=== PATIENT | male | born 1930 | race Caucasian/White ===

== ENCOUNTER 2017-04-19 17:05 | Inpatient (IN) | payer MEDICARE ==
[~2017-04-19] VITALS: Ht 182.9 cm; Wt 81.9 kg
[~2017-04-19 17:05] MED LIST: ACET325T9 PO; ASPI-630 PO; BISA10SU13 RC; BRIM5DRO2 OU; CETI10TA22 PO; CHOL2000 PO; CYAN10005 PO; DOCU-109 PO; DONE10TA7 PO; FINA5TAB PO; FOLI1TAB16 PO; HYDR25CA75 PO; LISI-334 PO; MAG30ORA PO; MAGN2400 PO; MEDR2.5T PO; METH29OI TP; MIRT15TA3 PO; OLAN5TAB5 PO; POLY17PO5 PO; QUET25TA PO; SIMV10TA3 PO; THIA100T8 PO; TRAM-48 PO; TRAZ50TA15 PO
[2017-04-19] MEDS ORDERED: diphenhydrAMINE 50 MG/ML VIAL IM ONE (18:00)
[2017-04-19] MEDS ORDERED: LORazepam 2 MG/ML VIAL IM ONE (18:00)
--- NOTE | 2017-04-19 18:12 | ED.ADGEN ---
Past History Past Medical History: Dementia, Other Past Surgical History: No Surgical History Alcohol Use: None Drug Use: None Adult General Chief Complaint Chief Complaint "Get out of here... " Get out of here" HPI HPI Patient is a 87 year old male who presents with hx.of disruptive behavior, more aggressive, striking staff and other patients, non-compliant, impossible to re- direct, taking off his clothes, exacerbation of his chronic dementia. Pt. [facility]. Hx. also of Elevated cholesterol, glaucoma , insomnia, Congenital Iodine def. , HTN, PE and DVT, enlarge prostate, constipation, generalized deconditioning, Seizure disorder, Anemia, Hematuria and DJD. Pt. follows with Dr. Alphonse Ramos . ` Review of Systems Review of Systems Constitutional: Denies fever or chills [] Eyes: Denies change in visual acuity, redness, or eye pain [] HENT: Denies nasal congestion or sore throat [] Respiratory: Denies cough or shortness of breath [] Cardiovascular: No additional information not addressed in HPI [] GI: Denies abdominal pain, nausea, vomiting, bloody stools or diarrhea [] : Denies dysuria or hematuria [] Musculoskeletal: Denies back pain or joint pain [] Integument: Denies rash or skin lesions [] Neurologic: Denies headache, focal weakness or sensory changes [] Endocrine: Denies polyuria or polydipsia [] All other systems were reviewed and found to be within normal limits, except as documented in this note. Family History Family History Not currently avialable Current Medications Current Medications Current Medications Medications (Trade) Dose Ordered Sig/José Start Time Stop Time Status Last Admin Dose Admin Diphenhydramine HCl (Benadryl) 50 mg 1X ONCE 04/19/17 18:00 04/19/17 18:01 DC 04/19/17 18:00 50 MG Folic Acid 5 mg STK-MED ONCE 04/19/17 20:56 04/19/17 20:57 DC Lactated Ringer's 1,000 ml @ 1,000 mls/hr Q1H 04/19/17 18:15 Lorazepam (Ativan) 2 mg 1X ONCE 04/19/17 18:00 04/19/17 18:01 DC 04/19/17 18:00 2 MG Multivitamins/ Minerals 10 ml/ Folic Acid 1 mg/ Thiamine HCl 100 mg/Sodium Chloride 1,011.1 ml @ 1,000 mls/ hr 1X ONCE 04/19/17 19:30 04/19/17 20:30 DC 04/19/17 19:30 1,000 MLS/HR Olanzapine (ZyPREXA IM) 10 mg 1X ONCE 04/19/17 18:30 04/19/17 18:31 DC 04/19/17 18:30 10 MG Phytonadione (Vitamin K) 10 mg STK-MED ONCE 04/19/17 20:55 04/19/17 20:56 DC Thiamine HCl 200 mg STK-MED ONCE 04/19/17 20:55 04/19/17 20:56 DC See Nursing Allergies Allergies Allergies Coded Allergies Type Severity Reaction Last Updated Verified No Known Drug Allergies 11/12/14 No Physical Exam Physical Exam Constitutional: in acute emotional distress, very agitated in appearance. Hitting staff. Will not re-direct. HENT: Normocephalic, atraumatic, bilateral external ears normal, oropharynx moist, no oral exudates, nose normal. [] Eyes: PERRLA, EOMI, conjunctiva normal, no discharge. [] Neck: Normal range of motion, no tenderness, supple, no stridor. [] Cardiovascular:Tachycardia rate regular rhythm, no murmur [] Lungs & Thorax: Bilateral breath sounds clear to auscultation [] Abdomen: Bowel sounds normal, soft, no tenderness, no masses, no pulsatile masses. [] Skin: Warm, dry, no erythema, no rash. Poor turgor. Back: No tenderness, no CVA tenderness. [] Extremities: No tenderness, no cyanosis, no clubbing, ROM intact, no edema. [] Arthritic changes. Neurologic: Alert and oriented X 3, normal motor function, normal sensory function, no focal deficits noted. [] Psychologic: Affect angry and agitated, , judgement lacks insight, mood depressed. Current Patient Data Vital Signs Vital Signs Date Time Temp Pulse Resp B/P (MAP) Pulse Ox O2 Delivery O2 Flow Rate FiO2 04/19/17 21:20 84 93 04/19/17 21:12 18 100/37 (58) 04/19/17 17:30 98.3 Lab Results Laboratory Tests Test 04/19/17 18:41 04/19/17 20:11 White Blood Count 10.3 x10^3/uL (4.0-11.0) Red Blood Count 3.99 x10^6/uL (4.30-5.70) L Hemoglobin 11.5 g/dL (13.0-17.5) L Hematocrit 34.1 % (39.0-53.0) L Mean Corpuscular Volume 85 fL (79-100) Mean Corpuscular Hemoglobin 29 pg (25-35) Mean Corpuscular Hemoglobin Concent 34 g/dL (31-37) Red Cell Distribution Width 16.5 % (11.5-14.5) H Platelet Count 246 x10^3/uL (140-400) Neutrophils (%) (Auto) 70 % (31-73) Lymphocytes (%) (Auto) 17 % (24-48) L Monocytes (%) (Auto) 10 % (0-9) H Eosinophils (%) (Auto) 2 % (0-3) Basophils (%) (Auto) 1 % (0-3) Neutrophils # (Auto) 7.2 x10^3uL (1.8-7.7) Lymphocytes # (Auto) 1.8 x10^3/uL (1.0-4.8) Monocytes # (Auto) 1.1 x10^3/uL (0.0-1.1) Eosinophils # (Auto) 0.2 x10^3/uL (0.0-0.7) Basophils # (Auto) 0.1 x10^3/uL (0.0-0.2) Erythrocyte Sedimentation Rate 15 (0-15) Prothrombin Time 11.9 SEC (9.4-11.4) H Prothrombin Time INR 1.2 (0.9-1.1) H PTT 27 SEC (23-33) Sodium Level 145 mmol/L (136-145) Potassium Level 4.3 mmol/L (3.5-5.1) Chloride Level 106 mmol/L (98-107) Carbon Dioxide Level 28 mmol/L (21-32) Anion Gap 11 (6-14) Blood Urea Nitrogen 57 mg/dL (8-26) H Creatinine 2.3 mg/dL (0.7-1.3) H Estimated GFR (Cockcroft-Gault) 26.9 Glucose Level 112 mg/dL (70-99) H Calcium Level 9.4 mg/dL (8.5-10.1) Magnesium Level 2.3 mg/dL (1.8-2.4) Troponin I Quantitative 0.093 ng/mL (0-0.055) H Urine Collection Type U cath Urine Color Lizbet Urine Clarity Hazy Urine pH 5.5 Urine Specific [place] 1.025 Urine Protein 100 mg/dl (NEG-TRACE) Urine Glucose (UA) Neg mg/dL (NEG) Urine Ketones (Stick) Neg mg/dL (NEG) Urine Blood Large (NEG) Urine Nitrite Neg (NEG) Urine Bilirubin Neg (NEG) Urine Urobilinogen Dipstick 0.2 mg/dL (0.2 mg/dL) Urine Leukocyte Esterase Neg (NEG) Urine RBC Tntc /HPF (0-2) Urine WBC 0 /HPF (0-4) Urine Squamous Epithelial Cells None /LPF Urine Bacteria 0 /HPF (0-FEW) Urine Opiates Screen Pos (NEG) Urine Methadone Screen Neg (NEG) Urine Barbiturates Neg (NEG) Urine Phencyclidine Screen Neg (NEG) Urine Amphetamine/Methamphetamine Neg (NEG) Urine Benzodiazepines Screen Neg (NEG) Urine Cocaine Screen Neg (NEG) Urine Cannabinoids Screen Neg (NEG) Urine Ethyl Alcohol Neg (NEG) EKG EKG I interpretation of EKG shows a A. fib with ventricular tachycardia 103 bpm. Is a regular rhythm[] Radiology/Procedures Radiology/Procedures []CT head shows encephalomalacia from prior left occipital infarct. Does have chronic changes and atrophy. Findings of dictation of chest x-ray shows COPD type pattern. Course & Med Decision Making Course & Med Decision Making Pertinent Labs and Imaging studies reviewed. (See chart for details)- Discussed presentation, testing and tx. plan with Dr. Holguin- Admit to Dr. Watkins at [facility], she will follow the medical issues. [] Final Impression Final Impression 1. Mental Status Change 2. Aggressive Behavior[] 3. Anemia 4. Elevated Trop. 5. Elevated Creat and Bun 6. Demential 7. Hx. Congenital Iodine Def. 8. Hx. HTN 9. COPD 10. History of old CVAs Problems: Dragon Disclaimer Dragon Disclaimer This electronic medical record was generated, in whole or in part, using a voice recognition dictation system. AARON JC MD Apr 19, 2017 18:12
[2017-04-19] MEDS ORDERED: IV RINGERS SOLUTION,LACTATED 1,000 ML IV SCH (18:15)
[2017-04-19] MEDS ORDERED: OLANZapine IM 10 MG VIAL. IM ONE (18:30)
[2017-04-19 19:02] LABS: BASO # 0.1 x10^3/uL (0.0-0.2); BASO % 1 % (0-3); EOS # 0.2 x10^3/uL (0.0-0.7); EOS % 2 % (0-3); HEMATOCRIT 34.1 % (39.0-53.0); HEMOGLOBIN 11.5 g/dL (13.0-17.5); LYMPH # 1.8 x10^3/uL (1.0-4.8); LYMPH % 17 % (24-48); MEAN CORPUSCULAR HEMOGLOBIN 29 pg (25-35); MEAN CORPUSCULAR HGB CONC 34 g/dL (31-37); MEAN CORPUSCULAR VOLUME 85 fL (79-100); MONO # 1.1 x10^3/uL (0.0-1.1); MONO % 10 % (0-9); NEUT # 7.2 x10^3uL (1.8-7.7); NEUT % 70 % (31-73); PLATELET COUNT 246 x10^3/uL (140-400); RED BLOOD COUNT 3.99 x10^6/uL (4.30-5.70); RED CELL DISTRIBUTION WIDTH 16.5 % (11.5-14.5); WHITE BLOOD COUNT 10.3 x10^3/uL (4.0-11.0)
[2017-04-19 19:10] LABS: CALCIUM 9.4 mg/dL (8.5-10.1); CREATININE 2.3 mg/dL (0.7-1.3); GFR 26.9; MAGNESIUM 2.3 mg/dL (1.8-2.4); POTASSIUM 4.3 mmol/L (3.5-5.1)
--- NOTE | 2017-04-19 19:22 | RAD ---
CT Head W/O Contrast: History: [id number] Mental status changes, combative, confused tonight. No priors. Comparison: none Axial images were obtained without contrast. There is marked diffuse atrophy. There is no mass effect, extraaxial fluid collections or hydrocephalus. There is no gross bleed. Minimal, patchy periventricular and subcortical white matter hypoattenuation is seen. There is encephalomalacia in the left occipital lobe consistent with an old stroke. There is no focal loss of zavala-white matter distinction to suggest acute ischemia, i.e. stroke. 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 No acute findings. PQRS Compliance Statement: One or more of the following individualized dose reduction techniques were utilized for this examination: 1. Automated exposure control 2. Adjustment of the mA and/or kV according to patient size 3. Use of iterative reconstruction technique Electronically signed by: Major Swift III, MD (04/19/2017 7:18 PM) [facility]
[2017-04-19] MEDS ORDERED: MVI, ADULT NO.4 WITH VIT K 10 ML, FOLIC ACID SYRINGE for ER 1 MG, THIAMINE 100 MG in IV... IV ONE ×4 (19:30)
[2017-04-19 20:40] LABS: BARBITURATES NEG (NEG); BENZODIAZEPINES NEG (NEG); BILIRUBIN,URINE NEG (NEG); CANNABINOIDS NEG (NEG); CLARITY,URINE HAZY; COCAINE NEG (NEG); COLOR,URINE AMBER; GLUCOSE,URINE NEG (NEG); METHADONE NEG (NEG); OPIATES POS (NEG); PHENCYCLIDINE NEG (NEG)
[2017-04-19 20:42] LABS: NITRITE,URINE NEG (NEG); UROBILINOGEN,URINE 0.2 mg/dL (0.2 mg/dL)
[2017-04-19 20:43] LABS: BACTERIA,URINE 0 /HPF (0-FEW); RBC,URINE TNTC /HPF (0-2); WBC,URINE 0 /HPF (0-4)
[2017-04-19 20:45] LABS: AMPHETAMINE/METHAMPHETAMINE NEG (NEG)
[2017-04-19] MEDS ORDERED: THIAMINE 200 MG/2 ML VIAL. IV ONE (20:55)
[2017-04-19] MEDS ORDERED: PHYTONADIONE 10 MG/ML AMPUL. ONE (20:55)
[2017-04-19] MEDS ORDERED: FOLIC ACID 5 MG/ML SYRINGE for ER IV ONE (20:56)
[2017-04-19] MEDS ORDERED: FERR-26 PO (23:04)
[2017-04-19] MEDS ORDERED: QUET100T4 PO (23:04)
[2017-04-19] MEDS ORDERED: DICL100G18 TP (23:04)
[2017-04-19] MEDS ORDERED: TAMS0.4C97 PO (23:04)
[2017-04-19] MEDS ORDERED: MAGN400O7 PO (23:04)
[2017-04-19] MEDS ORDERED: ACET500T68 PO (23:04)
[2017-04-19] MEDS ORDERED: QUET50TA5 PO (23:04)
[2017-04-19] MEDS ORDERED: TRIA15CR3 TP (23:25)
[2017-04-19] MEDS ORDERED: MAG30ORA2 PO (23:25)
[2017-04-19] MEDS ORDERED: hydrOXYzine PAMOATE 25 MG CAPSULE PO PRN (23:30)
[2017-04-19 23:41] VITALS: BP 153/71
[2017-04-20 05:51] VITALS: BP 123/62
[2017-04-20] MEDS ORDERED: METHYL SALICYLATE/MENTHOL TOPICAL OINTMENT 29GM TUBE. TP PRN (07:45)
[2017-04-20] MEDS ORDERED: MAGNESIUM HYDROXIDE 2,400 MG/30 ML ORAL.SUSP. PO PRN (07:45)
[2017-04-20] MEDS ORDERED: DICLOFENAC SODIUM 1% TOPICAL GEL 100GM TUBE. TP PRN (07:45)
[2017-04-20] MEDS ORDERED: traMADol 50 MG TABLET PO PRN (07:45)
[2017-04-20] MEDS ORDERED: TRIAMCINOLONE ACETONIDE 0.1% TOPICAL CREAM 15GM TUBE. TP PRN (07:45)
[2017-04-20] MEDS ORDERED: MAG HYDROX/AL HYDROX/SIMETH 30 ML ORAL.SUSP PO PRN (07:45)
--- NOTE | 2017-04-20 08:10 | RAD ---
Single view of the Chest 04/19/2017 8:07 PM Indication: cough Comparison: None Findings: There is no focal consolidation or infiltrate identified. There is no effusion or pneumothorax. The aorta is calcified and mildly tortuous. Heart size is top normal. No acute bony changes are identified. Impression: No evidence of acute cardiopulmonary process.
[2017-04-20] MEDS: DOCUSATE SODIUM 100 MG CAPSULE PO SCH ×2 (09:35→20:51)
[2017-04-20] MEDS: POLYETHYLENE GLYCOL 3350 17 GM PACKET. PO SCH (09:35)
[2017-04-20] MEDS: CYANOCOBALAMIN (VITAMIN B-12) 1,000 MCG TABLET. PO SCH (09:36)
[2017-04-20] MEDS: DONEPEZIL HCL 10 MG TABLET PO SCH (09:36)
[2017-04-20] MEDS: FOLIC ACID 1 MG TABLET PO SCH (09:36)
[2017-04-20] MEDS: FINASTERIDE 5 MG TABLET PO SCH (09:36)
[2017-04-20] MEDS: FERROUS SULFATE 325 MG TABLET. PO SCH ×2 (09:36→20:51)
[2017-04-20] MEDS: CHOLECALCIFEROL (VITAMIN D3) 1,000 UNIT TABLET PO SCH (09:36)
[2017-04-20] MEDS: THIAMINE 100 MG TABLET. PO SCH (09:36)
[2017-04-20] MEDS: QUEtiapine 50 MG TABLET. PO SCH (09:37)
[2017-04-20] MEDS: ASPIRIN 81 MG TAB.CHEW PO SCH (09:40)
[2017-04-20] MEDS: BRIMONIDINE 0.2% OPHTH SOLUTION 5ML BOTTLE. OU SCH ×2 (09:40→21:00)
[2017-04-20] MEDS: TIMOLOL 0.5% OPHTH SOLUTION 5ML BOTTLE. OU SCH ×2 (09:40→21:00)
--- NOTE | 2017-04-20 10:47 | EKG ---
[address] [address] Test Date: 2017-04-19 Test Time: 18:53:12 Pat Name: [address] Department: Room: [facility] 1 Gender: M Mail Manager: DANNA : 1930 Requested By: AARON JC Order Number: [id number] Reading MD: Broderick Marroquin MD Measurements Intervals [place] Rate: 103 P: WI: QRS: 36 QRSD: 88 T: 2 QT: 376 QTc: 495 Interpretive Statements ATRIAL FIBRILLATION WITH RVR NON-SPECIFIC ST/T CHANGES Electronically Signed On 04-27-2017 13:55:25 SALES CORRESPONDENT by Broderick Marroquin MD
[2017-04-20 10:59] LABS: ALBUMIN 3.2 g/dL (3.4-5.0); ALBUMIN/GLOBULIN RATIO 0.8 (1.0-1.7); CALCIUM 9.3 mg/dL (8.5-10.1); CREATININE 2.1 mg/dL (0.7-1.3); GFR 29.9; POTASSIUM 4.7 mmol/L (3.5-5.1); TOTAL BILIRUBIN 0.7 mg/dL (0.2-1.0); TOTAL PROTEIN 7.2 g/dL (6.4-8.2)
[2017-04-20] MEDS: PRENATAL MULTIVITAMIN TABLET. PO SCH (16:50)
[2017-04-20] MEDS: IV DEXTROSE 5% 1,000 ML IV SCH (18:06)
--- NOTE | 2017-04-20 19:09 | HP ---
ADMIT DATE: 04/19/2017 [facility] REASON FOR ADMISSION TO [facility]: This is an 87-year-old gentleman, who came from [facility] where he has resided since 2014. Apparently on 04/18/2017, he was taking off his clothes more aggressive with cares, threatening to hit, hitting and bothering staff, noncompliant with care. Onset of symptoms, end of March. He has also been requiring one-to-one. PAST MEDICAL HISTORY: Dementia, unspecified; glaucoma; severe hearing loss; insomnia; iodine deficiency; hypertension; history of DVT; bilateral lower extremities; BPH; and some type of anemia. MEDICATIONS: Reviewed, available on the MAR. ALLERGIES: None. SOCIAL HISTORY: Unknown. He resides in a [facility]. The patient really refused to answer any questions and even when I was using the pocket talker would not answer me with any questions. He did tell me that he was 70 years old. REVIEW OF SYSTEMS: The patient complains of being cold. SOCIAL HISTORY: Smoking and alcohol unknown. OBJECTIVE: VITAL SIGNS: Blood pressure 123/62, pulse 73, temperature 98.2, pulse ox 95% on room air. Height 72 inches, weight 179.44 pounds. GENERAL: The patient is seated in a wheelchair. He is awake and complaining of being cold. Color is pale. HEENT: Hearing is impaired. Vision also impaired, but would not let me examine his eyes, would not let me look at his tongue. CARDIOVASCULAR: Regular rhythm and rate. LUNGS: Clear. EXTREMITIES: Without edema. NEUROLOGIC: The patient would not cooperate with neurologic exam and stated to get me out of here. LABORATORY DATA: Hemoglobin 11.5, hematocrit 34.1. Chemistry: Sodium 146, chloride 110, BUN 50, creatinine of 2.1. Iron 26. B12 greater than 2000. Vitamin D is normal. ASSESSMENT: Acute renal failure, which has improved with some IV fluids. Hypernatremia secondary to dehydration. Iron deficiency. PLAN: Should get a liter of D5W and replace his iron. Follow along with Dr. Watkins. AL MUÑOZ DO DR: KEVIN/brian JOB#: [id number] / [id number]
[2017-04-20 20:07] LABS: THYROXINE 6.9 ug/dL (4.5-12.0)
[2017-04-20] MEDS: traZODone 50 MG TABLET. PO SCH (20:50)
[2017-04-20] MEDS: MIRTAZAPINE 15 MG TABLET PO SCH (20:51)
[2017-04-20] MEDS: SIMVASTATIN 20 MG TABLET PO SCH (20:51)
[2017-04-20] MEDS: TAMSULOSIN 0.4 MG CAP.ER.24H. PO SCH (20:51)
[2017-04-20] MEDS: QUEtiapine 100 MG TABLET. PO SCH (20:51)
--- NOTE | 2017-04-20 22:04 | PDOC ---
Exam Note: Chase Note: Please also refer to the separate dictated note~for this date of service dictated separately.~Patient seen individually. Discussed the patient with Nursing staff reviewed the chart.~Reviewed interim history and current functioning. Reviewed vital signs,~Labs/ Radiology~and current medications noted below. Continue current treatment with the changes noted in the dictated addendum note Assessment: Vital Signs: Vital Signs Date Time Temp Pulse Resp B/P (MAP) Pulse Ox O2 Delivery O2 Flow Rate FiO2 04/20/17 16:03 98.0 96 18 98 04/20/17 05:51 123/62 (82) 04/19/17 22:18 Room Air I&O Intake and Output 04/20/17 07:00 Intake Total 1011.1 ml Balance 1011.1 ml IV Total 1011.1 ml Labs: Laboratory Tests Test 04/20/17 10:17 Sodium Level 146 mmol/L (136-145) H Potassium Level 4.7 mmol/L (3.5-5.1) Chloride Level 110 mmol/L (98-107) H Carbon Dioxide Level 27 mmol/L (21-32) Anion Gap 9 (6-14) Blood Urea Nitrogen 50 mg/dL (8-26) H Creatinine 2.1 mg/dL (0.7-1.3) H Estimated GFR (Cockcroft-Gault) 29.9 BUN/Creatinine Ratio 24 (6-20) H Glucose Level 95 mg/dL (70-99) Calcium Level 9.3 mg/dL (8.5-10.1) Total Bilirubin 0.7 mg/dL (0.2-1.0) Aspartate Amino Transferase (AST) 20 U/L (15-37) Alanine Aminotransferase (ALT) 23 U/L (16-63) Alkaline Phosphatase 109 U/L (46-116) Total Protein 7.2 g/dL (6.4-8.2) Albumin 3.2 g/dL (3.4-5.0) L Albumin/Globulin Ratio 0.8 (1.0-1.7) L Current Medications: Meds: Current Medications Diphenhydramine HCl (Benadryl) 50 mg 1X ONCE IM Last administered on t 18:00; Start 04/19/17 at 18:00; Stop 04/19/17 at 18:01; Status DC Lorazepam (Ativan) 2 mg 1X ONCE IM Last administered on 04/19/17 18:00; Start 04/19/17 at 18:00; Stop 04/19/17 at 18:01; Status DC Olanzapine (ZyPREXA IM) 10 mg 1X ONCE IM Last administered on 04/19/17 18:30 ; Start 04/19/17 at 18:30; Stop 04/19/17 at 18:31; Status DC Lactated Ringer's 1,000 ml @ 1,000 mls/hr Q1H IV ; Start 04/19/17 at 18:15 Multivitamins/ Minerals 10 ml/ Folic Acid 1 mg/ Thiamine HCl 100 mg/Sodium Chloride 1,011.1 ml @ 1,000 mls/ hr 1X ONCE IV Last administered on 19:30; Start 04/19/17 at 19:30; Stop 04/19/17 at 20:30; Status DC Phytonadione (Vitamin K) 10 mg STK-MED ONCE .ROUTE ; Start 04/19/17 at 20:55; Stop 04/19/17 at 20:56; Status DC Thiamine HCl 200 mg STK-MED ONCE IV ; Start 04/19/17 at 20:55; Stop 04/19/17 at 20:56; Status DC Folic Acid 5 mg STK-MED ONCE IV ; Start 04/19/17 at 20:56; Stop 04/19/17 at 20 :57; Status DC Donepezil HCl (Aricept) 10 mg DAILY PO Last administered on 04/20/17 09:36; Start 04/20/17 at 09:00 Hydroxyzine Pamoate (Vistaril) 25 mg PRN Q2HR PRN PO AGITAT; Start 04/19/17 at 23:30 Medroxyprogesterone Acetate (Provera) 2.5 mg DAILY PO Last administered on 09:37; Start 04/20/17 at 09:00 Mirtazapine (Remeron) 15 mg QHS PO Last administered on 04/20/17 20:51; Start 04/20/17 at 21:00 Olanzapine (ZyPREXA ZYDIS) 2.5 mg PRN Q2HR PRN PO ANXIETY / AGITATION Last administered on 04/20/17 16:39; Start 04/19/17 at 23:30 Quetiapine Fumarate (SEROquel) 75 mg DAILY PO Last administered on 04/20/17 09:37; Start 04/20/17 at 09:00 Quetiapine Fumarate (SEROquel) 100 mg QHS PO Last administered on 04/20/17 20 :51; Start 04/20/17 at 21:00 Trazodone HCl (Desyrel) 75 mg QHS PO Last administered on 04/20/17 20:50; Start 04/20/17 at 21:00 Acetaminophen (Tylenol) 1,000 mg PRN Q8HRS PRN PO PAIN; Start 04/20/17 at 07: 45 Aspirin (Children'S Aspirin) 81 mg DAILY PO Last administered on 04/20/17 09: 40; Start 04/20/17 at 09:00 Cyanocobalamin (Vitamin B-12) 1,000 mcg DAILY PO Last administered on 09:36; Start 04/20/17 at 09:00 Diclofenac Sodium (Voltaren) 4 amelia PRN Q6HRS PRN TP PAIN; Start 04/20/17 at 07 :45 Docusate Sodium (Colace) 200 mg BID PO Last administered on 04/20/17 20:51; Start 04/20/17 at 09:00 Ferrous Sulfate (Feosol) 325 mg BID PO Last administered on 04/20/17 20:51; Start 04/20/17 at 09:00 Finasteride (Proscar) 5 mg DAILY PO Last administered on 04/20/17 09:36; Start 04/20/17 at 09:00 Folic Acid (Folic Acid) 1 mg DAILY PO Last administered on 04/20/17 09:36; Start 04/20/17 at 09:00 Al Hydroxide/Mg Hydroxide (Mylanta Plus Xs) 15 ml PRN QHS PRN PO INDIGESTION; Start 04/20/17 at 07:45 Magnesium Hydroxide (Milk Of Magnesia) 800 mg PRN Q24HRS PRN PO CONSTIPATION; Start 04/20/17 at 07:45 Multi-Ingredient Ointment (Analgesic Cozad) 1 amelia PRN QID PRN TP muscle pain; Start 04/20/17 at 07:45 Polyethylene Glycol (miraLAX) 17 gm DAILY PO Last administered on 04/20/17 09 :35; Start 04/20/17 at 09:00 Simvastatin (Zocor) 20 mg HS PO Last administered on 04/20/17 20:51; Start 04/20/17 at 21:00 Tamsulosin HCl (Flomax) 0.4 mg QHS PO Last administered on 04/20/17 20:51; Start 04/20/17 at 21:00 Thiamine HCl (Vitamin B-1) 100 mg DAILY PO Last administered on 04/20/17 09: 36; Start 04/20/17 at 09:00 Tramadol HCl (Ultram) 50 mg PRN Q6HRS PRN PO PAIN; Start 04/20/17 at 07:45 Triamcinolone Acetonide (Kenalog) 15 amelia PRN BID PRN TP RASH; Start 04/20/17 at 07:45 Brimonidine Tartrate (Alphagan) 1 drop BID OU Last administered on 04/20/17 09:40; Start 04/20/17 at 09:00 Vitamin D (Vitamin D3) 2,000 unit DAILY PO Last administered on 04/20/17 09: 36; Start 04/20/17 at 09:00 Timolol Maleate (Timoptic 0.5% [facility]) 1 drop BID OU Last administered on 09:40; Start 04/20/17 at 09:00 Dextrose 1,000 ml @ 100 mls/hr Q10H IV Last administered on 04/20/17 18:06; Start 04/20/17 at 16:15 Prenat Multivit/ [place]/Iron/Folic Ac (Multivitamin ) 1 tab DAILYBFRSUP PO ; Start 04/20/17 at 17:00 Active Scripts Active Reported Mag-Al Plus Xs Suspension (Mag Hydrox/Al Hydrox/Simeth) 30 Ml Oral.susp 15 Ml PO PRN QHS PRN Triamcinolone Acetonide 15 Gm Cream..g. 15 Gm TP PRN BID PRN Voltaren (Diclofenac Sodium) 100 Gm Gel..gram. 4 Gm TP PRN Q6HRS Acetaminophen 500 Mg Tablet 1,000 Mg PO PRN Q8HRS PRN Seroquel (Quetiapine Fumarate) 100 Mg Tablet 100 Mg PO QHS Seroquel (Quetiapine Fumarate) 50 Mg Tablet 75 Mg PO DAILY Milk Of Magnesia (Magnesium Hydroxide) 400 Mg/5 Ml Oral.susp 800 Mg PO PRN Q24HRS PRN Flomax (Tamsulosin Hcl) 0.4 Mg Cap.er.24h 0.4 Mg PO QHS Ferrous Sulfate 325 Mg Tablet 325 Mg PO BID Provera (Medroxyprogesterone Acetate) 2.5 Mg Tablet 1 Tab PO DAILY Trazodone Hcl 50 Mg Tablet 75 Mg PO QHS Zyprexa Zydis (Olanzapine) 5 Mg Tab.rapdis 2.5 Mg PO PRN Q2HR PRN Analgesic Cozad (Methyl Salicylate/Menthol) 29 Gm Oint...g. 1 Amelia TP PRN QID PRN Hydroxyzine Pamoate 25 Mg Capsule 25 Mg PO PRN Q2HR PRN Donepezil Hcl 10 Mg Tablet 10 Mg PO DAILY Vitamin B-12 (Cyanocobalamin (Vitamin B-12)) 1,000 Mcg Tablet 1,000 Mcg PO DAILY Vitamin D (Cholecalciferol (Vitamin D3)) 2,000 Unit Capsule 2,000 Unit PO DAILY Ultram (Tramadol HCl) 50 Mg Tablet 50 Mg PO PRN Q6HRS PRN Thiamine Hcl 100 Mg Tablet 100 Mg PO DAILY Simvastatin 10 Mg Tablet 20 Mg PO DAILY Mirtazapine 15 Mg Tablet 15 Mg PO QHS Proscar (Finasteride) 5 Mg Tablet 5 Mg PO DAILY Miralax (Polyethylene Glycol 3350) 17 Gm Powd.pack 17 Gm PO DAILY Folic Acid 1 Mg Tablet 1 Mg PO DAILY Combigan Eye Drops (Brimonidine Tartrate/Timolol) 5 Ml Drops 1 Drop OU BID Colace (Docusate Sodium) 100 Mg Capsule 200 Mg PO BID Aspirin 81 Mg Tab.chew 81 Mg PO DAILY I have reviewed the current psychotropics carefully including drug interactions. Risk benefit ratio favors no change other than as noted in my dictated progress note. Diagnosis: Problems: (1) Dementia (2) Psychiatric care (3) Psychiatric complaint ELBA DEY MD Apr 20, 2017 22:04
--- NOTE | 2017-04-20 23:47 | HP ---
ADMIT DATE: 04/20/2017 PSYCHIATRIC ADMISSION HISTORY/EVALUATION This note covers elements not covered in my initial note of 04/20/2017. IDENTIFYING DATA: The patient is an 87-year-old male referred to us from [facility] by his primary care physician and nurse practitioner, Shital Oh, on account of worsening confusion, disrobing, hitting, kicking staff, noncompliant with cares. On 04/18/2017, the patient reportedly took off his clothes in the hallway. He has been more aggressive. Symptoms have been worsening over the past 2-3 weeks. Changes have been attempted in his psychotropic medications including the addition of p.r.n. medications. He has been on one-on-one status due to his dangerous, out of control behaviors and failure of outpatient psychiatric interventions resulting in this referral for inpatient psychiatric stabilization. CHIEF COMPLAINT: "Go away." HISTORY OF PRESENT ILLNESS: The patient has a history of dementia of Alzheimer's vascular type. He has been residing at [facility] for some time, but over the past couple of weeks, behaviors have been escalating. He has been agitative, aggressive, disruptive, appeared psychotic even more confused, but he has had sleep and appetite changes with a drop in his food and fluid intake. No clear symptoms of bipolar disorder, suicidal, or homicidal ideation. PAST PSYCHIATRIC HISTORY: As noted above. 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 He is also hard of hearing, has a history of benign prostatic hypertrophy, old CVA on CT head. Accu-Cheks none. CODE STATUS: DNR. DRUG ALLERGIES: Negative. DIET: Regular, takes his medications crushed and hidden. CURRENT PSYCHOTROPICS: MRAD was reviewed and as noted in my initial note. FAMILY HISTORY: Noncontributory. SOCIAL HISTORY: No alcohol or drug abuse. No physical, sexual, or elder abuse. He is not known to be a perpetrator. MENTAL STATUS EXAMINATION: The patient was seen individually evening of 04/20/2017. He is oriented to himself, up and down in his wheelchair, refusing to eat, not very verbal, paranoid, suspicious. Insight, judgment, recent and remote memory, attention, concentration, fund of knowledge poor, consistent with his diagnosis. IMPRESSION: Major neurocognitive disorder, Alzheimer's, vascular with depression, delusion, behavioral disturbance; anxiety disorder, unspecified; impulse control disorder, unspecified; dehydration. Rest as above. PLAN: Admit to Geropsychiatry Unit at [facility]. I will see the patient daily individually from a psychiatric standpoint. Medical followup per Dr. Holguin/Dr. Saeed. Continue the patient on his current psychotropics. At the time I met with the patient, IV fluid had been started, otherwise dehydration per Dr. Holguin. We will make further changes in his psychotropics post baseline assessment. MAN Corey DEY MD DR: ABBY/brian JOB#: [id number] / [id number]
[2017-04-21 01:07] LABS: HEMOGLOBIN A1C 5.6 % (4.8-5.6)
[2017-04-21] MEDS: IV DEXTROSE 5% 1,000 ML IV SCH ×3 (02:15→22:15)
[2017-04-21 06:15] VITALS: BP 107/72
[2017-04-21 09:33] LABS: BASO # 0.1 x10^3/uL (0.0-0.2); BASO % 1 % (0-3); EOS # 0.2 x10^3/uL (0.0-0.7); EOS % 2 % (0-3); HEMATOCRIT 34.3 % (39.0-53.0); HEMOGLOBIN 11.3 g/dL (13.0-17.5); LYMPH # 1.5 x10^3/uL (1.0-4.8); LYMPH % 16 % (24-48); MEAN CORPUSCULAR HEMOGLOBIN 28 pg (25-35); MEAN CORPUSCULAR HGB CONC 33 g/dL (31-37); MEAN CORPUSCULAR VOLUME 85 fL (79-100); MONO # 0.9 x10^3/uL (0.0-1.1); MONO % 9 % (0-9); NEUT # 6.8 x10^3uL (1.8-7.7); NEUT % 72 % (31-73); PLATELET COUNT 232 x10^3/uL (140-400); RED BLOOD COUNT 4.04 x10^6/uL (4.30-5.70); RED CELL DISTRIBUTION WIDTH 16.1 % (11.5-14.5); WHITE BLOOD COUNT 9.5 x10^3/uL (4.0-11.0)
[2017-04-21 09:51] LABS: ALBUMIN 3.4 g/dL (3.4-5.0); ALBUMIN/GLOBULIN RATIO 0.9 (1.0-1.7); CALCIUM 9.6 mg/dL (8.5-10.1); GFR 31.6; MAGNESIUM 2.2 mg/dL (1.8-2.4); POTASSIUM 3.7 mmol/L (3.5-5.1); TOTAL BILIRUBIN 0.8 mg/dL (0.2-1.0); TOTAL PROTEIN 7.4 g/dL (6.4-8.2)
[2017-04-21] MEDS: DOCUSATE SODIUM 100 MG CAPSULE PO SCH ×2 (10:56→20:55)
[2017-04-21] MEDS: CHOLECALCIFEROL (VITAMIN D3) 1,000 UNIT TABLET PO SCH (10:57)
[2017-04-21] MEDS: DONEPEZIL HCL 10 MG TABLET PO SCH (10:57)
[2017-04-21] MEDS: FERROUS SULFATE 325 MG TABLET. PO SCH ×2 (10:57→20:55)
[2017-04-21] MEDS: CYANOCOBALAMIN (VITAMIN B-12) 1,000 MCG TABLET. PO SCH (10:57)
[2017-04-21] MEDS: THIAMINE 100 MG TABLET. PO SCH (10:57)
[2017-04-21] MEDS: ASPIRIN 81 MG TAB.CHEW PO SCH (10:57)
[2017-04-21] MEDS: FOLIC ACID 1 MG TABLET PO SCH (10:57)
[2017-04-21] MEDS: FINASTERIDE 5 MG TABLET PO SCH (10:57)
[2017-04-21] MEDS: QUEtiapine 50 MG TABLET. PO SCH (10:58)
[2017-04-21] MEDS: POLYETHYLENE GLYCOL 3350 17 GM PACKET. PO SCH (10:59)
[2017-04-21] MEDS: TIMOLOL 0.5% OPHTH SOLUTION 5ML BOTTLE. OU SCH ×2 (11:11→20:57)
[2017-04-21] MEDS: BRIMONIDINE 0.2% OPHTH SOLUTION 5ML BOTTLE. OU SCH ×2 (11:11→20:57)
[2017-04-21] MEDS: IV NORMAL SALINE 1,000ML 1,000 ML IV SCH ×2 (16:08→22:45)
[2017-04-21 16:25] VITALS: BP 102/67
[2017-04-21] MEDS: PRENATAL MULTIVITAMIN TABLET. PO SCH (18:15)
--- NOTE | 2017-04-21 20:04 | PDOC ---
Exam Note: [place] Note: Please also refer to the separate dictated note~for this date of service dictated separately.~Patient seen individually. Discussed the patient with Nursing staff reviewed the chart.~Reviewed interim history and current functioning. Reviewed vital signs,~Labs/ Radiology~and current medications noted below. Continue current treatment with the changes noted in the dictated addendum note Assessment: Vital Signs: Vital Signs Date Time Temp Pulse Resp B/P (MAP) Pulse Ox O2 Delivery O2 Flow Rate FiO2 04/21/17 16:25 98.8 79 18 102/67 (79) 96 04/19/17 22:18 Room Air I&O Intake and Output 04/21/17 07:00 Intake Total 2240 ml Output Total 950 ml Balance 1290 ml Intake Oral 240 ml IV Total 2000 ml Output Urine Total 950 ml Labs: Laboratory Tests Test 04/21/17 09:23 White Blood Count 9.5 x10^3/uL (4.0-11.0) Red Blood Count 4.04 x10^6/uL (4.30-5.70) L Hemoglobin 11.3 g/dL (13.0-17.5) L Hematocrit 34.3 % (39.0-53.0) L Mean Corpuscular Volume 85 fL (79-100) Mean Corpuscular Hemoglobin 28 pg (25-35) Mean Corpuscular Hemoglobin Concent 33 g/dL (31-37) Red Cell Distribution Width 16.1 % (11.5-14.5) H Platelet Count 232 x10^3/uL (140-400) Neutrophils (%) (Auto) 72 % (31-73) Lymphocytes (%) (Auto) 16 % (24-48) L Monocytes (%) (Auto) 9 % (0-9) Eosinophils (%) (Auto) 2 % (0-3) Basophils (%) (Auto) 1 % (0-3) Neutrophils # (Auto) 6.8 x10^3uL (1.8-7.7) Lymphocytes # (Auto) 1.5 x10^3/uL (1.0-4.8) Monocytes # (Auto) 0.9 x10^3/uL (0.0-1.1) Eosinophils # (Auto) 0.2 x10^3/uL (0.0-0.7) Basophils # (Auto) 0.1 x10^3/uL (0.0-0.2) Sodium Level 142 mmol/L (136-145) Potassium Level 3.7 mmol/L (3.5-5.1) Chloride Level 105 mmol/L (98-107) Carbon Dioxide Level 25 mmol/L (21-32) Anion Gap 12 (6-14) Blood Urea Nitrogen 47 mg/dL (8-26) H Creatinine 2.0 mg/dL (0.7-1.3) H Estimated GFR (Cockcroft-Gault) 31.6 BUN/Creatinine Ratio 24 (6-20) H Glucose Level 94 mg/dL (70-99) Calcium Level 9.6 mg/dL (8.5-10.1) Magnesium Level 2.2 mg/dL (1.8-2.4) Total Bilirubin 0.8 mg/dL (0.2-1.0) Aspartate Amino Transferase (AST) 21 U/L (15-37) Alanine Aminotransferase (ALT) 23 U/L (16-63) Alkaline Phosphatase 105 U/L (46-116) Total Protein 7.4 g/dL (6.4-8.2) Albumin 3.4 g/dL (3.4-5.0) Albumin/Globulin Ratio 0.9 (1.0-1.7) L Current Medications: Meds: Current Medications Diphenhydramine HCl (Benadryl) 50 mg 1X ONCE IM Last administered on 18:00; Start 04/19/17 at 18:00; Stop 04/19/17 at 18:01; Status DC Lorazepam (Ativan) 2 mg 1X ONCE IM Last administered on 04/19/17 18:00; Start 04/19/17 at 18:00; Stop 04/19/17 at 18:01; Status DC Olanzapine (ZyPREXA IM) 10 mg 1X ONCE IM Last administered on 04/19/17 18:30 ; Start 04/19/17 at 18:30; Stop 04/19/17 at 18:31; Status DC Lactated Ringer's 1,000 ml @ 1,000 mls/hr Q1H IV ; Start 04/19/17 at 18:15 Multivitamins/ Minerals 10 ml/ Folic Acid 1 mg/ Thiamine HCl 100 mg/Sodium Chloride 1,011.1 ml @ 1,000 mls/ hr 1X ONCE IV Last administered on 19:30; Start 04/19/17 at 19:30; Stop 04/19/17 at 20:30; Status DC Phytonadione (Vitamin K) 10 mg STK-MED ONCE .ROUTE ; Start 04/19/17 at 20:55; Stop 04/19/17 at 20:56; Status DC Thiamine HCl 200 mg STK-MED ONCE IV ; Start 04/19/17 at 20:55; Stop 04/19/17 at 20:56; Status DC Folic Acid 5 mg STK-MED ONCE IV ; Start 04/19/17 at 20:56; Stop 04/19/17 at 20 :57; Status DC Donepezil HCl (Aricept) 10 mg DAILY PO Last administered on 04/21/17 10:57; Start 04/20/17 at 09:00 Hydroxyzine Pamoate (Vistaril) 25 mg PRN Q2HR PRN PO AGITAT; Start 04/19/17 at 23:30 Medroxyprogesterone Acetate (Provera) 2.5 mg DAILY PO Last administered on 10:58; Start 04/20/17 at 09:00 Mirtazapine (Remeron) 15 mg QHS PO Last administered on 04/20/17 20:51; Start 04/20/17 at 21:00 Olanzapine (ZyPREXA ZYDIS) 2.5 mg PRN Q2HR PRN PO ANXIETY / AGITATION Last administered on 04/20/17 16:39; Start 04/19/17 at 23:30 Quetiapine Fumarate (SEROquel) 75 mg DAILY PO Last administered on 04/21/17 10:58; Start 04/20/17 at 09:00 Quetiapine Fumarate (SEROquel) 100 mg QHS PO Last administered on 04/20/17 20 :51; Start 04/20/17 at 21:00 Trazodone HCl (Desyrel) 75 mg QHS PO Last administered on 04/20/17 20:50; Start 04/20/17 at 21:00 Acetaminophen (Tylenol) 1,000 mg PRN Q8HRS PRN PO PAIN; Start 04/20/17 at 07: 45 Aspirin (Children'S Aspirin) 81 mg DAILY PO Last administered on 04/21/17 10: 57; Start 04/20/17 at 09:00 Cyanocobalamin (Vitamin B-12) 1,000 mcg DAILY PO Last administered on 10:57; Start 04/20/17 at 09:00 Diclofenac Sodium (Voltaren) 4 amelia PRN Q6HRS PRN TP PAIN; Start 04/20/17 at 07 :45 Docusate Sodium (Colace) 200 mg BID PO Last administered on 04/21/17 10:56; Start 04/20/17 at 09:00 Ferrous Sulfate (Feosol) 325 mg BID PO Last administered on 04/21/17 10:57; Start 04/20/17 at 09:00 Finasteride (Proscar) 5 mg DAILY PO Last administered on 04/21/17 10:57; Start 04/20/17 at 09:00 Folic Acid (Folic Acid) 1 mg DAILY PO Last administered on 04/21/17 10:57; Start 04/20/17 at 09:00 Al Hydroxide/Mg Hydroxide (Mylanta Plus Xs) 15 ml PRN QHS PRN PO INDIGESTION; Start 04/20/17 at 07:45 Magnesium Hydroxide (Milk Of Magnesia) 800 mg PRN Q24HRS PRN PO CONSTIPATION; Start 04/20/17 at 07:45 Multi-Ingredient Ointment (Analgesic [place]) 1 amelia PRN QID PRN TP muscle pain; Start 04/20/17 at 07:45 Polyethylene Glycol (miraLAX) 17 gm DAILY PO Last administered on 04/21/17 10 :59; Start 04/20/17 at 09:00 Simvastatin (Zocor) 20 mg HS PO Last administered on 04/20/17 20:51; Start 04/20/17 at 21:00 Tamsulosin HCl (Flomax) 0.4 mg QHS PO Last administered on 04/20/17 20:51; Start 04/20/17 at 21:00 Thiamine HCl (Vitamin B-1) 100 mg DAILY PO Last administered on 04/21/17 10: 57; Start 04/20/17 at 09:00 Tramadol HCl (Ultram) 50 mg PRN Q6HRS PRN PO PAIN; Start 04/20/17 at 07:45 Triamcinolone Acetonide (Kenalog) 15 amelia PRN BID PRN TP RASH; Start 04/20/17 at 07:45 Brimonidine Tartrate (Alphagan) 1 drop BID OU Last administered on 04/21/17 11:11; Start 04/20/17 at 09:00; Stop 04/21/17 at 14:37; Status DC Vitamin D (Vitamin D3) 2,000 unit DAILY PO Last administered on 04/21/17 10: 57; Start 04/20/17 at 09:00 Timolol Maleate (Timoptic 0.5% Oph) 1 drop BID OU Last administered on 11:11; Start 04/20/17 at 09:00 Dextrose 1,000 ml @ 100 mls/hr Q10H IV Last administered on 04/20/17 18:06; Start 04/20/17 at 16:15 Prenat Multivit/ [place]/Iron/Folic Ac (Multivitamin ) 1 tab DAILYBFRSUP PO Last administered on 04/21/17 18:15; Start 04/20/17 at 17:00 Brimonidine Tartrate (Alphagan) 1 drop BID OU ; Start 04/21/17 at 14:37 Sodium Chloride 1,000 ml @ 125 mls/hr Q8H IV Last administered on 04/21/17 16:08; Start 04/21/17 at 14:45 Sertraline HCl (Zoloft) 25 mg DAILY PO ; Start 04/22/17 at 09:00; Stop at 09:00 Sertraline HCl (Zoloft) 50 mg DAILY PO ; Start 04/22/17 at 09:00 Active Scripts Active Reported Mag-Al Plus Xs Suspension (Mag Hydrox/Al Hydrox/Simeth) 30 Ml Oral.susp 15 Ml PO PRN QHS PRN Triamcinolone Acetonide 15 Gm Cream..g. 15 Gm TP PRN BID PRN Voltaren (Diclofenac Sodium) 100 Gm Gel..gram. 4 Gm TP PRN Q6HRS Acetaminophen 500 Mg Tablet 1,000 Mg PO PRN Q8HRS PRN Seroquel (Quetiapine Fumarate) 100 Mg Tablet 100 Mg PO QHS Seroquel (Quetiapine Fumarate) 50 Mg Tablet 75 Mg PO DAILY Milk Of Magnesia (Magnesium Hydroxide) 400 Mg/5 Ml Oral.susp 800 Mg PO PRN Q24HRS PRN Flomax (Tamsulosin Hcl) 0.4 Mg Cap.er.24h 0.4 Mg PO QHS Ferrous Sulfate 325 Mg Tablet 325 Mg PO BID Provera (Medroxyprogesterone Acetate) 2.5 Mg Tablet 1 Tab PO DAILY Trazodone Hcl 50 Mg Tablet 75 Mg PO QHS Zyprexa Zydis (Olanzapine) 5 Mg Tab.rapdis 2.5 Mg PO PRN Q2HR PRN Analgesic [place] (Methyl Salicylate/Menthol) 29 Gm Oint...g. 1 Amelia TP PRN QID PRN Hydroxyzine Pamoate 25 Mg Capsule 25 Mg PO PRN Q2HR PRN Donepezil Hcl 10 Mg Tablet 10 Mg PO DAILY Vitamin B-12 (Cyanocobalamin (Vitamin B-12)) 1,000 Mcg Tablet 1,000 Mcg PO DAILY Vitamin D (Cholecalciferol (Vitamin D3)) 2,000 Unit Capsule 2,000 Unit PO DAILY Ultram (Tramadol HCl) 50 Mg Tablet 50 Mg PO PRN Q6HRS PRN Thiamine Hcl 100 Mg Tablet 100 Mg PO DAILY Simvastatin 10 Mg Tablet 20 Mg PO DAILY Mirtazapine 15 Mg Tablet 15 Mg PO QHS Proscar (Finasteride) 5 Mg Tablet 5 Mg PO DAILY Miralax (Polyethylene Glycol 3350) 17 Gm Powd.pack 17 Gm PO DAILY Folic Acid 1 Mg Tablet 1 Mg PO DAILY Combigan Eye Drops (Brimonidine Tartrate/Timolol) 5 Ml Drops 1 Drop OU BID Colace (Docusate Sodium) 100 Mg Capsule 200 Mg PO BID Aspirin 81 Mg Tab.chew 81 Mg PO DAILY I have reviewed the current psychotropics carefully including drug interactions. Risk benefit ratio favors no change other than as noted in my dictated progress note. 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
[2017-04-21] MEDS: TAMSULOSIN 0.4 MG CAP.ER.24H. PO SCH (20:55)
[2017-04-21] MEDS: QUEtiapine 100 MG TABLET. PO SCH (20:55)
[2017-04-21] MEDS: traZODone 50 MG TABLET. PO SCH (20:55)
[2017-04-21] MEDS: MIRTAZAPINE 15 MG TABLET PO SCH (20:55)
[2017-04-21] MEDS: SIMVASTATIN 20 MG TABLET PO SCH (20:55)
[2017-04-22 06:11] VITALS: BP 120/58
[2017-04-22 06:39] LABS: BASO # 0.1 x10^3/uL (0.0-0.2); BASO % 1 % (0-3); EOS # 0.2 x10^3/uL (0.0-0.7); EOS % 2 % (0-3); HEMATOCRIT 30.4 % (39.0-53.0); HEMOGLOBIN 10.2 g/dL (13.0-17.5); LYMPH # 2.3 x10^3/uL (1.0-4.8); LYMPH % 28 % (24-48); MEAN CORPUSCULAR HEMOGLOBIN 29 pg (25-35); MEAN CORPUSCULAR HGB CONC 34 g/dL (31-37); MEAN CORPUSCULAR VOLUME 85 fL (79-100); MONO # 0.8 x10^3/uL (0.0-1.1); MONO % 9 % (0-9); NEUT # 4.8 x10^3uL (1.8-7.7); NEUT % 59 % (31-73); PLATELET COUNT 179 x10^3/uL (140-400); RED BLOOD COUNT 3.57 x10^6/uL (4.30-5.70); RED CELL DISTRIBUTION WIDTH 16.4 % (11.5-14.5); WHITE BLOOD COUNT 8.1 x10^3/uL (4.0-11.0)
[2017-04-22 06:53] LABS: ALBUMIN 2.9 g/dL (3.4-5.0); ALBUMIN/GLOBULIN RATIO 0.8 (1.0-1.7); CALCIUM 8.9 mg/dL (8.5-10.1); GFR 31.6; POTASSIUM 4.3 mmol/L (3.5-5.1); TOTAL BILIRUBIN 0.7 mg/dL (0.2-1.0); TOTAL PROTEIN 6.4 g/dL (6.4-8.2)
[2017-04-22] MEDS: TIMOLOL 0.5% OPHTH SOLUTION 5ML BOTTLE. OU SCH ×3 (09:00→21:00)
[2017-04-22] MEDS: FERROUS SULFATE 325 MG TABLET. PO SCH ×3 (09:00→21:00)
[2017-04-22] MEDS: BRIMONIDINE 0.2% OPHTH SOLUTION 5ML BOTTLE. OU SCH ×3 (09:00→21:00)
[2017-04-22] MEDS: CHOLECALCIFEROL (VITAMIN D3) 1,000 UNIT TABLET PO SCH ×2 (09:00→09:32)
[2017-04-22] MEDS: THIAMINE 100 MG TABLET. PO SCH ×2 (09:00→09:33)
[2017-04-22] MEDS: QUEtiapine 50 MG TABLET. PO SCH (09:31)
[2017-04-22] MEDS: FOLIC ACID 1 MG TABLET PO SCH ×2 (09:31→09:55)
[2017-04-22] MEDS: FINASTERIDE 5 MG TABLET PO SCH (09:32)
[2017-04-22] MEDS: CYANOCOBALAMIN (VITAMIN B-12) 1,000 MCG TABLET. PO SCH (09:32)
[2017-04-22] MEDS: ASPIRIN 81 MG TAB.CHEW PO SCH (09:32)
[2017-04-22] MEDS: DONEPEZIL HCL 10 MG TABLET PO SCH (09:32)
[2017-04-22] MEDS: DOCUSATE SODIUM 100 MG CAPSULE PO SCH ×2 (09:32→21:00)
[2017-04-22] MEDS: POLYETHYLENE GLYCOL 3350 17 GM PACKET. PO SCH (09:33)
[2017-04-22] MEDS: SERTRALINE 50 MG TABLET. PO SCH (09:36)
[2017-04-22] MEDS: SERTRALINE 25 MG TABLET. PO SCH (09:37)
[2017-04-22] MEDS: PRENATAL MULTIVITAMIN TABLET. PO SCH (15:39)
[2017-04-22 16:25] VITALS: BP 96/61
[2017-04-22] MEDS: QUEtiapine 100 MG TABLET. PO SCH (19:19)
[2017-04-22] MEDS: SIMVASTATIN 20 MG TABLET PO SCH (19:20)
[2017-04-22] MEDS: traZODone 50 MG TABLET. PO SCH (19:20)
[2017-04-22] MEDS: TAMSULOSIN 0.4 MG CAP.ER.24H. PO SCH (19:20)
[2017-04-22] MEDS: MIRTAZAPINE 15 MG TABLET PO SCH (19:20)
--- NOTE | 2017-04-22 20:06 | PDOC ---
Exam Note: [place] Note: Please also refer to the separate dictated note~for this date of service dictated separately.~Patient seen individually. Discussed the patient with Nursing staff reviewed the chart.~Reviewed interim history and current functioning. Reviewed vital signs,~Labs/ Radiology~and current medications noted below. Continue current treatment with the changes noted in the dictated addendum note Assessment: Vital Signs: Vital Signs Date Time Temp Pulse Resp B/P (MAP) Pulse Ox O2 Delivery O2 Flow Rate FiO2 04/22/17 16:25 98.6 85 20 96/61 (73) 94 04/19/17 22:18 Room Air I&O Intake and Output 04/22/17 07:00 Intake Total 240 ml Balance 240 ml Intake Oral 240 ml Labs: Laboratory Tests Test 04/22/17 06:30 White Blood Count 8.1 x10^3/uL (4.0-11.0) Red Blood Count 3.57 x10^6/uL (4.30-5.70) L Hemoglobin 10.2 g/dL (13.0-17.5) L Hematocrit 30.4 % (39.0-53.0) L Mean Corpuscular Volume 85 fL (79-100) Mean Corpuscular Hemoglobin 29 pg (25-35) Mean Corpuscular Hemoglobin Concent 34 g/dL (31-37) Red Cell Distribution Width 16.4 % (11.5-14.5) H Platelet Count 179 x10^3/uL (140-400) Neutrophils (%) (Auto) 59 % (31-73) Lymphocytes (%) (Auto) 28 % (24-48) Monocytes (%) (Auto) 9 % (0-9) Eosinophils (%) (Auto) 2 % (0-3) Basophils (%) (Auto) 1 % (0-3) Neutrophils # (Auto) 4.8 x10^3uL (1.8-7.7) Lymphocytes # (Auto) 2.3 x10^3/uL (1.0-4.8) Monocytes # (Auto) 0.8 x10^3/uL (0.0-1.1) Eosinophils # (Auto) 0.2 x10^3/uL (0.0-0.7) Basophils # (Auto) 0.1 x10^3/uL (0.0-0.2) Sodium Level 144 mmol/L (136-145) Potassium Level 4.3 mmol/L (3.5-5.1) Chloride Level 109 mmol/L (98-107) H Carbon Dioxide Level 27 mmol/L (21-32) Anion Gap 8 (6-14) Blood Urea Nitrogen 43 mg/dL (8-26) H Creatinine 2.0 mg/dL (0.7-1.3) H Estimated GFR (Cockcroft-Gault) 31.6 BUN/Creatinine Ratio 22 (6-20) H Glucose Level 81 mg/dL (70-99) Calcium Level 8.9 mg/dL (8.5-10.1) Magnesium Level 2.0 mg/dL (1.8-2.4) Total Bilirubin 0.7 mg/dL (0.2-1.0) Aspartate Amino Transferase (AST) 19 U/L (15-37) Alanine Aminotransferase (ALT) 20 U/L (16-63) Alkaline Phosphatase 91 U/L (46-116) Total Protein 6.4 g/dL (6.4-8.2) Albumin 2.9 g/dL (3.4-5.0) L Albumin/Globulin Ratio 0.8 (1.0-1.7) L Current Medications: Meds: Current Medications Diphenhydramine HCl (Benadryl) 50 mg 1X ONCE IM Last administered on 18:00; Start 04/19/17 at 18:00; Stop 04/19/17 at 18:01; Status DC Lorazepam (Ativan) 2 mg 1X ONCE IM Last administered on 04/19/17 18:00; Start 04/19/17 at 18:00; Stop 04/19/17 at 18:01; Status DC Olanzapine (ZyPREXA IM) 10 mg 1X ONCE IM Last administered on 04/19/17 18:30 ; Start 04/19/17 at 18:30; Stop 04/19/17 at 18:31; Status DC Lactated Ringer's 1,000 ml @ 1,000 mls/hr Q1H IV ; Start 04/19/17 at 18:15; Stop 04/22/17 at 00:43; Status DC Multivitamins/ Minerals 10 ml/ Folic Acid 1 mg/ Thiamine HCl 100 mg/Sodium Chloride 1,011.1 ml @ 1,000 mls/ hr 1X ONCE IV Last administered on 19:30; Start 04/19/17 at 19:30; Stop 04/19/17 at 20:30; Status DC Phytonadione (Vitamin K) 10 mg STK-MED ONCE .ROUTE ; Start 04/19/17 at 20:55; Stop 04/19/17 at 20:56; Status DC Thiamine HCl 200 mg STK-MED ONCE IV ; Start 04/19/17 at 20:55; Stop 04/19/17 at 20:56; Status DC Folic Acid 5 mg STK-MED ONCE IV ; Start 04/19/17 at 20:56; Stop 04/19/17 at 20 :57; Status DC Donepezil HCl (Aricept) 10 mg DAILY PO Last administered on 04/22/17 09:32; Start 04/20/17 at 09:00 Hydroxyzine Pamoate (Vistaril) 25 mg PRN Q2HR PRN PO AGITAT; Start 04/19/17 at 23:30 Medroxyprogesterone Acetate (Provera) 2.5 mg DAILY PO Last administered on 09:32; Start 04/20/17 at 09:00 Mirtazapine (Remeron) 15 mg QHS PO Last administered on 04/22/17 19:20; Start 04/20/17 at 21:00 Olanzapine (ZyPREXA ZYDIS) 2.5 mg PRN Q2HR PRN PO ANXIETY / AGITATION Last administered on 04/20/17 16:39; Start 04/19/17 at 23:30 Quetiapine Fumarate (SEROquel) 75 mg DAILY PO Last administered on 04/22/17 09:31; Start 04/20/17 at 09:00 Quetiapine Fumarate (SEROquel) 100 mg QHS PO Last administered on 04/22/17 19 :19; Start 04/20/17 at 21:00 Trazodone HCl (Desyrel) 75 mg QHS PO Last administered on 04/22/17 19:20; Start 04/20/17 at 21:00 Acetaminophen (Tylenol) 1,000 mg PRN Q8HRS PRN PO PAIN; Start 04/20/17 at 07: 45 Aspirin (Children'S Aspirin) 81 mg DAILY PO Last administered on 04/22/17 09: 32; Start 04/20/17 at 09:00 Cyanocobalamin (Vitamin B-12) 1,000 mcg DAILY PO Last administered on 09:32; Start 04/20/17 at 09:00 Diclofenac Sodium (Voltaren) 4 amelia PRN Q6HRS PRN TP PAIN; Start 04/20/17 at 07 :45 Docusate Sodium (Colace) 200 mg BID PO Last administered on 04/22/17 09:32; Start 04/20/17 at 09:00 Ferrous Sulfate (Feosol) 325 mg BID PO Last administered on 04/21/17 20:55; Start 04/20/17 at 09:00 Finasteride (Proscar) 5 mg DAILY PO Last administered on 04/22/17 09:32; Start 04/20/17 at 09:00 Folic Acid (Folic Acid) 1 mg DAILY PO Last administered on 04/21/17 10:57; Start 04/20/17 at 09:00 Al Hydroxide/Mg Hydroxide (Mylanta Plus Xs) 15 ml PRN QHS PRN PO INDIGESTION; Start 04/20/17 at 07:45 Magnesium Hydroxide (Milk Of Magnesia) 800 mg PRN Q24HRS PRN PO CONSTIPATION; Start 04/20/17 at 07:45 Multi-Ingredient Ointment (Analgesic [place]) 1 amelia PRN QID PRN TP muscle pain; Start 04/20/17 at 07:45 Polyethylene Glycol (miraLAX) 17 gm DAILY PO Last administered on 04/22/17 09 :33; Start 04/20/17 at 09:00 Simvastatin (Zocor) 20 mg HS PO Last administered on 04/22/17 19:20; Start 04/20/17 at 21:00 Tamsulosin HCl (Flomax) 0.4 mg QHS PO Last administered on 04/22/17 19:20; Start 04/20/17 at 21:00 Thiamine HCl (Vitamin B-1) 100 mg DAILY PO Last administered on 04/21/17 10: 57; Start 04/20/17 at 09:00 Tramadol HCl (Ultram) 50 mg PRN Q6HRS PRN PO PAIN; Start 04/20/17 at 07:45 Triamcinolone Acetonide (Kenalog) 15 amelia PRN BID PRN TP RASH; Start 04/20/17 at 07:45 Brimonidine Tartrate (Alphagan) 1 drop BID OU Last administered on 04/21/17 11:11; Start 04/20/17 at 09:00; Stop 04/21/17 at 14:37; Status DC Vitamin D (Vitamin D3) 2,000 unit DAILY PO Last administered on 04/21/17 10: 57; Start 04/20/17 at 09:00 Timolol Maleate (Timoptic 0.5% [facility]) 1 drop BID OU Last administered on 20:57; Start 04/20/17 at 09:00 Dextrose 1,000 ml @ 100 mls/hr Q10H IV Last administered on 04/20/17 18:06; Start 04/20/17 at 16:15; Stop 04/22/17 at 00:42; Status DC Prenat Multivit/ [place]/Iron/Folic Ac (Multivitamin ) 1 tab DAILYBFRSUP PO Last administered on 04/22/17 15:39; Start 04/20/17 at 17:00 Brimonidine Tartrate (Alphagan) 1 drop BID OU Last administered on 04/21/17 20:57; Start 04/21/17 at 14:37 Sodium Chloride 1,000 ml @ 125 mls/hr Q8H IV Last administered on 04/21/17 16:08; Start 04/21/17 at 14:45; Stop 04/22/17 at 00:42; Status DC Sertraline HCl (Zoloft) 25 mg DAILY PO Last administered on 04/22/17 09:37; Start 04/22/17 at 09:00; Stop 04/24/17 at 09:00 Sertraline HCl (Zoloft) 50 mg DAILY PO Last administered on 04/22/17 09:36; Start 04/22/17 at 09:00 Active Scripts Active Reported Mag-Al Plus Xs Suspension (Mag Hydrox/Al Hydrox/Simeth) 30 Ml Oral.susp 15 Ml PO PRN QHS PRN Triamcinolone Acetonide 15 Gm Cream..g. 15 Gm TP PRN BID PRN Voltaren (Diclofenac Sodium) 100 Gm Gel..gram. 4 Gm TP PRN Q6HRS Acetaminophen 500 Mg Tablet 1,000 Mg PO PRN Q8HRS PRN Seroquel (Quetiapine Fumarate) 100 Mg Tablet 100 Mg PO QHS Seroquel (Quetiapine Fumarate) 50 Mg Tablet 75 Mg PO DAILY Milk Of Magnesia (Magnesium Hydroxide) 400 Mg/5 Ml Oral.susp 800 Mg PO PRN Q24HRS PRN Flomax (Tamsulosin Hcl) 0.4 Mg Cap.er.24h 0.4 Mg PO QHS Ferrous Sulfate 325 Mg Tablet 325 Mg PO BID Provera (Medroxyprogesterone Acetate) 2.5 Mg Tablet 1 Tab PO DAILY Trazodone Hcl 50 Mg Tablet 75 Mg PO QHS Zyprexa Zydis (Olanzapine) 5 Mg Tab.rapdis 2.5 Mg PO PRN Q2HR PRN Analgesic [place] (Methyl Salicylate/Menthol) 29 Gm Oint...g. 1 Amelia TP PRN QID PRN Hydroxyzine Pamoate 25 Mg Capsule 25 Mg PO PRN Q2HR PRN Donepezil Hcl 10 Mg Tablet 10 Mg PO DAILY Vitamin B-12 (Cyanocobalamin (Vitamin B-12)) 1,000 Mcg Tablet 1,000 Mcg PO DAILY Vitamin D (Cholecalciferol (Vitamin D3)) 2,000 Unit Capsule 2,000 Unit PO DAILY Ultram (Tramadol HCl) 50 Mg Tablet 50 Mg PO PRN Q6HRS PRN Thiamine Hcl 100 Mg Tablet 100 Mg PO DAILY Simvastatin 10 Mg Tablet 20 Mg PO DAILY Mirtazapine 15 Mg Tablet 15 Mg PO QHS Proscar (Finasteride) 5 Mg Tablet 5 Mg PO DAILY Miralax (Polyethylene Glycol 3350) 17 Gm Powd.pack 17 Gm PO DAILY Folic Acid 1 Mg Tablet 1 Mg PO DAILY Combigan Eye Drops (Brimonidine Tartrate/Timolol) 5 Ml Drops 1 Drop OU BID Colace (Docusate Sodium) 100 Mg Capsule 200 Mg PO BID Aspirin 81 Mg Tab.chew 81 Mg PO DAILY I have reviewed the current psychotropics carefully including drug interactions. Risk benefit ratio favors no change other than as noted in my dictated progress note. Diagnosis: Problems: (1) Psychiatric complaint (2) Dementia (3) Psychiatric care (4) Anxiety disorder (5) Dementia in Alzheimer's disease with delusions (6) Dementia in Alzheimer's disease with depression (7) Dementia, vascular, with delusions (8) Dementia, vascular, with depression (9) Impulse control disorder ELBA DEY MD Apr 22, 2017 20:06
[2017-04-23 06:24] VITALS: BP 103/56
[2017-04-23] MEDS: FINASTERIDE 5 MG TABLET PO SCH (07:42)
[2017-04-23] MEDS: SERTRALINE 25 MG TABLET. PO SCH (07:42)
[2017-04-23] MEDS: DONEPEZIL HCL 10 MG TABLET PO SCH (07:42)
[2017-04-23] MEDS: QUEtiapine 50 MG TABLET. PO SCH (07:42)
[2017-04-23] MEDS: ASPIRIN 81 MG TAB.CHEW PO SCH (07:42)
[2017-04-23] MEDS: SERTRALINE 50 MG TABLET. PO SCH (07:42)
[2017-04-23] MEDS: FERROUS SULFATE 325 MG TABLET. PO SCH ×2 (07:42→19:51)
[2017-04-23] MEDS: DOCUSATE SODIUM 100 MG CAPSULE PO SCH ×2 (11:47→19:51)
[2017-04-23] MEDS: CYANOCOBALAMIN (VITAMIN B-12) 1,000 MCG TABLET. PO SCH (11:48)
[2017-04-23] MEDS: THIAMINE 100 MG TABLET. PO SCH (11:48)
[2017-04-23] MEDS: CHOLECALCIFEROL (VITAMIN D3) 1,000 UNIT TABLET PO SCH (11:49)
[2017-04-23] MEDS: TIMOLOL 0.5% OPHTH SOLUTION 5ML BOTTLE. OU SCH ×2 (11:49→19:49)
[2017-04-23] MEDS: BRIMONIDINE 0.2% OPHTH SOLUTION 5ML BOTTLE. OU SCH ×2 (11:49→19:49)
[2017-04-23] MEDS: POLYETHYLENE GLYCOL 3350 17 GM PACKET. PO SCH (11:55)
[2017-04-23 16:18] VITALS: BP 100/52
[2017-04-23] MEDS: PRENATAL MULTIVITAMIN TABLET. PO SCH (17:31)
[2017-04-23] MEDS: SIMVASTATIN 20 MG TABLET PO SCH (19:49)
[2017-04-23] MEDS: MIRTAZAPINE 15 MG TABLET PO SCH (19:49)
[2017-04-23] MEDS: TAMSULOSIN 0.4 MG CAP.ER.24H. PO SCH (19:49)
[2017-04-23] MEDS: QUEtiapine 100 MG TABLET. PO SCH (19:51)
[2017-04-23] MEDS: traZODone 50 MG TABLET. PO SCH (19:51)
--- NOTE | 2017-04-24 07:35 | PN ---
DATE: 04/21/2017 This is a late entry for 04/21/2017 and covers elements not covered in my initial note of 04/21/2017. I met with the patient the evening of 06/22/2016. The patient remains confused, anxious, restless. REVIEW OF SYSTEMS: Hard of hearing, impaired ambulation, in a wheelchair, still remains on IV fluids at 125 mL an hour. Previous evening, he was hitting, kicking, agitated when he was straight cathed by nursing staff. Slept 7-1/4 hours, takes his medications in [facility], wants to be left alone, keeps a jacket over his head. Assisted to the toilet during the day, 04/21/2017, did better with this. REVIEW OF SYSTEMS: No CV, , pulmonary, eye, ENT system symptoms on review. Ambulation impaired, in wheelchair. MENTAL STATUS EXAM: Oriented to himself. Insight, judgment, recent and remote memory, attention, concentration, fund of knowledge poor, consistent with his diagnosis as mentioned in my initial note. PLAN: Start Zoloft 25 mg a day for his mood and anxiety symptoms, increase to 50 mg a day in 2 days. Continue rest unchanged. ELBA DEY MD DR: ABBY/brian JOB#: [id number] / [id number]
--- NOTE | 2017-04-24 07:37 | PN ---
DATE: 04/22/2017 This is a late entry for 04/22/2017 and covers elements not covered in my initial note of 04/22/2017. I met with the patient the evening of 04/22/2017 and staffed at a treatment team meeting with the entire team morning of 04/22/2017. The patient slept 5-3/4 hours, combative with cares, confused, delusional, resistive of medications. REVIEW OF SYSTEMS: Ambulation impaired, in wheelchair. No CV, , pulmonary, eye, ENT system symptoms on review. Reliability poor. MENTAL STATUS EXAM: Oriented to himself. Insight, judgment, recent and remote memory, attention, concentration, fund of knowledge poor, consistent with his diagnosis that is unchanged from initial note. PLAN: Continue psychotropics mentioned in my initial note. MAN Corey DEY MD DR: ABBY/brian JOB#: [id number] / [id number]
[2017-04-24] MEDS: BRIMONIDINE 0.2% OPHTH SOLUTION 5ML BOTTLE. OU SCH ×3 (09:00→19:36)
[2017-04-24] MEDS: TIMOLOL 0.5% OPHTH SOLUTION 5ML BOTTLE. OU SCH ×3 (09:00→19:36)
[2017-04-24] MEDS: DONEPEZIL HCL 10 MG TABLET PO SCH (09:32)
[2017-04-24] MEDS: ASPIRIN 81 MG TAB.CHEW PO SCH (09:32)
[2017-04-24] MEDS: POLYETHYLENE GLYCOL 3350 17 GM PACKET. PO SCH (09:33)
[2017-04-24] MEDS: DOCUSATE SODIUM 100 MG CAPSULE PO SCH ×2 (09:33→19:33)
[2017-04-24] MEDS: FINASTERIDE 5 MG TABLET PO SCH (09:33)
[2017-04-24] MEDS: FOLIC ACID 1 MG TABLET PO SCH (09:33)
[2017-04-24] MEDS: FERROUS SULFATE 325 MG TABLET. PO SCH ×2 (09:33→19:33)
[2017-04-24] MEDS: SERTRALINE 25 MG TABLET. PO SCH (09:35)
[2017-04-24] MEDS: THIAMINE 100 MG TABLET. PO SCH (09:35)
[2017-04-24] MEDS: SERTRALINE 50 MG TABLET. PO SCH (09:35)
[2017-04-24] MEDS: CHOLECALCIFEROL (VITAMIN D3) 1,000 UNIT TABLET PO SCH (09:35)
[2017-04-24] MEDS: CYANOCOBALAMIN (VITAMIN B-12) 1,000 MCG TABLET. PO SCH (09:35)
[2017-04-24] MEDS: QUEtiapine 50 MG TABLET. PO SCH (09:35)
[2017-04-24] MEDS: PRENATAL MULTIVITAMIN TABLET. PO SCH (09:36)
[2017-04-24 09:48] VITALS: BP 116/75
--- NOTE | 2017-04-24 10:23 | PDOC ---
Exam Note: Chase Note: This is late entry for date of service 04/23/2017.Please also refer to the separate dictated note~for this date of service dictated separately.~Patient seen individually. Discussed the patient with Nursing staff reviewed the chart.~ Reviewed interim history and current functioning. Reviewed vital signs,~Labs/ Radiology~and current medications noted below. Continue current treatment with the changes noted in the dictated addendum note Assessment: Vital Signs: VS - Last 72 Hours, by Label Date Time Temp Pulse Resp B/P (MAP) Pulse Ox O2 Delivery O2 Flow Rate FiO2 04/24/17 09:48 98.1 73 18 116/75 (89) 94 04/23/17 16:18 97.6 87 16 100/52 (68) 98 Room Air 04/23/17 06:24 98.4 101 20 103/56 (72) 96 Room Air 04/22/17 16:25 98.6 85 20 96/61 (73) 94 04/22/17 06:11 98.5 86 16 120/58 (78) 100 04/21/17 16:25 98.8 79 18 102/67 (79) 96 Vital Signs Date Time Temp Pulse Resp B/P (MAP) Pulse Ox O2 Delivery O2 Flow Rate FiO2 04/24/17 09:48 98.1 73 18 116/75 (89) 94 04/23/17 16:18 Room Air I&O Intake and Output 04/24/17 07:00 Intake Total 240 ml Balance 240 ml Intake Oral 240 ml Current Medications: Meds: Current Medications Diphenhydramine HCl (Benadryl) 50 mg 1X ONCE IM Last administered on 18:00; Start 04/19/17 at 18:00; Stop 04/19/17 at 18:01; Status DC Lorazepam (Ativan) 2 mg 1X ONCE IM Last administered on 04/19/17 18:00; Start 04/19/17 at 18:00; Stop 04/19/17 at 18:01; Status DC Olanzapine (ZyPREXA IM) 10 mg 1X ONCE IM Last administered on 04/19/17 18:30 ; Start 04/19/17 at 18:30; Stop 04/19/17 at 18:31; Status DC Lactated Ringer's 1,000 ml @ 1,000 mls/hr Q1H IV ; Start 04/19/17 at 18:15; Stop 04/22/17 at 00:43; Status DC Multivitamins/ Minerals 10 ml/ Folic Acid 1 mg/ Thiamine HCl 100 mg/Sodium Chloride 1,011.1 ml @ 1,000 mls/ hr 1X ONCE IV Last administered on 19:30; Start 04/19/17 at 19:30; Stop 04/19/17 at 20:30; Status DC Phytonadione (Vitamin K) 10 mg STK-MED ONCE .ROUTE ; Start 04/19/17 at 20:55; Stop 04/19/17 at 20:56; Status DC Thiamine HCl 200 mg STK-MED ONCE IV ; Start 04/19/17 at 20:55; Stop 04/19/17 at 20:56; Status DC Folic Acid 5 mg STK-MED ONCE IV ; Start 04/19/17 at 20:56; Stop 04/19/17 at 20 :57; Status DC Donepezil HCl (Aricept) 10 mg DAILY PO Last administered on 04/24/17 09:32; Start 04/20/17 at 09:00 Hydroxyzine Pamoate (Vistaril) 25 mg PRN Q2HR PRN PO AGITAT; Start 04/19/17 at 23:30 Medroxyprogesterone Acetate (Provera) 2.5 mg DAILY PO Last administered on 09:33; Start 04/20/17 at 09:00 Mirtazapine (Remeron) 15 mg QHS PO Last administered on 04/23/17 19:49; Start 04/20/17 at 21:00 Olanzapine (ZyPREXA ZYDIS) 2.5 mg PRN Q2HR PRN PO ANXIETY / AGITATION Last administered on 04/23/17 04:58; Start 04/19/17 at 23:30 Quetiapine Fumarate (SEROquel) 75 mg DAILY PO Last administered on 04/24/17 09:35; Start 04/20/17 at 09:00 Quetiapine Fumarate (SEROquel) 100 mg QHS PO Last administered on 04/23/17 19 :51; Start 04/20/17 at 21:00 Trazodone HCl (Desyrel) 75 mg QHS PO Last administered on 04/23/17 19:51; Start 04/20/17 at 21:00 Acetaminophen (Tylenol) 1,000 mg PRN Q8HRS PRN PO PAIN; Start 04/20/17 at 07: 45 Aspirin (Children'S Aspirin) 81 mg DAILY PO Last administered on 04/24/17 09: 32; Start 04/20/17 at 09:00 Cyanocobalamin (Vitamin B-12) 1,000 mcg DAILY PO Last administered on 09:35; Start 04/20/17 at 09:00 Diclofenac Sodium (Voltaren) 4 amelia PRN Q6HRS PRN TP PAIN; Start 04/20/17 at 07 :45 Docusate Sodium (Colace) 200 mg BID PO Last administered on 04/24/17 09:33; Start 04/20/17 at 09:00 Ferrous Sulfate (Feosol) 325 mg BID PO Last administered on 04/24/17 09:33; Start 04/20/17 at 09:00 Finasteride (Proscar) 5 mg DAILY PO Last administered on 04/24/17 09:33; Start 04/20/17 at 09:00 Folic Acid (Folic Acid) 1 mg DAILY PO Last administered on 04/24/17 09:33; Start 04/20/17 at 09:00 Al Hydroxide/Mg Hydroxide (Mylanta Plus Xs) 15 ml PRN QHS PRN PO INDIGESTION; Start 04/20/17 at 07:45 Magnesium Hydroxide (Milk Of Magnesia) 800 mg PRN Q24HRS PRN PO CONSTIPATION; Start 04/20/17 at 07:45 Multi-Ingredient Ointment (Analgesic [place]) 1 amelia PRN QID PRN TP muscle pain; Start 04/20/17 at 07:45 Polyethylene Glycol (miraLAX) 17 gm DAILY PO Last administered on 04/24/17 09 :33; Start 04/20/17 at 09:00 Simvastatin (Zocor) 20 mg HS PO Last administered on 04/23/17 19:49; Start 04/20/17 at 21:00 Tamsulosin HCl (Flomax) 0.4 mg QHS PO Last administered on 04/23/17 19:49; Start 04/20/17 at 21:00 Thiamine HCl (Vitamin B-1) 100 mg DAILY PO Last administered on 04/24/17 09: 35; Start 04/20/17 at 09:00 Tramadol HCl (Ultram) 50 mg PRN Q6HRS PRN PO PAIN; Start 04/20/17 at 07:45 Triamcinolone Acetonide (Kenalog) 15 amelia PRN BID PRN TP RASH; Start 04/20/17 at 07:45 Brimonidine Tartrate (Alphagan) 1 drop BID OU Last administered on 04/21/17 11:11; Start 04/20/17 at 09:00; Stop 04/21/17 at 14:37; Status DC Vitamin D (Vitamin D3) 2,000 unit DAILY PO Last administered on 04/24/17 09: 35; Start 04/20/17 at 09:00 Timolol Maleate (Timoptic 0.5% Ophth) 1 drop BID OU Last administered on 19:49; Start 04/20/17 at 09:00 Dextrose 1,000 ml @ 100 mls/hr Q10H IV Last administered on 04/20/17 18:06; Start 04/20/17 at 16:15; Stop 04/22/17 at 00:42; Status DC Prenat Multivit/ [place]/Iron/Folic Ac (Multivitamin ) 1 tab DAILYBFRSUP PO Last administered on 04/24/17 09:36; Start 04/20/17 at 17:00 Brimonidine Tartrate (Alphagan) 1 drop BID OU Last administered on 04/23/17 19:49; Start 04/21/17 at 14:37 Sodium Chloride 1,000 ml @ 125 mls/hr Q8H IV Last administered on 04/21/17 16:08; Start 04/21/17 at 14:45; Stop 04/22/17 at 00:42; Status DC Sertraline HCl (Zoloft) 25 mg DAILY PO Last administered on 04/24/17 09:35; Start 04/22/17 at 09:00; Stop 04/24/17 at 09:01; Status DC Sertraline HCl (Zoloft) 50 mg DAILY PO Last administered on 04/24/17 09:35; Start 04/22/17 at 09:00 Active Scripts Active Reported Mag-Al Plus Xs Suspension (Mag Hydrox/Al Hydrox/Simeth) 30 Ml Oral.susp 15 Ml PO PRN QHS PRN Triamcinolone Acetonide 15 Gm Cream..g. 15 Gm TP PRN BID PRN Voltaren (Diclofenac Sodium) 100 Gm Gel..gram. 4 Gm TP PRN Q6HRS Acetaminophen 500 Mg Tablet 1,000 Mg PO PRN Q8HRS PRN Seroquel (Quetiapine Fumarate) 100 Mg Tablet 100 Mg PO QHS Seroquel (Quetiapine Fumarate) 50 Mg Tablet 75 Mg PO DAILY Milk Of Magnesia (Magnesium Hydroxide) 400 Mg/5 Ml Oral.susp 800 Mg PO PRN Q24HRS PRN Flomax (Tamsulosin Hcl) 0.4 Mg Cap.er.24h 0.4 Mg PO QHS Ferrous Sulfate 325 Mg Tablet 325 Mg PO BID Provera (Medroxyprogesterone Acetate) 2.5 Mg Tablet 1 Tab PO DAILY Trazodone Hcl 50 Mg Tablet 75 Mg PO QHS Zyprexa Zydis (Olanzapine) 5 Mg Tab.rapdis 2.5 Mg PO PRN Q2HR PRN Analgesic [place] (Methyl Salicylate/Menthol) 29 Gm Oint...g. 1 Amelia TP PRN QID PRN Hydroxyzine Pamoate 25 Mg Capsule 25 Mg PO PRN Q2HR PRN Donepezil Hcl 10 Mg Tablet 10 Mg PO DAILY Vitamin B-12 (Cyanocobalamin (Vitamin B-12)) 1,000 Mcg Tablet 1,000 Mcg PO DAILY Vitamin D (Cholecalciferol (Vitamin D3)) 2,000 Unit Capsule 2,000 Unit PO DAILY Ultram (Tramadol HCl) 50 Mg Tablet 50 Mg PO PRN Q6HRS PRN Thiamine Hcl 100 Mg Tablet 100 Mg PO DAILY Simvastatin 10 Mg Tablet 20 Mg PO DAILY Mirtazapine 15 Mg Tablet 15 Mg PO QHS Proscar (Finasteride) 5 Mg Tablet 5 Mg PO DAILY Miralax (Polyethylene Glycol 3350) 17 Gm Powd.pack 17 Gm PO DAILY Folic Acid 1 Mg Tablet 1 Mg PO DAILY Combigan Eye Drops (Brimonidine Tartrate/Timolol) 5 Ml Drops 1 Drop OU BID Colace (Docusate Sodium) 100 Mg Capsule 200 Mg PO BID Aspirin 81 Mg Tab.chew 81 Mg PO DAILY I have reviewed the current psychotropics carefully including drug interactions. Risk benefit ratio favors no change other than as noted in my dictated progress note. 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
[2017-04-24 16:30] VITALS: BP 97/59
[2017-04-24] MEDS: TAMSULOSIN 0.4 MG CAP.ER.24H. PO SCH (19:33)
[2017-04-24] MEDS: SIMVASTATIN 20 MG TABLET PO SCH (19:33)
[2017-04-24] MEDS: QUEtiapine 100 MG TABLET. PO SCH (19:34)
[2017-04-24] MEDS: traZODone 50 MG TABLET. PO SCH (19:34)
[2017-04-24] MEDS: MIRTAZAPINE 15 MG TABLET PO SCH (19:34)
--- NOTE | 2017-04-24 21:40 | PDOC ---
Exam Note: Chase Note: Please also refer to the separate dictated note~for this date of service dictated separately.~Patient seen individually. Discussed the patient with Nursing staff reviewed the chart.~Reviewed interim history and current functioning. Reviewed vital signs,~Labs/ Radiology~and current medications noted below. Continue current treatment with the changes noted in the dictated addendum note Assessment: Vital Signs: Vital Signs Date Time Temp Pulse Resp B/P (MAP) Pulse Ox O2 Delivery O2 Flow Rate FiO2 04/24/17 16:30 98.5 102 18 97/59 (72) 100 04/23/17 16:18 Room Air I&O Intake and Output 04/24/17 07:00 Intake Total 240 ml Balance 240 ml Intake Oral 240 ml Current Medications: Meds: Current Medications Diphenhydramine HCl (Benadryl) 50 mg 1X ONCE IM Last administered on 18:00; Start 04/19/17 at 18:00; Stop 04/19/17 at 18:01; Status DC Lorazepam (Ativan) 2 mg 1X ONCE IM Last administered on 04/19/17 18:00; Start 04/19/17 at 18:00; Stop 04/19/17 at 18:01; Status DC Olanzapine (ZyPREXA IM) 10 mg 1X ONCE IM Last administered on 04/19/17 18:30 ; Start 04/19/17 at 18:30; Stop 04/19/17 at 18:31; Status DC Lactated Ringer's 1,000 ml @ 1,000 mls/hr Q1H IV ; Start 04/19/17 at 18:15; Stop 04/22/17 at 00:43; Status DC Multivitamins/ Minerals 10 ml/ Folic Acid 1 mg/ Thiamine HCl 100 mg/Sodium Chloride 1,011.1 ml @ 1,000 mls/ hr 1X ONCE IV Last administered on 19:30; Start 04/19/17 at 19:30; Stop 04/19/17 at 20:30; Status DC Phytonadione (Vitamin K) 10 mg STK-MED ONCE .ROUTE ; Start 04/19/17 at 20:55; Stop 04/19/17 at 20:56; Status DC Thiamine HCl 200 mg STK-MED ONCE IV ; Start 04/19/17 at 20:55; Stop 04/19/17 at 20:56; Status DC Folic Acid 5 mg STK-MED ONCE IV ; Start 04/19/17 at 20:56; Stop 04/19/17 at 20 :57; Status DC Donepezil HCl (Aricept) 10 mg DAILY PO Last administered on 04/24/17 09:32; Start 04/20/17 at 09:00 Hydroxyzine Pamoate (Vistaril) 25 mg PRN Q2HR PRN PO AGITAT; Start 04/19/17 at 23:30 Medroxyprogesterone Acetate (Provera) 2.5 mg DAILY PO Last administered on 09:33; Start 04/20/17 at 09:00 Mirtazapine (Remeron) 15 mg QHS PO Last administered on 04/24/17 19:34; Start 04/20/17 at 21:00 Olanzapine (ZyPREXA ZYDIS) 2.5 mg PRN Q2HR PRN PO ANXIETY / AGITATION Last administered on 04/23/17 04:58; Start 04/19/17 at 23:30 Quetiapine Fumarate (SEROquel) 75 mg DAILY PO Last administered on 04/24/17 09:35; Start 04/20/17 at 09:00 Quetiapine Fumarate (SEROquel) 100 mg QHS PO Last administered on 04/24/17 19 :34; Start 04/20/17 at 21:00 Trazodone HCl (Desyrel) 75 mg QHS PO Last administered on 04/24/17 19:34; Start 04/20/17 at 21:00 Acetaminophen (Tylenol) 1,000 mg PRN Q8HRS PRN PO PAIN; Start 04/20/17 at 07: 45 Aspirin (Children'S Aspirin) 81 mg DAILY PO Last administered on 04/24/17 09: 32; Start 04/20/17 at 09:00 Cyanocobalamin (Vitamin B-12) 1,000 mcg DAILY PO Last administered on 09:35; Start 04/20/17 at 09:00 Diclofenac Sodium (Voltaren) 4 amelia PRN Q6HRS PRN TP PAIN; Start 04/20/17 at 07 :45 Docusate Sodium (Colace) 200 mg BID PO Last administered on 04/24/17 19:33; Start 04/20/17 at 09:00 Ferrous Sulfate (Feosol) 325 mg BID PO Last administered on 04/24/17 19:33; Start 04/20/17 at 09:00 Finasteride (Proscar) 5 mg DAILY PO Last administered on 04/24/17 09:33; Start 04/20/17 at 09:00 Folic Acid (Folic Acid) 1 mg DAILY PO Last administered on 04/24/17 09:33; Start 04/20/17 at 09:00 Al Hydroxide/Mg Hydroxide (Mylanta Plus Xs) 15 ml PRN QHS PRN PO INDIGESTION; Start 04/20/17 at 07:45 Magnesium Hydroxide (Milk Of Magnesia) 800 mg PRN Q24HRS PRN PO CONSTIPATION; Start 04/20/17 at 07:45 Multi-Ingredient Ointment (Analgesic [place]) 1 amelia PRN QID PRN TP muscle pain; Start 04/20/17 at 07:45 Polyethylene Glycol (miraLAX) 17 gm DAILY PO Last administered on 04/24/17 09 :33; Start 04/20/17 at 09:00 Simvastatin (Zocor) 20 mg HS PO Last administered on 04/24/17 19:33; Start 04/20/17 at 21:00 Tamsulosin HCl (Flomax) 0.4 mg QHS PO Last administered on 04/24/17 19:33; Start 04/20/17 at 21:00 Thiamine HCl (Vitamin B-1) 100 mg DAILY PO Last administered on 04/24/17 09: 35; Start 04/20/17 at 09:00 Tramadol HCl (Ultram) 50 mg PRN Q6HRS PRN PO PAIN; Start 04/20/17 at 07:45 Triamcinolone Acetonide (Kenalog) 15 amelia PRN BID PRN TP RASH; Start 04/20/17 at 07:45 Brimonidine Tartrate (Alphagan) 1 drop BID OU Last administered on 04/21/17 11:11; Start 04/20/17 at 09:00; Stop 04/21/17 at 14:37; Status DC Vitamin D (Vitamin D3) 2,000 unit DAILY PO Last administered on 04/24/17 09: 35; Start 04/20/17 at 09:00 Timolol Maleate (Timoptic 0.5% [facility]) 1 drop BID OU Last administered on 19:36; Start 04/20/17 at 09:00 Dextrose 1,000 ml @ 100 mls/hr Q10H IV Last administered on 04/20/17 18:06; Start 04/20/17 at 16:15; Stop 04/22/17 at 00:42; Status DC Prenat Multivit/ [place]/Iron/Folic Ac (Multivitamin ) 1 tab DAILYBFRSUP PO Last administered on 04/24/17 09:36; Start 04/20/17 at 17:00 Brimonidine Tartrate (Alphagan) 1 drop BID OU Last administered on 04/24/17 19:36; Start 04/21/17 at 14:37 Sodium Chloride 1,000 ml @ 125 mls/hr Q8H IV Last administered on 04/21/17 16:08; Start 04/21/17 at 14:45; Stop 04/22/17 at 00:42; Status DC Sertraline HCl (Zoloft) 25 mg DAILY PO Last administered on 04/24/17 09:35; Start 04/22/17 at 09:00; Stop 04/24/17 at 09:01; Status DC Sertraline HCl (Zoloft) 50 mg DAILY PO Last administered on 04/24/17 09:35; Start 04/22/17 at 09:00 Active Scripts Active Reported Mag-Al Plus Xs Suspension (Mag Hydrox/Al Hydrox/Simeth) 30 Ml Oral.susp 15 Ml PO PRN QHS PRN Triamcinolone Acetonide 15 Gm Cream..g. 15 Gm TP PRN BID PRN Voltaren (Diclofenac Sodium) 100 Gm Gel..gram. 4 Gm TP PRN Q6HRS Acetaminophen 500 Mg Tablet 1,000 Mg PO PRN Q8HRS PRN Seroquel (Quetiapine Fumarate) 100 Mg Tablet 100 Mg PO QHS Seroquel (Quetiapine Fumarate) 50 Mg Tablet 75 Mg PO DAILY Milk Of Magnesia (Magnesium Hydroxide) 400 Mg/5 Ml Oral.susp 800 Mg PO PRN Q24HRS PRN Flomax (Tamsulosin Hcl) 0.4 Mg Cap.er.24h 0.4 Mg PO QHS Ferrous Sulfate 325 Mg Tablet 325 Mg PO BID Provera (Medroxyprogesterone Acetate) 2.5 Mg Tablet 1 Tab PO DAILY Trazodone Hcl 50 Mg Tablet 75 Mg PO QHS Zyprexa Zydis (Olanzapine) 5 Mg Tab.rapdis 2.5 Mg PO PRN Q2HR PRN Analgesic [place] (Methyl Salicylate/Menthol) 29 Gm Oint...g. 1 Amelia TP PRN QID PRN Hydroxyzine Pamoate 25 Mg Capsule 25 Mg PO PRN Q2HR PRN Donepezil Hcl 10 Mg Tablet 10 Mg PO DAILY Vitamin B-12 (Cyanocobalamin (Vitamin B-12)) 1,000 Mcg Tablet 1,000 Mcg PO DAILY Vitamin D (Cholecalciferol (Vitamin D3)) 2,000 Unit Capsule 2,000 Unit PO DAILY Ultram (Tramadol HCl) 50 Mg Tablet 50 Mg PO PRN Q6HRS PRN Thiamine Hcl 100 Mg Tablet 100 Mg PO DAILY Simvastatin 10 Mg Tablet 20 Mg PO DAILY Mirtazapine 15 Mg Tablet 15 Mg PO QHS Proscar (Finasteride) 5 Mg Tablet 5 Mg PO DAILY Miralax (Polyethylene Glycol 3350) 17 Gm Powd.pack 17 Gm PO DAILY Folic Acid 1 Mg Tablet 1 Mg PO DAILY Combigan Eye Drops (Brimonidine Tartrate/Timolol) 5 Ml Drops 1 Drop OU BID Colace (Docusate Sodium) 100 Mg Capsule 200 Mg PO BID Aspirin 81 Mg Tab.chew 81 Mg PO DAILY I have reviewed the current psychotropics carefully including drug interactions. Risk benefit ratio favors no change other than as noted in my dictated progress note. 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
[2017-04-25 05:45] VITALS: BP 97/61
--- NOTE | 2017-04-25 08:41 | PN ---
DATE: 04/24/2017 This note covers elements not covered in my initial note 04/24/2017. The patient did reasonably well previous evening and has been more compliant, less labile, certainly still very confused today. REVIEW OF SYSTEMS: Ambulation impaired, in wheelchair. No CV, , pulmonary, eye, ENT system symptoms on review. Reliability poor. MENTAL STATUS EXAM: Oriented to himself. Insight, judgment, recent and remote memory, attention, concentration, fund of knowledge poor, consistent with his diagnosis mentioned in my initial note. PLAN: Continue psychotropics mentioned in my initial note. Zoloft is being adjusted. MAN Corey DEY MD DR: ABBY/brian JOB#: [id number] / [id number]
--- NOTE | 2017-04-25 08:42 | PN ---
DATE: 04/23/2017 This is a late entry for 04/23/2017 and covers elements not covered in my initial note of 04/23/2017. I met with the patient the evening of 04/23/2017. The patient slept 7 hours previous evening, refused his dinner, refused cares previous evening, cursing. Received Zyprexa at 5:00 a.m., seemed to help him, slept in the quiet room, refusing medications. REVIEW OF SYSTEMS: Ambulation impaired, in wheelchair. No CV, , pulmonary, eye, ENT system symptoms on review. Slept 7 hours. MENTAL STATUS EXAM: Oriented to himself. Insight, judgment, recent and remote memory, attention, concentration, fund of knowledge poor, consistent with his diagnosis. IMPRESSION: Major neurocognitive disorder, Alzheimer, vascular with depression, delusion, behavioral disturbance. PLAN: Continue psychotropics as mentioned in my initial note. MAN Corey DEY MD DR: ABBY/brian JOB#: [id number] / [id number]
[2017-04-25] MEDS: BRIMONIDINE 0.2% OPHTH SOLUTION 5ML BOTTLE. OU SCH ×2 (09:15→20:45)
[2017-04-25] MEDS: TIMOLOL 0.5% OPHTH SOLUTION 5ML BOTTLE. OU SCH ×2 (09:15→20:45)
[2017-04-25] MEDS: FOLIC ACID 1 MG TABLET PO SCH (09:16)
[2017-04-25] MEDS: FERROUS SULFATE 325 MG TABLET. PO SCH ×2 (09:16→20:45)
[2017-04-25] MEDS: FINASTERIDE 5 MG TABLET PO SCH (09:16)
[2017-04-25] MEDS: POLYETHYLENE GLYCOL 3350 17 GM PACKET. PO SCH (09:16)
[2017-04-25] MEDS: DONEPEZIL HCL 10 MG TABLET PO SCH (09:16)
[2017-04-25] MEDS: DOCUSATE SODIUM 100 MG CAPSULE PO SCH ×2 (09:16→20:44)
[2017-04-25] MEDS: ASPIRIN 81 MG TAB.CHEW PO SCH (09:16)
[2017-04-25] MEDS: QUEtiapine 50 MG TABLET. PO SCH (09:17)
[2017-04-25] MEDS: CYANOCOBALAMIN (VITAMIN B-12) 1,000 MCG TABLET. PO SCH (09:17)
[2017-04-25] MEDS: SERTRALINE 50 MG TABLET. PO SCH (09:17)
[2017-04-25] MEDS: THIAMINE 100 MG TABLET. PO SCH (09:17)
[2017-04-25] MEDS: CHOLECALCIFEROL (VITAMIN D3) 1,000 UNIT TABLET PO SCH (09:17)
[2017-04-25] MEDS: PRENATAL MULTIVITAMIN TABLET. PO SCH (09:18)
[2017-04-25 16:05] VITALS: BP 99/57
--- NOTE | 2017-04-25 20:11 | PDOC ---
Exam Note: Chase Note: Please also refer to the separate dictated note~for this date of service dictated separately.~Patient seen individually. Discussed the patient with Nursing staff reviewed the chart.~Reviewed interim history and current functioning. Reviewed vital signs,~Labs/ Radiology~and current medications noted below. Continue current treatment with the changes noted in the dictated addendum note Assessment: Vital Signs: Vital Signs Date Time Temp Pulse Resp B/P (MAP) Pulse Ox O2 Delivery O2 Flow Rate FiO2 04/25/17 16:05 98.2 96 20 99/57 (71) 96 04/23/17 16:18 Room Air I&O Intake and Output 04/25/17 07:00 Intake Total 835 ml Balance 835 ml Intake Oral 835 ml Current Medications: Meds: Current Medications Diphenhydramine HCl (Benadryl) 50 mg 1X ONCE IM Last administered on 18:00; Start 04/19/17 at 18:00; Stop 04/19/17 at 18:01; Status DC Lorazepam (Ativan) 2 mg 1X ONCE IM Last administered on 04/19/17 18:00; Start 04/19/17 at 18:00; Stop 04/19/17 at 18:01; Status DC Olanzapine (ZyPREXA IM) 10 mg 1X ONCE IM Last administered on 04/19/17 18:30 ; Start 04/19/17 at 18:30; Stop 04/19/17 at 18:31; Status DC Lactated Ringer's 1,000 ml @ 1,000 mls/hr Q1H IV ; Start 04/19/17 at 18:15; Stop 04/22/17 at 00:43; Status DC Multivitamins/ Minerals 10 ml/ Folic Acid 1 mg/ Thiamine HCl 100 mg/Sodium Chloride 1,011.1 ml @ 1,000 mls/ hr 1X ONCE IV Last administered on 19:30; Start 04/19/17 at 19:30; Stop 04/19/17 at 20:30; Status DC Phytonadione (Vitamin K) 10 mg STK-MED ONCE .ROUTE ; Start 04/19/17 at 20:55; Stop 04/19/17 at 20:56; Status DC Thiamine HCl 200 mg STK-MED ONCE IV ; Start 04/19/17 at 20:55; Stop 04/19/17 at 20:56; Status DC Folic Acid 5 mg STK-MED ONCE IV ; Start 04/19/17 at 20:56; Stop 04/19/17 at 20 :57; Status DC Donepezil HCl (Aricept) 10 mg DAILY PO Last administered on 04/25/17 09:16; Start 04/20/17 at 09:00 Hydroxyzine Pamoate (Vistaril) 25 mg PRN Q2HR PRN PO AGITAT; Start 04/19/17 at 23:30 Medroxyprogesterone Acetate (Provera) 2.5 mg DAILY PO Last administered on 09:16; Start 04/20/17 at 09:00 Mirtazapine (Remeron) 15 mg QHS PO Last administered on 04/24/17 19:34; Start 04/20/17 at 21:00 Olanzapine (ZyPREXA ZYDIS) 2.5 mg PRN Q2HR PRN PO ANXIETY / AGITATION Last administered on 04/23/17 04:58; Start 04/19/17 at 23:30 Quetiapine Fumarate (SEROquel) 75 mg DAILY PO Last administered on 04/25/17 09:17; Start 04/20/17 at 09:00 Quetiapine Fumarate (SEROquel) 100 mg QHS PO Last administered on 04/24/17 19 :34; Start 04/20/17 at 21:00 Trazodone HCl (Desyrel) 75 mg QHS PO Last administered on 04/24/17 19:34; Start 04/20/17 at 21:00 Acetaminophen (Tylenol) 1,000 mg PRN Q8HRS PRN PO PAIN; Start 04/20/17 at 07: 45 Aspirin (Children'S Aspirin) 81 mg DAILY PO Last administered on 04/25/17 09: 16; Start 04/20/17 at 09:00 Cyanocobalamin (Vitamin B-12) 1,000 mcg DAILY PO Last administered on 09:17; Start 04/20/17 at 09:00 Diclofenac Sodium (Voltaren) 4 amelia PRN Q6HRS PRN TP PAIN; Start 04/20/17 at 07 :45 Docusate Sodium (Colace) 200 mg BID PO Last administered on 04/25/17 09:16; Start 04/20/17 at 09:00 Ferrous Sulfate (Feosol) 325 mg BID PO Last administered on 04/25/17 09:16; Start 04/20/17 at 09:00 Finasteride (Proscar) 5 mg DAILY PO Last administered on 04/25/17 09:16; Start 04/20/17 at 09:00 Folic Acid (Folic Acid) 1 mg DAILY PO Last administered on 04/25/17 09:16; Start 04/20/17 at 09:00 Al Hydroxide/Mg Hydroxide (Mylanta Plus Xs) 15 ml PRN QHS PRN PO INDIGESTION; Start 04/20/17 at 07:45 Magnesium Hydroxide (Milk Of Magnesia) 800 mg PRN Q24HRS PRN PO CONSTIPATION; Start 04/20/17 at 07:45 Multi-Ingredient Ointment (Analgesic [place]) 1 amelia PRN QID PRN TP muscle pain; Start 04/20/17 at 07:45 Polyethylene Glycol (miraLAX) 17 gm DAILY PO Last administered on 04/25/17 09 :16; Start 04/20/17 at 09:00 Simvastatin (Zocor) 20 mg HS PO Last administered on 04/24/17 19:33; Start 04/20/17 at 21:00 Tamsulosin HCl (Flomax) 0.4 mg QHS PO Last administered on 04/24/17 19:33; Start 04/20/17 at 21:00 Thiamine HCl (Vitamin B-1) 100 mg DAILY PO Last administered on 04/25/17 09: 17; Start 04/20/17 at 09:00 Tramadol HCl (Ultram) 50 mg PRN Q6HRS PRN PO PAIN; Start 04/20/17 at 07:45 Triamcinolone Acetonide (Kenalog) 15 amelia PRN BID PRN TP RASH; Start 04/20/17 at 07:45 Brimonidine Tartrate (Alphagan) 1 drop BID OU Last administered on 04/21/17 11:11; Start 04/20/17 at 09:00; Stop 04/21/17 at 14:37; Status DC Vitamin D (Vitamin D3) 2,000 unit DAILY PO Last administered on 04/25/17 09: 17; Start 04/20/17 at 09:00 Timolol Maleate (Timoptic 0.5% [facility]) 1 drop BID OU Last administered on 09:15; Start 04/20/17 at 09:00 Dextrose 1,000 ml @ 100 mls/hr Q10H IV Last administered on 04/20/17 18:06; Start 04/20/17 at 16:15; Stop 04/22/17 at 00:42; Status DC Prenat Multivit/ [place]/Iron/Folic Ac (Multivitamin ) 1 tab DAILYBFRSUP PO Last administered on 04/25/17 09:18; Start 04/20/17 at 17:00 Brimonidine Tartrate (Alphagan) 1 drop BID OU Last administered on 04/25/17 09:15; Start 04/21/17 at 14:37 Sodium Chloride 1,000 ml @ 125 mls/hr Q8H IV Last administered on 04/21/17 16:08; Start 04/21/17 at 14:45; Stop 04/22/17 at 00:42; Status DC Sertraline HCl (Zoloft) 25 mg DAILY PO Last administered on 04/24/17 09:35; Start 04/22/17 at 09:00; Stop 04/24/17 at 09:01; Status DC Sertraline HCl (Zoloft) 50 mg DAILY PO Last administered on 04/25/17 09:17; Start 04/22/17 at 09:00 Active Scripts Active Reported Mag-Al Plus Xs Suspension (Mag Hydrox/Al Hydrox/Simeth) 30 Ml Oral.susp 15 Ml PO PRN QHS PRN Triamcinolone Acetonide 15 Gm Cream..g. 15 Gm TP PRN BID PRN Voltaren (Diclofenac Sodium) 100 Gm Gel..gram. 4 Gm TP PRN Q6HRS Acetaminophen 500 Mg Tablet 1,000 Mg PO PRN Q8HRS PRN Seroquel (Quetiapine Fumarate) 100 Mg Tablet 100 Mg PO QHS Seroquel (Quetiapine Fumarate) 50 Mg Tablet 75 Mg PO DAILY Milk Of Magnesia (Magnesium Hydroxide) 400 Mg/5 Ml Oral.susp 800 Mg PO PRN Q24HRS PRN Flomax (Tamsulosin Hcl) 0.4 Mg Cap.er.24h 0.4 Mg PO QHS Ferrous Sulfate 325 Mg Tablet 325 Mg PO BID Provera (Medroxyprogesterone Acetate) 2.5 Mg Tablet 1 Tab PO DAILY Trazodone Hcl 50 Mg Tablet 75 Mg PO QHS Zyprexa Zydis (Olanzapine) 5 Mg Tab.rapdis 2.5 Mg PO PRN Q2HR PRN Analgesic [place] (Methyl Salicylate/Menthol) 29 Gm Oint...g. 1 Amelia TP PRN QID PRN Hydroxyzine Pamoate 25 Mg Capsule 25 Mg PO PRN Q2HR PRN Donepezil Hcl 10 Mg Tablet 10 Mg PO DAILY Vitamin B-12 (Cyanocobalamin (Vitamin B-12)) 1,000 Mcg Tablet 1,000 Mcg PO DAILY Vitamin D (Cholecalciferol (Vitamin D3)) 2,000 Unit Capsule 2,000 Unit PO DAILY Ultram (Tramadol HCl) 50 Mg Tablet 50 Mg PO PRN Q6HRS PRN Thiamine Hcl 100 Mg Tablet 100 Mg PO DAILY Simvastatin 10 Mg Tablet 20 Mg PO DAILY Mirtazapine 15 Mg Tablet 15 Mg PO QHS Proscar (Finasteride) 5 Mg Tablet 5 Mg PO DAILY Miralax (Polyethylene Glycol 3350) 17 Gm Powd.pack 17 Gm PO DAILY Folic Acid 1 Mg Tablet 1 Mg PO DAILY Combigan Eye Drops (Brimonidine Tartrate/Timolol) 5 Ml Drops 1 Drop OU BID Colace (Docusate Sodium) 100 Mg Capsule 200 Mg PO BID Aspirin 81 Mg Tab.chew 81 Mg PO DAILY I have reviewed the current psychotropics carefully including drug interactions. Risk benefit ratio favors no change other than as noted in my dictated progress note. 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
[2017-04-25] MEDS: SIMVASTATIN 20 MG TABLET PO SCH (20:44)
[2017-04-25] MEDS: TAMSULOSIN 0.4 MG CAP.ER.24H. PO SCH (20:44)
[2017-04-25] MEDS: MIRTAZAPINE 15 MG TABLET PO SCH (20:44)
[2017-04-25] MEDS: QUEtiapine 100 MG TABLET. PO SCH (20:44)
[2017-04-25] MEDS: traZODone 50 MG TABLET. PO SCH (20:44)
[2017-04-26 06:32] VITALS: BP 106/67
[2017-04-26] MEDS: QUEtiapine 50 MG TABLET. PO SCH (10:05)
[2017-04-26] MEDS: THIAMINE 100 MG TABLET. PO SCH (10:06)
[2017-04-26] MEDS: SERTRALINE 50 MG TABLET. PO SCH (10:06)
[2017-04-26] MEDS: ASPIRIN 81 MG TAB.CHEW PO SCH (10:06)
[2017-04-26] MEDS: CHOLECALCIFEROL (VITAMIN D3) 1,000 UNIT TABLET PO SCH (10:06)
[2017-04-26] MEDS: FERROUS SULFATE 325 MG TABLET. PO SCH ×2 (10:06→20:20)
[2017-04-26] MEDS: FOLIC ACID 1 MG TABLET PO SCH (10:06)
[2017-04-26] MEDS: DONEPEZIL HCL 10 MG TABLET PO SCH (10:06)
[2017-04-26] MEDS: DOCUSATE SODIUM 100 MG CAPSULE PO SCH ×2 (10:06→20:19)
[2017-04-26] MEDS: FINASTERIDE 5 MG TABLET PO SCH (10:06)
[2017-04-26] MEDS: CYANOCOBALAMIN (VITAMIN B-12) 1,000 MCG TABLET. PO SCH (10:06)
[2017-04-26] MEDS: BRIMONIDINE 0.2% OPHTH SOLUTION 5ML BOTTLE. OU SCH ×2 (10:07→20:22)
[2017-04-26] MEDS: TIMOLOL 0.5% OPHTH SOLUTION 5ML BOTTLE. OU SCH ×2 (10:07→20:22)
[2017-04-26] MEDS: POLYETHYLENE GLYCOL 3350 17 GM PACKET. PO SCH (10:07)
[2017-04-26 15:57] VITALS: BP 137/98
[2017-04-26] MEDS: PRENATAL MULTIVITAMIN TABLET. PO SCH (17:00)
--- NOTE | 2017-04-26 20:01 | PDOC ---
Exam Note: [place] Note: Please also refer to the separate dictated note~for this date of service dictated separately.~Patient seen individually. Discussed the patient with Nursing staff reviewed the chart.~Reviewed interim history and current functioning. Reviewed vital signs,~Labs/ Radiology~and current medications noted below. Continue current treatment with the changes noted in the dictated addendum note Assessment: Vital Signs: Vital Signs Date Time Temp Pulse Resp B/P (MAP) Pulse Ox O2 Delivery O2 Flow Rate FiO2 04/26/17 15:57 98.1 68 20 137/98 (111) 93 04/23/17 16:18 Room Air I&O Intake and Output 04/26/17 07:00 Intake Total 320 ml Balance 320 ml Intake Oral 320 ml # Voids 2 Current Medications: Meds: Current Medications Diphenhydramine HCl (Benadryl) 50 mg 1X ONCE IM Last administered on 18:00; Start 04/19/17 at 18:00; Stop 04/19/17 at 18:01; Status DC Lorazepam (Ativan) 2 mg 1X ONCE IM Last administered on 04/19/17 18:00; Start 04/19/17 at 18:00; Stop 04/19/17 at 18:01; Status DC Olanzapine (ZyPREXA IM) 10 mg 1X ONCE IM Last administered on 04/19/17 18:30 ; Start 04/19/17 at 18:30; Stop 04/19/17 at 18:31; Status DC Lactated Ringer's 1,000 ml @ 1,000 mls/hr Q1H IV ; Start 04/19/17 at 18:15; Stop 04/22/17 at 00:43; Status DC Multivitamins/ Minerals 10 ml/ Folic Acid 1 mg/ Thiamine HCl 100 mg/Sodium Chloride 1,011.1 ml @ 1,000 mls/ hr 1X ONCE IV Last administered on 19:30; Start 04/19/17 at 19:30; Stop 04/19/17 at 20:30; Status DC Phytonadione (Vitamin K) 10 mg STK-MED ONCE .ROUTE ; Start 04/19/17 at 20:55; Stop 04/19/17 at 20:56; Status DC Thiamine HCl 200 mg STK-MED ONCE IV ; Start 04/19/17 at 20:55; Stop 04/19/17 at 20:56; Status DC Folic Acid 5 mg STK-MED ONCE IV ; Start 04/19/17 at 20:56; Stop 04/19/17 at 20 :57; Status DC Donepezil HCl (Aricept) 10 mg DAILY PO Last administered on 04/26/17 10:06; Start 04/20/17 at 09:00 Hydroxyzine Pamoate (Vistaril) 25 mg PRN Q2HR PRN PO AGITAT; Start 04/19/17 at 23:30 Medroxyprogesterone Acetate (Provera) 2.5 mg DAILY PO Last administered on 10:05; Start 04/20/17 at 09:00 Mirtazapine (Remeron) 15 mg QHS PO Last administered on 04/25/17 20:44; Start 04/20/17 at 21:00 Olanzapine (ZyPREXA ZYDIS) 2.5 mg PRN Q2HR PRN PO ANXIETY / AGITATION Last administered on 04/23/17 04:58; Start 04/19/17 at 23:30 Quetiapine Fumarate (SEROquel) 75 mg DAILY PO Last administered on 04/26/17 10:05; Start 04/20/17 at 09:00 Quetiapine Fumarate (SEROquel) 100 mg QHS PO Last administered on 04/25/17 20 :44; Start 04/20/17 at 21:00 Trazodone HCl (Desyrel) 75 mg QHS PO Last administered on 04/25/17 20:44; Start 04/20/17 at 21:00 Acetaminophen (Tylenol) 1,000 mg PRN Q8HRS PRN PO PAIN; Start 04/20/17 at 07: 45 Aspirin (Children'S Aspirin) 81 mg DAILY PO Last administered on 04/26/17 10: 06; Start 04/20/17 at 09:00 Cyanocobalamin (Vitamin B-12) 1,000 mcg DAILY PO Last administered on 10:06; Start 04/20/17 at 09:00 Diclofenac Sodium (Voltaren) 4 amelia PRN Q6HRS PRN TP PAIN; Start 04/20/17 at 07 :45 Docusate Sodium (Colace) 200 mg BID PO Last administered on 04/26/17 10:06; Start 04/20/17 at 09:00 Ferrous Sulfate (Feosol) 325 mg BID PO Last administered on 04/26/17 10:06; Start 04/20/17 at 09:00 Finasteride (Proscar) 5 mg DAILY PO Last administered on 04/26/17 10:06; Start 04/20/17 at 09:00 Folic Acid (Folic Acid) 1 mg DAILY PO Last administered on 04/26/17 10:06; Start 04/20/17 at 09:00 Al Hydroxide/Mg Hydroxide (Mylanta Plus Xs) 15 ml PRN QHS PRN PO INDIGESTION; Start 04/20/17 at 07:45 Magnesium Hydroxide (Milk Of Magnesia) 800 mg PRN Q24HRS PRN PO CONSTIPATION Last administered on 04/26/17 03:09; Start 04/20/17 at 07:45 Multi-Ingredient Ointment (Analgesic [place]) 1 amelia PRN QID PRN TP muscle pain; Start 04/20/17 at 07:45 Polyethylene Glycol (miraLAX) 17 gm DAILY PO Last administered on 04/26/17 10 :07; Start 04/20/17 at 09:00 Simvastatin (Zocor) 20 mg HS PO Last administered on 04/25/17 20:44; Start 04/20/17 at 21:00 Tamsulosin HCl (Flomax) 0.4 mg QHS PO Last administered on 04/25/17 20:44; Start 04/20/17 at 21:00 Thiamine HCl (Vitamin B-1) 100 mg DAILY PO Last administered on 04/26/17 10: 06; Start 04/20/17 at 09:00 Tramadol HCl (Ultram) 50 mg PRN Q6HRS PRN PO PAIN; Start 04/20/17 at 07:45 Triamcinolone Acetonide (Kenalog) 15 amelia PRN BID PRN TP RASH; Start 04/20/17 at 07:45 Brimonidine Tartrate (Alphagan) 1 drop BID OU Last administered on 04/21/17 11:11; Start 04/20/17 at 09:00; Stop 04/21/17 at 14:37; Status DC Vitamin D (Vitamin D3) 2,000 unit DAILY PO Last administered on 04/26/17 10: 06; Start 04/20/17 at 09:00 Timolol Maleate (Timoptic 0.5% [facility]) 1 drop BID OU Last administered on 10:07; Start 04/20/17 at 09:00 Dextrose 1,000 ml @ 100 mls/hr Q10H IV Last administered on 04/20/17 18:06; Start 04/20/17 at 16:15; Stop 04/22/17 at 00:42; Status DC Prenat Multivit/ Nursing Service Administrator/Iron/Folic Ac (Multivitamin ) 1 tab DAILYBFRSUP PO Last administered on 04/26/17 17:00; Start 04/20/17 at 17:00 Brimonidine Tartrate (Alphagan) 1 drop BID OU Last administered on 04/26/17 10:07; Start 04/21/17 at 14:37 Sodium Chloride 1,000 ml @ 125 mls/hr Q8H IV Last administered on 04/21/17 16:08; Start 04/21/17 at 14:45; Stop 04/22/17 at 00:42; Status DC Sertraline HCl (Zoloft) 25 mg DAILY PO Last administered on 04/24/17 09:35; Start 04/22/17 at 09:00; Stop 04/24/17 at 09:01; Status DC Sertraline HCl (Zoloft) 50 mg DAILY PO Last administered on 04/26/17 10:06; Start 04/22/17 at 09:00; Stop 04/26/17 at 18:17; Status DC Sertraline HCl (Zoloft) 75 mg DAILY PO ; Start 04/27/17 at 09:00 Active Scripts Active Reported Mag-Al Plus Xs Suspension (Mag Hydrox/Al Hydrox/Simeth) 30 Ml Oral.susp 15 Ml PO PRN QHS PRN Triamcinolone Acetonide 15 Gm Cream..g. 15 Gm TP PRN BID PRN Voltaren (Diclofenac Sodium) 100 Gm Gel..gram. 4 Gm TP PRN Q6HRS Acetaminophen 500 Mg Tablet 1,000 Mg PO PRN Q8HRS PRN Seroquel (Quetiapine Fumarate) 100 Mg Tablet 100 Mg PO QHS Seroquel (Quetiapine Fumarate) 50 Mg Tablet 75 Mg PO DAILY Milk Of Magnesia (Magnesium Hydroxide) 400 Mg/5 Ml Oral.susp 800 Mg PO PRN Q24HRS PRN Flomax (Tamsulosin Hcl) 0.4 Mg Cap.er.24h 0.4 Mg PO QHS Ferrous Sulfate 325 Mg Tablet 325 Mg PO BID Provera (Medroxyprogesterone Acetate) 2.5 Mg Tablet 1 Tab PO DAILY Trazodone Hcl 50 Mg Tablet 75 Mg PO QHS Zyprexa Zydis (Olanzapine) 5 Mg Tab.rapdis 2.5 Mg PO PRN Q2HR PRN Analgesic [place] (Methyl Salicylate/Menthol) 29 Gm Oint...g. 1 Amelia TP PRN QID PRN Hydroxyzine Pamoate 25 Mg Capsule 25 Mg PO PRN Q2HR PRN Donepezil Hcl 10 Mg Tablet 10 Mg PO DAILY Vitamin B-12 (Cyanocobalamin (Vitamin B-12)) 1,000 Mcg Tablet 1,000 Mcg PO DAILY Vitamin D (Cholecalciferol (Vitamin D3)) 2,000 Unit Capsule 2,000 Unit PO DAILY Ultram (Tramadol HCl) 50 Mg Tablet 50 Mg PO PRN Q6HRS PRN Thiamine Hcl 100 Mg Tablet 100 Mg PO DAILY Simvastatin 10 Mg Tablet 20 Mg PO DAILY Mirtazapine 15 Mg Tablet 15 Mg PO QHS Proscar (Finasteride) 5 Mg Tablet 5 Mg PO DAILY Miralax (Polyethylene Glycol 3350) 17 Gm Powd.pack 17 Gm PO DAILY Folic Acid 1 Mg Tablet 1 Mg PO DAILY Combigan Eye Drops (Brimonidine Tartrate/Timolol) 5 Ml Drops 1 Drop OU BID Colace (Docusate Sodium) 100 Mg Capsule 200 Mg PO BID Aspirin 81 Mg Tab.chew 81 Mg PO DAILY I have reviewed the current psychotropics carefully including drug interactions. Risk benefit ratio favors no change other than as noted in my dictated progress note. 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
[2017-04-26] MEDS: SIMVASTATIN 20 MG TABLET PO SCH (20:19)
[2017-04-26] MEDS: TAMSULOSIN 0.4 MG CAP.ER.24H. PO SCH (20:19)
[2017-04-26] MEDS: MIRTAZAPINE 15 MG TABLET PO SCH (20:20)
[2017-04-26] MEDS: traZODone 50 MG TABLET. PO SCH (20:20)
[2017-04-26] MEDS: QUEtiapine 100 MG TABLET. PO SCH (20:20)
--- NOTE | 2017-04-27 03:43 | PN ---
DATE: 04/25/2017 This is a late entry 04/25, covers elements not covered in my initial note 04/25. SUBJECTIVE: I met with the patient in the evening of 04/25. Overall, the patient remains confused, withdrawn, less irritable urinated in the hallway, but that as part of his confusion. He complained of feeling cold as I met with them seated in a wheelchair. He had put covers around his head and his body and I have asked the nursing staff to provide him extra hot blankets. REVIEW OF SYSTEMS: Ambulation impaired. No CV, , pulmonary, eye, ENT system symptoms on review. Reliability poor. MENTAL STATUS EXAM: Oriented to himself. Insight, judgment, recent and remote memory, attention, concentration, fund of knowledge poor, consistent with his diagnosis mentioned in my initial note. IMPRESSION: Major neurocognitive disorder, Alzheimer vascular with delusion, depression, behavioral disturbance. Rest unchanged. PLAN: Continue psychotropics mentioned in my initial note. MAN Corey DEY MD DR: ABBY/brian JOB#: [id number] / [id number]
[2017-04-27 06:17] VITALS: BP 109/61
[2017-04-27 07:49] LABS: BASO # 0.1 x10^3/uL (0.0-0.2); BASO % 1 % (0-3); EOS # 0.2 x10^3/uL (0.0-0.7); EOS % 2 % (0-3); HEMATOCRIT 32.5 % (39.0-53.0); HEMOGLOBIN 10.8 g/dL (13.0-17.5); LYMPH # 1.9 x10^3/uL (1.0-4.8); LYMPH % 18 % (24-48); MEAN CORPUSCULAR HEMOGLOBIN 29 pg (25-35); MEAN CORPUSCULAR HGB CONC 33 g/dL (31-37); MEAN CORPUSCULAR VOLUME 86 fL (79-100); MONO # 0.7 x10^3/uL (0.0-1.1); MONO % 6 % (0-9); NEUT # 7.7 x10^3uL (1.8-7.7); NEUT % 74 % (31-73); PLATELET COUNT 187 x10^3/uL (140-400); RED BLOOD COUNT 3.77 x10^6/uL (4.30-5.70); RED CELL DISTRIBUTION WIDTH 16.4 % (11.5-14.5); WHITE BLOOD COUNT 10.5 x10^3/uL (4.0-11.0)
[2017-04-27 08:00] LABS: ALBUMIN 3.4 g/dL (3.4-5.0); ALBUMIN/GLOBULIN RATIO 0.9 (1.0-1.7); CALCIUM 9.9 mg/dL (8.5-10.1); CREATININE 2.1 mg/dL (0.7-1.3); GFR 29.9; POTASSIUM 4.1 mmol/L (3.5-5.1); TOTAL BILIRUBIN 0.7 mg/dL (0.2-1.0); TOTAL PROTEIN 7.4 g/dL (6.4-8.2)
[2017-04-27] MEDS: POLYETHYLENE GLYCOL 3350 17 GM PACKET. PO SCH (08:22)
[2017-04-27] MEDS: DOCUSATE SODIUM 100 MG CAPSULE PO SCH ×2 (08:22→19:17)
[2017-04-27] MEDS: FERROUS SULFATE 325 MG TABLET. PO SCH ×2 (08:22→19:17)
[2017-04-27] MEDS: DONEPEZIL HCL 10 MG TABLET PO SCH (08:22)
[2017-04-27] MEDS: CHOLECALCIFEROL (VITAMIN D3) 1,000 UNIT TABLET PO SCH (08:22)
[2017-04-27] MEDS: THIAMINE 100 MG TABLET. PO SCH (08:22)
[2017-04-27] MEDS: FINASTERIDE 5 MG TABLET PO SCH (08:23)
[2017-04-27] MEDS: QUEtiapine 50 MG TABLET. PO SCH (08:23)
[2017-04-27] MEDS: FOLIC ACID 1 MG TABLET PO SCH (08:23)
[2017-04-27] MEDS: CYANOCOBALAMIN (VITAMIN B-12) 1,000 MCG TABLET. PO SCH (08:23)
[2017-04-27] MEDS: ASPIRIN 81 MG TAB.CHEW PO SCH (08:23)
[2017-04-27] MEDS: SERTRALINE 50 MG TABLET. PO SCH (08:24)
[2017-04-27] MEDS: BRIMONIDINE 0.2% OPHTH SOLUTION 5ML BOTTLE. OU SCH ×2 (08:27→19:17)
[2017-04-27] MEDS: TIMOLOL 0.5% OPHTH SOLUTION 5ML BOTTLE. OU SCH ×2 (08:27→19:17)
[2017-04-27 15:38] VITALS: BP 114/63
[2017-04-27] MEDS: PRENATAL MULTIVITAMIN TABLET. PO SCH (17:41)
[2017-04-27] MEDS: traZODone 50 MG TABLET. PO SCH (19:17)
[2017-04-27] MEDS: TAMSULOSIN 0.4 MG CAP.ER.24H. PO SCH (19:18)
[2017-04-27] MEDS: QUEtiapine 100 MG TABLET. PO SCH (19:18)
[2017-04-27] MEDS: MIRTAZAPINE 15 MG TABLET PO SCH (19:18)
[2017-04-27] MEDS: SIMVASTATIN 20 MG TABLET PO SCH (19:18)
--- NOTE | 2017-04-27 20:05 | PDOC ---
Exam Note: Chase Note: Please also refer to the separate dictated note~for this date of service dictated separately.~Patient seen individually. Discussed the patient with Nursing staff reviewed the chart.~Reviewed interim history and current functioning. Reviewed vital signs,~Labs/ Radiology~and current medications noted below. Continue current treatment with the changes noted in the dictated addendum note Assessment: Vital Signs: Vital Signs Date Time Temp Pulse Resp B/P (MAP) Pulse Ox O2 Delivery O2 Flow Rate FiO2 04/27/17 15:38 98.0 94 18 114/63 (80) 100 04/23/17 16:18 Room Air I&O Intake and Output 04/27/17 07:00 Intake Total 320 ml Balance 320 ml Intake Oral 320 ml # Voids 3 Labs: Laboratory Tests Test 04/27/17 07:20 White Blood Count 10.5 x10^3/uL (4.0-11.0) Red Blood Count 3.77 x10^6/uL (4.30-5.70) L Hemoglobin 10.8 g/dL (13.0-17.5) L Hematocrit 32.5 % (39.0-53.0) L Mean Corpuscular Volume 86 fL (79-100) Mean Corpuscular Hemoglobin 29 pg (25-35) Mean Corpuscular Hemoglobin Concent 33 g/dL (31-37) Red Cell Distribution Width 16.4 % (11.5-14.5) H Platelet Count 187 x10^3/uL (140-400) Neutrophils (%) (Auto) 74 % (31-73) H Lymphocytes (%) (Auto) 18 % (24-48) L Monocytes (%) (Auto) 6 % (0-9) Eosinophils (%) (Auto) 2 % (0-3) Basophils (%) (Auto) 1 % (0-3) Neutrophils # (Auto) 7.7 x10^3uL (1.8-7.7) Lymphocytes # (Auto) 1.9 x10^3/uL (1.0-4.8) Monocytes # (Auto) 0.7 x10^3/uL (0.0-1.1) Eosinophils # (Auto) 0.2 x10^3/uL (0.0-0.7) Basophils # (Auto) 0.1 x10^3/uL (0.0-0.2) Sodium Level 148 mmol/L (136-145) H Potassium Level 4.1 mmol/L (3.5-5.1) Chloride Level 111 mmol/L (98-107) H Carbon Dioxide Level 31 mmol/L (21-32) Anion Gap 6 (6-14) Blood Urea Nitrogen 53 mg/dL (8-26) H Creatinine 2.1 mg/dL (0.7-1.3) H Estimated GFR (Cockcroft-Gault) 29.9 BUN/Creatinine Ratio 25 (6-20) H Glucose Level 105 mg/dL (70-99) H Calcium Level 9.9 mg/dL (8.5-10.1) Total Bilirubin 0.7 mg/dL (0.2-1.0) Aspartate Amino Transferase (AST) 34 U/L (15-37) Alanine Aminotransferase (ALT) 31 U/L (16-63) Alkaline Phosphatase 105 U/L (46-116) Total Protein 7.4 g/dL (6.4-8.2) Albumin 3.4 g/dL (3.4-5.0) Albumin/Globulin Ratio 0.9 (1.0-1.7) L Current Medications: Meds: Current Medications Diphenhydramine HCl (Benadryl) 50 mg 1X ONCE IM Last administered on 18:00; Start 04/19/17 at 18:00; Stop 04/19/17 at 18:01; Status DC Lorazepam (Ativan) 2 mg 1X ONCE IM Last administered on 04/19/17 18:00; Start 04/19/17 at 18:00; Stop 04/19/17 at 18:01; Status DC Olanzapine (ZyPREXA IM) 10 mg 1X ONCE IM Last administered on 04/19/17 18:30 ; Start 04/19/17 at 18:30; Stop 04/19/17 at 18:31; Status DC Lactated Ringer's 1,000 ml @ 1,000 mls/hr Q1H IV ; Start 04/19/17 at 18:15; Stop 04/22/17 at 00:43; Status DC Multivitamins/ Minerals 10 ml/ Folic Acid 1 mg/ Thiamine HCl 100 mg/Sodium Chloride 1,011.1 ml @ 1,000 mls/ hr 1X ONCE IV Last administered on 19:30; Start 04/19/17 at 19:30; Stop 04/19/17 at 20:30; Status DC Phytonadione (Vitamin K) 10 mg STK-MED ONCE .ROUTE ; Start 04/19/17 at 20:55; Stop 04/19/17 at 20:56; Status DC Thiamine HCl 200 mg STK-MED ONCE IV ; Start 04/19/17 at 20:55; Stop 04/19/17 at 20:56; Status DC Folic Acid 5 mg STK-MED ONCE IV ; Start 04/19/17 at 20:56; Stop 04/19/17 at 20 :57; Status DC Donepezil HCl (Aricept) 10 mg DAILY PO Last administered on 04/27/17 08:22; Start 04/20/17 at 09:00 Hydroxyzine Pamoate (Vistaril) 25 mg PRN Q2HR PRN PO AGITAT; Start 04/19/17 at 23:30 Medroxyprogesterone Acetate (Provera) 2.5 mg DAILY PO Last administered on 08:23; Start 04/20/17 at 09:00 Mirtazapine (Remeron) 15 mg QHS PO Last administered on 04/27/17 19:18; Start 04/20/17 at 21:00 Olanzapine (ZyPREXA ZYDIS) 2.5 mg PRN Q2HR PRN PO ANXIETY / AGITATION Last administered on 04/27/17 17:41; Start 04/19/17 at 23:30 Quetiapine Fumarate (SEROquel) 75 mg DAILY PO Last administered on 04/27/17 08:23; Start 04/20/17 at 09:00 Quetiapine Fumarate (SEROquel) 100 mg QHS PO Last administered on 04/27/17 19 :18; Start 04/20/17 at 21:00 Trazodone HCl (Desyrel) 75 mg QHS PO Last administered on 04/27/17 19:17; Start 04/20/17 at 21:00 Acetaminophen (Tylenol) 1,000 mg PRN Q8HRS PRN PO PAIN; Start 04/20/17 at 07: 45 Aspirin (Children'S Aspirin) 81 mg DAILY PO Last administered on 04/27/17 08: 23; Start 04/20/17 at 09:00 Cyanocobalamin (Vitamin B-12) 1,000 mcg DAILY PO Last administered on 08:23; Start 04/20/17 at 09:00 Diclofenac Sodium (Voltaren) 4 amelia PRN Q6HRS PRN TP PAIN; Start 04/20/17 at 07 :45 Docusate Sodium (Colace) 200 mg BID PO Last administered on 04/27/17 19:17; Start 04/20/17 at 09:00 Ferrous Sulfate (Feosol) 325 mg BID PO Last administered on 04/27/17 19:17; Start 04/20/17 at 09:00 Finasteride (Proscar) 5 mg DAILY PO Last administered on 04/27/17 08:23; Start 04/20/17 at 09:00 Folic Acid (Folic Acid) 1 mg DAILY PO Last administered on 04/27/17 08:23; Start 04/20/17 at 09:00 Al Hydroxide/Mg Hydroxide (Mylanta Plus Xs) 15 ml PRN QHS PRN PO INDIGESTION; Start 04/20/17 at 07:45 Magnesium Hydroxide (Milk Of Magnesia) 800 mg PRN Q24HRS PRN PO CONSTIPATION Last administered on 04/26/17 03:09; Start 04/20/17 at 07:45 Multi-Ingredient Ointment (Analgesic [place]) 1 amelia PRN QID PRN TP muscle pain; Start 04/20/17 at 07:45 Polyethylene Glycol (miraLAX) 17 gm DAILY PO Last administered on 04/27/17 08 :22; Start 04/20/17 at 09:00 Simvastatin (Zocor) 20 mg HS PO Last administered on 04/27/17 19:18; Start 04/20/17 at 21:00 Tamsulosin HCl (Flomax) 0.4 mg QHS PO Last administered on 04/27/17 19:18; Start 04/20/17 at 21:00 Thiamine HCl (Vitamin B-1) 100 mg DAILY PO Last administered on 04/27/17 08: 22; Start 04/20/17 at 09:00 Tramadol HCl (Ultram) 50 mg PRN Q6HRS PRN PO PAIN; Start 04/20/17 at 07:45 Triamcinolone Acetonide (Kenalog) 15 amelia PRN BID PRN TP RASH; Start 04/20/17 at 07:45 Brimonidine Tartrate (Alphagan) 1 drop BID OU Last administered on 04/21/17 11:11; Start 04/20/17 at 09:00; Stop 04/21/17 at 14:37; Status DC Vitamin D (Vitamin D3) 2,000 unit DAILY PO Last administered on 04/27/17 08: 22; Start 04/20/17 at 09:00 Timolol Maleate (Timoptic 0.5% Oph) 1 drop BID OU Last administered on 19:17; Start 04/20/17 at 09:00 Dextrose 1,000 ml @ 100 mls/hr Q10H IV Last administered on 04/20/17 18:06; Start 04/20/17 at 16:15; Stop 04/22/17 at 00:42; Status DC Prenat Multivit/ [place]/Iron/Folic Ac (Multivitamin ) 1 tab DAILYBFRSUP PO Last administered on 04/27/17 17:41; Start 04/20/17 at 17:00 Brimonidine Tartrate (Alphagan) 1 drop BID OU Last administered on 04/27/17 19:17; Start 04/21/17 at 14:37 Sodium Chloride 1,000 ml @ 125 mls/hr Q8H IV Last administered on 04/21/17 16:08; Start 04/21/17 at 14:45; Stop 04/22/17 at 00:42; Status DC Sertraline HCl (Zoloft) 25 mg DAILY PO Last administered on 04/24/17 09:35; Start 04/22/17 at 09:00; Stop 04/24/17 at 09:01; Status DC Sertraline HCl (Zoloft) 50 mg DAILY PO Last administered on 04/26/17 10:06; Start 04/22/17 at 09:00; Stop 04/26/17 at 18:17; Status DC Sertraline HCl (Zoloft) 75 mg DAILY PO Last administered on 04/27/17 08:24; Start 04/27/17 at 09:00 Active Scripts Active Reported Mag-Al Plus Xs Suspension (Mag Hydrox/Al Hydrox/Simeth) 30 Ml Oral.susp 15 Ml PO PRN QHS PRN Triamcinolone Acetonide 15 Gm Cream..g. 15 Gm TP PRN BID PRN Voltaren (Diclofenac Sodium) 100 Gm Gel..gram. 4 Gm TP PRN Q6HRS Acetaminophen 500 Mg Tablet 1,000 Mg PO PRN Q8HRS PRN Seroquel (Quetiapine Fumarate) 100 Mg Tablet 100 Mg PO QHS Seroquel (Quetiapine Fumarate) 50 Mg Tablet 75 Mg PO DAILY Milk Of Magnesia (Magnesium Hydroxide) 400 Mg/5 Ml Oral.susp 800 Mg PO PRN Q24HRS PRN Flomax (Tamsulosin Hcl) 0.4 Mg Cap.er.24h 0.4 Mg PO QHS Ferrous Sulfate 325 Mg Tablet 325 Mg PO BID Provera (Medroxyprogesterone Acetate) 2.5 Mg Tablet 1 Tab PO DAILY Trazodone Hcl 50 Mg Tablet 75 Mg PO QHS Zyprexa Zydis (Olanzapine) 5 Mg Tab.rapdis 2.5 Mg PO PRN Q2HR PRN Analgesic [place] (Methyl Salicylate/Menthol) 29 Gm Oint...g. 1 Amelia TP PRN QID PRN Hydroxyzine Pamoate 25 Mg Capsule 25 Mg PO PRN Q2HR PRN Donepezil Hcl 10 Mg Tablet 10 Mg PO DAILY Vitamin B-12 (Cyanocobalamin (Vitamin B-12)) 1,000 Mcg Tablet 1,000 Mcg PO DAILY Vitamin D (Cholecalciferol (Vitamin D3)) 2,000 Unit Capsule 2,000 Unit PO DAILY Ultram (Tramadol HCl) 50 Mg Tablet 50 Mg PO PRN Q6HRS PRN Thiamine Hcl 100 Mg Tablet 100 Mg PO DAILY Simvastatin 10 Mg Tablet 20 Mg PO DAILY Mirtazapine 15 Mg Tablet 15 Mg PO QHS Proscar (Finasteride) 5 Mg Tablet 5 Mg PO DAILY Miralax (Polyethylene Glycol 3350) 17 Gm Powd.pack 17 Gm PO DAILY Folic Acid 1 Mg Tablet 1 Mg PO DAILY Combigan Eye Drops (Brimonidine Tartrate/Timolol) 5 Ml Drops 1 Drop OU BID Colace (Docusate Sodium) 100 Mg Capsule 200 Mg PO BID Aspirin 81 Mg Tab.chew 81 Mg PO DAILY I have reviewed the current psychotropics carefully including drug interactions. Risk benefit ratio favors no change other than as noted in my dictated progress note. 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
--- NOTE | 2017-04-28 03:47 | PN ---
DATE: 04/26/2017 SUBJECTIVE: This is a late entry. Date of service covers elements not covered in my initial note 04/26/2017. I met with the patient evening of 04/26/2017. The patient slept 7-1/4 hours previous evening, 3 hours during the day earlier in the morning, compliant with his medications. Oral intake is poor, remain somewhat anxious, depressed. No CV, , pulmonary, eye, ENT system symptoms on review. Gait unsteady in wheelchair. Still complains of feeling cold, has double covers on him. MENTAL STATUS EXAM: Oriented to himself. Insight, judgment, recent and remote memory, attention, concentration, fund of knowledge poor consistent with his diagnosis mentioned in my initial note. PLAN: Continue current psychotropics mentioned in my initial note. Increase Zoloft from 50 mg a day to 75 mg a day. Adjust further as clinically indicated. MAN Corey DEY MD DR: ABBY/brian JOB#: [id number] / [id number]
[2017-04-28 05:51] VITALS: BP 141/39
[2017-04-28] MEDS: POLYETHYLENE GLYCOL 3350 17 GM PACKET. PO SCH (11:14)
[2017-04-28] MEDS: DONEPEZIL HCL 10 MG TABLET PO SCH (11:15)
[2017-04-28] MEDS: CHOLECALCIFEROL (VITAMIN D3) 1,000 UNIT TABLET PO SCH (11:15)
[2017-04-28] MEDS: CYANOCOBALAMIN (VITAMIN B-12) 1,000 MCG TABLET. PO SCH (11:15)
[2017-04-28] MEDS: QUEtiapine 50 MG TABLET. PO SCH (11:15)
[2017-04-28] MEDS: THIAMINE 100 MG TABLET. PO SCH (11:15)
[2017-04-28] MEDS: FOLIC ACID 1 MG TABLET PO SCH (11:15)
[2017-04-28] MEDS: DOCUSATE SODIUM 100 MG CAPSULE PO SCH ×2 (11:15→19:40)
[2017-04-28] MEDS: SERTRALINE 50 MG TABLET. PO SCH (11:16)
[2017-04-28] MEDS: ASPIRIN 81 MG TAB.CHEW PO SCH (11:16)
[2017-04-28] MEDS: FINASTERIDE 5 MG TABLET PO SCH (11:16)
[2017-04-28] MEDS: FERROUS SULFATE 325 MG TABLET. PO SCH ×2 (11:16→19:41)
[2017-04-28] MEDS: TIMOLOL 0.5% OPHTH SOLUTION 5ML BOTTLE. OU SCH ×2 (11:17→19:40)
[2017-04-28] MEDS: BRIMONIDINE 0.2% OPHTH SOLUTION 5ML BOTTLE. OU SCH ×2 (11:17→19:40)
[2017-04-28 12:00] LABS: BACTERIA,URINE MANY /HPF (0-FEW); BILIRUBIN,URINE NEG (NEG); CLARITY,URINE TURBID; COLOR,URINE AMBER; GLUCOSE,URINE NEG (NEG); NITRITE,URINE NEG (NEG); SQUAMOUS EPITHELIAL CELL,UR OCC /LPF; UROBILINOGEN,URINE 0.2 mg/dL (0.2 mg/dL); WBC,URINE 20-40 /HPF (0-4)
[2017-04-28 15:35] VITALS: BP 96/61
[2017-04-28] MEDS: PRENATAL MULTIVITAMIN TABLET. PO SCH (17:03)
[2017-04-28] MEDS: traZODone 50 MG TABLET. PO SCH (19:41)
[2017-04-28] MEDS: MIRTAZAPINE 15 MG TABLET PO SCH (19:41)
[2017-04-28] MEDS: QUEtiapine 100 MG TABLET. PO SCH (19:41)
[2017-04-28] MEDS: TAMSULOSIN 0.4 MG CAP.ER.24H. PO SCH (19:41)
[2017-04-28] MEDS: SIMVASTATIN 20 MG TABLET PO SCH (19:41)
--- NOTE | 2017-04-28 21:20 | PDOC ---
Exam Note: Chase Note: Please also refer to the separate dictated note~for this date of service dictated separately.~Patient seen individually. Discussed the patient with Nursing staff reviewed the chart.~Reviewed interim history and current functioning. Reviewed vital signs,~Labs/ Radiology~and current medications noted below. Continue current treatment with the changes noted in the dictated addendum note Assessment: Vital Signs: Vital Signs Date Time Temp Pulse Resp B/P (MAP) Pulse Ox O2 Delivery O2 Flow Rate FiO2 04/28/17 15:35 99.2 90 17 96/61 (73) 96 04/23/17 16:18 Room Air I&O Intake and Output 04/28/17 07:00 Intake Total 480 ml Balance 480 ml Intake Oral 480 ml # Voids 3 # Bowel Movements 2 Labs: Laboratory Tests Test 04/28/17 11:35 Urine Collection Type Unknown Urine Color [place] Urine Clarity Turbid Urine pH 7.0 Urine Specific [place] 1.025 Urine Protein 30 mg/dl (NEG-TRACE) Urine Glucose (UA) Neg mg/dL (NEG) Urine Ketones (Stick) Neg mg/dL (NEG) Urine Blood Large (NEG) Urine Nitrite Neg (NEG) Urine Bilirubin Neg (NEG) Urine Urobilinogen Dipstick 0.2 mg/dL (0.2 mg/dL) Urine Leukocyte Esterase Small (NEG) Urine RBC 6-10 /HPF (0-2) Urine WBC 20-40 /HPF (0-4) Urine Squamous Epithelial Cells Occ /LPF Urine Bacteria Many /HPF (0-FEW) Current Medications: Meds: Current Medications Diphenhydramine HCl (Benadryl) 50 mg 1X ONCE IM Last administered on 18:00; Start 04/19/17 at 18:00; Stop 04/19/17 at 18:01; Status DC Lorazepam (Ativan) 2 mg 1X ONCE IM Last administered on 04/19/17 18:00; Start 04/19/17 at 18:00; Stop 04/19/17 at 18:01; Status DC Olanzapine (ZyPREXA IM) 10 mg 1X ONCE IM Last administered on 04/19/17 18:30 ; Start 04/19/17 at 18:30; Stop 04/19/17 at 18:31; Status DC Lactated Ringer's 1,000 ml @ 1,000 mls/hr Q1H IV ; Start 04/19/17 at 18:15; Stop 04/22/17 at 00:43; Status DC Multivitamins/ Minerals 10 ml/ Folic Acid 1 mg/ Thiamine HCl 100 mg/Sodium Chloride 1,011.1 ml @ 1,000 mls/ hr 1X ONCE IV Last administered on 19:30; Start 04/19/17 at 19:30; Stop 04/19/17 at 20:30; Status DC Phytonadione (Vitamin K) 10 mg STK-MED ONCE .ROUTE ; Start 04/19/17 at 20:55; Stop 04/19/17 at 20:56; Status DC Thiamine HCl 200 mg STK-MED ONCE IV ; Start 04/19/17 at 20:55; Stop 04/19/17 at 20:56; Status DC Folic Acid 5 mg STK-MED ONCE IV ; Start 04/19/17 at 20:56; Stop 04/19/17 at 20 :57; Status DC Donepezil HCl (Aricept) 10 mg DAILY PO Last administered on 04/28/17 11:15; Start 04/20/17 at 09:00 Hydroxyzine Pamoate (Vistaril) 25 mg PRN Q2HR PRN PO AGITAT; Start 04/19/17 at 23:30 Medroxyprogesterone Acetate (Provera) 2.5 mg DAILY PO Last administered on 11:15; Start 04/20/17 at 09:00 Mirtazapine (Remeron) 15 mg QHS PO Last administered on 04/28/17 19:41; Start 04/20/17 at 21:00 Olanzapine (ZyPREXA ZYDIS) 2.5 mg PRN Q2HR PRN PO ANXIETY / AGITATION Last administered on 04/28/17 17:04; Start 04/19/17 at 23:30 Quetiapine Fumarate (SEROquel) 75 mg DAILY PO Last administered on 04/28/17 11:15; Start 04/20/17 at 09:00; Stop 04/28/17 at 18:50; Status DC Quetiapine Fumarate (SEROquel) 100 mg QHS PO Last administered on 04/28/17 19 :41; Start 04/20/17 at 21:00 Trazodone HCl (Desyrel) 75 mg QHS PO Last administered on 04/28/17 19:41; Start 04/20/17 at 21:00 Acetaminophen (Tylenol) 1,000 mg PRN Q8HRS PRN PO PAIN; Start 04/20/17 at 07: 45 Aspirin (Children'S Aspirin) 81 mg DAILY PO Last administered on 04/28/17 11: 16; Start 04/20/17 at 09:00 Cyanocobalamin (Vitamin B-12) 1,000 mcg DAILY PO Last administered on 11:15; Start 04/20/17 at 09:00 Diclofenac Sodium (Voltaren) 4 amelia PRN Q6HRS PRN TP PAIN; Start 04/20/17 at 07 :45 Docusate Sodium (Colace) 200 mg BID PO Last administered on 04/28/17 19:40; Start 04/20/17 at 09:00 Ferrous Sulfate (Feosol) 325 mg BID PO Last administered on 04/28/17 19:41; Start 04/20/17 at 09:00 Finasteride (Proscar) 5 mg DAILY PO Last administered on 04/28/17 11:16; Start 04/20/17 at 09:00 Folic Acid (Folic Acid) 1 mg DAILY PO Last administered on 04/28/17 11:15; Start 04/20/17 at 09:00 Al Hydroxide/Mg Hydroxide (Mylanta Plus Xs) 15 ml PRN QHS PRN PO INDIGESTION; Start 04/20/17 at 07:45 Magnesium Hydroxide (Milk Of Magnesia) 800 mg PRN Q24HRS PRN PO CONSTIPATION Last administered on 04/26/17 03:09; Start 04/20/17 at 07:45 Multi-Ingredient Ointment (Analgesic [place]) 1 amelia PRN QID PRN TP muscle pain; Start 04/20/17 at 07:45 Polyethylene Glycol (miraLAX) 17 gm DAILY PO Last administered on 04/28/17 11 :14; Start 04/20/17 at 09:00 Simvastatin (Zocor) 20 mg HS PO Last administered on 04/28/17 19:41; Start 04/20/17 at 21:00 Tamsulosin HCl (Flomax) 0.4 mg QHS PO Last administered on 04/28/17 19:41; Start 04/20/17 at 21:00 Thiamine HCl (Vitamin B-1) 100 mg DAILY PO Last administered on 04/28/17 11: 15; Start 04/20/17 at 09:00 Tramadol HCl (Ultram) 50 mg PRN Q6HRS PRN PO PAIN; Start 04/20/17 at 07:45 Triamcinolone Acetonide (Kenalog) 15 amelia PRN BID PRN TP RASH; Start 04/20/17 at 07:45 Brimonidine Tartrate (Alphagan) 1 drop BID OU Last administered on 04/21/17 11:11; Start 04/20/17 at 09:00; Stop 04/21/17 at 14:37; Status DC Vitamin D (Vitamin D3) 2,000 unit DAILY PO Last administered on 04/28/17 11: 15; Start 04/20/17 at 09:00 Timolol Maleate (Timoptic 0.5% [facility]) 1 drop BID OU Last administered on 19:40; Start 04/20/17 at 09:00 Dextrose 1,000 ml @ 100 mls/hr Q10H IV Last administered on 04/20/17 18:06; Start 04/20/17 at 16:15; Stop 04/22/17 at 00:42; Status DC Prenat Multivit/ Contact Manager/Iron/Folic Ac (Multivitamin ) 1 tab DAILYBFRSUP PO Last administered on 04/28/17 17:03; Start 04/20/17 at 17:00 Brimonidine Tartrate (Alphagan) 1 drop BID OU Last administered on 04/28/17 19:40; Start 04/21/17 at 14:37 Sodium Chloride 1,000 ml @ 125 mls/hr Q8H IV Last administered on 04/21/17 16:08; Start 04/21/17 at 14:45; Stop 04/22/17 at 00:42; Status DC Sertraline HCl (Zoloft) 25 mg DAILY PO Last administered on 04/24/17 09:35; Start 04/22/17 at 09:00; Stop 04/24/17 at 09:01; Status DC Sertraline HCl (Zoloft) 50 mg DAILY PO Last administered on 04/26/17 10:06; Start 04/22/17 at 09:00; Stop 04/26/17 at 18:17; Status DC Sertraline HCl (Zoloft) 75 mg DAILY PO Last administered on 04/28/17 11:16; Start 04/27/17 at 09:00 Quetiapine Fumarate (SEROquel) 25 mg TID@0900,1300,1700 PO ; Start 04/29/17 at 09:00 Divalproex Sodium (Depakote Sprinkles) 125 mg BID@0900,1300 PO ; Start at 09:00 Active Scripts Active Reported Mag-Al Plus Xs Suspension (Mag Hydrox/Al Hydrox/Simeth) 30 Ml Oral.susp 15 Ml PO PRN QHS PRN Triamcinolone Acetonide 15 Gm Cream..g. 15 Gm TP PRN BID PRN Voltaren (Diclofenac Sodium) 100 Gm Gel..gram. 4 Gm TP PRN Q6HRS Acetaminophen 500 Mg Tablet 1,000 Mg PO PRN Q8HRS PRN Seroquel (Quetiapine Fumarate) 100 Mg Tablet 100 Mg PO QHS Seroquel (Quetiapine Fumarate) 50 Mg Tablet 75 Mg PO DAILY Milk Of Magnesia (Magnesium Hydroxide) 400 Mg/5 Ml Oral.susp 800 Mg PO PRN Q24HRS PRN Flomax (Tamsulosin Hcl) 0.4 Mg Cap.er.24h 0.4 Mg PO QHS Ferrous Sulfate 325 Mg Tablet 325 Mg PO BID Provera (Medroxyprogesterone Acetate) 2.5 Mg Tablet 1 Tab PO DAILY Trazodone Hcl 50 Mg Tablet 75 Mg PO QHS Zyprexa Zydis (Olanzapine) 5 Mg Tab.rapdis 2.5 Mg PO PRN Q2HR PRN Analgesic [place] (Methyl Salicylate/Menthol) 29 Gm Oint...g. 1 Amelia TP PRN QID PRN Hydroxyzine Pamoate 25 Mg Capsule 25 Mg PO PRN Q2HR PRN Donepezil Hcl 10 Mg Tablet 10 Mg PO DAILY Vitamin B-12 (Cyanocobalamin (Vitamin B-12)) 1,000 Mcg Tablet 1,000 Mcg PO DAILY Vitamin D (Cholecalciferol (Vitamin D3)) 2,000 Unit Capsule 2,000 Unit PO DAILY Ultram (Tramadol HCl) 50 Mg Tablet 50 Mg PO PRN Q6HRS PRN Thiamine Hcl 100 Mg Tablet 100 Mg PO DAILY Simvastatin 10 Mg Tablet 20 Mg PO DAILY Mirtazapine 15 Mg Tablet 15 Mg PO QHS Proscar (Finasteride) 5 Mg Tablet 5 Mg PO DAILY Miralax (Polyethylene Glycol 3350) 17 Gm Powd.pack 17 Gm PO DAILY Folic Acid 1 Mg Tablet 1 Mg PO DAILY Combigan Eye Drops (Brimonidine Tartrate/Timolol) 5 Ml Drops 1 Drop OU BID Colace (Docusate Sodium) 100 Mg Capsule 200 Mg PO BID Aspirin 81 Mg Tab.chew 81 Mg PO DAILY I have reviewed the current psychotropics carefully including drug interactions. Risk benefit ratio favors no change other than as noted in my dictated progress note. 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
--- NOTE | 2017-04-29 00:13 | PN ---
DATE: 04/27/2017 This late entry for 04/27/2017 covers elements not covered in my initial note of 04/27/2017. SUBJECTIVE: I met with the patient in the evening of 04/27/2017. The patient remains confused, labile, agitated at times, wanting to go to the bathroom all the time. We will check a UA. He also feels and complains of feeling cold all the time. Family states that this happened after his weight dropped from 238 pounds to 178 pounds and since then he has always been complaining of feeling cold. REVIEW OF SYSTEMS: Hard of hearing, impaired ambulation, in wheelchair. No CV, , pulmonary, eye system symptoms on review. MENTAL STATUS EXAM: Oriented to himself. Insight, judgment, recent and remote memory, attention, concentration, fund of knowledge poor, consistent with his diagnosis. I had to talk loudly into his ear to communicate with him. LABORATORY DATA: Reviewed. IMPRESSION: Major neurocognitive disorder, Alzheimer, vascular with depression, delusion, behavioral disturbance. Rest unchanged from initial note. PLAN: Continue his current psychotropics mentioned in my initial note. Adjust as clinically indicated. We have recently increased the Zoloft and we will reconsider increasing it again in due course depending on his mood, anxiety and irritability. ELBA DEY MD DR: ABBY/brian JOB#: [id number] / [id number]
[2017-04-29 05:41] VITALS: BP 106/68
[2017-04-29] MEDS: DOCUSATE SODIUM 100 MG CAPSULE PO SCH ×2 (08:52→19:25)
[2017-04-29] MEDS: FERROUS SULFATE 325 MG TABLET. PO SCH ×2 (08:52→19:26)
[2017-04-29] MEDS: THIAMINE 100 MG TABLET. PO SCH (08:52)
[2017-04-29] MEDS: FINASTERIDE 5 MG TABLET PO SCH (08:52)
[2017-04-29] MEDS: DONEPEZIL HCL 10 MG TABLET PO SCH (08:53)
[2017-04-29] MEDS: CHOLECALCIFEROL (VITAMIN D3) 1,000 UNIT TABLET PO SCH (08:53)
[2017-04-29] MEDS: CYANOCOBALAMIN (VITAMIN B-12) 1,000 MCG TABLET. PO SCH (08:53)
[2017-04-29] MEDS: SERTRALINE 50 MG TABLET. PO SCH (08:53)
[2017-04-29] MEDS: ASPIRIN 81 MG TAB.CHEW PO SCH (08:53)
[2017-04-29] MEDS: FOLIC ACID 1 MG TABLET PO SCH (08:53)
[2017-04-29] MEDS: BRIMONIDINE 0.2% OPHTH SOLUTION 5ML BOTTLE. OU SCH ×2 (08:54→19:25)
[2017-04-29] MEDS: TIMOLOL 0.5% OPHTH SOLUTION 5ML BOTTLE. OU SCH ×2 (08:54→19:25)
[2017-04-29] MEDS: DIVALPROEX 125 MG CAP.SPRINK PO SCH ×2 (09:00→12:52)
[2017-04-29] MEDS: POLYETHYLENE GLYCOL 3350 17 GM PACKET. PO SCH (09:23)
[2017-04-29] MEDS: QUEtiapine 25 MG TABLET. PO SCH ×3 (10:45→16:38)
[2017-04-29 15:55] VITALS: BP 117/58
[2017-04-29] MEDS: PRENATAL MULTIVITAMIN TABLET. PO SCH (16:38)
[2017-04-29] MEDS: traZODone 50 MG TABLET. PO SCH (19:26)
[2017-04-29] MEDS: TAMSULOSIN 0.4 MG CAP.ER.24H. PO SCH (19:26)
[2017-04-29] MEDS: QUEtiapine 100 MG TABLET. PO SCH (19:26)
[2017-04-29] MEDS: MIRTAZAPINE 15 MG TABLET PO SCH (19:26)
[2017-04-29] MEDS: SIMVASTATIN 20 MG TABLET PO SCH (19:27)
--- NOTE | 2017-04-29 20:01 | PDOC ---
Exam Note: Chase Note: Please also refer to the separate dictated note~for this date of service dictated separately.~Patient seen individually. Discussed the patient with Nursing staff reviewed the chart.~Reviewed interim history and current functioning. Reviewed vital signs,~Labs/ Radiology~and current medications noted below. Continue current treatment with the changes noted in the dictated addendum note Assessment: Vital Signs: Vital Signs Date Time Temp Pulse Resp B/P (MAP) Pulse Ox O2 Delivery O2 Flow Rate FiO2 04/29/17 15:55 99.0 77 22 117/58 (77) 96 Room Air I&O Intake and Output 04/29/17 07:00 Intake Total 120 ml Balance 120 ml Intake Oral 120 ml # Bowel Movements 1 Current Medications: Meds: Current Medications Diphenhydramine HCl (Benadryl) 50 mg 1X ONCE IM Last administered on 18:00; Start 04/19/17 at 18:00; Stop 04/19/17 at 18:01; Status DC Lorazepam (Ativan) 2 mg 1X ONCE IM Last administered on 04/19/17 18:00; Start 04/19/17 at 18:00; Stop 04/19/17 at 18:01; Status DC Olanzapine (ZyPREXA IM) 10 mg 1X ONCE IM Last administered on 04/19/17 18:30 ; Start 04/19/17 at 18:30; Stop 04/19/17 at 18:31; Status DC Lactated Ringer's 1,000 ml @ 1,000 mls/hr Q1H IV ; Start 04/19/17 at 18:15; Stop 04/22/17 at 00:43; Status DC Multivitamins/ Minerals 10 ml/ Folic Acid 1 mg/ Thiamine HCl 100 mg/Sodium Chloride 1,011.1 ml @ 1,000 mls/ hr 1X ONCE IV Last administered on 19:30; Start 04/19/17 at 19:30; Stop 04/19/17 at 20:30; Status DC Phytonadione (Vitamin K) 10 mg STK-MED ONCE .ROUTE ; Start 04/19/17 at 20:55; Stop 04/19/17 at 20:56; Status DC Thiamine HCl 200 mg STK-MED ONCE IV ; Start 04/19/17 at 20:55; Stop 04/19/17 at 20:56; Status DC Folic Acid 5 mg STK-MED ONCE IV ; Start 04/19/17 at 20:56; Stop 04/19/17 at 20 :57; Status DC Donepezil HCl (Aricept) 10 mg DAILY PO Last administered on 04/29/17 08:53; Start 04/20/17 at 09:00 Hydroxyzine Pamoate (Vistaril) 25 mg PRN Q2HR PRN PO AGITAT; Start 04/19/17 at 23:30 Medroxyprogesterone Acetate (Provera) 2.5 mg DAILY PO Last administered on 08:53; Start 04/20/17 at 09:00 Mirtazapine (Remeron) 15 mg QHS PO Last administered on 04/29/17 19:26; Start 04/20/17 at 21:00 Olanzapine (ZyPREXA ZYDIS) 2.5 mg PRN Q2HR PRN PO ANXIETY / AGITATION Last administered on 04/28/17 17:04; Start 04/19/17 at 23:30 Quetiapine Fumarate (SEROquel) 75 mg DAILY PO Last administered on 04/28/17 11:15; Start 04/20/17 at 09:00; Stop 04/28/17 at 18:50; Status DC Quetiapine Fumarate (SEROquel) 100 mg QHS PO Last administered on 04/29/17 19 :26; Start 04/20/17 at 21:00 Trazodone HCl (Desyrel) 75 mg QHS PO Last administered on 04/29/17 19:26; Start 04/20/17 at 21:00 Acetaminophen (Tylenol) 1,000 mg PRN Q8HRS PRN PO PAIN; Start 04/20/17 at 07: 45 Aspirin (Children'S Aspirin) 81 mg DAILY PO Last administered on 04/29/17 08: 53; Start 04/20/17 at 09:00 Cyanocobalamin (Vitamin B-12) 1,000 mcg DAILY PO Last administered on 08:53; Start 04/20/17 at 09:00 Diclofenac Sodium (Voltaren) 4 amelia PRN Q6HRS PRN TP PAIN; Start 04/20/17 at 07 :45 Docusate Sodium (Colace) 200 mg BID PO Last administered on 04/29/17 19:25; Start 04/20/17 at 09:00 Ferrous Sulfate (Feosol) 325 mg BID PO Last administered on 04/29/17 19:26; Start 04/20/17 at 09:00 Finasteride (Proscar) 5 mg DAILY PO Last administered on 04/29/17 08:52; Start 04/20/17 at 09:00 Folic Acid (Folic Acid) 1 mg DAILY PO Last administered on 04/29/17 08:53; Start 04/20/17 at 09:00 Al Hydroxide/Mg Hydroxide (Mylanta Plus Xs) 15 ml PRN QHS PRN PO INDIGESTION; Start 04/20/17 at 07:45 Magnesium Hydroxide (Milk Of Magnesia) 800 mg PRN Q24HRS PRN PO CONSTIPATION Last administered on 04/26/17 03:09; Start 04/20/17 at 07:45 Multi-Ingredient Ointment (Analgesic Parmele) 1 amelia PRN QID PRN TP muscle pain; Start 04/20/17 at 07:45 Polyethylene Glycol (miraLAX) 17 gm DAILY PO Last administered on 04/29/17 09 :23; Start 04/20/17 at 09:00 Simvastatin (Zocor) 20 mg HS PO Last administered on 04/29/17 19:27; Start 04/20/17 at 21:00 Tamsulosin HCl (Flomax) 0.4 mg QHS PO Last administered on 04/29/17 19:26; Start 04/20/17 at 21:00 Thiamine HCl (Vitamin B-1) 100 mg DAILY PO Last administered on 04/29/17 08: 52; Start 04/20/17 at 09:00 Tramadol HCl (Ultram) 50 mg PRN Q6HRS PRN PO PAIN; Start 04/20/17 at 07:45 Triamcinolone Acetonide (Kenalog) 15 amelia PRN BID PRN TP RASH; Start 04/20/17 at 07:45 Brimonidine Tartrate (Alphagan) 1 drop BID OU Last administered on 04/21/17 11:11; Start 04/20/17 at 09:00; Stop 04/21/17 at 14:37; Status DC Vitamin D (Vitamin D3) 2,000 unit DAILY PO Last administered on 04/29/17 08: 53; Start 04/20/17 at 09:00 Timolol Maleate (Timoptic 0.5% [facility]) 1 drop BID OU Last administered on 19:25; Start 04/20/17 at 09:00 Dextrose 1,000 ml @ 100 mls/hr Q10H IV Last administered on 04/20/17 18:06; Start 04/20/17 at 16:15; Stop 04/22/17 at 00:42; Status DC Prenat Multivit/ [place]/Iron/Folic Ac (Multivitamin ) 1 tab DAILYBFRSUP PO Last administered on 04/29/17 16:38; Start 04/20/17 at 17:00 Brimonidine Tartrate (Alphagan) 1 drop BID OU Last administered on 04/29/17 19:25; Start 04/21/17 at 14:37 Sodium Chloride 1,000 ml @ 125 mls/hr Q8H IV Last administered on 04/21/17 16:08; Start 04/21/17 at 14:45; Stop 04/22/17 at 00:42; Status DC Sertraline HCl (Zoloft) 25 mg DAILY PO Last administered on 04/24/17 09:35; Start 04/22/17 at 09:00; Stop 04/24/17 at 09:01; Status DC Sertraline HCl (Zoloft) 50 mg DAILY PO Last administered on 04/26/17 10:06; Start 04/22/17 at 09:00; Stop 04/26/17 at 18:17; Status DC Sertraline HCl (Zoloft) 75 mg DAILY PO Last administered on 04/29/17 08:53; Start 04/27/17 at 09:00 Quetiapine Fumarate (SEROquel) 25 mg TID@0900,1300,1700 PO Last administered on 04/29/17 16:38; Start 04/29/17 at 09:00 Divalproex Sodium (Depakote Sprinkles) 125 mg BID@0900,1300 PO Last administered on 04/29/17 12:52; Start 04/29/17 at 09:00 Ascorbic Acid (Vitamin C) 250 mg DAILY PO ; Start 04/30/17 at 09:00 Active Scripts Active Reported Mag-Al Plus Xs Suspension (Mag Hydrox/Al Hydrox/Simeth) 30 Ml Oral.susp 15 Ml PO PRN QHS PRN Triamcinolone Acetonide 15 Gm Cream..g. 15 Gm TP PRN BID PRN Voltaren (Diclofenac Sodium) 100 Gm Gel..gram. 4 Gm TP PRN Q6HRS Acetaminophen 500 Mg Tablet 1,000 Mg PO PRN Q8HRS PRN Seroquel (Quetiapine Fumarate) 100 Mg Tablet 100 Mg PO QHS Seroquel (Quetiapine Fumarate) 50 Mg Tablet 75 Mg PO DAILY Milk Of Magnesia (Magnesium Hydroxide) 400 Mg/5 Ml Oral.susp 800 Mg PO PRN Q24HRS PRN Flomax (Tamsulosin Hcl) 0.4 Mg Cap.er.24h 0.4 Mg PO QHS Ferrous Sulfate 325 Mg Tablet 325 Mg PO BID Provera (Medroxyprogesterone Acetate) 2.5 Mg Tablet 1 Tab PO DAILY Trazodone Hcl 50 Mg Tablet 75 Mg PO QHS Zyprexa Zydis (Olanzapine) 5 Mg Tab.rapdis 2.5 Mg PO PRN Q2HR PRN Analgesic Parmele (Methyl Salicylate/Menthol) 29 Gm Oint...g. 1 Amelia TP PRN QID PRN Hydroxyzine Pamoate 25 Mg Capsule 25 Mg PO PRN Q2HR PRN Donepezil Hcl 10 Mg Tablet 10 Mg PO DAILY Vitamin B-12 (Cyanocobalamin (Vitamin B-12)) 1,000 Mcg Tablet 1,000 Mcg PO DAILY Vitamin D (Cholecalciferol (Vitamin D3)) 2,000 Unit Capsule 2,000 Unit PO DAILY Ultram (Tramadol HCl) 50 Mg Tablet 50 Mg PO PRN Q6HRS PRN Thiamine Hcl 100 Mg Tablet 100 Mg PO DAILY Simvastatin 10 Mg Tablet 20 Mg PO DAILY Mirtazapine 15 Mg Tablet 15 Mg PO QHS Proscar (Finasteride) 5 Mg Tablet 5 Mg PO DAILY Miralax (Polyethylene Glycol 3350) 17 Gm Powd.pack 17 Gm PO DAILY Folic Acid 1 Mg Tablet 1 Mg PO DAILY Combigan Eye Drops (Brimonidine Tartrate/Timolol) 5 Ml Drops 1 Drop OU BID Colace (Docusate Sodium) 100 Mg Capsule 200 Mg PO BID Aspirin 81 Mg Tab.chew 81 Mg PO DAILY I have reviewed the current psychotropics carefully including drug interactions. Risk benefit ratio favors no change other than as noted in my dictated progress note. 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
[2017-04-30 05:39] VITALS: BP 102/44
[2017-04-30] MEDS: POLYETHYLENE GLYCOL 3350 17 GM PACKET. PO SCH (08:41)
[2017-04-30] MEDS: ASPIRIN 81 MG TAB.CHEW PO SCH (08:42)
[2017-04-30] MEDS: FINASTERIDE 5 MG TABLET PO SCH (08:42)
[2017-04-30] MEDS: DONEPEZIL HCL 10 MG TABLET PO SCH (08:42)
[2017-04-30] MEDS: CHOLECALCIFEROL (VITAMIN D3) 1,000 UNIT TABLET PO SCH (08:42)
[2017-04-30] MEDS: SERTRALINE 50 MG TABLET. PO SCH (08:42)
[2017-04-30] MEDS: DOCUSATE SODIUM 100 MG CAPSULE PO SCH ×2 (08:43→19:08)
[2017-04-30] MEDS: FERROUS SULFATE 325 MG TABLET. PO SCH ×2 (08:43→19:08)
[2017-04-30] MEDS: QUEtiapine 25 MG TABLET. PO SCH ×3 (08:43→15:55)
[2017-04-30] MEDS: CYANOCOBALAMIN (VITAMIN B-12) 1,000 MCG TABLET. PO SCH (08:43)
[2017-04-30] MEDS: FOLIC ACID 1 MG TABLET PO SCH (08:43)
[2017-04-30] MEDS: THIAMINE 100 MG TABLET. PO SCH (08:43)
[2017-04-30] MEDS: ASCORBIC ACID 500 MG TABLET PO SCH (08:45)
[2017-04-30] MEDS: BRIMONIDINE 0.2% OPHTH SOLUTION 5ML BOTTLE. OU SCH ×2 (08:46→19:13)
[2017-04-30] MEDS: TIMOLOL 0.5% OPHTH SOLUTION 5ML BOTTLE. OU SCH ×2 (08:46→19:13)
[2017-04-30] MEDS: DIVALPROEX 125 MG CAP.SPRINK PO SCH ×2 (08:47→13:15)
[2017-04-30] MEDS: PRENATAL MULTIVITAMIN TABLET. PO SCH (15:55)
[2017-04-30 16:09] VITALS: BP 100/84
[2017-04-30] MEDS: MIRTAZAPINE 15 MG TABLET PO SCH (19:07)
[2017-04-30] MEDS: traZODone 50 MG TABLET. PO SCH (19:07)
[2017-04-30] MEDS: SIMVASTATIN 20 MG TABLET PO SCH (19:08)
[2017-04-30] MEDS: TAMSULOSIN 0.4 MG CAP.ER.24H. PO SCH (19:08)
[2017-04-30] MEDS: QUEtiapine 100 MG TABLET. PO SCH (19:08)
--- NOTE | 2017-04-30 22:12 | PDOC ---
Exam Note: Chase Note: Please also refer to the separate dictated note~for this date of service dictated separately.~Patient seen individually. Discussed the patient with Nursing staff reviewed the chart.~Reviewed interim history and current functioning. Reviewed vital signs,~Labs/ Radiology~and current medications noted below. Continue current treatment with the changes noted in the dictated addendum note Assessment: Vital Signs: Vital Signs Date Time Temp Pulse Resp B/P (MAP) Pulse Ox O2 Delivery O2 Flow Rate FiO2 04/30/17 16:09 99.6 57 18 100/84 (89) 100 04/29/17 15:55 Room Air I&O Intake and Output 04/30/17 07:00 Intake Total 440 ml Balance 440 ml Intake Oral 440 ml Current Medications: Meds: Current Medications Diphenhydramine HCl (Benadryl) 50 mg 1X ONCE IM Last administered on 18:00; Start 04/19/17 at 18:00; Stop 04/19/17 at 18:01; Status DC Lorazepam (Ativan) 2 mg 1X ONCE IM Last administered on 04/19/17 18:00; Start 04/19/17 at 18:00; Stop 04/19/17 at 18:01; Status DC Olanzapine (ZyPREXA IM) 10 mg 1X ONCE IM Last administered on 04/19/17 18:30 ; Start 04/19/17 at 18:30; Stop 04/19/17 at 18:31; Status DC Lactated Ringer's 1,000 ml @ 1,000 mls/hr Q1H IV ; Start 04/19/17 at 18:15; Stop 04/22/17 at 00:43; Status DC Multivitamins/ Minerals 10 ml/ Folic Acid 1 mg/ Thiamine HCl 100 mg/Sodium Chloride 1,011.1 ml @ 1,000 mls/ hr 1X ONCE IV Last administered on 19:30; Start 04/19/17 at 19:30; Stop 04/19/17 at 20:30; Status DC Phytonadione (Vitamin K) 10 mg STK-MED ONCE .ROUTE ; Start 04/19/17 at 20:55; Stop 04/19/17 at 20:56; Status DC Thiamine HCl 200 mg STK-MED ONCE IV ; Start 04/19/17 at 20:55; Stop 04/19/17 at 20:56; Status DC Folic Acid 5 mg STK-MED ONCE IV ; Start 04/19/17 at 20:56; Stop 04/19/17 at 20 :57; Status DC Donepezil HCl (Aricept) 10 mg DAILY PO Last administered on 04/30/17 08:42; Start 04/20/17 at 09:00 Hydroxyzine Pamoate (Vistaril) 25 mg PRN Q2HR PRN PO AGITAT; Start 04/19/17 at 23:30 Medroxyprogesterone Acetate (Provera) 2.5 mg DAILY PO Last administered on 08:42; Start 04/20/17 at 09:00 Mirtazapine (Remeron) 15 mg QHS PO Last administered on 04/30/17 19:07; Start 04/20/17 at 21:00 Olanzapine (ZyPREXA ZYDIS) 2.5 mg PRN Q2HR PRN PO ANXIETY / AGITATION Last administered on 04/30/17 20:22; Start 04/19/17 at 23:30 Quetiapine Fumarate (SEROquel) 75 mg DAILY PO Last administered on 04/28/17 11:15; Start 04/20/17 at 09:00; Stop 04/28/17 at 18:50; Status DC Quetiapine Fumarate (SEROquel) 100 mg QHS PO Last administered on 04/30/17 19 :08; Start 04/20/17 at 21:00 Trazodone HCl (Desyrel) 75 mg QHS PO Last administered on 04/30/17 19:07; Start 04/20/17 at 21:00 Acetaminophen (Tylenol) 1,000 mg PRN Q8HRS PRN PO PAIN; Start 04/20/17 at 07: 45 Aspirin (Children'S Aspirin) 81 mg DAILY PO Last administered on 04/30/17 08: 42; Start 04/20/17 at 09:00 Cyanocobalamin (Vitamin B-12) 1,000 mcg DAILY PO Last administered on 08:43; Start 04/20/17 at 09:00 Diclofenac Sodium (Voltaren) 4 amelia PRN Q6HRS PRN TP PAIN; Start 04/20/17 at 07 :45 Docusate Sodium (Colace) 200 mg BID PO Last administered on 04/30/17 19:08; Start 04/20/17 at 09:00 Ferrous Sulfate (Feosol) 325 mg BID PO Last administered on 04/30/17 19:08; Start 04/20/17 at 09:00 Finasteride (Proscar) 5 mg DAILY PO Last administered on 04/30/17 08:42; Start 04/20/17 at 09:00 Folic Acid (Folic Acid) 1 mg DAILY PO Last administered on 04/30/17 08:43; Start 04/20/17 at 09:00 Al Hydroxide/Mg Hydroxide (Mylanta Plus Xs) 15 ml PRN QHS PRN PO INDIGESTION; Start 04/20/17 at 07:45 Magnesium Hydroxide (Milk Of Magnesia) 800 mg PRN Q24HRS PRN PO CONSTIPATION Last administered on 04/26/17 03:09; Start 04/20/17 at 07:45 Multi-Ingredient Ointment (Analgesic [place]) 1 amelia PRN QID PRN TP muscle pain; Start 04/20/17 at 07:45 Polyethylene Glycol (miraLAX) 17 gm DAILY PO Last administered on 04/30/17 08 :41; Start 04/20/17 at 09:00 Simvastatin (Zocor) 20 mg HS PO Last administered on 04/30/17 19:08; Start 04/20/17 at 21:00 Tamsulosin HCl (Flomax) 0.4 mg QHS PO Last administered on 04/30/17 19:08; Start 04/20/17 at 21:00 Thiamine HCl (Vitamin B-1) 100 mg DAILY PO Last administered on 04/30/17 08: 43; Start 04/20/17 at 09:00 Tramadol HCl (Ultram) 50 mg PRN Q6HRS PRN PO PAIN; Start 04/20/17 at 07:45 Triamcinolone Acetonide (Kenalog) 15 amelia PRN BID PRN TP RASH; Start 04/20/17 at 07:45 Brimonidine Tartrate (Alphagan) 1 drop BID OU Last administered on 04/21/17 11:11; Start 04/20/17 at 09:00; Stop 04/21/17 at 14:37; Status DC Vitamin D (Vitamin D3) 2,000 unit DAILY PO Last administered on 04/30/17 08: 42; Start 04/20/17 at 09:00 Timolol Maleate (Timoptic 0.5% [facility]) 1 drop BID OU Last administered on 19:13; Start 04/20/17 at 09:00 Dextrose 1,000 ml @ 100 mls/hr Q10H IV Last administered on 04/20/17 18:06; Start 04/20/17 at 16:15; Stop 04/22/17 at 00:42; Status DC Prenat Multivit/ [place] [employer]/Iron/Folic Ac (Multivitamin ) 1 tab DAILYBFRSUP PO Last administered on 04/30/17 15:55; Start 04/20/17 at 17:00 Brimonidine Tartrate (Alphagan) 1 drop BID OU Last administered on 04/30/17 19:13; Start 04/21/17 at 14:37 Sodium Chloride 1,000 ml @ 125 mls/hr Q8H IV Last administered on 04/21/17 16:08; Start 04/21/17 at 14:45; Stop 04/22/17 at 00:42; Status DC Sertraline HCl (Zoloft) 25 mg DAILY PO Last administered on 04/24/17 09:35; Start 04/22/17 at 09:00; Stop 04/24/17 at 09:01; Status DC Sertraline HCl (Zoloft) 50 mg DAILY PO Last administered on 04/26/17 10:06; Start 04/22/17 at 09:00; Stop 04/26/17 at 18:17; Status DC Sertraline HCl (Zoloft) 75 mg DAILY PO Last administered on 04/30/17 08:42; Start 04/27/17 at 09:00 Quetiapine Fumarate (SEROquel) 25 mg TID@0900,1300,1700 PO Last administered on 04/30/17 15:55; Start 04/29/17 at 09:00 Divalproex Sodium (Depakote Sprinkles) 125 mg BID@0900,1300 PO Last administered on 04/30/17 13:15; Start 04/29/17 at 09:00 Ascorbic Acid (Vitamin C) 250 mg DAILY PO Last administered on 04/30/17t 08:45 ; Start 04/30/17 at 09:00 Active Scripts Active Reported Mag-Al Plus Xs Suspension (Mag Hydrox/Al Hydrox/Simeth) 30 Ml Oral.susp 15 Ml PO PRN QHS PRN Triamcinolone Acetonide 15 Gm Cream..g. 15 Gm TP PRN BID PRN Voltaren (Diclofenac Sodium) 100 Gm Gel..gram. 4 Gm TP PRN Q6HRS Acetaminophen 500 Mg Tablet 1,000 Mg PO PRN Q8HRS PRN Seroquel (Quetiapine Fumarate) 100 Mg Tablet 100 Mg PO QHS Seroquel (Quetiapine Fumarate) 50 Mg Tablet 75 Mg PO DAILY Milk Of Magnesia (Magnesium Hydroxide) 400 Mg/5 Ml Oral.susp 800 Mg PO PRN Q24HRS PRN Flomax (Tamsulosin Hcl) 0.4 Mg Cap.er.24h 0.4 Mg PO QHS Ferrous Sulfate 325 Mg Tablet 325 Mg PO BID Provera (Medroxyprogesterone Acetate) 2.5 Mg Tablet 1 Tab PO DAILY Trazodone Hcl 50 Mg Tablet 75 Mg PO QHS Zyprexa Zydis (Olanzapine) 5 Mg Tab.rapdis 2.5 Mg PO PRN Q2HR PRN Analgesic [place] (Methyl Salicylate/Menthol) 29 Gm Oint...g. 1 Amelia TP PRN QID PRN Hydroxyzine Pamoate 25 Mg Capsule 25 Mg PO PRN Q2HR PRN Donepezil Hcl 10 Mg Tablet 10 Mg PO DAILY Vitamin B-12 (Cyanocobalamin (Vitamin B-12)) 1,000 Mcg Tablet 1,000 Mcg PO DAILY Vitamin D (Cholecalciferol (Vitamin D3)) 2,000 Unit Capsule 2,000 Unit PO DAILY Ultram (Tramadol HCl) 50 Mg Tablet 50 Mg PO PRN Q6HRS PRN Thiamine Hcl 100 Mg Tablet 100 Mg PO DAILY Simvastatin 10 Mg Tablet 20 Mg PO DAILY Mirtazapine 15 Mg Tablet 15 Mg PO QHS Proscar (Finasteride) 5 Mg Tablet 5 Mg PO DAILY Miralax (Polyethylene Glycol 3350) 17 Gm Powd.pack 17 Gm PO DAILY Folic Acid 1 Mg Tablet 1 Mg PO DAILY Combigan Eye Drops (Brimonidine Tartrate/Timolol) 5 Ml Drops 1 Drop OU BID Colace (Docusate Sodium) 100 Mg Capsule 200 Mg PO BID Aspirin 81 Mg Tab.chew 81 Mg PO DAILY I have reviewed the current psychotropics carefully including drug interactions. Risk benefit ratio favors no change other than as noted in my dictated progress note. Diagnosis: Problems: (1) Psychiatric complaint (2) Dementia (3) Psychiatric care (4) Anxiety disorder (5) Dementia in Alzheimer's disease with delusions (6) Dementia in Alzheimer's disease with depression (7) Dementia, vascular, with delusions (8) Dementia, vascular, with depression (9) Impulse control disorder ELBA DEY MD Apr 30, 2017 22:12
--- NOTE | 2017-04-30 23:37 | PN ---
DATE: 04/28/2017 This is a late entry for 04/28/2017 and covers elements not covered in my initial note of 04/28/2017. I met with the patient the evening of 04/28/2017. The patient is frequently requesting to go to the restroom for urination and we will be checking a UA to rule out a UTI. He slept just 7-3/4 hours previous evening, anxious at times, received Zyprexa at 5:00 p.m. p.r.n. for agitation. REVIEW OF SYSTEMS: Hard of hearing, impaired ambulation and in wheelchair. No CV, , pulmonary, eye, ENT system symptoms on review. Reliability poor. MENTAL STATUS EXAM: Oriented to himself. Insight, judgment, recent and remote memory, attention, concentration, fund of knowledge poor, consistent with his diagnosis as mentioned in my initial note. IMPRESSION: Major neurocognitive disorder, Alzheimer, vascular with delusion, depression, behavioral disturbance. Rest unchanged from initial note. Rule out urinary tract infection. PLAN: Start Depakote Sprinkles 125 mg 9 a.m. and 1 p.m. Check CBC, CMP, valproic acid level in 3 days. Change Seroquel from 75 mg a.m., 100 mg at bedtime to 25 mg 9:00 a.m., 1:00 p.m., 5:00 p.m. Continue 100 mg at bedtime. Maintain rest of the psychotropics at current dosage. Adjust further as clinically indicated. ELBA DEY MD DR: ABBY/brian JOB#: [id number] / [id number]
--- NOTE | 2017-04-30 23:40 | PN ---
DATE: 04/29/2017 This is a late entry for 04/29/2017 and covers elements not covered in my initial note of 04/29/2017. I met with the patient the evening of 04/29/2017, staffed at a treatment team meeting with the entire team morning of 04/29/2017. UA is positive. Reviewed the patient's history, has been yelling out at times, repeatedly stating "help me, help me" and when asked, he is not sure what help he needs other than repeating it. REVIEW OF SYSTEMS: Hard of hearing. Impaired ambulation. No CV, , pulmonary, eye system symptoms on review. Reliability poor. MENTAL STATUS EXAM: Oriented to himself. Insight, judgment, recent and remote memory, attention, concentration, fund of knowledge poor, consistent with his diagnosis as mentioned in my initial note. IMPRESSION: Major neurocognitive disorder, Alzheimer, vascular with delusion, depression, behavioral disturbance. Rest unchanged from initial note. PLAN: Start vitamin C 250 mg a day for his recurrent UTIs, await urine C and S and addressed this. Maintain rest of the psychotropics. Valproic acid level due on . MAN Corey DEY MD DR: ABBY/brian JOB#: [id number] / [id number]
[2017-05-01 05:38] VITALS: BP 115/48
[2017-05-01 07:47] LABS: BASO # 0.1 x10^3/uL (0.0-0.2); BASO % 1 % (0-3); EOS # 0.3 x10^3/uL (0.0-0.7); EOS % 3 % (0-3); HEMATOCRIT 33.6 % (39.0-53.0); HEMOGLOBIN 11.2 g/dL (13.0-17.5); LYMPH # 1.5 x10^3/uL (1.0-4.8); LYMPH % 19 % (24-48); MEAN CORPUSCULAR HEMOGLOBIN 29 pg (25-35); MEAN CORPUSCULAR HGB CONC 33 g/dL (31-37); MEAN CORPUSCULAR VOLUME 86 fL (79-100); MONO # 0.6 x10^3/uL (0.0-1.1); MONO % 8 % (0-9); NEUT # 5.3 x10^3uL (1.8-7.7); NEUT % 69 % (31-73); PLATELET COUNT 187 x10^3/uL (140-400); RED BLOOD COUNT 3.91 x10^6/uL (4.30-5.70); RED CELL DISTRIBUTION WIDTH 16.9 % (11.5-14.5); WHITE BLOOD COUNT 7.7 x10^3/uL (4.0-11.0)
[2017-05-01 08:10] LABS: ALBUMIN 3.3 g/dL (3.4-5.0); ALBUMIN/GLOBULIN RATIO 0.8 (1.0-1.7); BLOOD UREA NITROGEN 58 mg/dL (8-26); BUN/CREATININE RATIO 26 (6-20); CALCIUM 9.8 mg/dL (8.5-10.1); CREATININE 2.2 mg/dL (0.7-1.3); GLUCOSE 96 mg/dL (70-99); TOTAL PROTEIN 7.3 g/dL (6.4-8.2)
[2017-05-01 08:11] LABS: ALK PHOS 115 U/L (46-116); ALT (SGPT) 36 U/L (16-63); ANION GAP 6 (6-14); AST (SGOT) 29 U/L (15-37); CARBON DIOXIDE 31 mmol/L (21-32); CHLORIDE 106 mmol/L (98-107); GFR 28.3; POTASSIUM 4.1 mmol/L (3.5-5.1); SODIUM 143 mmol/L (136-145); TOTAL BILIRUBIN 0.6 mg/dL (0.2-1.0)
[2017-05-01 08:19] LABS: VAL ACID 14 mcg/mL (50-100)
[2017-05-01] MEDS: TIMOLOL 0.5% OPHTH SOLUTION 5ML BOTTLE. OU SCH ×3 (09:05→21:00)
[2017-05-01] MEDS: BRIMONIDINE 0.2% OPHTH SOLUTION 5ML BOTTLE. OU SCH ×3 (09:05→21:00)
[2017-05-01] MEDS: DONEPEZIL HCL 10 MG TABLET PO SCH (09:06)
[2017-05-01] MEDS: QUEtiapine 25 MG TABLET. PO SCH ×3 (09:07→17:19)
[2017-05-01] MEDS: POLYETHYLENE GLYCOL 3350 17 GM PACKET. PO SCH (09:07)
[2017-05-01] MEDS: THIAMINE 100 MG TABLET. PO SCH (09:07)
[2017-05-01] MEDS: DIVALPROEX 125 MG CAP.SPRINK PO SCH ×2 (09:07→12:24)
[2017-05-01] MEDS: FERROUS SULFATE 325 MG TABLET. PO SCH ×2 (09:07→20:26)
[2017-05-01] MEDS: FOLIC ACID 1 MG TABLET PO SCH (09:07)
[2017-05-01] MEDS: DOCUSATE SODIUM 100 MG CAPSULE PO SCH ×2 (09:07→20:38)
[2017-05-01] MEDS: FINASTERIDE 5 MG TABLET PO SCH (09:07)
[2017-05-01] MEDS: ASCORBIC ACID 500 MG TABLET PO SCH (09:08)
[2017-05-01] MEDS: CHOLECALCIFEROL (VITAMIN D3) 1,000 UNIT TABLET PO SCH (09:08)
[2017-05-01] MEDS: SERTRALINE 50 MG TABLET. PO SCH (09:08)
[2017-05-01] MEDS: CYANOCOBALAMIN (VITAMIN B-12) 1,000 MCG TABLET. PO SCH (09:09)
[2017-05-01] MEDS: PRENATAL MULTIVITAMIN TABLET. PO SCH (09:09)
[2017-05-01] MEDS: ASPIRIN 81 MG TAB.CHEW PO SCH (12:24)
[2017-05-01 15:51] VITALS: BP 103/71
[2017-05-01] MEDS: MIRTAZAPINE 15 MG TABLET PO SCH (20:25)
[2017-05-01] MEDS: TAMSULOSIN 0.4 MG CAP.ER.24H. PO SCH (20:25)
[2017-05-01] MEDS: traZODone 50 MG TABLET. PO SCH (20:26)
[2017-05-01] MEDS: QUEtiapine 100 MG TABLET. PO SCH (20:26)
[2017-05-01] MEDS: SIMVASTATIN 20 MG TABLET PO SCH (20:26)
--- NOTE | 2017-05-01 21:08 | PDOC ---
Exam Note: Chase Note: Please also refer to the separate dictated note~for this date of service dictated separately.~Patient seen individually. Discussed the patient with Nursing staff reviewed the chart.~Reviewed interim history and current functioning. Reviewed vital signs,~Labs/ Radiology~and current medications noted below. Continue current treatment with the changes noted in the dictated addendum note Assessment: Vital Signs: Vital Signs Date Time Temp Pulse Resp B/P (MAP) Pulse Ox O2 Delivery O2 Flow Rate FiO2 05/01/17 15:51 97.4 86 16 103/71 (82) 94 04/29/17 15:55 Room Air I&O Intake and Output 05/01/17 06:59 Intake Total 840 ml Balance 840 ml Intake Oral 840 ml # Bowel Movements 1 Labs: Laboratory Tests Test 05/01/17 07:23 White Blood Count 7.7 x10^3/uL (4.0-11.0) Red Blood Count 3.91 x10^6/uL (4.30-5.70) L Hemoglobin 11.2 g/dL (13.0-17.5) L Hematocrit 33.6 % (39.0-53.0) L Mean Corpuscular Volume 86 fL (79-100) Mean Corpuscular Hemoglobin 29 pg (25-35) Mean Corpuscular Hemoglobin Concent 33 g/dL (31-37) Red Cell Distribution Width 16.9 % (11.5-14.5) H Platelet Count 187 x10^3/uL (140-400) Neutrophils (%) (Auto) 69 % (31-73) Lymphocytes (%) (Auto) 19 % (24-48) L Monocytes (%) (Auto) 8 % (0-9) Eosinophils (%) (Auto) 3 % (0-3) Basophils (%) (Auto) 1 % (0-3) Neutrophils # (Auto) 5.3 x10^3uL (1.8-7.7) Lymphocytes # (Auto) 1.5 x10^3/uL (1.0-4.8) Monocytes # (Auto) 0.6 x10^3/uL (0.0-1.1) Eosinophils # (Auto) 0.3 x10^3/uL (0.0-0.7) Basophils # (Auto) 0.1 x10^3/uL (0.0-0.2) Sodium Level 143 mmol/L (136-145) Potassium Level 4.1 mmol/L (3.5-5.1) Chloride Level 106 mmol/L (98-107) Carbon Dioxide Level 31 mmol/L (21-32) Anion Gap 6 (6-14) Blood Urea Nitrogen 58 mg/dL (8-26) H Creatinine 2.2 mg/dL (0.7-1.3) H Estimated GFR (Cockcroft-Gault) 28.3 BUN/Creatinine Ratio 26 (6-20) H Glucose Level 96 mg/dL (70-99) Calcium Level 9.8 mg/dL (8.5-10.1) Total Bilirubin 0.6 mg/dL (0.2-1.0) Aspartate Amino Transferase (AST) 29 U/L (15-37) Alanine Aminotransferase (ALT) 36 U/L (16-63) Alkaline Phosphatase 115 U/L (46-116) Total Protein 7.3 g/dL (6.4-8.2) Albumin 3.3 g/dL (3.4-5.0) L Albumin/Globulin Ratio 0.8 (1.0-1.7) L Valproic Acid Level 14 mcg/mL (50-100) L Valproic Acid Last Dose Date 04/30/17 Valproic Acid Last Dose Time 1300 Current Medications: Meds: Current Medications Diphenhydramine HCl (Benadryl) 50 mg 1X ONCE IM Last administered on 18:00; Start 04/19/17 at 18:00; Stop 04/19/17 at 18:01; Status DC Lorazepam (Ativan) 2 mg 1X ONCE IM Last administered on 04/19/17 18:00; Start 04/19/17 at 18:00; Stop 04/19/17 at 18:01; Status DC Olanzapine (ZyPREXA IM) 10 mg 1X ONCE IM Last administered on 04/19/17 18:30 ; Start 04/19/17 at 18:30; Stop 04/19/17 at 18:31; Status DC Lactated Ringer's 1,000 ml @ 1,000 mls/hr Q1H IV ; Start 04/19/17 at 18:15; Stop 04/22/17 at 00:43; Status DC Multivitamins/ Minerals 10 ml/ Folic Acid 1 mg/ Thiamine HCl 100 mg/Sodium Chloride 1,011.1 ml @ 1,000 mls/ hr 1X ONCE IV Last administered on 19:30; Start 04/19/17 at 19:30; Stop 04/19/17 at 20:30; Status DC Phytonadione (Vitamin K) 10 mg STK-MED ONCE .ROUTE ; Start 04/19/17 at 20:55; Stop 04/19/17 at 20:56; Status DC Thiamine HCl 200 mg STK-MED ONCE IV ; Start 04/19/17 at 20:55; Stop 04/19/17 at 20:56; Status DC Folic Acid 5 mg STK-MED ONCE IV ; Start 04/19/17 at 20:56; Stop 04/19/17 at 20 :57; Status DC Donepezil HCl (Aricept) 10 mg DAILY PO Last administered on 05/01/17 09:06; Start 04/20/17 at 09:00 Hydroxyzine Pamoate (Vistaril) 25 mg PRN Q2HR PRN PO AGITAT; Start 04/19/17 at 23:30 Medroxyprogesterone Acetate (Provera) 2.5 mg DAILY PO Last administered on 09:07; Start 04/20/17 at 09:00 Mirtazapine (Remeron) 15 mg QHS PO Last administered on 05/01/17 20:25; Start 04/20/17 at 21:00 Olanzapine (ZyPREXA ZYDIS) 2.5 mg PRN Q2HR PRN PO ANXIETY / AGITATION Last administered on 04/30/17 20:22; Start 04/19/17 at 23:30 Quetiapine Fumarate (SEROquel) 75 mg DAILY PO Last administered on 04/28/17 11:15; Start 04/20/17 at 09:00; Stop 04/28/17 at 18:50; Status DC Quetiapine Fumarate (SEROquel) 100 mg QHS PO Last administered on 05/01/17 20 :26; Start 04/20/17 at 21:00 Trazodone HCl (Desyrel) 75 mg QHS PO Last administered on 05/01/17 20:26; Start 04/20/17 at 21:00 Acetaminophen (Tylenol) 1,000 mg PRN Q8HRS PRN PO PAIN; Start 04/20/17 at 07: 45 Aspirin (Children'S Aspirin) 81 mg DAILY PO Last administered on 05/01/17 12: 24; Start 04/20/17 at 09:00 Cyanocobalamin (Vitamin B-12) 1,000 mcg DAILY PO Last administered on 09:09; Start 04/20/17 at 09:00 Diclofenac Sodium (Voltaren) 4 amelia PRN Q6HRS PRN TP PAIN; Start 04/20/17 at 07 :45 Docusate Sodium (Colace) 200 mg BID PO Last administered on 05/01/17 20:38; Start 04/20/17 at 09:00 Ferrous Sulfate (Feosol) 325 mg BID PO Last administered on 05/01/17 20:26; Start 04/20/17 at 09:00 Finasteride (Proscar) 5 mg DAILY PO Last administered on 05/01/17 09:07; Start 04/20/17 at 09:00 Folic Acid (Folic Acid) 1 mg DAILY PO Last administered on 05/01/17 09:07; Start 04/20/17 at 09:00 Al Hydroxide/Mg Hydroxide (Mylanta Plus Xs) 15 ml PRN QHS PRN PO INDIGESTION; Start 04/20/17 at 07:45 Magnesium Hydroxide (Milk Of Magnesia) 800 mg PRN Q24HRS PRN PO CONSTIPATION Last administered on 04/26/17 03:09; Start 04/20/17 at 07:45 Multi-Ingredient Ointment (Analgesic [place]) 1 amelia PRN QID PRN TP muscle pain; Start 04/20/17 at 07:45 Polyethylene Glycol (miraLAX) 17 gm DAILY PO Last administered on 05/01/17 09 :07; Start 04/20/17 at 09:00 Simvastatin (Zocor) 20 mg HS PO Last administered on 05/01/17 20:26; Start 04/20/17 at 21:00 Tamsulosin HCl (Flomax) 0.4 mg QHS PO Last administered on 05/01/17 20:25; Start 04/20/17 at 21:00 Thiamine HCl (Vitamin B-1) 100 mg DAILY PO Last administered on 05/01/17 09: 07; Start 04/20/17 at 09:00 Tramadol HCl (Ultram) 50 mg PRN Q6HRS PRN PO PAIN; Start 04/20/17 at 07:45 Triamcinolone Acetonide (Kenalog) 15 amelia PRN BID PRN TP RASH; Start 04/20/17 at 07:45 Brimonidine Tartrate (Alphagan) 1 drop BID OU Last administered on 04/21/17 11:11; Start 04/20/17 at 09:00; Stop 04/21/17 at 14:37; Status DC Vitamin D (Vitamin D3) 2,000 unit DAILY PO Last administered on 05/01/17 09: 08; Start 04/20/17 at 09:00 Timolol Maleate (Timoptic 0.5% [facility]) 1 drop BID OU Last administered on 20:25; Start 04/20/17 at 09:00 Dextrose 1,000 ml @ 100 mls/hr Q10H IV Last administered on 04/20/17 18:06; Start 04/20/17 at 16:15; Stop 04/22/17 at 00:42; Status DC Prenat Multivit/ [place]/Iron/Folic Ac (Multivitamin ) 1 tab DAILYBFRSUP PO Last administered on 05/01/17 09:09; Start 04/20/17 at 17:00 Brimonidine Tartrate (Alphagan) 1 drop BID OU Last administered on 05/01/17 20:25; Start 04/21/17 at 14:37 Sodium Chloride 1,000 ml @ 125 mls/hr Q8H IV Last administered on 04/21/17 16:08; Start 04/21/17 at 14:45; Stop 04/22/17 at 00:42; Status DC Sertraline HCl (Zoloft) 25 mg DAILY PO Last administered on 04/24/17 09:35; Start 04/22/17 at 09:00; Stop 04/24/17 at 09:01; Status DC Sertraline HCl (Zoloft) 50 mg DAILY PO Last administered on 04/26/17 10:06; Start 04/22/17 at 09:00; Stop 04/26/17 at 18:17; Status DC Sertraline HCl (Zoloft) 75 mg DAILY PO Last administered on 05/01/17 09:08; Start 04/27/17 at 09:00 Quetiapine Fumarate (SEROquel) 25 mg TID@0900,1300,1700 PO Last administered on 05/01/17 17:19; Start 04/29/17 at 09:00 Divalproex Sodium (Depakote Sprinkles) 125 mg BID@0900,1300 PO Last administered on 05/01/17 12:24; Start 04/29/17 at 09:00 Ascorbic Acid (Vitamin C) 250 mg DAILY PO Last administered on 05/01/17 09:08 ; Start 04/30/17 at 09:00 Active Scripts Active Reported Mag-Al Plus Xs Suspension (Mag Hydrox/Al Hydrox/Simeth) 30 Ml Oral.susp 15 Ml PO PRN QHS PRN Triamcinolone Acetonide 15 Gm Cream..g. 15 Gm TP PRN BID PRN Voltaren (Diclofenac Sodium) 100 Gm Gel..gram. 4 Gm TP PRN Q6HRS Acetaminophen 500 Mg Tablet 1,000 Mg PO PRN Q8HRS PRN Seroquel (Quetiapine Fumarate) 100 Mg Tablet 100 Mg PO QHS Seroquel (Quetiapine Fumarate) 50 Mg Tablet 75 Mg PO DAILY Milk Of Magnesia (Magnesium Hydroxide) 400 Mg/5 Ml Oral.susp 800 Mg PO PRN Q24HRS PRN Flomax (Tamsulosin Hcl) 0.4 Mg Cap.er.24h 0.4 Mg PO QHS Ferrous Sulfate 325 Mg Tablet 325 Mg PO BID Provera (Medroxyprogesterone Acetate) 2.5 Mg Tablet 1 Tab PO DAILY Trazodone Hcl 50 Mg Tablet 75 Mg PO QHS Zyprexa Zydis (Olanzapine) 5 Mg Tab.rapdis 2.5 Mg PO PRN Q2HR PRN Analgesic [place] (Methyl Salicylate/Menthol) 29 Gm Oint...g. 1 Amelia TP PRN QID PRN Hydroxyzine Pamoate 25 Mg Capsule 25 Mg PO PRN Q2HR PRN Donepezil Hcl 10 Mg Tablet 10 Mg PO DAILY Vitamin B-12 (Cyanocobalamin (Vitamin B-12)) 1,000 Mcg Tablet 1,000 Mcg PO DAILY Vitamin D (Cholecalciferol (Vitamin D3)) 2,000 Unit Capsule 2,000 Unit PO DAILY Ultram (Tramadol HCl) 50 Mg Tablet 50 Mg PO PRN Q6HRS PRN Thiamine Hcl 100 Mg Tablet 100 Mg PO DAILY Simvastatin 10 Mg Tablet 20 Mg PO DAILY Mirtazapine 15 Mg Tablet 15 Mg PO QHS Proscar (Finasteride) 5 Mg Tablet 5 Mg PO DAILY Miralax (Polyethylene Glycol 3350) 17 Gm Powd.pack 17 Gm PO DAILY Folic Acid 1 Mg Tablet 1 Mg PO DAILY Combigan Eye Drops (Brimonidine Tartrate/Timolol) 5 Ml Drops 1 Drop OU BID Colace (Docusate Sodium) 100 Mg Capsule 200 Mg PO BID Aspirin 81 Mg Tab.chew 81 Mg PO DAILY I have reviewed the current psychotropics carefully including drug interactions. Risk benefit ratio favors no change other than as noted in my dictated progress note. 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
[2017-05-02 06:19] VITALS: BP 134/77
[2017-05-02] MEDS: BRIMONIDINE 0.2% OPHTH SOLUTION 5ML BOTTLE. OU SCH ×3 (08:15→20:38)
[2017-05-02] MEDS: TIMOLOL 0.5% OPHTH SOLUTION 5ML BOTTLE. OU SCH ×3 (08:15→20:38)
[2017-05-02] MEDS: FOLIC ACID 1 MG TABLET PO SCH (08:16)
[2017-05-02] MEDS: DOCUSATE SODIUM 100 MG CAPSULE PO SCH ×2 (08:16→20:18)
[2017-05-02] MEDS: ASPIRIN 81 MG TAB.CHEW PO SCH (08:16)
[2017-05-02] MEDS: DONEPEZIL HCL 10 MG TABLET PO SCH (08:16)
[2017-05-02] MEDS: POLYETHYLENE GLYCOL 3350 17 GM PACKET. PO SCH (08:16)
[2017-05-02] MEDS: DIVALPROEX 125 MG CAP.SPRINK PO SCH ×2 (08:16→13:19)
[2017-05-02] MEDS: FERROUS SULFATE 325 MG TABLET. PO SCH ×2 (08:16→20:17)
[2017-05-02] MEDS: THIAMINE 100 MG TABLET. PO SCH (08:17)
[2017-05-02] MEDS: QUEtiapine 25 MG TABLET. PO SCH ×4 (08:17→18:03)
[2017-05-02] MEDS: CYANOCOBALAMIN (VITAMIN B-12) 1,000 MCG TABLET. PO SCH (08:17)
[2017-05-02] MEDS: FINASTERIDE 5 MG TABLET PO SCH (08:17)
[2017-05-02] MEDS: ASCORBIC ACID 500 MG TABLET PO SCH (08:17)
[2017-05-02] MEDS: CHOLECALCIFEROL (VITAMIN D3) 1,000 UNIT TABLET PO SCH (08:18)
[2017-05-02] MEDS: PRENATAL MULTIVITAMIN TABLET. PO SCH (08:20)
[2017-05-02] MEDS: SERTRALINE 50 MG TABLET. PO SCH (08:20)
[2017-05-02 15:55] VITALS: BP 136/64
--- NOTE | 2017-05-02 18:42 | PN ---
DATE: 04/30/2017 This is a late entry, covers the elements not covered in my initial note 04/30/2017. SUBJECTIVE: I met with the patient in the evening of 04/30/2017. The patient slept 5-1/2 hours previous evening. Remains confused in his wheelchair, up and down the hallway, constantly yelling out, help me, help me. He had been asked what he needs help with that the constant reply from him "help me, help me", "cover me cover up." He takes covers, puts it over his head and continues to relate help me, help me. Compliant with his medications, food has been changed to finger foods. REVIEW OF SYSTEMS: No CV, , pulmonary, eye, ENT system symptoms on review. Reliability poor. Gait unsteady in wheelchair. MENTAL STATUS EXAM: Oriented to himself. Insight, judgment, recent and remote memory, attention, concentration, fund of knowledge poor, consistent with his diagnosis mentioned in my initial note. IMPRESSION: Major neurocognitive disorder, Alzheimer, vascular with delusion, depression, behavioral disturbance. Rest unchanged. PLAN: Continue current psychotropics as mentioned in my initial note, may need to adjust further in the next day or two specifically, the Depakote depending on his progress. MAN Corey DEY MD DR: ABBY/brian JOB#: [id number] / [id number]
--- NOTE | 2017-05-02 18:48 | PN ---
DATE: 05/01/2017 PSYCHIATRIC PROGRESS NOTE This is a late entry for 05/01/2017 covers elements not covered in my initial note of 05/01/2017. SUBJECTIVE: I met with the patient in the evening of 05/01/2017. The patient slept 8 hours previous evening, did well the previous night, better during the day on 05/01/2017, still repeating "help me, help me," but less so than before. UA is mixed jackie. REVIEW OF SYSTEMS: Ambulation impaired, in wheelchair. No CV, , pulmonary, eye, ENT system symptoms on review. Reliability poor. MENTAL STATUS EXAM: Oriented to himself. Insight, judgment, recent and remote memory, attention, concentration, fund of knowledge poor, consistent with his diagnosis as mentioned in my initial note. IMPRESSION: Major neurocognitive disorder, Alzheimer's, vascular with delusion, depression, behavioral disturbance. Rest unchanged. PLAN: Continue psychotropics as mentioned in my initial note. MAN Corey DEY MD DR: ABBY/brian JOB#: [id number] / [id number]
--- NOTE | 2017-05-02 20:11 | PDOC ---
Exam Note: Chase Note: Please also refer to the separate dictated note~for this date of service dictated separately.~Patient seen individually. Discussed the patient with Nursing staff reviewed the chart.~Reviewed interim history and current functioning. Reviewed vital signs,~Labs/ Radiology~and current medications noted below. Continue current treatment with the changes noted in the dictated addendum note Assessment: Vital Signs: Vital Signs Date Time Temp Pulse Resp B/P (MAP) Pulse Ox O2 Delivery O2 Flow Rate FiO2 05/02/17 15:55 98.0 83 16 136/64 (88) 99 04/29/17 15:55 Room Air I&O Intake and Output 05/02/17 07:00 Intake Total 1840 ml Balance 1840 ml Intake Oral 1840 ml # Bowel Movements 1 Current Medications: Meds: Current Medications Diphenhydramine HCl (Benadryl) 50 mg 1X ONCE IM Last administered on 18:00; Start 04/19/17 at 18:00; Stop 04/19/17 at 18:01; Status DC Lorazepam (Ativan) 2 mg 1X ONCE IM Last administered on 04/19/17 18:00; Start 04/19/17 at 18:00; Stop 04/19/17 at 18:01; Status DC Olanzapine (ZyPREXA IM) 10 mg 1X ONCE IM Last administered on 04/19/17 18:30 ; Start 04/19/17 at 18:30; Stop 04/19/17 at 18:31; Status DC Lactated Ringer's 1,000 ml @ 1,000 mls/hr Q1H IV ; Start 04/19/17 at 18:15; Stop 04/22/17 at 00:43; Status DC Multivitamins/ Minerals 10 ml/ Folic Acid 1 mg/ Thiamine HCl 100 mg/Sodium Chloride 1,011.1 ml @ 1,000 mls/ hr 1X ONCE IV Last administered on 19:30; Start 04/19/17 at 19:30; Stop 04/19/17 at 20:30; Status DC Phytonadione (Vitamin K) 10 mg STK-MED ONCE .ROUTE ; Start 04/19/17 at 20:55; Stop 04/19/17 at 20:56; Status DC Thiamine HCl 200 mg STK-MED ONCE IV ; Start 04/19/17 at 20:55; Stop 04/19/17 at 20:56; Status DC Folic Acid 5 mg STK-MED ONCE IV ; Start 04/19/17 at 20:56; Stop 04/19/17 at 20 :57; Status DC Donepezil HCl (Aricept) 10 mg DAILY PO Last administered on 05/02/17 08:16; Start 04/20/17 at 09:00 Hydroxyzine Pamoate (Vistaril) 25 mg PRN Q2HR PRN PO AGITAT; Start 04/19/17 at 23:30 Medroxyprogesterone Acetate (Provera) 2.5 mg DAILY PO Last administered on 08:17; Start 04/20/17 at 09:00 Mirtazapine (Remeron) 15 mg QHS PO Last administered on 05/01/17 20:25; Start 04/20/17 at 21:00 Olanzapine (ZyPREXA ZYDIS) 2.5 mg PRN Q2HR PRN PO ANXIETY / AGITATION Last administered on 04/30/17 20:22; Start 04/19/17 at 23:30 Quetiapine Fumarate (SEROquel) 75 mg DAILY PO Last administered on 04/28/17 11:15; Start 04/20/17 at 09:00; Stop 04/28/17 at 18:50; Status DC Quetiapine Fumarate (SEROquel) 100 mg QHS PO Last administered on 05/01/17 20 :26; Start 04/20/17 at 21:00 Trazodone HCl (Desyrel) 75 mg QHS PO Last administered on 05/01/17 20:26; Start 04/20/17 at 21:00 Acetaminophen (Tylenol) 1,000 mg PRN Q8HRS PRN PO PAIN; Start 04/20/17 at 07: 45 Aspirin (Children'S Aspirin) 81 mg DAILY PO Last administered on 05/02/17 08: 16; Start 04/20/17 at 09:00 Cyanocobalamin (Vitamin B-12) 1,000 mcg DAILY PO Last administered on 08:17; Start 04/20/17 at 09:00 Diclofenac Sodium (Voltaren) 4 amelia PRN Q6HRS PRN TP PAIN; Start 04/20/17 at 07 :45 Docusate Sodium (Colace) 200 mg BID PO Last administered on 05/02/17 08:16; Start 04/20/17 at 09:00 Ferrous Sulfate (Feosol) 325 mg BID PO Last administered on 05/02/17 08:16; Start 04/20/17 at 09:00 Finasteride (Proscar) 5 mg DAILY PO Last administered on 05/02/17 08:17; Start 04/20/17 at 09:00 Folic Acid (Folic Acid) 1 mg DAILY PO Last administered on 05/02/17 08:16; Start 04/20/17 at 09:00 Al Hydroxide/Mg Hydroxide (Mylanta Plus Xs) 15 ml PRN QHS PRN PO INDIGESTION; Start 04/20/17 at 07:45 Magnesium Hydroxide (Milk Of Magnesia) 800 mg PRN Q24HRS PRN PO CONSTIPATION Last administered on 04/26/17 03:09; Start 04/20/17 at 07:45 Multi-Ingredient Ointment (Analgesic [place]) 1 amelia PRN QID PRN TP muscle pain; Start 04/20/17 at 07:45 Polyethylene Glycol (miraLAX) 17 gm DAILY PO Last administered on 05/02/17 08 :16; Start 04/20/17 at 09:00 Simvastatin (Zocor) 20 mg HS PO Last administered on 05/01/17 20:26; Start 04/20/17 at 21:00 Tamsulosin HCl (Flomax) 0.4 mg QHS PO Last administered on 05/01/17 20:25; Start 04/20/17 at 21:00 Thiamine HCl (Vitamin B-1) 100 mg DAILY PO Last administered on 05/02/17 08: 17; Start 04/20/17 at 09:00 Tramadol HCl (Ultram) 50 mg PRN Q6HRS PRN PO PAIN; Start 04/20/17 at 07:45 Triamcinolone Acetonide (Kenalog) 15 amelia PRN BID PRN TP RASH; Start 04/20/17 at 07:45 Brimonidine Tartrate (Alphagan) 1 drop BID OU Last administered on 04/21/17 11:11; Start 04/20/17 at 09:00; Stop 04/21/17 at 14:37; Status DC Vitamin D (Vitamin D3) 2,000 unit DAILY PO Last administered on 05/02/17 08: 18; Start 04/20/17 at 09:00 Timolol Maleate (Timoptic 0.5% [place]) 1 drop BID OU Last administered on 09:05; Start 04/20/17 at 09:00 Dextrose 1,000 ml @ 100 mls/hr Q10H IV Last administered on 04/20/17 18:06; Start 04/20/17 at 16:15; Stop 04/22/17 at 00:42; Status DC Prenat Multivit/ [place]/Iron/Folic Ac (Multivitamin ) 1 tab DAILYBFRSUP PO Last administered on 05/02/17 08:20; Start 04/20/17 at 17:00 Brimonidine Tartrate (Alphagan) 1 drop BID OU Last administered on 05/01/17 09:05; Start 04/21/17 at 14:37 Sodium Chloride 1,000 ml @ 125 mls/hr Q8H IV Last administered on 04/21/17 16:08; Start 04/21/17 at 14:45; Stop 04/22/17 at 00:42; Status DC Sertraline HCl (Zoloft) 25 mg DAILY PO Last administered on 04/24/17 09:35; Start 04/22/17 at 09:00; Stop 04/24/17 at 09:01; Status DC Sertraline HCl (Zoloft) 50 mg DAILY PO Last administered on 04/26/17 10:06; Start 04/22/17 at 09:00; Stop 04/26/17 at 18:17; Status DC Sertraline HCl (Zoloft) 75 mg DAILY PO Last administered on 05/02/17 08:20; Start 04/27/17 at 09:00 Quetiapine Fumarate (SEROquel) 25 mg TID@0900,1300,1700 PO Last administered on 05/02/17 13:19; Start 04/29/17 at 09:00 Divalproex Sodium (Depakote Sprinkles) 125 mg BID@0900,1300 PO Last administered on 05/02/17 13:19; Start 04/29/17 at 09:00 Ascorbic Acid (Vitamin C) 250 mg DAILY PO Last administered on 05/02/17t 08:17 ; Start 04/30/17 at 09:00 Active Scripts Active Reported Mag-Al Plus Xs Suspension (Mag Hydrox/Al Hydrox/Simeth) 30 Ml Oral.susp 15 Ml PO PRN QHS PRN Triamcinolone Acetonide 15 Gm Cream..g. 15 Gm TP PRN BID PRN Voltaren (Diclofenac Sodium) 100 Gm Gel..gram. 4 Gm TP PRN Q6HRS Acetaminophen 500 Mg Tablet 1,000 Mg PO PRN Q8HRS PRN Seroquel (Quetiapine Fumarate) 100 Mg Tablet 100 Mg PO QHS Seroquel (Quetiapine Fumarate) 50 Mg Tablet 75 Mg PO DAILY Milk Of Magnesia (Magnesium Hydroxide) 400 Mg/5 Ml Oral.susp 800 Mg PO PRN Q24HRS PRN Flomax (Tamsulosin Hcl) 0.4 Mg Cap.er.24h 0.4 Mg PO QHS Ferrous Sulfate 325 Mg Tablet 325 Mg PO BID Provera (Medroxyprogesterone Acetate) 2.5 Mg Tablet 1 Tab PO DAILY Trazodone Hcl 50 Mg Tablet 75 Mg PO QHS Zyprexa Zydis (Olanzapine) 5 Mg Tab.rapdis 2.5 Mg PO PRN Q2HR PRN Analgesic [place] (Methyl Salicylate/Menthol) 29 Gm Oint...g. 1 Amelia TP PRN QID PRN Hydroxyzine Pamoate 25 Mg Capsule 25 Mg PO PRN Q2HR PRN Donepezil Hcl 10 Mg Tablet 10 Mg PO DAILY Vitamin B-12 (Cyanocobalamin (Vitamin B-12)) 1,000 Mcg Tablet 1,000 Mcg PO DAILY Vitamin D (Cholecalciferol (Vitamin D3)) 2,000 Unit Capsule 2,000 Unit PO DAILY Ultram (Tramadol HCl) 50 Mg Tablet 50 Mg PO PRN Q6HRS PRN Thiamine Hcl 100 Mg Tablet 100 Mg PO DAILY Simvastatin 10 Mg Tablet 20 Mg PO DAILY Mirtazapine 15 Mg Tablet 15 Mg PO QHS Proscar (Finasteride) 5 Mg Tablet 5 Mg PO DAILY Miralax (Polyethylene Glycol 3350) 17 Gm Powd.pack 17 Gm PO DAILY Folic Acid 1 Mg Tablet 1 Mg PO DAILY Combigan Eye Drops (Brimonidine Tartrate/Timolol) 5 Ml Drops 1 Drop OU BID Colace (Docusate Sodium) 100 Mg Capsule 200 Mg PO BID Aspirin 81 Mg Tab.chew 81 Mg PO DAILY I have reviewed the current psychotropics carefully including drug interactions. Risk benefit ratio favors no change other than as noted in my dictated progress note. 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
[2017-05-02] MEDS: SIMVASTATIN 20 MG TABLET PO SCH (20:17)
[2017-05-02] MEDS: QUEtiapine 100 MG TABLET. PO SCH (20:18)
[2017-05-02] MEDS: MIRTAZAPINE 15 MG TABLET PO SCH (20:18)
[2017-05-02] MEDS: traZODone 50 MG TABLET. PO SCH (20:18)
[2017-05-02] MEDS: TAMSULOSIN 0.4 MG CAP.ER.24H. PO SCH (20:18)
[2017-05-03 05:47] VITALS: BP 99/63
[2017-05-03 08:02] LABS: BASO # 0.1 x10^3/uL (0.0-0.2); BASO % 1 % (0-3); EOS # 0.4 x10^3/uL (0.0-0.7); EOS % 5 % (0-3); HEMATOCRIT 33.1 % (39.0-53.0); LYMPH # 1.4 x10^3/uL (1.0-4.8); LYMPH % 20 % (24-48); MEAN CORPUSCULAR HEMOGLOBIN 28 pg (25-35); MEAN CORPUSCULAR HGB CONC 33 g/dL (31-37); MEAN CORPUSCULAR VOLUME 86 fL (79-100); MONO # 0.6 x10^3/uL (0.0-1.1); MONO % 9 % (0-9); NEUT # 4.5 x10^3uL (1.8-7.7); NEUT % 64 % (31-73); PLATELET COUNT 176 x10^3/uL (140-400); RED BLOOD COUNT 3.86 x10^6/uL (4.30-5.70); RED CELL DISTRIBUTION WIDTH 16.2 % (11.5-14.5)
[2017-05-03] MEDS: FOLIC ACID 1 MG TABLET PO SCH (08:16)
[2017-05-03] MEDS: POLYETHYLENE GLYCOL 3350 17 GM PACKET. PO SCH (08:16)
[2017-05-03] MEDS: QUEtiapine 25 MG TABLET. PO SCH ×3 (08:16→16:32)
[2017-05-03] MEDS: CHOLECALCIFEROL (VITAMIN D3) 1,000 UNIT TABLET PO SCH (08:17)
[2017-05-03] MEDS: ASPIRIN 81 MG TAB.CHEW PO SCH (08:17)
[2017-05-03] MEDS: CYANOCOBALAMIN (VITAMIN B-12) 1,000 MCG TABLET. PO SCH (08:18)
[2017-05-03] MEDS: DIVALPROEX 125 MG CAP.SPRINK PO SCH ×2 (08:18→13:19)
[2017-05-03] MEDS: ASCORBIC ACID 500 MG TABLET PO SCH (08:18)
[2017-05-03] MEDS: DOCUSATE SODIUM 100 MG CAPSULE PO SCH ×2 (08:19→19:41)
[2017-05-03] MEDS: FINASTERIDE 5 MG TABLET PO SCH (08:19)
[2017-05-03] MEDS: SERTRALINE 50 MG TABLET. PO SCH (08:22)
[2017-05-03] MEDS: TIMOLOL 0.5% OPHTH SOLUTION 5ML BOTTLE. OU SCH ×2 (08:22→21:00)
[2017-05-03] MEDS: FERROUS SULFATE 325 MG TABLET. PO SCH ×2 (08:22→19:41)
[2017-05-03] MEDS: DONEPEZIL HCL 10 MG TABLET PO SCH (08:22)
[2017-05-03] MEDS: BRIMONIDINE 0.2% OPHTH SOLUTION 5ML BOTTLE. OU SCH ×2 (08:23→21:00)
[2017-05-03 08:31] LABS: ALBUMIN 3.1 g/dL (3.4-5.0); ALBUMIN/GLOBULIN RATIO 0.8 (1.0-1.7); CALCIUM 9.5 mg/dL (8.5-10.1); CREATININE 2.1 mg/dL (0.7-1.3); GFR 29.9; POTASSIUM 5.2 mmol/L (3.5-5.1); TOTAL BILIRUBIN 0.5 mg/dL (0.2-1.0)
[2017-05-03] MEDS: THIAMINE 100 MG TABLET. PO SCH (10:02)
--- NOTE | 2017-05-03 12:20 | PN ---
DATE: 05/02/2017 This is a late entry for 05/02/2017 and covers the elements not covered in my initial note of 05/02/2017. SUBJECTIVE: I met with the patient in the evening of 05/02/2017. The patient did reasonably well the previous evening. He yells out during ADLs "help me, help, help." He was sedated in the evening, Seroquel was held. REVIEW OF SYSTEMS: Ambulation impaired, in wheelchair, hard of hearing. No CV, , pulmonary, eye system symptoms on review. Reliability poor. MENTAL STATUS EXAM: Oriented to himself. Insight, judgment, recent and remote memory, attention, concentration, fund of knowledge poor, consistent with his diagnoses. LABORATORY DATA: Reviewed. IMPRESSION: Major neurocognitive disorder, Alzheimer, vascular with depression, delusion, behavioral disturbance. Rest unchanged from initial note. PLAN: Continue psychotropics mentioned in the initial note, may need to adjust Seroquel further gradually. ELBA DEY MD DR: ABBY/brian JOB#: [id number] / [id number]
[2017-05-03 16:06] VITALS: BP 91/63
[2017-05-03] MEDS: PRENATAL MULTIVITAMIN TABLET. PO SCH (16:32)
[2017-05-03] MEDS: MIRTAZAPINE 15 MG TABLET PO SCH (19:41)
[2017-05-03] MEDS: traZODone 50 MG TABLET. PO SCH (19:41)
[2017-05-03] MEDS: SIMVASTATIN 20 MG TABLET PO SCH (19:41)
[2017-05-03] MEDS: QUEtiapine 100 MG TABLET. PO SCH (19:41)
[2017-05-03] MEDS: TAMSULOSIN 0.4 MG CAP.ER.24H. PO SCH (19:41)
--- NOTE | 2017-05-03 20:09 | PDOC ---
Exam Note: Chase Note: Please also refer to the separate dictated note~for this date of service dictated separately.~Patient seen individually. Discussed the patient with Nursing staff reviewed the chart.~Reviewed interim history and current functioning. Reviewed vital signs,~Labs/ Radiology~and current medications noted below. Continue current treatment with the changes noted in the dictated addendum note Assessment: Vital Signs: Vital Signs Date Time Temp Pulse Resp B/P (MAP) Pulse Ox O2 Delivery O2 Flow Rate FiO2 05/03/17 16:06 99.4 80 20 91/63 (72) 95 Room Air I&O Intake and Output 05/03/17 06:59 Intake Total 840 ml Balance 840 ml Intake Oral 840 ml Labs: Laboratory Tests Test 05/03/17 07:31 White Blood Count 7.0 x10^3/uL (4.0-11.0) Red Blood Count 3.86 x10^6/uL (4.30-5.70) L Hemoglobin 11.0 g/dL (13.0-17.5) L Hematocrit 33.1 % (39.0-53.0) L Mean Corpuscular Volume 86 fL (79-100) Mean Corpuscular Hemoglobin 28 pg (25-35) Mean Corpuscular Hemoglobin Concent 33 g/dL (31-37) Red Cell Distribution Width 16.2 % (11.5-14.5) H Platelet Count 176 x10^3/uL (140-400) Neutrophils (%) (Auto) 64 % (31-73) Lymphocytes (%) (Auto) 20 % (24-48) L Monocytes (%) (Auto) 9 % (0-9) Eosinophils (%) (Auto) 5 % (0-3) H Basophils (%) (Auto) 1 % (0-3) Neutrophils # (Auto) 4.5 x10^3uL (1.8-7.7) Lymphocytes # (Auto) 1.4 x10^3/uL (1.0-4.8) Monocytes # (Auto) 0.6 x10^3/uL (0.0-1.1) Eosinophils # (Auto) 0.4 x10^3/uL (0.0-0.7) Basophils # (Auto) 0.1 x10^3/uL (0.0-0.2) Sodium Level 142 mmol/L (136-145) Potassium Level 5.2 mmol/L (3.5-5.1) H Chloride Level 106 mmol/L (98-107) Carbon Dioxide Level 30 mmol/L (21-32) Anion Gap 6 (6-14) Blood Urea Nitrogen 52 mg/dL (8-26) H Creatinine 2.1 mg/dL (0.7-1.3) H Estimated GFR (Cockcroft-Gault) 29.9 BUN/Creatinine Ratio 25 (6-20) H Glucose Level 109 mg/dL (70-99) H Calcium Level 9.5 mg/dL (8.5-10.1) Total Bilirubin 0.5 mg/dL (0.2-1.0) Aspartate Amino Transferase (AST) 26 U/L (15-37) Alanine Aminotransferase (ALT) 33 U/L (16-63) Alkaline Phosphatase 119 U/L (46-116) H Total Protein 7.0 g/dL (6.4-8.2) Albumin 3.1 g/dL (3.4-5.0) L Albumin/Globulin Ratio 0.8 (1.0-1.7) L Current Medications: Meds: Current Medications Diphenhydramine HCl (Benadryl) 50 mg 1X ONCE IM Last administered on 18:00; Start 04/19/17 at 18:00; Stop 04/19/17 at 18:01; Status DC Lorazepam (Ativan) 2 mg 1X ONCE IM Last administered on 04/19/17 18:00; Start 04/19/17 at 18:00; Stop 04/19/17 at 18:01; Status DC Olanzapine (ZyPREXA IM) 10 mg 1X ONCE IM Last administered on 04/19/17 18:30 ; Start 04/19/17 at 18:30; Stop 04/19/17 at 18:31; Status DC Lactated Ringer's 1,000 ml @ 1,000 mls/hr Q1H IV ; Start 04/19/17 at 18:15; Stop 04/22/17 at 00:43; Status DC Multivitamins/ Minerals 10 ml/ Folic Acid 1 mg/ Thiamine HCl 100 mg/Sodium Chloride 1,011.1 ml @ 1,000 mls/ hr 1X ONCE IV Last administered on 19:30; Start 04/19/17 at 19:30; Stop 04/19/17 at 20:30; Status DC Phytonadione (Vitamin K) 10 mg STK-MED ONCE .ROUTE ; Start 04/19/17 at 20:55; Stop 04/19/17 at 20:56; Status DC Thiamine HCl 200 mg STK-MED ONCE IV ; Start 04/19/17 at 20:55; Stop 04/19/17 at 20:56; Status DC Folic Acid 5 mg STK-MED ONCE IV ; Start 04/19/17 at 20:56; Stop 04/19/17 at 20 :57; Status DC Donepezil HCl (Aricept) 10 mg DAILY PO Last administered on 05/03/17 08:22; Start 04/20/17 at 09:00 Hydroxyzine Pamoate (Vistaril) 25 mg PRN Q2HR PRN PO AGITAT; Start 04/19/17 at 23:30 Medroxyprogesterone Acetate (Provera) 2.5 mg DAILY PO Last administered on 08:19; Start 04/20/17 at 09:00 Mirtazapine (Remeron) 15 mg QHS PO Last administered on 05/03/17 19:41; Start 04/20/17 at 21:00 Olanzapine (ZyPREXA ZYDIS) 2.5 mg PRN Q2HR PRN PO ANXIETY / AGITATION Last administered on 04/30/17 20:22; Start 04/19/17 at 23:30 Quetiapine Fumarate (SEROquel) 75 mg DAILY PO Last administered on 04/28/17 11:15; Start 04/20/17 at 09:00; Stop 04/28/17 at 18:50; Status DC Quetiapine Fumarate (SEROquel) 100 mg QHS PO Last administered on 05/03/17 19 :41; Start 04/20/17 at 21:00 Trazodone HCl (Desyrel) 75 mg QHS PO Last administered on 05/03/17 19:41; Start 04/20/17 at 21:00 Acetaminophen (Tylenol) 1,000 mg PRN Q8HRS PRN PO PAIN; Start 04/20/17 at 07: 45 Aspirin (Children'S Aspirin) 81 mg DAILY PO Last administered on 05/03/17 08: 17; Start 04/20/17 at 09:00 Cyanocobalamin (Vitamin B-12) 1,000 mcg DAILY PO Last administered on 08:18; Start 04/20/17 at 09:00 Diclofenac Sodium (Voltaren) 4 amelia PRN Q6HRS PRN TP PAIN; Start 04/20/17 at 07 :45 Docusate Sodium (Colace) 200 mg BID PO Last administered on 05/03/17 19:41; Start 04/20/17 at 09:00 Ferrous Sulfate (Feosol) 325 mg BID PO Last administered on 05/03/17 19:41; Start 04/20/17 at 09:00 Finasteride (Proscar) 5 mg DAILY PO Last administered on 05/03/17 08:19; Start 04/20/17 at 09:00 Folic Acid (Folic Acid) 1 mg DAILY PO Last administered on 05/03/17 08:16; Start 04/20/17 at 09:00 Al Hydroxide/Mg Hydroxide (Mylanta Plus Xs) 15 ml PRN QHS PRN PO INDIGESTION; Start 04/20/17 at 07:45 Magnesium Hydroxide (Milk Of Magnesia) 800 mg PRN Q24HRS PRN PO CONSTIPATION Last administered on 04/26/17 03:09; Start 04/20/17 at 07:45 Multi-Ingredient Ointment (Analgesic [place]) 1 amelia PRN QID PRN TP muscle pain; Start 04/20/17 at 07:45 Polyethylene Glycol (miraLAX) 17 gm DAILY PO Last administered on 05/03/17 08 :16; Start 04/20/17 at 09:00 Simvastatin (Zocor) 20 mg HS PO Last administered on 05/03/17 19:41; Start 04/20/17 at 21:00 Tamsulosin HCl (Flomax) 0.4 mg QHS PO Last administered on 05/03/17 19:41; Start 04/20/17 at 21:00 Thiamine HCl (Vitamin B-1) 100 mg DAILY PO Last administered on 05/03/17 10: 02; Start 04/20/17 at 09:00 Tramadol HCl (Ultram) 50 mg PRN Q6HRS PRN PO PAIN; Start 04/20/17 at 07:45 Triamcinolone Acetonide (Kenalog) 15 amelia PRN BID PRN TP RASH; Start 04/20/17 at 07:45 Brimonidine Tartrate (Alphagan) 1 drop BID OU Last administered on 04/21/17 11:11; Start 04/20/17 at 09:00; Stop 04/21/17 at 14:37; Status DC Vitamin D (Vitamin D3) 2,000 unit DAILY PO Last administered on 05/03/17 08: 17; Start 04/20/17 at 09:00 Timolol Maleate (Timoptic 0.5% [facility]) 1 drop BID OU Last administered on 08:22; Start 04/20/17 at 09:00 Dextrose 1,000 ml @ 100 mls/hr Q10H IV Last administered on 04/20/17 18:06; Start 04/20/17 at 16:15; Stop 04/22/17 at 00:42; Status DC Prenat Multivit/ [place]/Iron/Folic Ac (Multivitamin ) 1 tab DAILYBFRSUP PO Last administered on 05/03/17 16:32; Start 04/20/17 at 17:00 Brimonidine Tartrate (Alphagan) 1 drop BID OU Last administered on 05/03/17 08:23; Start 04/21/17 at 14:37 Sodium Chloride 1,000 ml @ 125 mls/hr Q8H IV Last administered on 04/21/17 16:08; Start 04/21/17 at 14:45; Stop 04/22/17 at 00:42; Status DC Sertraline HCl (Zoloft) 25 mg DAILY PO Last administered on 04/24/17 09:35; Start 04/22/17 at 09:00; Stop 04/24/17 at 09:01; Status DC Sertraline HCl (Zoloft) 50 mg DAILY PO Last administered on 04/26/17 10:06; Start 04/22/17 at 09:00; Stop 04/26/17 at 18:17; Status DC Sertraline HCl (Zoloft) 75 mg DAILY PO Last administered on 05/03/17 08:22; Start 04/27/17 at 09:00 Quetiapine Fumarate (SEROquel) 25 mg TID@0900,1300,1700 PO Last administered on 05/03/17 16:32; Start 04/29/17 at 09:00 Divalproex Sodium (Depakote Sprinkles) 125 mg BID@0900,1300 PO Last administered on 05/03/17 13:19; Start 04/29/17 at 09:00 Ascorbic Acid (Vitamin C) 250 mg DAILY PO Last administered on 05/03/17 08:18 ; Start 04/30/17 at 09:00 Active Scripts Active Reported Mag-Al Plus Xs Suspension (Mag Hydrox/Al Hydrox/Simeth) 30 Ml Oral.susp 15 Ml PO PRN QHS PRN Triamcinolone Acetonide 15 Gm Cream..g. 15 Gm TP PRN BID PRN Voltaren (Diclofenac Sodium) 100 Gm Gel..gram. 4 Gm TP PRN Q6HRS Acetaminophen 500 Mg Tablet 1,000 Mg PO PRN Q8HRS PRN Seroquel (Quetiapine Fumarate) 100 Mg Tablet 100 Mg PO QHS Seroquel (Quetiapine Fumarate) 50 Mg Tablet 75 Mg PO DAILY Milk Of Magnesia (Magnesium Hydroxide) 400 Mg/5 Ml Oral.susp 800 Mg PO PRN Q24HRS PRN Flomax (Tamsulosin Hcl) 0.4 Mg Cap.er.24h 0.4 Mg PO QHS Ferrous Sulfate 325 Mg Tablet 325 Mg PO BID Provera (Medroxyprogesterone Acetate) 2.5 Mg Tablet 1 Tab PO DAILY Trazodone Hcl 50 Mg Tablet 75 Mg PO QHS Zyprexa Zydis (Olanzapine) 5 Mg Tab.rapdis 2.5 Mg PO PRN Q2HR PRN Analgesic [place] (Methyl Salicylate/Menthol) 29 Gm Oint...g. 1 Amelia TP PRN QID PRN Hydroxyzine Pamoate 25 Mg Capsule 25 Mg PO PRN Q2HR PRN Donepezil Hcl 10 Mg Tablet 10 Mg PO DAILY Vitamin B-12 (Cyanocobalamin (Vitamin B-12)) 1,000 Mcg Tablet 1,000 Mcg PO DAILY Vitamin D (Cholecalciferol (Vitamin D3)) 2,000 Unit Capsule 2,000 Unit PO DAILY Ultram (Tramadol HCl) 50 Mg Tablet 50 Mg PO PRN Q6HRS PRN Thiamine Hcl 100 Mg Tablet 100 Mg PO DAILY Simvastatin 10 Mg Tablet 20 Mg PO DAILY Mirtazapine 15 Mg Tablet 15 Mg PO QHS Proscar (Finasteride) 5 Mg Tablet 5 Mg PO DAILY Miralax (Polyethylene Glycol 3350) 17 Gm Powd.pack 17 Gm PO DAILY Folic Acid 1 Mg Tablet 1 Mg PO DAILY Combigan Eye Drops (Brimonidine Tartrate/Timolol) 5 Ml Drops 1 Drop OU BID Colace (Docusate Sodium) 100 Mg Capsule 200 Mg PO BID Aspirin 81 Mg Tab.chew 81 Mg PO DAILY I have reviewed the current psychotropics carefully including drug interactions. Risk benefit ratio favors no change other than as noted in my dictated progress note. 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
[2017-05-04 05:15] VITALS: BP 92/62
[2017-05-04] MEDS: POLYETHYLENE GLYCOL 3350 17 GM PACKET. PO SCH (07:35)
[2017-05-04] MEDS: SERTRALINE 50 MG TABLET. PO SCH (07:37)
[2017-05-04] MEDS: DOCUSATE SODIUM 100 MG CAPSULE PO SCH ×2 (07:37→19:58)
[2017-05-04] MEDS: DIVALPROEX 125 MG CAP.SPRINK PO SCH ×3 (07:37→20:25)
[2017-05-04] MEDS: FERROUS SULFATE 325 MG TABLET. PO SCH ×2 (07:37→19:58)
[2017-05-04] MEDS: QUEtiapine 25 MG TABLET. PO SCH ×3 (07:37→16:09)
[2017-05-04] MEDS: THIAMINE 100 MG TABLET. PO SCH (07:37)
[2017-05-04] MEDS: CHOLECALCIFEROL (VITAMIN D3) 1,000 UNIT TABLET PO SCH (07:38)
[2017-05-04] MEDS: ASPIRIN 81 MG TAB.CHEW PO SCH (07:38)
[2017-05-04] MEDS: FINASTERIDE 5 MG TABLET PO SCH (07:38)
[2017-05-04] MEDS: ASCORBIC ACID 500 MG TABLET PO SCH (07:38)
[2017-05-04] MEDS: CYANOCOBALAMIN (VITAMIN B-12) 1,000 MCG TABLET. PO SCH (07:38)
[2017-05-04] MEDS: DONEPEZIL HCL 10 MG TABLET PO SCH (07:38)
[2017-05-04] MEDS: FOLIC ACID 1 MG TABLET PO SCH (07:39)
[2017-05-04] MEDS: TIMOLOL 0.5% OPHTH SOLUTION 5ML BOTTLE. OU SCH ×3 (07:40→21:00)
[2017-05-04] MEDS: BRIMONIDINE 0.2% OPHTH SOLUTION 5ML BOTTLE. OU SCH ×3 (07:40→21:00)
[2017-05-04 15:59] VITALS: BP 124/52
[2017-05-04] MEDS: PRENATAL MULTIVITAMIN TABLET. PO SCH (16:09)
--- NOTE | 2017-05-04 19:51 | PDOC ---
Exam Note: [place] Note: Please also refer to the separate dictated note~for this date of service dictated separately.~Patient seen individually. Discussed the patient with Nursing staff reviewed the chart.~Reviewed interim history and current functioning. Reviewed vital signs,~Labs/ Radiology~and current medications noted below. Continue current treatment with the changes noted in the dictated addendum note Assessment: Vital Signs: Vital Signs Date Time Temp Pulse Resp B/P (MAP) Pulse Ox O2 Delivery O2 Flow Rate FiO2 05/04/17 15:59 97.3 75 20 124/52 (76) 95 05/03/17 16:06 Room Air I&O Intake and Output 05/04/17 07:00 Intake Total 1420 ml Balance 1420 ml Intake Oral 1420 ml # Voids 1 # Bowel Movements 1 Current Medications: Meds: Current Medications Diphenhydramine HCl (Benadryl) 50 mg 1X ONCE IM Last administered on 18:00; Start 04/19/17 at 18:00; Stop 04/19/17 at 18:01; Status DC Lorazepam (Ativan) 2 mg 1X ONCE IM Last administered on 04/19/17 18:00; Start 04/19/17 at 18:00; Stop 04/19/17 at 18:01; Status DC Olanzapine (ZyPREXA IM) 10 mg 1X ONCE IM Last administered on 04/19/17 18:30 ; Start 04/19/17 at 18:30; Stop 04/19/17 at 18:31; Status DC Lactated Ringer's 1,000 ml @ 1,000 mls/hr Q1H IV ; Start 04/19/17 at 18:15; Stop 04/22/17 at 00:43; Status DC Multivitamins/ Minerals 10 ml/ Folic Acid 1 mg/ Thiamine HCl 100 mg/Sodium Chloride 1,011.1 ml @ 1,000 mls/ hr 1X ONCE IV Last administered on 19:30; Start 04/19/17 at 19:30; Stop 04/19/17 at 20:30; Status DC Phytonadione (Vitamin K) 10 mg STK-MED ONCE .ROUTE ; Start 04/19/17 at 20:55; Stop 04/19/17 at 20:56; Status DC Thiamine HCl 200 mg STK-MED ONCE IV ; Start 04/19/17 at 20:55; Stop 04/19/17 at 20:56; Status DC Folic Acid 5 mg STK-MED ONCE IV ; Start 04/19/17 at 20:56; Stop 04/19/17 at 20 :57; Status DC Donepezil HCl (Aricept) 10 mg DAILY PO Last administered on 05/04/17 07:38; Start 04/20/17 at 09:00 Hydroxyzine Pamoate (Vistaril) 25 mg PRN Q2HR PRN PO AGITAT; Start 04/19/17 at 23:30 Medroxyprogesterone Acetate (Provera) 2.5 mg DAILY PO Last administered on 07:39; Start 04/20/17 at 09:00 Mirtazapine (Remeron) 15 mg QHS PO Last administered on 05/03/17 19:41; Start 04/20/17 at 21:00 Olanzapine (ZyPREXA ZYDIS) 2.5 mg PRN Q2HR PRN PO ANXIETY / AGITATION Last administered on 05/04/17 09:10; Start 04/19/17 at 23:30 Quetiapine Fumarate (SEROquel) 75 mg DAILY PO Last administered on 04/28/17 11:15; Start 04/20/17 at 09:00; Stop 04/28/17 at 18:50; Status DC Quetiapine Fumarate (SEROquel) 100 mg QHS PO Last administered on 05/03/17 19 :41; Start 04/20/17 at 21:00 Trazodone HCl (Desyrel) 75 mg QHS PO Last administered on 05/03/17 19:41; Start 04/20/17 at 21:00 Acetaminophen (Tylenol) 1,000 mg PRN Q8HRS PRN PO PAIN; Start 04/20/17 at 07: 45 Aspirin (Children'S Aspirin) 81 mg DAILY PO Last administered on 05/04/17 07: 38; Start 04/20/17 at 09:00 Cyanocobalamin (Vitamin B-12) 1,000 mcg DAILY PO Last administered on 07:38; Start 04/20/17 at 09:00 Diclofenac Sodium (Voltaren) 4 amelia PRN Q6HRS PRN TP PAIN; Start 04/20/17 at 07 :45 Docusate Sodium (Colace) 200 mg BID PO Last administered on 05/04/17 07:37; Start 04/20/17 at 09:00 Ferrous Sulfate (Feosol) 325 mg BID PO Last administered on 05/04/17 07:37; Start 04/20/17 at 09:00 Finasteride (Proscar) 5 mg DAILY PO Last administered on 05/04/17 07:38; Start 04/20/17 at 09:00 Folic Acid (Folic Acid) 1 mg DAILY PO Last administered on 05/04/17 07:39; Start 04/20/17 at 09:00 Al Hydroxide/Mg Hydroxide (Mylanta Plus Xs) 15 ml PRN QHS PRN PO INDIGESTION; Start 04/20/17 at 07:45 Magnesium Hydroxide (Milk Of Magnesia) 800 mg PRN Q24HRS PRN PO CONSTIPATION Last administered on 04/26/17 03:09; Start 04/20/17 at 07:45 Multi-Ingredient Ointment (Analgesic [place]) 1 amelia PRN QID PRN TP muscle pain; Start 04/20/17 at 07:45 Polyethylene Glycol (miraLAX) 17 gm DAILY PO Last administered on 05/04/17 07 :35; Start 04/20/17 at 09:00 Simvastatin (Zocor) 20 mg HS PO Last administered on 05/03/17 19:41; Start 04/20/17 at 21:00 Tamsulosin HCl (Flomax) 0.4 mg QHS PO Last administered on 05/03/17 19:41; Start 04/20/17 at 21:00 Thiamine HCl (Vitamin B-1) 100 mg DAILY PO Last administered on 05/04/17 07: 37; Start 04/20/17 at 09:00 Tramadol HCl (Ultram) 50 mg PRN Q6HRS PRN PO PAIN; Start 04/20/17 at 07:45 Triamcinolone Acetonide (Kenalog) 15 amelia PRN BID PRN TP RASH; Start 04/20/17 at 07:45 Brimonidine Tartrate (Alphagan) 1 drop BID OU Last administered on 04/21/17 11:11; Start 04/20/17 at 09:00; Stop 04/21/17 at 14:37; Status DC Vitamin D (Vitamin D3) 2,000 unit DAILY PO Last administered on 05/04/17 07: 38; Start 04/20/17 at 09:00 Timolol Maleate (Timoptic 0.5% O[place]) 1 drop BID OU Last administered on 08:22; Start 04/20/17 at 09:00 Dextrose 1,000 ml @ 100 mls/hr Q10H IV Last administered on 04/20/17 18:06; Start 04/20/17 at 16:15; Stop 04/22/17 at 00:42; Status DC Prenat Multivit/ [employer]/Iron/Folic Ac (Multivitamin ) 1 tab DAILYBFRSUP PO Last administered on 05/04/17 16:09; Start 04/20/17 at 17:00 Brimonidine Tartrate (Alphagan) 1 drop BID OU Last administered on 05/03/17 08:23; Start 04/21/17 at 14:37 Sodium Chloride 1,000 ml @ 125 mls/hr Q8H IV Last administered on 04/21/17 16:08; Start 04/21/17 at 14:45; Stop 04/22/17 at 00:42; Status DC Sertraline HCl (Zoloft) 25 mg DAILY PO Last administered on 04/24/17 09:35; Start 04/22/17 at 09:00; Stop 04/24/17 at 09:01; Status DC Sertraline HCl (Zoloft) 50 mg DAILY PO Last administered on 04/26/17 10:06; Start 04/22/17 at 09:00; Stop 04/26/17 at 18:17; Status DC Sertraline HCl (Zoloft) 75 mg DAILY PO Last administered on 05/04/17 07:37; Start 04/27/17 at 09:00 Quetiapine Fumarate (SEROquel) 25 mg TID@0900,1300,1700 PO Last administered on 05/04/17 16:09; Start 04/29/17 at 09:00 Divalproex Sodium (Depakote Sprinkles) 125 mg BID@0900,1300 PO Last administered on 05/04/17 14:57; Start 04/29/17 at 09:00; Stop 05/04/17 at 16 :50; Status DC Ascorbic Acid (Vitamin C) 250 mg DAILY PO Last administered on 05/04/17t 07:38 ; Start 04/30/17 at 09:00 Divalproex Sodium (Depakote Sprinkles) 125 mg [id number] PO ; Start 05/04/17 at 21: 00 Active Scripts Active Reported Mag-Al Plus Xs Suspension (Mag Hydrox/Al Hydrox/Simeth) 30 Ml Oral.susp 15 Ml PO PRN QHS PRN Triamcinolone Acetonide 15 Gm Cream..g. 15 Gm TP PRN BID PRN Voltaren (Diclofenac Sodium) 100 Gm Gel..gram. 4 Gm TP PRN Q6HRS Acetaminophen 500 Mg Tablet 1,000 Mg PO PRN Q8HRS PRN Seroquel (Quetiapine Fumarate) 100 Mg Tablet 100 Mg PO QHS Seroquel (Quetiapine Fumarate) 50 Mg Tablet 75 Mg PO DAILY Milk Of Magnesia (Magnesium Hydroxide) 400 Mg/5 Ml Oral.susp 800 Mg PO PRN Q24HRS PRN Flomax (Tamsulosin Hcl) 0.4 Mg Cap.er.24h 0.4 Mg PO QHS Ferrous Sulfate 325 Mg Tablet 325 Mg PO BID Provera (Medroxyprogesterone Acetate) 2.5 Mg Tablet 1 Tab PO DAILY Trazodone Hcl 50 Mg Tablet 75 Mg PO QHS Zyprexa Zydis (Olanzapine) 5 Mg Tab.rapdis 2.5 Mg PO PRN Q2HR PRN Analgesic [place] (Methyl Salicylate/Menthol) 29 Gm Oint...g. 1 Amelia TP PRN QID PRN Hydroxyzine Pamoate 25 Mg Capsule 25 Mg PO PRN Q2HR PRN Donepezil Hcl 10 Mg Tablet 10 Mg PO DAILY Vitamin B-12 (Cyanocobalamin (Vitamin B-12)) 1,000 Mcg Tablet 1,000 Mcg PO DAILY Vitamin D (Cholecalciferol (Vitamin D3)) 2,000 Unit Capsule 2,000 Unit PO DAILY Ultram (Tramadol HCl) 50 Mg Tablet 50 Mg PO PRN Q6HRS PRN Thiamine Hcl 100 Mg Tablet 100 Mg PO DAILY Simvastatin 10 Mg Tablet 20 Mg PO DAILY Mirtazapine 15 Mg Tablet 15 Mg PO QHS Proscar (Finasteride) 5 Mg Tablet 5 Mg PO DAILY Miralax (Polyethylene Glycol 3350) 17 Gm Powd.pack 17 Gm PO DAILY Folic Acid 1 Mg Tablet 1 Mg PO DAILY Combigan Eye Drops (Brimonidine Tartrate/Timolol) 5 Ml Drops 1 Drop OU BID Colace (Docusate Sodium) 100 Mg Capsule 200 Mg PO BID Aspirin 81 Mg Tab.chew 81 Mg PO DAILY I have reviewed the current psychotropics carefully including drug interactions. Risk benefit ratio favors no change other than as noted in my dictated progress note. 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
[2017-05-04] MEDS: QUEtiapine 100 MG TABLET. PO SCH (19:58)
[2017-05-04] MEDS: SIMVASTATIN 20 MG TABLET PO SCH (19:58)
[2017-05-04] MEDS: TAMSULOSIN 0.4 MG CAP.ER.24H. PO SCH (19:58)
[2017-05-04] MEDS: MIRTAZAPINE 15 MG TABLET PO SCH (19:58)
[2017-05-04] MEDS: traZODone 50 MG TABLET. PO SCH (20:00)
[2017-05-05 05:24] VITALS: BP 119/84
[2017-05-05] MEDS: QUEtiapine 25 MG TABLET. PO SCH ×3 (07:52→16:40)
[2017-05-05] MEDS: DIVALPROEX 125 MG CAP.SPRINK PO SCH ×3 (07:52→19:20)
[2017-05-05] MEDS: DONEPEZIL HCL 10 MG TABLET PO SCH (07:53)
[2017-05-05] MEDS: SERTRALINE 50 MG TABLET. PO SCH (07:54)
[2017-05-05] MEDS: TIMOLOL 0.5% OPHTH SOLUTION 5ML BOTTLE. OU SCH ×2 (08:03→21:00)
[2017-05-05] MEDS: BRIMONIDINE 0.2% OPHTH SOLUTION 5ML BOTTLE. OU SCH ×2 (08:03→21:00)
[2017-05-05] MEDS: FERROUS SULFATE 325 MG TABLET. PO SCH ×2 (08:04→19:19)
[2017-05-05] MEDS: DOCUSATE SODIUM 100 MG CAPSULE PO SCH ×2 (08:04→19:19)
[2017-05-05] MEDS: POLYETHYLENE GLYCOL 3350 17 GM PACKET. PO SCH (08:04)
[2017-05-05] MEDS: CYANOCOBALAMIN (VITAMIN B-12) 1,000 MCG TABLET. PO SCH (08:04)
[2017-05-05] MEDS: FOLIC ACID 1 MG TABLET PO SCH (08:04)
[2017-05-05] MEDS: THIAMINE 100 MG TABLET. PO SCH (08:04)
[2017-05-05] MEDS: FINASTERIDE 5 MG TABLET PO SCH (08:04)
[2017-05-05] MEDS: ASPIRIN 81 MG TAB.CHEW PO SCH (08:04)
[2017-05-05] MEDS: CHOLECALCIFEROL (VITAMIN D3) 1,000 UNIT TABLET PO SCH (08:05)
[2017-05-05] MEDS: ASCORBIC ACID 500 MG TABLET PO SCH (08:05)
--- NOTE | 2017-05-05 09:14 | PN ---
DATE: 05/04/2017 This is a late entry for 05/03/2017 and covers elements not covered in my initial note of 05/03/2017. SUBJECTIVE: I met with the patient evening of 05/03/2017. The patient slept 9-1/2 hours previous evening. Continues to repeatedly state, "help me, help me." He always complains of feeling cold, was covered in a cover including his face as I met with him. Otherwise, wandering in his wheelchair. REVIEW OF SYSTEMS: Ambulation impaired. No CV, , pulmonary, eye, ENT system symptoms on review. Reliability poor. MENTAL STATUS EXAM: Oriented to himself. Insight, judgment, recent and remote memory, attention, concentration, fund of knowledge poor, consistent with his diagnosis as mentioned in my initial note. IMPRESSION: Major neurocognitive disorder, Alzheimer, vascular with depression, delusion, behavioral disturbance. Rest unchanged. PLAN: Continue current psychotropics as mentioned in my initial note. Depakote is 125 mg b.i.d.. Starting 05/04/2017, we will increase to 125 mg t.i.d. Check labs level in 3 days. MAN Corey DEY MD DR: ABBY/brian JOB#: [id number] / [id number]
[2017-05-05 16:02] VITALS: BP 107/60
[2017-05-05] MEDS: PRENATAL MULTIVITAMIN TABLET. PO SCH (16:39)
[2017-05-05] MEDS: MIRTAZAPINE 15 MG TABLET PO SCH (19:19)
[2017-05-05] MEDS: TAMSULOSIN 0.4 MG CAP.ER.24H. PO SCH (19:19)
[2017-05-05] MEDS: QUEtiapine 100 MG TABLET. PO SCH (19:19)
[2017-05-05] MEDS: SIMVASTATIN 20 MG TABLET PO SCH (19:19)
[2017-05-05] MEDS: traZODone 50 MG TABLET. PO SCH (19:20)
--- NOTE | 2017-05-05 19:48 | PDOC ---
Exam Note: [place] Note: Please also refer to the separate dictated note~for this date of service dictated separately.~Patient seen individually. Discussed the patient with Nursing staff reviewed the chart.~Reviewed interim history and current functioning. Reviewed vital signs,~Labs/ Radiology~and current medications noted below. Continue current treatment with the changes noted in the dictated addendum note Assessment: Vital Signs: Vital Signs Date Time Temp Pulse Resp B/P (MAP) Pulse Ox O2 Delivery O2 Flow Rate FiO2 05/05/17 16:02 98.7 91 20 107/60 (76) 100 05/05/17 05:24 Room Air I&O Intake and Output 05/05/17 06:59 Intake Total 1920 ml Balance 1920 ml Intake Oral 1920 ml # Voids 1 Current Medications: Meds: Current Medications Diphenhydramine HCl (Benadryl) 50 mg 1X ONCE IM Last administered on 18:00; Start 04/19/17 at 18:00; Stop 04/19/17 at 18:01; Status DC Lorazepam (Ativan) 2 mg 1X ONCE IM Last administered on 04/19/17 18:00; Start 04/19/17 at 18:00; Stop 04/19/17 at 18:01; Status DC Olanzapine (ZyPREXA IM) 10 mg 1X ONCE IM Last administered on 04/19/17 18:30 ; Start 04/19/17 at 18:30; Stop 04/19/17 at 18:31; Status DC Lactated Ringer's 1,000 ml @ 1,000 mls/hr Q1H IV ; Start 04/19/17 at 18:15; Stop 04/22/17 at 00:43; Status DC Multivitamins/ Minerals 10 ml/ Folic Acid 1 mg/ Thiamine HCl 100 mg/Sodium Chloride 1,011.1 ml @ 1,000 mls/ hr 1X ONCE IV Last administered on 19:30; Start 04/19/17 at 19:30; Stop 04/19/17 at 20:30; Status DC Phytonadione (Vitamin K) 10 mg STK-MED ONCE .ROUTE ; Start 04/19/17 at 20:55; Stop 04/19/17 at 20:56; Status DC Thiamine HCl 200 mg STK-MED ONCE IV ; Start 04/19/17 at 20:55; Stop 04/19/17 at 20:56; Status DC Folic Acid 5 mg STK-MED ONCE IV ; Start 04/19/17 at 20:56; Stop 04/19/17 at 20 :57; Status DC Donepezil HCl (Aricept) 10 mg DAILY PO Last administered on 05/05/17 07:53; Start 04/20/17 at 09:00 Hydroxyzine Pamoate (Vistaril) 25 mg PRN Q2HR PRN PO AGITAT; Start 04/19/17 at 23:30 Medroxyprogesterone Acetate (Provera) 2.5 mg DAILY PO Last administered on 07:53; Start 04/20/17 at 09:00 Mirtazapine (Remeron) 15 mg QHS PO Last administered on 05/05/17 19:19; Start 04/20/17 at 21:00 Olanzapine (ZyPREXA ZYDIS) 2.5 mg PRN Q2HR PRN PO ANXIETY / AGITATION Last administered on 05/05/17 19:28; Start 04/19/17 at 23:30 Quetiapine Fumarate (SEROquel) 75 mg DAILY PO Last administered on 04/28/17 11:15; Start 04/20/17 at 09:00; Stop 04/28/17 at 18:50; Status DC Quetiapine Fumarate (SEROquel) 100 mg QHS PO Last administered on 05/05/17 19 :19; Start 04/20/17 at 21:00 Trazodone HCl (Desyrel) 75 mg QHS PO Last administered on 05/05/17 19:20; Start 04/20/17 at 21:00 Acetaminophen (Tylenol) 1,000 mg PRN Q8HRS PRN PO PAIN; Start 04/20/17 at 07: 45 Aspirin (Children'S Aspirin) 81 mg DAILY PO Last administered on 05/04/17 07: 38; Start 04/20/17 at 09:00 Cyanocobalamin (Vitamin B-12) 1,000 mcg DAILY PO Last administered on 07:38; Start 04/20/17 at 09:00 Diclofenac Sodium (Voltaren) 4 amelia PRN Q6HRS PRN TP PAIN; Start 04/20/17 at 07 :45 Docusate Sodium (Colace) 200 mg BID PO Last administered on 05/05/17 19:19; Start 04/20/17 at 09:00 Ferrous Sulfate (Feosol) 325 mg BID PO Last administered on 05/05/17 19:19; Start 04/20/17 at 09:00 Finasteride (Proscar) 5 mg DAILY PO Last administered on 05/04/17 07:38; Start 04/20/17 at 09:00 Folic Acid (Folic Acid) 1 mg DAILY PO Last administered on 05/04/17 07:39; Start 04/20/17 at 09:00 Al Hydroxide/Mg Hydroxide (Mylanta Plus Xs) 15 ml PRN QHS PRN PO INDIGESTION; Start 04/20/17 at 07:45 Magnesium Hydroxide (Milk Of Magnesia) 800 mg PRN Q24HRS PRN PO CONSTIPATION Last administered on 04/26/17 03:09; Start 04/20/17 at 07:45 Multi-Ingredient Ointment (Analgesic [place]) 1 amelia PRN QID PRN TP muscle pain; Start 04/20/17 at 07:45 Polyethylene Glycol (miraLAX) 17 gm DAILY PO Last administered on 05/04/17 07 :35; Start 04/20/17 at 09:00 Simvastatin (Zocor) 20 mg HS PO Last administered on 05/05/17 19:19; Start 04/20/17 at 21:00 Tamsulosin HCl (Flomax) 0.4 mg QHS PO Last administered on 05/05/17 19:19; Start 04/20/17 at 21:00 Thiamine HCl (Vitamin B-1) 100 mg DAILY PO Last administered on 05/04/17 07: 37; Start 04/20/17 at 09:00 Tramadol HCl (Ultram) 50 mg PRN Q6HRS PRN PO PAIN; Start 04/20/17 at 07:45 Triamcinolone Acetonide (Kenalog) 15 amelia PRN BID PRN TP RASH; Start 04/20/17 at 07:45 Brimonidine Tartrate (Alphagan) 1 drop BID OU Last administered on 04/21/17 11:11; Start 04/20/17 at 09:00; Stop 04/21/17 at 14:37; Status DC Vitamin D (Vitamin D3) 2,000 unit DAILY PO Last administered on 05/04/17 07: 38; Start 04/20/17 at 09:00 Timolol Maleate (Timoptic 0.5% Ophth) 1 drop BID OU Last administered on 08:22; Start 04/20/17 at 09:00 Dextrose 1,000 ml @ 100 mls/hr Q10H IV Last administered on 04/20/17 18:06; Start 04/20/17 at 16:15; Stop 04/22/17 at 00:42; Status DC Prenat Multivit/ [place]/Iron/Folic Ac (Multivitamin ) 1 tab DAILYBFRSUP PO Last administered on 05/04/17 16:09; Start 04/20/17 at 17:00 Brimonidine Tartrate (Alphagan) 1 drop BID OU Last administered on 05/03/17 08:23; Start 04/21/17 at 14:37 Sodium Chloride 1,000 ml @ 125 mls/hr Q8H IV Last administered on 04/21/17 16:08; Start 04/21/17 at 14:45; Stop 04/22/17 at 00:42; Status DC Sertraline HCl (Zoloft) 25 mg DAILY PO Last administered on 04/24/17 09:35; Start 04/22/17 at 09:00; Stop 04/24/17 at 09:01; Status DC Sertraline HCl (Zoloft) 50 mg DAILY PO Last administered on 04/26/17 10:06; Start 04/22/17 at 09:00; Stop 04/26/17 at 18:17; Status DC Sertraline HCl (Zoloft) 75 mg DAILY PO Last administered on 05/05/17 07:54; Start 04/27/17 at 09:00; Stop 05/05/17 at 18:30; Status DC Quetiapine Fumarate (SEROquel) 25 mg TID@0900,1300,1700 PO Last administered on 05/05/17 16:40; Start 04/29/17 at 09:00; Stop 05/05/17 at 18:30; Status DC Divalproex Sodium (Depakote Sprinkles) 125 mg BID@0900,1300 PO Last administered on 05/04/17 14:57; Start 04/29/17 at 09:00; Stop 05/04/17 at 16 :50; Status DC Ascorbic Acid (Vitamin C) 250 mg DAILY PO Last administered on 05/04/17 07:38 ; Start 04/30/17 at 09:00 Divalproex Sodium (Depakote Sprinkles) 125 mg [id number] PO Last administered on 19:20; Start 05/04/17 at 21:00 Quetiapine Fumarate (SEROquel) 25 mg 0900,1200,1500,1700 PO ; Start 05/06/17 at 09:00 Quetiapine Fumarate (SEROquel) 25 mg BID@1500,1700 PO ; Start 05/06/17 at 15:00 ; Status UNV Fluvoxamine Maleate (Luvox) 25 mg HS PO ; Start 05/05/17 at 21:00; Stop at 21:31 Fluvoxamine Maleate (Luvox) 50 mg HS PO ; Start 05/06/17 at 21:00 Active Scripts Active Reported Mag-Al Plus Xs Suspension (Mag Hydrox/Al Hydrox/Simeth) 30 Ml Oral.susp 15 Ml PO PRN QHS PRN Triamcinolone Acetonide 15 Gm Cream..g. 15 Gm TP PRN BID PRN Voltaren (Diclofenac Sodium) 100 Gm Gel..gram. 4 Gm TP PRN Q6HRS Acetaminophen 500 Mg Tablet 1,000 Mg PO PRN Q8HRS PRN Seroquel (Quetiapine Fumarate) 100 Mg Tablet 100 Mg PO QHS Seroquel (Quetiapine Fumarate) 50 Mg Tablet 75 Mg PO DAILY Milk Of Magnesia (Magnesium Hydroxide) 400 Mg/5 Ml Oral.susp 800 Mg PO PRN Q24HRS PRN Flomax (Tamsulosin Hcl) 0.4 Mg Cap.er.24h 0.4 Mg PO QHS Ferrous Sulfate 325 Mg Tablet 325 Mg PO BID Provera (Medroxyprogesterone Acetate) 2.5 Mg Tablet 1 Tab PO DAILY Trazodone Hcl 50 Mg Tablet 75 Mg PO QHS Zyprexa Zydis (Olanzapine) 5 Mg Tab.rapdis 2.5 Mg PO PRN Q2HR PRN Analgesic [place] (Methyl Salicylate/Menthol) 29 Gm Oint...g. 1 Amelia TP PRN QID PRN Hydroxyzine Pamoate 25 Mg Capsule 25 Mg PO PRN Q2HR PRN Donepezil Hcl 10 Mg Tablet 10 Mg PO DAILY Vitamin B-12 (Cyanocobalamin (Vitamin B-12)) 1,000 Mcg Tablet 1,000 Mcg PO DAILY Vitamin D (Cholecalciferol (Vitamin D3)) 2,000 Unit Capsule 2,000 Unit PO DAILY Ultram (Tramadol HCl) 50 Mg Tablet 50 Mg PO PRN Q6HRS PRN Thiamine Hcl 100 Mg Tablet 100 Mg PO DAILY Simvastatin 10 Mg Tablet 20 Mg PO DAILY Mirtazapine 15 Mg Tablet 15 Mg PO QHS Proscar (Finasteride) 5 Mg Tablet 5 Mg PO DAILY Miralax (Polyethylene Glycol 3350) 17 Gm Powd.pack 17 Gm PO DAILY Folic Acid 1 Mg Tablet 1 Mg PO DAILY Combigan Eye Drops (Brimonidine Tartrate/Timolol) 5 Ml Drops 1 Drop OU BID Colace (Docusate Sodium) 100 Mg Capsule 200 Mg PO BID Aspirin 81 Mg Tab.chew 81 Mg PO DAILY I have reviewed the current psychotropics carefully including drug interactions. Risk benefit ratio favors no change other than as noted in my dictated progress note. 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
[2017-05-06 06:00] VITALS: BP 102/65
--- NOTE | 2017-05-06 08:47 | PN ---
DATE: 05/04/2017 This is a late entry for 05/04/2017 and covers elements not covered in my initial note of 05/04/2017. I met with the patient in the evening of 05/04/2017. The patient slept 7 hours previous evening, received Zyprexa at night. He is wearing 2 socks and a jacket, always complains of feeling cold, covers himself in a blanket, even seated in his wheelchair with his head under the blanket. Got somewhat agitated earlier in the day on 05/04/2017. Received Zyprexa. Fluid intake is being pushed consequent to mild dehydration. REVIEW OF SYSTEMS: Ambulation impaired, in wheelchair, complains of feeling cold, hard of hearing. No CV, , pulmonary, eye system symptoms on review. MENTAL STATUS EXAM: Oriented to himself. Insight, judgment, recent and remote memory, attention, concentration, fund of knowledge poor, consistent with his diagnosis as mentioned in my initial note. IMPRESSION: Major neurocognitive disorder, Alzheimer, vascular with depression, delusion, behavioral disturbance. Rest unchanged from initial note. PLAN: Continue psychotropics as mentioned in my initial note. MAN Corey DEY MD DR: ABBY/brian JOB#: [id number] / [id number]
[2017-05-06] MEDS: BRIMONIDINE 0.2% OPHTH SOLUTION 5ML BOTTLE. OU SCH ×2 (09:00→21:00)
[2017-05-06] MEDS: TIMOLOL 0.5% OPHTH SOLUTION 5ML BOTTLE. OU SCH ×2 (09:00→21:00)
[2017-05-06] MEDS: DONEPEZIL HCL 10 MG TABLET PO SCH (10:24)
[2017-05-06] MEDS: DIVALPROEX 125 MG CAP.SPRINK PO SCH ×3 (10:24→20:01)
[2017-05-06] MEDS: QUEtiapine 25 MG TABLET. PO SCH ×4 (10:25→18:36)
[2017-05-06] MEDS: CHOLECALCIFEROL (VITAMIN D3) 1,000 UNIT TABLET PO SCH (10:25)
[2017-05-06] MEDS: THIAMINE 100 MG TABLET. PO SCH (10:25)
[2017-05-06] MEDS: CYANOCOBALAMIN (VITAMIN B-12) 1,000 MCG TABLET. PO SCH (10:26)
[2017-05-06] MEDS: FINASTERIDE 5 MG TABLET PO SCH (10:26)
[2017-05-06] MEDS: POLYETHYLENE GLYCOL 3350 17 GM PACKET. PO SCH (10:26)
[2017-05-06] MEDS: DOCUSATE SODIUM 100 MG CAPSULE PO SCH ×2 (10:26→21:00)
[2017-05-06] MEDS: ASPIRIN 81 MG TAB.CHEW PO SCH (10:26)
[2017-05-06] MEDS: FOLIC ACID 1 MG TABLET PO SCH (10:26)
[2017-05-06] MEDS: FERROUS SULFATE 325 MG TABLET. PO SCH ×2 (10:26→20:01)
[2017-05-06] MEDS: ASCORBIC ACID 500 MG TABLET PO SCH (10:26)
[2017-05-06] MEDS ORDERED: QUEtiapine 25 MG TABLET. PO SCH (15:00)
[2017-05-06 16:00] VITALS: BP 150/66
[2017-05-06] MEDS: PRENATAL MULTIVITAMIN TABLET. PO SCH (18:36)
--- NOTE | 2017-05-06 19:52 | PDOC ---
Exam Note: [place] Note: Please also refer to the separate dictated note~for this date of service dictated separately.~Patient seen individually. Discussed the patient with Nursing staff reviewed the chart.~Reviewed interim history and current functioning. Reviewed vital signs,~Labs/ Radiology~and current medications noted below. Continue current treatment with the changes noted in the dictated addendum note Assessment: Vital Signs: Vital Signs Date Time Temp Pulse Resp B/P (MAP) Pulse Ox O2 Delivery O2 Flow Rate FiO2 05/06/17 16:00 97.9 89 20 150/66 (94) 93 Room Air I&O Intake and Output 05/06/17 07:00 Intake Total 1960 ml Balance 1960 ml Intake Oral 1960 ml # Voids 2 # Bowel Movements 2 Current Medications: Meds: Current Medications Diphenhydramine HCl (Benadryl) 50 mg 1X ONCE IM Last administered on 18:00; Start 04/19/17 at 18:00; Stop 04/19/17 at 18:01; Status DC Lorazepam (Ativan) 2 mg 1X ONCE IM Last administered on 04/19/17 18:00; Start 04/19/17 at 18:00; Stop 04/19/17 at 18:01; Status DC Olanzapine (ZyPREXA IM) 10 mg 1X ONCE IM Last administered on 04/19/17 18:30 ; Start 04/19/17 at 18:30; Stop 04/19/17 at 18:31; Status DC Lactated Ringer's 1,000 ml @ 1,000 mls/hr Q1H IV ; Start 04/19/17 at 18:15; Stop 04/22/17 at 00:43; Status DC Multivitamins/ Minerals 10 ml/ Folic Acid 1 mg/ Thiamine HCl 100 mg/Sodium Chloride 1,011.1 ml @ 1,000 mls/ hr 1X ONCE IV Last administered on 19:30; Start 04/19/17 at 19:30; Stop 04/19/17 at 20:30; Status DC Phytonadione (Vitamin K) 10 mg STK-MED ONCE .ROUTE ; Start 04/19/17 at 20:55; Stop 04/19/17 at 20:56; Status DC Thiamine HCl 200 mg STK-MED ONCE IV ; Start 04/19/17 at 20:55; Stop 04/19/17 at 20:56; Status DC Folic Acid 5 mg STK-MED ONCE IV ; Start 04/19/17 at 20:56; Stop 04/19/17 at 20 :57; Status DC Donepezil HCl (Aricept) 10 mg DAILY PO Last administered on 05/06/17 10:24; Start 04/20/17 at 09:00 Hydroxyzine Pamoate (Vistaril) 25 mg PRN Q2HR PRN PO AGITAT; Start 04/19/17 at 23:30 Medroxyprogesterone Acetate (Provera) 2.5 mg DAILY PO Last administered on 10:24; Start 04/20/17 at 09:00 Mirtazapine (Remeron) 15 mg QHS PO Last administered on 05/05/17 19:19; Start 04/20/17 at 21:00 Olanzapine (ZyPREXA ZYDIS) 2.5 mg PRN Q2HR PRN PO ANXIETY / AGITATION Last administered on 05/05/17 19:28; Start 04/19/17 at 23:30 Quetiapine Fumarate (SEROquel) 75 mg DAILY PO Last administered on 04/28/17 11:15; Start 04/20/17 at 09:00; Stop 04/28/17 at 18:50; Status DC Quetiapine Fumarate (SEROquel) 100 mg QHS PO Last administered on 05/05/17 19 :19; Start 04/20/17 at 21:00 Trazodone HCl (Desyrel) 75 mg QHS PO Last administered on 05/05/17 19:20; Start 04/20/17 at 21:00 Acetaminophen (Tylenol) 1,000 mg PRN Q8HRS PRN PO PAIN; Start 04/20/17 at 07: 45 Aspirin (Children'S Aspirin) 81 mg DAILY PO Last administered on 05/06/17 10: 26; Start 04/20/17 at 09:00 Cyanocobalamin (Vitamin B-12) 1,000 mcg DAILY PO Last administered on 10:26; Start 04/20/17 at 09:00 Diclofenac Sodium (Voltaren) 4 amelia PRN Q6HRS PRN TP PAIN; Start 04/20/17 at 07 :45 Docusate Sodium (Colace) 200 mg BID PO Last administered on 05/06/17 10:26; Start 04/20/17 at 09:00 Ferrous Sulfate (Feosol) 325 mg BID PO Last administered on 05/06/17 10:26; Start 04/20/17 at 09:00 Finasteride (Proscar) 5 mg DAILY PO Last administered on 05/06/17 10:26; Start 04/20/17 at 09:00 Folic Acid (Folic Acid) 1 mg DAILY PO Last administered on 05/06/17 10:26; Start 04/20/17 at 09:00 Al Hydroxide/Mg Hydroxide (Mylanta Plus Xs) 15 ml PRN QHS PRN PO INDIGESTION; Start 04/20/17 at 07:45 Magnesium Hydroxide (Milk Of Magnesia) 800 mg PRN Q24HRS PRN PO CONSTIPATION Last administered on 04/26/17 03:09; Start 04/20/17 at 07:45 Multi-Ingredient Ointment (Analgesic [place]) 1 amelia PRN QID PRN TP muscle pain; Start 04/20/17 at 07:45 Polyethylene Glycol (miraLAX) 17 gm DAILY PO Last administered on 05/06/17 10 :26; Start 04/20/17 at 09:00 Simvastatin (Zocor) 20 mg HS PO Last administered on 05/05/17 19:19; Start 04/20/17 at 21:00 Tamsulosin HCl (Flomax) 0.4 mg QHS PO Last administered on 05/05/17 19:19; Start 04/20/17 at 21:00 Thiamine HCl (Vitamin B-1) 100 mg DAILY PO Last administered on 05/06/17 10: 25; Start 04/20/17 at 09:00 Tramadol HCl (Ultram) 50 mg PRN Q6HRS PRN PO PAIN; Start 04/20/17 at 07:45 Triamcinolone Acetonide (Kenalog) 15 amelia PRN BID PRN TP RASH; Start 04/20/17 at 07:45 Brimonidine Tartrate (Alphagan) 1 drop BID OU Last administered on 04/21/17 11:11; Start 04/20/17 at 09:00; Stop 04/21/17 at 14:37; Status DC Vitamin D (Vitamin D3) 2,000 unit DAILY PO Last administered on 05/06/17 10: 25; Start 04/20/17 at 09:00 Timolol Maleate (Timoptic 0.5% Oph) 1 drop BID OU Last administered on 08:22; Start 04/20/17 at 09:00 Dextrose 1,000 ml @ 100 mls/hr Q10H IV Last administered on 04/20/17 18:06; Start 04/20/17 at 16:15; Stop 04/22/17 at 00:42; Status DC Prenat Multivit/ [place]/Iron/Folic Ac (Multivitamin ) 1 tab DAILYBFRSUP PO Last administered on 05/06/17 18:36; Start 04/20/17 at 17:00 Brimonidine Tartrate (Alphagan) 1 drop BID OU Last administered on 05/03/17 08:23; Start 04/21/17 at 14:37 Sodium Chloride 1,000 ml @ 125 mls/hr Q8H IV Last administered on 04/21/17 16:08; Start 04/21/17 at 14:45; Stop 04/22/17 at 00:42; Status DC Sertraline HCl (Zoloft) 25 mg DAILY PO Last administered on 04/24/17 09:35; Start 04/22/17 at 09:00; Stop 04/24/17 at 09:01; Status DC Sertraline HCl (Zoloft) 50 mg DAILY PO Last administered on 04/26/17 10:06; Start 04/22/17 at 09:00; Stop 04/26/17 at 18:17; Status DC Sertraline HCl (Zoloft) 75 mg DAILY PO Last administered on 05/05/17 07:54; Start 04/27/17 at 09:00; Stop 05/05/17 at 18:30; Status DC Quetiapine Fumarate (SEROquel) 25 mg TID@0900,1300,1700 PO Last administered on 05/05/17 16:40; Start 04/29/17 at 09:00; Stop 05/05/17 at 18:30; Status DC Divalproex Sodium (Depakote Sprinkles) 125 mg BID@0900,1300 PO Last administered on 05/04/17 14:57; Start 04/29/17 at 09:00; Stop 05/04/17 at 16 :50; Status DC Ascorbic Acid (Vitamin C) 250 mg DAILY PO Last administered on 05/06/17 10:26 ; Start 04/30/17 at 09:00 Divalproex Sodium (Depakote Sprinkles) 125 mg [id number] PO Last administered on 14:47; Start 05/04/17 at 21:00 Quetiapine Fumarate (SEROquel) 25 mg 0900,1200,1500,1700 PO Last administered on 05/06/17 18:36; Start 05/06/17 at 09:00 Quetiapine Fumarate (SEROquel) 25 mg BID@1500,1700 PO ; Start 05/06/17 at 15:00 ; Status UNV Fluvoxamine Maleate (Luvox) 25 mg HS PO Last administered on 05/05/17 20:54; Start 05/05/17 at 21:00; Stop 05/05/17 at 21:31; Status DC Fluvoxamine Maleate (Luvox) 50 mg HS PO ; Start 05/06/17 at 21:00 Active Scripts Active Reported Mag-Al Plus Xs Suspension (Mag Hydrox/Al Hydrox/Simeth) 30 Ml Oral.susp 15 Ml PO PRN QHS PRN Triamcinolone Acetonide 15 Gm Cream..g. 15 Gm TP PRN BID PRN Voltaren (Diclofenac Sodium) 100 Gm Gel..gram. 4 Gm TP PRN Q6HRS Acetaminophen 500 Mg Tablet 1,000 Mg PO PRN Q8HRS PRN Seroquel (Quetiapine Fumarate) 100 Mg Tablet 100 Mg PO QHS Seroquel (Quetiapine Fumarate) 50 Mg Tablet 75 Mg PO DAILY Milk Of Magnesia (Magnesium Hydroxide) 400 Mg/5 Ml Oral.susp 800 Mg PO PRN Q24HRS PRN Flomax (Tamsulosin Hcl) 0.4 Mg Cap.er.24h 0.4 Mg PO QHS Ferrous Sulfate 325 Mg Tablet 325 Mg PO BID Provera (Medroxyprogesterone Acetate) 2.5 Mg Tablet 1 Tab PO DAILY Trazodone Hcl 50 Mg Tablet 75 Mg PO QHS Zyprexa Zydis (Olanzapine) 5 Mg Tab.rapdis 2.5 Mg PO PRN Q2HR PRN Analgesic [place] (Methyl Salicylate/Menthol) 29 Gm Oint...g. 1 Amelia TP PRN QID PRN Hydroxyzine Pamoate 25 Mg Capsule 25 Mg PO PRN Q2HR PRN Donepezil Hcl 10 Mg Tablet 10 Mg PO DAILY Vitamin B-12 (Cyanocobalamin (Vitamin B-12)) 1,000 Mcg Tablet 1,000 Mcg PO DAILY Vitamin D (Cholecalciferol (Vitamin D3)) 2,000 Unit Capsule 2,000 Unit PO DAILY Ultram (Tramadol HCl) 50 Mg Tablet 50 Mg PO PRN Q6HRS PRN Thiamine Hcl 100 Mg Tablet 100 Mg PO DAILY Simvastatin 10 Mg Tablet 20 Mg PO DAILY Mirtazapine 15 Mg Tablet 15 Mg PO QHS Proscar (Finasteride) 5 Mg Tablet 5 Mg PO DAILY Miralax (Polyethylene Glycol 3350) 17 Gm Powd.pack 17 Gm PO DAILY Folic Acid 1 Mg Tablet 1 Mg PO DAILY Combigan Eye Drops (Brimonidine Tartrate/Timolol) 5 Ml Drops 1 Drop OU BID Colace (Docusate Sodium) 100 Mg Capsule 200 Mg PO BID Aspirin 81 Mg Tab.chew 81 Mg PO DAILY I have reviewed the current psychotropics carefully including drug interactions. Risk benefit ratio favors no change other than as noted in my dictated progress note. 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
[2017-05-06] MEDS: QUEtiapine 100 MG TABLET. PO SCH (20:01)
[2017-05-06] MEDS: SIMVASTATIN 20 MG TABLET PO SCH (20:01)
[2017-05-06] MEDS: TAMSULOSIN 0.4 MG CAP.ER.24H. PO SCH (20:01)
[2017-05-06] MEDS: MIRTAZAPINE 15 MG TABLET PO SCH (20:01)
[2017-05-06] MEDS: traZODone 50 MG TABLET. PO SCH (20:02)
[2017-05-07 07:52] LABS: BASO # 0.1 x10^3/uL (0.0-0.2); BASO % 1 % (0-3); EOS # 0.4 x10^3/uL (0.0-0.7); EOS % 7 % (0-3); HEMATOCRIT 33.1 % (39.0-53.0); HEMOGLOBIN 10.8 g/dL (13.0-17.5); LYMPH # 1.3 x10^3/uL (1.0-4.8); LYMPH % 21 % (24-48); MEAN CORPUSCULAR HEMOGLOBIN 28 pg (25-35); MEAN CORPUSCULAR HGB CONC 33 g/dL (31-37); MEAN CORPUSCULAR VOLUME 86 fL (79-100); MONO # 0.7 x10^3/uL (0.0-1.1); MONO % 11 % (0-9); NEUT # 3.8 x10^3uL (1.8-7.7); NEUT % 60 % (31-73); PLATELET COUNT 177 x10^3/uL (140-400); RED BLOOD COUNT 3.83 x10^6/uL (4.30-5.70); RED CELL DISTRIBUTION WIDTH 16.8 % (11.5-14.5); WHITE BLOOD COUNT 6.2 x10^3/uL (4.0-11.0)
[2017-05-07 08:05] LABS: ALBUMIN/GLOBULIN RATIO 0.8 (1.0-1.7); ALK PHOS 119 U/L (46-116); ALT (SGPT) 38 U/L (16-63); ANION GAP 6 (6-14); AST (SGOT) 27 U/L (15-37); BLOOD UREA NITROGEN 48 mg/dL (8-26); BUN/CREATININE RATIO 23 (6-20); CALCIUM 9.4 mg/dL (8.5-10.1); CARBON DIOXIDE 31 mmol/L (21-32); CHLORIDE 107 mmol/L (98-107); CREATININE 2.1 mg/dL (0.7-1.3); GFR 29.9; GLUCOSE 103 mg/dL (70-99); MAGNESIUM 2.4 mg/dL (1.8-2.4); POTASSIUM 5.1 mmol/L (3.5-5.1); SODIUM 144 mmol/L (136-145); TOTAL BILIRUBIN 0.6 mg/dL (0.2-1.0)
[2017-05-07 08:08] LABS: VAL ACID 30 mcg/mL (50-100)
[2017-05-07] MEDS: FINASTERIDE 5 MG TABLET PO SCH (08:10)
[2017-05-07] MEDS: FERROUS SULFATE 325 MG TABLET. PO SCH ×2 (08:10→19:27)
[2017-05-07] MEDS: QUEtiapine 25 MG TABLET. PO SCH ×4 (08:10→17:34)
[2017-05-07] MEDS: DONEPEZIL HCL 10 MG TABLET PO SCH (08:10)
[2017-05-07] MEDS: POLYETHYLENE GLYCOL 3350 17 GM PACKET. PO SCH (08:10)
[2017-05-07] MEDS: ASCORBIC ACID 500 MG TABLET PO SCH (08:11)
[2017-05-07] MEDS: DIVALPROEX 125 MG CAP.SPRINK PO SCH ×3 (08:11→19:31)
[2017-05-07] MEDS: CHOLECALCIFEROL (VITAMIN D3) 1,000 UNIT TABLET PO SCH (08:11)
[2017-05-07] MEDS: THIAMINE 100 MG TABLET. PO SCH (08:12)
[2017-05-07] MEDS: ASPIRIN 81 MG TAB.CHEW PO SCH (08:12)
[2017-05-07] MEDS: CYANOCOBALAMIN (VITAMIN B-12) 1,000 MCG TABLET. PO SCH (08:12)
[2017-05-07] MEDS: DOCUSATE SODIUM 100 MG CAPSULE PO SCH ×2 (08:12→19:27)
[2017-05-07] MEDS: FOLIC ACID 1 MG TABLET PO SCH (08:12)
[2017-05-07] MEDS: BRIMONIDINE 0.2% OPHTH SOLUTION 5ML BOTTLE. OU SCH ×2 (08:13→19:31)
[2017-05-07] MEDS: TIMOLOL 0.5% OPHTH SOLUTION 5ML BOTTLE. OU SCH ×2 (08:13→19:31)
[2017-05-07 15:58] VITALS: BP 116/73
[2017-05-07] MEDS: PRENATAL MULTIVITAMIN TABLET. PO SCH (17:34)
--- NOTE | 2017-05-07 17:45 | PDOC ---
Exam Note: Chase Note: Please also refer to the separate dictated note~for this date of service dictated separately.~Patient seen individually. Discussed the patient with Nursing staff reviewed the chart.~Reviewed interim history and current functioning. Reviewed vital signs,~Labs/ Radiology~and current medications noted below. Continue current treatment with the changes noted in the dictated addendum note Assessment: Vital Signs: Vital Signs Date Time Temp Pulse Resp B/P (MAP) Pulse Ox O2 Delivery O2 Flow Rate FiO2 05/07/17 15:58 97.6 98 20 116/73 (87) 96 05/06/17 16:00 Room Air I&O Intake and Output 05/07/17 07:00 Intake Total 580 ml Balance 580 ml Intake Oral 580 ml # Bowel Movements 1 Labs: Laboratory Tests Test 05/07/17 07:33 White Blood Count 6.2 x10^3/uL (4.0-11.0) Red Blood Count 3.83 x10^6/uL (4.30-5.70) L Hemoglobin 10.8 g/dL (13.0-17.5) L Hematocrit 33.1 % (39.0-53.0) L Mean Corpuscular Volume 86 fL (79-100) Mean Corpuscular Hemoglobin 28 pg (25-35) Mean Corpuscular Hemoglobin Concent 33 g/dL (31-37) Red Cell Distribution Width 16.8 % (11.5-14.5) H Platelet Count 177 x10^3/uL (140-400) Neutrophils (%) (Auto) 60 % (31-73) Lymphocytes (%) (Auto) 21 % (24-48) L Monocytes (%) (Auto) 11 % (0-9) H Eosinophils (%) (Auto) 7 % (0-3) H Basophils (%) (Auto) 1 % (0-3) Neutrophils # (Auto) 3.8 x10^3uL (1.8-7.7) Lymphocytes # (Auto) 1.3 x10^3/uL (1.0-4.8) Monocytes # (Auto) 0.7 x10^3/uL (0.0-1.1) Eosinophils # (Auto) 0.4 x10^3/uL (0.0-0.7) Basophils # (Auto) 0.1 x10^3/uL (0.0-0.2) Sodium Level 144 mmol/L (136-145) Potassium Level 5.1 mmol/L (3.5-5.1) Chloride Level 107 mmol/L (98-107) Carbon Dioxide Level 31 mmol/L (21-32) Anion Gap 6 (6-14) Blood Urea Nitrogen 48 mg/dL (8-26) H Creatinine 2.1 mg/dL (0.7-1.3) H Estimated GFR (Cockcroft-Gault) 29.9 BUN/Creatinine Ratio 23 (6-20) H Glucose Level 103 mg/dL (70-99) H Calcium Level 9.4 mg/dL (8.5-10.1) Magnesium Level 2.4 mg/dL (1.8-2.4) Total Bilirubin 0.6 mg/dL (0.2-1.0) Aspartate Amino Transferase (AST) 27 U/L (15-37) Alanine Aminotransferase (ALT) 38 U/L (16-63) Alkaline Phosphatase 119 U/L (46-116) H Total Protein 7.0 g/dL (6.4-8.2) Albumin 3.0 g/dL (3.4-5.0) L Albumin/Globulin Ratio 0.8 (1.0-1.7) L Valproic Acid Level 30 mcg/mL (50-100) L Valproic Acid Last Dose Date 05/06/17 Valproic Acid Last Dose Time 2100 Current Medications: Meds: Current Medications Diphenhydramine HCl (Benadryl) 50 mg 1X ONCE IM Last administered on 18:00; Start 04/19/17 at 18:00; Stop 04/19/17 at 18:01; Status DC Lorazepam (Ativan) 2 mg 1X ONCE IM Last administered on 04/19/17 18:00; Start 04/19/17 at 18:00; Stop 04/19/17 at 18:01; Status DC Olanzapine (ZyPREXA IM) 10 mg 1X ONCE IM Last administered on 04/19/17 18:30 ; Start 04/19/17 at 18:30; Stop 04/19/17 at 18:31; Status DC Lactated Ringer's 1,000 ml @ 1,000 mls/hr Q1H IV ; Start 04/19/17 at 18:15; Stop 04/22/17 at 00:43; Status DC Multivitamins/ Minerals 10 ml/ Folic Acid 1 mg/ Thiamine HCl 100 mg/Sodium Chloride 1,011.1 ml @ 1,000 mls/ hr 1X ONCE IV Last administered on 19:30; Start 04/19/17 at 19:30; Stop 04/19/17 at 20:30; Status DC Phytonadione (Vitamin K) 10 mg STK-MED ONCE .ROUTE ; Start 04/19/17 at 20:55; Stop 04/19/17 at 20:56; Status DC Thiamine HCl 200 mg STK-MED ONCE IV ; Start 04/19/17 at 20:55; Stop 04/19/17 at 20:56; Status DC Folic Acid 5 mg STK-MED ONCE IV ; Start 04/19/17 at 20:56; Stop 04/19/17 at 20 :57; Status DC Donepezil HCl (Aricept) 10 mg DAILY PO Last administered on 05/07/17 08:10; Start 04/20/17 at 09:00 Hydroxyzine Pamoate (Vistaril) 25 mg PRN Q2HR PRN PO AGITAT; Start 04/19/17 at 23:30 Medroxyprogesterone Acetate (Provera) 2.5 mg DAILY PO Last administered on 08:11; Start 04/20/17 at 09:00 Mirtazapine (Remeron) 15 mg QHS PO Last administered on 05/06/17 20:01; Start 04/20/17 at 21:00 Olanzapine (ZyPREXA ZYDIS) 2.5 mg PRN Q2HR PRN PO ANXIETY / AGITATION Last administered on 05/05/17 19:28; Start 04/19/17 at 23:30 Quetiapine Fumarate (SEROquel) 75 mg DAILY PO Last administered on 04/28/17 11:15; Start 04/20/17 at 09:00; Stop 04/28/17 at 18:50; Status DC Quetiapine Fumarate (SEROquel) 100 mg QHS PO Last administered on 05/06/17 20 :01; Start 04/20/17 at 21:00 Trazodone HCl (Desyrel) 75 mg QHS PO Last administered on 05/06/17 20:02; Start 04/20/17 at 21:00 Acetaminophen (Tylenol) 1,000 mg PRN Q8HRS PRN PO PAIN; Start 04/20/17 at 07: 45 Aspirin (Children'S Aspirin) 81 mg DAILY PO Last administered on 05/07/17 08: 12; Start 04/20/17 at 09:00 Cyanocobalamin (Vitamin B-12) 1,000 mcg DAILY PO Last administered on 08:12; Start 04/20/17 at 09:00 Diclofenac Sodium (Voltaren) 4 amelia PRN Q6HRS PRN TP PAIN; Start 04/20/17 at 07 :45 Docusate Sodium (Colace) 200 mg BID PO Last administered on 05/07/17 08:12; Start 04/20/17 at 09:00 Ferrous Sulfate (Feosol) 325 mg BID PO Last administered on 05/07/17 08:10; Start 04/20/17 at 09:00 Finasteride (Proscar) 5 mg DAILY PO Last administered on 05/07/17 08:10; Start 04/20/17 at 09:00 Folic Acid (Folic Acid) 1 mg DAILY PO Last administered on 05/07/17 08:12; Start 04/20/17 at 09:00 Al Hydroxide/Mg Hydroxide (Mylanta Plus Xs) 15 ml PRN QHS PRN PO INDIGESTION; Start 04/20/17 at 07:45 Magnesium Hydroxide (Milk Of Magnesia) 800 mg PRN Q24HRS PRN PO CONSTIPATION Last administered on 04/26/17 03:09; Start 04/20/17 at 07:45 Multi-Ingredient Ointment (Analgesic Humphrey) 1 amelia PRN QID PRN TP muscle pain; Start 04/20/17 at 07:45 Polyethylene Glycol (miraLAX) 17 gm DAILY PO Last administered on 05/07/17 08 :10; Start 04/20/17 at 09:00 Simvastatin (Zocor) 20 mg HS PO Last administered on 05/06/17 20:01; Start 04/20/17 at 21:00 Tamsulosin HCl (Flomax) 0.4 mg QHS PO Last administered on 05/06/17 20:01; Start 04/20/17 at 21:00 Thiamine HCl (Vitamin B-1) 100 mg DAILY PO Last administered on 05/07/17 08: 12; Start 04/20/17 at 09:00 Tramadol HCl (Ultram) 50 mg PRN Q6HRS PRN PO PAIN; Start 04/20/17 at 07:45 Triamcinolone Acetonide (Kenalog) 15 amelia PRN BID PRN TP RASH; Start 04/20/17 at 07:45 Brimonidine Tartrate (Alphagan) 1 drop BID OU Last administered on 04/21/17 11:11; Start 04/20/17 at 09:00; Stop 04/21/17 at 14:37; Status DC Vitamin D (Vitamin D3) 2,000 unit DAILY PO Last administered on 05/07/17 08: 11; Start 04/20/17 at 09:00 Timolol Maleate (Timoptic 0.5% Oph) 1 drop BID OU Last administered on 08:22; Start 04/20/17 at 09:00 Dextrose 1,000 ml @ 100 mls/hr Q10H IV Last administered on 04/20/17 18:06; Start 04/20/17 at 16:15; Stop 04/22/17 at 00:42; Status DC Prenat Multivit/ [place]/Iron/Folic Ac (Multivitamin ) 1 tab DAILYBFRSUP PO Last administered on 05/07/17 17:34; Start 04/20/17 at 17:00 Brimonidine Tartrate (Alphagan) 1 drop BID OU Last administered on 05/03/17 08:23; Start 04/21/17 at 14:37 Sodium Chloride 1,000 ml @ 125 mls/hr Q8H IV Last administered on 04/21/17 16:08; Start 04/21/17 at 14:45; Stop 04/22/17 at 00:42; Status DC Sertraline HCl (Zoloft) 25 mg DAILY PO Last administered on 04/24/17 09:35; Start 04/22/17 at 09:00; Stop 04/24/17 at 09:01; Status DC Sertraline HCl (Zoloft) 50 mg DAILY PO Last administered on 04/26/17 10:06; Start 04/22/17 at 09:00; Stop 04/26/17 at 18:17; Status DC Sertraline HCl (Zoloft) 75 mg DAILY PO Last administered on 05/05/17 07:54; Start 04/27/17 at 09:00; Stop 05/05/17 at 18:30; Status DC Quetiapine Fumarate (SEROquel) 25 mg TID@0900,1300,1700 PO Last administered on 05/05/17 16:40; Start 04/29/17 at 09:00; Stop 05/05/17 at 18:30; Status DC Divalproex Sodium (Depakote Sprinkles) 125 mg BID@0900,1300 PO Last administered on 05/04/17 14:57; Start 04/29/17 at 09:00; Stop 05/04/17 at 16 :50; Status DC Ascorbic Acid (Vitamin C) 250 mg DAILY PO Last administered on 05/07/17 08:11 ; Start 04/30/17 at 09:00 Divalproex Sodium (Depakote Sprinkles) 125 mg [id number] PO Last administered on 15:20; Start 05/04/17 at 21:00; Stop 05/07/17 at 17:33; Status DC Quetiapine Fumarate (SEROquel) 25 mg 0900,1200,1500,1700 PO Last administered on 05/07/17 17:34; Start 05/06/17 at 09:00 Quetiapine Fumarate (SEROquel) 25 mg BID@1500,1700 PO ; Start 05/06/17 at 15:00 ; Status UNV Fluvoxamine Maleate (Luvox) 25 mg HS PO Last administered on 05/05/17 20:54; Start 05/05/17 at 21:00; Stop 05/05/17 at 21:31; Status DC Fluvoxamine Maleate (Luvox) 50 mg HS PO Last administered on 05/06/17 20:04; Start 05/06/17 at 21:00 Divalproex Sodium (Depakote Sprinkles) 125 mg DAILY@1400 PO ; Start 05/08/17 at 14:00 Divalproex Sodium (Depakote Sprinkles) 250 mg BID PO ; Start 05/07/17 at 21:00 Active Scripts Active Reported Mag-Al Plus Xs Suspension (Mag Hydrox/Al Hydrox/Simeth) 30 Ml Oral.susp 15 Ml PO PRN QHS PRN Triamcinolone Acetonide 15 Gm Cream..g. 15 Gm TP PRN BID PRN Voltaren (Diclofenac Sodium) 100 Gm Gel..gram. 4 Gm TP PRN Q6HRS Acetaminophen 500 Mg Tablet 1,000 Mg PO PRN Q8HRS PRN Seroquel (Quetiapine Fumarate) 100 Mg Tablet 100 Mg PO QHS Seroquel (Quetiapine Fumarate) 50 Mg Tablet 75 Mg PO DAILY Milk Of Magnesia (Magnesium Hydroxide) 400 Mg/5 Ml Oral.susp 800 Mg PO PRN Q24HRS PRN Flomax (Tamsulosin Hcl) 0.4 Mg Cap.er.24h 0.4 Mg PO QHS Ferrous Sulfate 325 Mg Tablet 325 Mg PO BID Provera (Medroxyprogesterone Acetate) 2.5 Mg Tablet 1 Tab PO DAILY Trazodone Hcl 50 Mg Tablet 75 Mg PO QHS Zyprexa Zydis (Olanzapine) 5 Mg Tab.rapdis 2.5 Mg PO PRN Q2HR PRN Analgesic Humphrey (Methyl Salicylate/Menthol) 29 Gm Oint...g. 1 Amelia TP PRN QID PRN Hydroxyzine Pamoate 25 Mg Capsule 25 Mg PO PRN Q2HR PRN Donepezil Hcl 10 Mg Tablet 10 Mg PO DAILY Vitamin B-12 (Cyanocobalamin (Vitamin B-12)) 1,000 Mcg Tablet 1,000 Mcg PO DAILY Vitamin D (Cholecalciferol (Vitamin D3)) 2,000 Unit Capsule 2,000 Unit PO DAILY Ultram (Tramadol HCl) 50 Mg Tablet 50 Mg PO PRN Q6HRS PRN Thiamine Hcl 100 Mg Tablet 100 Mg PO DAILY Simvastatin 10 Mg Tablet 20 Mg PO DAILY Mirtazapine 15 Mg Tablet 15 Mg PO QHS Proscar (Finasteride) 5 Mg Tablet 5 Mg PO DAILY Miralax (Polyethylene Glycol 3350) 17 Gm Powd.pack 17 Gm PO DAILY Folic Acid 1 Mg Tablet 1 Mg PO DAILY Combigan Eye Drops (Brimonidine Tartrate/Timolol) 5 Ml Drops 1 Drop OU BID Colace (Docusate Sodium) 100 Mg Capsule 200 Mg PO BID Aspirin 81 Mg Tab.chew 81 Mg PO DAILY I have reviewed the current psychotropics carefully including drug interactions. Risk benefit ratio favors no change other than as noted in my dictated progress note. Diagnosis: Problems: (1) Impulse control disorder (2) Dementia, vascular, with depression (3) Dementia, vascular, with delusions (4) Dementia in Alzheimer's disease with depression (5) Dementia in Alzheimer's disease with delusions (6) Anxiety disorder ELBA DEY MD May 07, 2017 17:45
[2017-05-07] MEDS: TAMSULOSIN 0.4 MG CAP.ER.24H. PO SCH (19:26)
[2017-05-07] MEDS: traZODone 50 MG TABLET. PO SCH (19:26)
[2017-05-07] MEDS: QUEtiapine 100 MG TABLET. PO SCH (19:26)
[2017-05-07] MEDS: MIRTAZAPINE 15 MG TABLET PO SCH (19:26)
[2017-05-07] MEDS: SIMVASTATIN 20 MG TABLET PO SCH (19:27)
--- NOTE | 2017-05-07 19:49 | PDOC ---
Exam Note: [place] Note: Please also refer to the separate dictated note~for this date of service dictated separately.~Patient seen individually. Discussed the patient with Nursing staff reviewed the chart.~Reviewed interim history and current functioning. Reviewed vital signs,~Labs/ Radiology~and current medications noted below. Continue current treatment with the changes noted in the dictated addendum note Assessment: Vital Signs: Vital Signs Date Time Temp Pulse Resp B/P (MAP) Pulse Ox O2 Delivery O2 Flow Rate FiO2 05/07/17 15:58 97.6 98 20 116/73 (87) 96 05/06/17 16:00 Room Air I&O Intake and Output 05/07/17 07:00 Intake Total 580 ml Balance 580 ml Intake Oral 580 ml # Bowel Movements 1 Labs: Laboratory Tests Test 05/07/17 07:33 White Blood Count 6.2 x10^3/uL (4.0-11.0) Red Blood Count 3.83 x10^6/uL (4.30-5.70) L Hemoglobin 10.8 g/dL (13.0-17.5) L Hematocrit 33.1 % (39.0-53.0) L Mean Corpuscular Volume 86 fL (79-100) Mean Corpuscular Hemoglobin 28 pg (25-35) Mean Corpuscular Hemoglobin Concent 33 g/dL (31-37) Red Cell Distribution Width 16.8 % (11.5-14.5) H Platelet Count 177 x10^3/uL (140-400) Neutrophils (%) (Auto) 60 % (31-73) Lymphocytes (%) (Auto) 21 % (24-48) L Monocytes (%) (Auto) 11 % (0-9) H Eosinophils (%) (Auto) 7 % (0-3) H Basophils (%) (Auto) 1 % (0-3) Neutrophils # (Auto) 3.8 x10^3uL (1.8-7.7) Lymphocytes # (Auto) 1.3 x10^3/uL (1.0-4.8) Monocytes # (Auto) 0.7 x10^3/uL (0.0-1.1) Eosinophils # (Auto) 0.4 x10^3/uL (0.0-0.7) Basophils # (Auto) 0.1 x10^3/uL (0.0-0.2) Sodium Level 144 mmol/L (136-145) Potassium Level 5.1 mmol/L (3.5-5.1) Chloride Level 107 mmol/L (98-107) Carbon Dioxide Level 31 mmol/L (21-32) Anion Gap 6 (6-14) Blood Urea Nitrogen 48 mg/dL (8-26) H Creatinine 2.1 mg/dL (0.7-1.3) H Estimated GFR (Cockcroft-Gault) 29.9 BUN/Creatinine Ratio 23 (6-20) H Glucose Level 103 mg/dL (70-99) H Calcium Level 9.4 mg/dL (8.5-10.1) Magnesium Level 2.4 mg/dL (1.8-2.4) Total Bilirubin 0.6 mg/dL (0.2-1.0) Aspartate Amino Transferase (AST) 27 U/L (15-37) Alanine Aminotransferase (ALT) 38 U/L (16-63) Alkaline Phosphatase 119 U/L (46-116) H Total Protein 7.0 g/dL (6.4-8.2) Albumin 3.0 g/dL (3.4-5.0) L Albumin/Globulin Ratio 0.8 (1.0-1.7) L Valproic Acid Level 30 mcg/mL (50-100) L Valproic Acid Last Dose Date 05/06/17 Valproic Acid Last Dose Time 2100 Current Medications: Meds: Current Medications Diphenhydramine HCl (Benadryl) 50 mg 1X ONCE IM Last administered on 18:00; Start 04/19/17 at 18:00; Stop 04/19/17 at 18:01; Status DC Lorazepam (Ativan) 2 mg 1X ONCE IM Last administered on 04/19/17 18:00; Start 04/19/17 at 18:00; Stop 04/19/17 at 18:01; Status DC Olanzapine (ZyPREXA IM) 10 mg 1X ONCE IM Last administered on 04/19/17 18:30 ; Start 04/19/17 at 18:30; Stop 04/19/17 at 18:31; Status DC Lactated Ringer's 1,000 ml @ 1,000 mls/hr Q1H IV ; Start 04/19/17 at 18:15; Stop 04/22/17 at 00:43; Status DC Multivitamins/ Minerals 10 ml/ Folic Acid 1 mg/ Thiamine HCl 100 mg/Sodium Chloride 1,011.1 ml @ 1,000 mls/ hr 1X ONCE IV Last administered on 19:30; Start 04/19/17 at 19:30; Stop 04/19/17 at 20:30; Status DC Phytonadione (Vitamin K) 10 mg STK-MED ONCE .ROUTE ; Start 04/19/17 at 20:55; Stop 04/19/17 at 20:56; Status DC Thiamine HCl 200 mg STK-MED ONCE IV ; Start 04/19/17 at 20:55; Stop 04/19/17 at 20:56; Status DC Folic Acid 5 mg STK-MED ONCE IV ; Start 04/19/17 at 20:56; Stop 04/19/17 at 20 :57; Status DC Donepezil HCl (Aricept) 10 mg DAILY PO Last administered on 05/07/17 08:10; Start 04/20/17 at 09:00 Hydroxyzine Pamoate (Vistaril) 25 mg PRN Q2HR PRN PO AGITAT; Start 04/19/17 at 23:30 Medroxyprogesterone Acetate (Provera) 2.5 mg DAILY PO Last administered on 08:11; Start 04/20/17 at 09:00 Mirtazapine (Remeron) 15 mg QHS PO Last administered on 05/07/17 19:26; Start 04/20/17 at 21:00 Olanzapine (ZyPREXA ZYDIS) 2.5 mg PRN Q2HR PRN PO ANXIETY / AGITATION Last administered on 05/05/17 19:28; Start 04/19/17 at 23:30 Quetiapine Fumarate (SEROquel) 75 mg DAILY PO Last administered on 04/28/17 11:15; Start 04/20/17 at 09:00; Stop 04/28/17 at 18:50; Status DC Quetiapine Fumarate (SEROquel) 100 mg QHS PO Last administered on 05/07/17 19 :26; Start 04/20/17 at 21:00 Trazodone HCl (Desyrel) 75 mg QHS PO Last administered on 05/07/17 19:26; Start 04/20/17 at 21:00 Acetaminophen (Tylenol) 1,000 mg PRN Q8HRS PRN PO PAIN; Start 04/20/17 at 07: 45 Aspirin (Children'S Aspirin) 81 mg DAILY PO Last administered on 05/07/17 08: 12; Start 04/20/17 at 09:00 Cyanocobalamin (Vitamin B-12) 1,000 mcg DAILY PO Last administered on 08:12; Start 04/20/17 at 09:00 Diclofenac Sodium (Voltaren) 4 amelia PRN Q6HRS PRN TP PAIN; Start 04/20/17 at 07 :45 Docusate Sodium (Colace) 200 mg BID PO Last administered on 05/07/17 19:27; Start 04/20/17 at 09:00 Ferrous Sulfate (Feosol) 325 mg BID PO Last administered on 05/07/17 19:27; Start 04/20/17 at 09:00 Finasteride (Proscar) 5 mg DAILY PO Last administered on 05/07/17 08:10; Start 04/20/17 at 09:00 Folic Acid (Folic Acid) 1 mg DAILY PO Last administered on 05/07/17 08:12; Start 04/20/17 at 09:00 Al Hydroxide/Mg Hydroxide (Mylanta Plus Xs) 15 ml PRN QHS PRN PO INDIGESTION; Start 04/20/17 at 07:45 Magnesium Hydroxide (Milk Of Magnesia) 800 mg PRN Q24HRS PRN PO CONSTIPATION Last administered on 04/26/17 03:09; Start 04/20/17 at 07:45 Multi-Ingredient Ointment (Analgesic Red Bud) 1 amelia PRN QID PRN TP muscle pain; Start 04/20/17 at 07:45 Polyethylene Glycol (miraLAX) 17 gm DAILY PO Last administered on 05/07/17 08 :10; Start 04/20/17 at 09:00 Simvastatin (Zocor) 20 mg HS PO Last administered on 05/07/17 19:27; Start 04/20/17 at 21:00 Tamsulosin HCl (Flomax) 0.4 mg QHS PO Last administered on 05/07/17 19:26; Start 04/20/17 at 21:00 Thiamine HCl (Vitamin B-1) 100 mg DAILY PO Last administered on 05/07/17 08: 12; Start 04/20/17 at 09:00 Tramadol HCl (Ultram) 50 mg PRN Q6HRS PRN PO PAIN; Start 04/20/17 at 07:45 Triamcinolone Acetonide (Kenalog) 15 amelia PRN BID PRN TP RASH; Start 04/20/17 at 07:45 Brimonidine Tartrate (Alphagan) 1 drop BID OU Last administered on 04/21/17 11:11; Start 04/20/17 at 09:00; Stop 04/21/17 at 14:37; Status DC Vitamin D (Vitamin D3) 2,000 unit DAILY PO Last administered on 05/07/17 08: 11; Start 04/20/17 at 09:00 Timolol Maleate (Timoptic 0.5% Oph) 1 drop BID OU Last administered on 08:22; Start 04/20/17 at 09:00 Dextrose 1,000 ml @ 100 mls/hr Q10H IV Last administered on 04/20/17 18:06; Start 04/20/17 at 16:15; Stop 04/22/17 at 00:42; Status DC Prenat Multivit/ [place]/Iron/Folic Ac (Multivitamin ) 1 tab DAILYBFRSUP PO Last administered on 05/07/17 17:34; Start 04/20/17 at 17:00 Brimonidine Tartrate (Alphagan) 1 drop BID OU Last administered on 05/03/17 08:23; Start 04/21/17 at 14:37 Sodium Chloride 1,000 ml @ 125 mls/hr Q8H IV Last administered on 04/21/17 16:08; Start 04/21/17 at 14:45; Stop 04/22/17 at 00:42; Status DC Sertraline HCl (Zoloft) 25 mg DAILY PO Last administered on 04/24/17 09:35; Start 04/22/17 at 09:00; Stop 04/24/17 at 09:01; Status DC Sertraline HCl (Zoloft) 50 mg DAILY PO Last administered on 04/26/17 10:06; Start 04/22/17 at 09:00; Stop 04/26/17 at 18:17; Status DC Sertraline HCl (Zoloft) 75 mg DAILY PO Last administered on 05/05/17 07:54; Start 04/27/17 at 09:00; Stop 05/05/17 at 18:30; Status DC Quetiapine Fumarate (SEROquel) 25 mg TID@0900,1300,1700 PO Last administered on 05/05/17 16:40; Start 04/29/17 at 09:00; Stop 05/05/17 at 18:30; Status DC Divalproex Sodium (Depakote Sprinkles) 125 mg BID@0900,1300 PO Last administered on 05/04/17 14:57; Start 04/29/17 at 09:00; Stop 05/04/17 at 16 :50; Status DC Ascorbic Acid (Vitamin C) 250 mg DAILY PO Last administered on 05/07/17 08:11 ; Start 04/30/17 at 09:00 Divalproex Sodium (Depakote Sprinkles) 125 mg [id number] PO Last administered on 15:20; Start 05/04/17 at 21:00; Stop 05/07/17 at 17:33; Status DC Quetiapine Fumarate (SEROquel) 25 mg 0900,1200,1500,1700 PO Last administered on 05/07/17 17:34; Start 05/06/17 at 09:00 Quetiapine Fumarate (SEROquel) 25 mg BID@1500,1700 PO ; Start 05/06/17 at 15:00 ; Status UNV Fluvoxamine Maleate (Luvox) 25 mg HS PO Last administered on 05/05/17 20:54; Start 05/05/17 at 21:00; Stop 05/05/17 at 21:31; Status DC Fluvoxamine Maleate (Luvox) 50 mg HS PO Last administered on 05/07/17 19:26; Start 05/06/17 at 21:00 Divalproex Sodium (Depakote Sprinkles) 125 mg DAILY@1400 PO ; Start 05/08/17 at 14:00 Divalproex Sodium (Depakote Sprinkles) 250 mg BID PO Last administered on 05/07 19:31; Start 05/07/17 at 21:00 Active Scripts Active Reported Mag-Al Plus Xs Suspension (Mag Hydrox/Al Hydrox/Simeth) 30 Ml Oral.susp 15 Ml PO PRN QHS PRN Triamcinolone Acetonide 15 Gm Cream..g. 15 Gm TP PRN BID PRN Voltaren (Diclofenac Sodium) 100 Gm Gel..gram. 4 Gm TP PRN Q6HRS Acetaminophen 500 Mg Tablet 1,000 Mg PO PRN Q8HRS PRN Seroquel (Quetiapine Fumarate) 100 Mg Tablet 100 Mg PO QHS Seroquel (Quetiapine Fumarate) 50 Mg Tablet 75 Mg PO DAILY Milk Of Magnesia (Magnesium Hydroxide) 400 Mg/5 Ml Oral.susp 800 Mg PO PRN Q24HRS PRN Flomax (Tamsulosin Hcl) 0.4 Mg Cap.er.24h 0.4 Mg PO QHS Ferrous Sulfate 325 Mg Tablet 325 Mg PO BID Provera (Medroxyprogesterone Acetate) 2.5 Mg Tablet 1 Tab PO DAILY Trazodone Hcl 50 Mg Tablet 75 Mg PO QHS Zyprexa Zydis (Olanzapine) 5 Mg Tab.rapdis 2.5 Mg PO PRN Q2HR PRN Analgesic Red Bud (Methyl Salicylate/Menthol) 29 Gm Oint...g. 1 Amelia TP PRN QID PRN Hydroxyzine Pamoate 25 Mg Capsule 25 Mg PO PRN Q2HR PRN Donepezil Hcl 10 Mg Tablet 10 Mg PO DAILY Vitamin B-12 (Cyanocobalamin (Vitamin B-12)) 1,000 Mcg Tablet 1,000 Mcg PO DAILY Vitamin D (Cholecalciferol (Vitamin D3)) 2,000 Unit Capsule 2,000 Unit PO DAILY Ultram (Tramadol HCl) 50 Mg Tablet 50 Mg PO PRN Q6HRS PRN Thiamine Hcl 100 Mg Tablet 100 Mg PO DAILY Simvastatin 10 Mg Tablet 20 Mg PO DAILY Mirtazapine 15 Mg Tablet 15 Mg PO QHS Proscar (Finasteride) 5 Mg Tablet 5 Mg PO DAILY Miralax (Polyethylene Glycol 3350) 17 Gm Powd.pack 17 Gm PO DAILY Folic Acid 1 Mg Tablet 1 Mg PO DAILY Combigan Eye Drops (Brimonidine Tartrate/Timolol) 5 Ml Drops 1 Drop OU BID Colace (Docusate Sodium) 100 Mg Capsule 200 Mg PO BID Aspirin 81 Mg Tab.chew 81 Mg PO DAILY I have reviewed the current psychotropics carefully including drug interactions. Risk benefit ratio favors no change other than as noted in my dictated progress note. Diagnosis: Problems: (1) Psychiatric complaint (2) Dementia (3) Psychiatric care (4) Anxiety disorder (5) Dementia in Alzheimer's disease with delusions (6) Dementia in Alzheimer's disease with depression (7) Dementia, vascular, with delusions (8) Dementia, vascular, with depression (9) Impulse control disorder ELBA DEY MD May 07, 2017 19:49
--- NOTE | 2017-05-08 03:56 | PN ---
DATE: 05/05/2017 This is a late entry for 05/05/2017 covers elements not covered in my initial note of 05/05/2017. SUBJECTIVE: I met with the patient in the evening of 05/05/2017. The patient remains confused, frequently yelling out "help me, help me" while he wheels himself in his wheelchair away from staff. He had a fall in the morning trying to transfer himself out of the wheelchair, urinated on the floor, took 5 staff members to change him, received PRN then did better, somewhat obsessive with the yelling. BUN 58. Potassium was elevated as well. REVIEW OF SYSTEMS: Hard of hearing, impaired ambulation, in wheelchair. No CV, , pulmonary, eye, ENT system symptoms on review. Reliability poor. MENTAL STATUS EXAM: Oriented to himself. Insight, judgment, recent and remote memory, attention, concentration, fund of knowledge poor, consistent with his diagnosis. LABORATORY DATA: Reviewed. IMPRESSION: Major neurocognitive disorder, Alzheimer, vascular with depression, delusion, behavioral disturbance; anxiety disorder, unspecified; impulse control disorder, unspecified. Rest unchanged. PLAN: Change the Zoloft to Luvox 25 mg p.o. at bedtime, increasing to 50 mg p.o. at bedtime for his obsessive yelling, repetitive. We had considered discharge, but we will wait till after the long weekend to help adjust the Luvox. Maintain rest of the psychotropics as mentioned and defer medical management to Dr. Holguin. ELBA DEY MD DR: ABBY/brian JOB#: [id number] / [id number]
--- NOTE | 2017-05-08 03:59 | PN ---
DATE: 05/06/2017 This is a late entry for 05/06/2017, covers elements not covered in my initial note of 05/06/2017. SUBJECTIVE: The patient was staffed at a treatment team meeting with the entire team morning of 05/06/2017. Seen individually the evening of 05/06/2017. The patient continues to yell out at times, withdrawn, always feeling cold. REVIEW OF SYSTEMS: Ambulation impaired, in wheelchair, hard of hearing, covering himself with a cover all the time. No CV, , pulmonary, eye system symptoms on review. Reliability poor. MENTAL STATUS EXAMINATION: Oriented to himself. Insight, judgment, recent and remote memory, attention, concentration, fund of knowledge poor, consistent with his diagnosis. As I met with him and was interacting with him, he was still repeating "help me." LABORATORY DATA: Reviewed. IMPRESSION: Major neurocognitive disorder, Alzheimer, vascular with depression, delusion, behavioral disturbance. Rest unchanged from initial note. PLAN: Continue current psychotropics including the Luvox, which was initiated and is being increased, rest per initial note. MAN Corey DEY MD DR: ABBY/brian JOB#: [id number] / [id number]
[2017-05-08 06:02] VITALS: BP 107/61
[2017-05-08] MEDS: BRIMONIDINE 0.2% OPHTH SOLUTION 5ML BOTTLE. OU SCH ×2 (09:00→21:00)
[2017-05-08] MEDS: TIMOLOL 0.5% OPHTH SOLUTION 5ML BOTTLE. OU SCH ×2 (09:00→21:00)
[2017-05-08] MEDS: DONEPEZIL HCL 10 MG TABLET PO SCH (09:09)
[2017-05-08] MEDS: ASPIRIN 81 MG TAB.CHEW PO SCH (09:09)
[2017-05-08] MEDS: DOCUSATE SODIUM 100 MG CAPSULE PO SCH ×2 (09:10→19:30)
[2017-05-08] MEDS: DIVALPROEX 125 MG CAP.SPRINK PO SCH ×3 (09:10→19:31)
[2017-05-08] MEDS: FERROUS SULFATE 325 MG TABLET. PO SCH ×2 (09:13→19:31)
[2017-05-08] MEDS: FOLIC ACID 1 MG TABLET PO SCH (09:16)
[2017-05-08] MEDS: QUEtiapine 25 MG TABLET. PO SCH ×4 (09:16→17:58)
[2017-05-08] MEDS: POLYETHYLENE GLYCOL 3350 17 GM PACKET. PO SCH (09:16)
[2017-05-08] MEDS: FINASTERIDE 5 MG TABLET PO SCH (09:16)
[2017-05-08] MEDS: THIAMINE 100 MG TABLET. PO SCH (09:17)
[2017-05-08] MEDS: CYANOCOBALAMIN (VITAMIN B-12) 1,000 MCG TABLET. PO SCH (09:17)
[2017-05-08] MEDS: CHOLECALCIFEROL (VITAMIN D3) 1,000 UNIT TABLET PO SCH (09:17)
[2017-05-08] MEDS: ASCORBIC ACID 500 MG TABLET PO SCH (09:17)
[2017-05-08] MEDS: PRENATAL MULTIVITAMIN TABLET. PO SCH (13:05)
[2017-05-08 15:50] VITALS: BP 110/50
--- NOTE | 2017-05-08 19:11 | PDOC ---
Exam Note: Chase Note: Please also refer to the separate dictated note~for this date of service dictated separately.~Patient seen individually. Discussed the patient with Nursing staff reviewed the chart.~Reviewed interim history and current functioning. Reviewed vital signs,~Labs/ Radiology~and current medications noted below. Continue current treatment with the changes noted in the dictated addendum note Assessment: Vital Signs: Vital Signs Date Time Temp Pulse Resp B/P (MAP) Pulse Ox O2 Delivery O2 Flow Rate FiO2 05/08/17 15:50 97.3 88 20 110/50 (70) 98 05/06/17 16:00 Room Air I&O Intake and Output 05/08/17 06:59 Intake Total 120 ml Balance 120 ml Intake Oral 120 ml Current Medications: Meds: Current Medications Diphenhydramine HCl (Benadryl) 50 mg 1X ONCE IM Last administered on 18:00; Start 04/19/17 at 18:00; Stop 04/19/17 at 18:01; Status DC Lorazepam (Ativan) 2 mg 1X ONCE IM Last administered on 04/19/17 18:00; Start 04/19/17 at 18:00; Stop 04/19/17 at 18:01; Status DC Olanzapine (ZyPREXA IM) 10 mg 1X ONCE IM Last administered on 04/19/17 18:30 ; Start 04/19/17 at 18:30; Stop 04/19/17 at 18:31; Status DC Lactated Ringer's 1,000 ml @ 1,000 mls/hr Q1H IV ; Start 04/19/17 at 18:15; Stop 04/22/17 at 00:43; Status DC Multivitamins/ Minerals 10 ml/ Folic Acid 1 mg/ Thiamine HCl 100 mg/Sodium Chloride 1,011.1 ml @ 1,000 mls/ hr 1X ONCE IV Last administered on 19:30; Start 04/19/17 at 19:30; Stop 04/19/17 at 20:30; Status DC Phytonadione (Vitamin K) 10 mg STK-MED ONCE .ROUTE ; Start 04/19/17 at 20:55; Stop 04/19/17 at 20:56; Status DC Thiamine HCl 200 mg STK-MED ONCE IV ; Start 04/19/17 at 20:55; Stop 04/19/17 at 20:56; Status DC Folic Acid 5 mg STK-MED ONCE IV ; Start 04/19/17 at 20:56; Stop 04/19/17 at 20 :57; Status DC Donepezil HCl (Aricept) 10 mg DAILY PO Last administered on 05/08/17 09:09; Start 04/20/17 at 09:00 Hydroxyzine Pamoate (Vistaril) 25 mg PRN Q2HR PRN PO AGITAT Last administered on 05/07/17 21:13; Start 04/19/17 at 23:30 Medroxyprogesterone Acetate (Provera) 2.5 mg DAILY PO Last administered on 09:16; Start 04/20/17 at 09:00 Mirtazapine (Remeron) 15 mg QHS PO Last administered on 05/07/17 19:26; Start 04/20/17 at 21:00 Olanzapine (ZyPREXA ZYDIS) 2.5 mg PRN Q2HR PRN PO ANXIETY / AGITATION Last administered on 05/07/17 21:13; Start 04/19/17 at 23:30 Quetiapine Fumarate (SEROquel) 75 mg DAILY PO Last administered on 04/28/17 11:15; Start 04/20/17 at 09:00; Stop 04/28/17 at 18:50; Status DC Quetiapine Fumarate (SEROquel) 100 mg QHS PO Last administered on 05/07/17 19 :26; Start 04/20/17 at 21:00 Trazodone HCl (Desyrel) 75 mg QHS PO Last administered on 05/07/17 19:26; Start 04/20/17 at 21:00 Acetaminophen (Tylenol) 1,000 mg PRN Q8HRS PRN PO PAIN; Start 04/20/17 at 07: 45 Aspirin (Children'S Aspirin) 81 mg DAILY PO Last administered on 05/08/17 09: 09; Start 04/20/17 at 09:00 Cyanocobalamin (Vitamin B-12) 1,000 mcg DAILY PO Last administered on 09:17; Start 04/20/17 at 09:00 Diclofenac Sodium (Voltaren) 4 amelia PRN Q6HRS PRN TP PAIN; Start 04/20/17 at 07 :45 Docusate Sodium (Colace) 200 mg BID PO Last administered on 05/08/17 09:10; Start 04/20/17 at 09:00 Ferrous Sulfate (Feosol) 325 mg BID PO Last administered on 05/08/17 09:13; Start 04/20/17 at 09:00 Finasteride (Proscar) 5 mg DAILY PO Last administered on 05/08/17 09:16; Start 04/20/17 at 09:00 Folic Acid (Folic Acid) 1 mg DAILY PO Last administered on 05/08/17 09:16; Start 04/20/17 at 09:00 Al Hydroxide/Mg Hydroxide (Mylanta Plus Xs) 15 ml PRN QHS PRN PO INDIGESTION; Start 04/20/17 at 07:45 Magnesium Hydroxide (Milk Of Magnesia) 800 mg PRN Q24HRS PRN PO CONSTIPATION Last administered on 04/26/17 03:09; Start 04/20/17 at 07:45 Multi-Ingredient Ointment (Analgesic Ira) 1 amelia PRN QID PRN TP muscle pain; Start 04/20/17 at 07:45 Polyethylene Glycol (miraLAX) 17 gm DAILY PO Last administered on 05/08/17 09 :16; Start 04/20/17 at 09:00 Simvastatin (Zocor) 20 mg HS PO Last administered on 05/07/17 19:27; Start 04/20/17 at 21:00 Tamsulosin HCl (Flomax) 0.4 mg QHS PO Last administered on 05/07/17 19:26; Start 04/20/17 at 21:00 Thiamine HCl (Vitamin B-1) 100 mg DAILY PO Last administered on 05/08/17 09: 17; Start 04/20/17 at 09:00 Tramadol HCl (Ultram) 50 mg PRN Q6HRS PRN PO PAIN; Start 04/20/17 at 07:45 Triamcinolone Acetonide (Kenalog) 15 amelia PRN BID PRN TP RASH; Start 04/20/17 at 07:45 Brimonidine Tartrate (Alphagan) 1 drop BID OU Last administered on 04/21/17 11:11; Start 04/20/17 at 09:00; Stop 04/21/17 at 14:37; Status DC Vitamin D (Vitamin D3) 2,000 unit DAILY PO Last administered on 05/08/17 09: 17; Start 04/20/17 at 09:00 Timolol Maleate (Timoptic 0.5% Oph) 1 drop BID OU Last administered on 08:22; Start 04/20/17 at 09:00 Dextrose 1,000 ml @ 100 mls/hr Q10H IV Last administered on 04/20/17 18:06; Start 04/20/17 at 16:15; Stop 04/22/17 at 00:42; Status DC Prenat Multivit/ [place]/Iron/Folic Ac (Multivitamin ) 1 tab DAILYBFRSUP PO Last administered on 05/08/17 13:05; Start 04/20/17 at 17:00 Brimonidine Tartrate (Alphagan) 1 drop BID OU Last administered on 05/03/17 08:23; Start 04/21/17 at 14:37 Sodium Chloride 1,000 ml @ 125 mls/hr Q8H IV Last administered on 04/21/17 16:08; Start 04/21/17 at 14:45; Stop 04/22/17 at 00:42; Status DC Sertraline HCl (Zoloft) 25 mg DAILY PO Last administered on 04/24/17 09:35; Start 04/22/17 at 09:00; Stop 04/24/17 at 09:01; Status DC Sertraline HCl (Zoloft) 50 mg DAILY PO Last administered on 04/26/17 10:06; Start 04/22/17 at 09:00; Stop 04/26/17 at 18:17; Status DC Sertraline HCl (Zoloft) 75 mg DAILY PO Last administered on 05/05/17 07:54; Start 04/27/17 at 09:00; Stop 05/05/17 at 18:30; Status DC Quetiapine Fumarate (SEROquel) 25 mg TID@0900,1300,1700 PO Last administered on 05/05/17 16:40; Start 04/29/17 at 09:00; Stop 05/05/17 at 18:30; Status DC Divalproex Sodium (Depakote Sprinkles) 125 mg BID@0900,1300 PO Last administered on 05/04/17 14:57; Start 04/29/17 at 09:00; Stop 05/04/17 at 16 :50; Status DC Ascorbic Acid (Vitamin C) 250 mg DAILY PO Last administered on 05/08/17 09:17 ; Start 04/30/17 at 09:00 Divalproex Sodium (Depakote Sprinkles) 125 mg [id number] PO Last administered on 15:20; Start 05/04/17 at 21:00; Stop 05/07/17 at 17:33; Status DC Quetiapine Fumarate (SEROquel) 25 mg 0900,1200,1500,1700 PO Last administered on 05/08/17 15:57; Start 05/06/17 at 09:00 Quetiapine Fumarate (SEROquel) 25 mg BID@1500,1700 PO ; Start 05/06/17 at 15:00 ; Status UNV Fluvoxamine Maleate (Luvox) 25 mg HS PO Last administered on 05/05/17 20:54; Start 05/05/17 at 21:00; Stop 05/05/17 at 21:31; Status DC Fluvoxamine Maleate (Luvox) 50 mg HS PO Last administered on 05/07/17 19:26; Start 05/06/17 at 21:00 Divalproex Sodium (Depakote Sprinkles) 125 mg DAILY@1400 PO Last administered on 05/08/17 13:06; Start 05/08/17 at 14:00 Divalproex Sodium (Depakote Sprinkles) 250 mg BID PO Last administered on 05/08 09:10; Start 05/07/17 at 21:00 Active Scripts Active Reported Mag-Al Plus Xs Suspension (Mag Hydrox/Al Hydrox/Simeth) 30 Ml Oral.susp 15 Ml PO PRN QHS PRN Triamcinolone Acetonide 15 Gm Cream..g. 15 Gm TP PRN BID PRN Voltaren (Diclofenac Sodium) 100 Gm Gel..gram. 4 Gm TP PRN Q6HRS Acetaminophen 500 Mg Tablet 1,000 Mg PO PRN Q8HRS PRN Seroquel (Quetiapine Fumarate) 100 Mg Tablet 100 Mg PO QHS Seroquel (Quetiapine Fumarate) 50 Mg Tablet 75 Mg PO DAILY Milk Of Magnesia (Magnesium Hydroxide) 400 Mg/5 Ml Oral.susp 800 Mg PO PRN Q24HRS PRN Flomax (Tamsulosin Hcl) 0.4 Mg Cap.er.24h 0.4 Mg PO QHS Ferrous Sulfate 325 Mg Tablet 325 Mg PO BID Provera (Medroxyprogesterone Acetate) 2.5 Mg Tablet 1 Tab PO DAILY Trazodone Hcl 50 Mg Tablet 75 Mg PO QHS Zyprexa Zydis (Olanzapine) 5 Mg Tab.rapdis 2.5 Mg PO PRN Q2HR PRN Analgesic Ira (Methyl Salicylate/Menthol) 29 Gm Oint...g. 1 Amelia TP PRN QID PRN Hydroxyzine Pamoate 25 Mg Capsule 25 Mg PO PRN Q2HR PRN Donepezil Hcl 10 Mg Tablet 10 Mg PO DAILY Vitamin B-12 (Cyanocobalamin (Vitamin B-12)) 1,000 Mcg Tablet 1,000 Mcg PO DAILY Vitamin D (Cholecalciferol (Vitamin D3)) 2,000 Unit Capsule 2,000 Unit PO DAILY Ultram (Tramadol HCl) 50 Mg Tablet 50 Mg PO PRN Q6HRS PRN Thiamine Hcl 100 Mg Tablet 100 Mg PO DAILY Simvastatin 10 Mg Tablet 20 Mg PO DAILY Mirtazapine 15 Mg Tablet 15 Mg PO QHS Proscar (Finasteride) 5 Mg Tablet 5 Mg PO DAILY Miralax (Polyethylene Glycol 3350) 17 Gm Powd.pack 17 Gm PO DAILY Folic Acid 1 Mg Tablet 1 Mg PO DAILY Combigan Eye Drops (Brimonidine Tartrate/Timolol) 5 Ml Drops 1 Drop OU BID Colace (Docusate Sodium) 100 Mg Capsule 200 Mg PO BID Aspirin 81 Mg Tab.chew 81 Mg PO DAILY I have reviewed the current psychotropics carefully including drug interactions. Risk benefit ratio favors no change other than as noted in my dictated progress note. Diagnosis: Problems: (1) Impulse control disorder (2) Dementia, vascular, with depression (3) Dementia, vascular, with delusions (4) Dementia in Alzheimer's disease with depression (5) Dementia in Alzheimer's disease with delusions (6) Anxiety disorder ELBA DEY MD May 08, 2017 19:11
[2017-05-08] MEDS: SIMVASTATIN 20 MG TABLET PO SCH (19:30)
[2017-05-08] MEDS: MIRTAZAPINE 15 MG TABLET PO SCH (19:30)
[2017-05-08] MEDS: QUEtiapine 100 MG TABLET. PO SCH (19:30)
[2017-05-08] MEDS: TAMSULOSIN 0.4 MG CAP.ER.24H. PO SCH (19:30)
[2017-05-08] MEDS: traZODone 50 MG TABLET. PO SCH (19:30)
--- NOTE | 2017-05-09 06:15 | PN ---
DATE: 05/07/2017 This late entry 05/07/2017 covers elements not covered in my initial note of 05/07/2017. I met with the patient evening of 05/07/2017. The patient remains confused, did better the previous evening, takes his medications in chocolate Boost. He has been less repetitive about "help me, help me" during the day. BUN is 48. Slight improvement. Valproic acid level is 30. REVIEW OF SYSTEMS: Hard of hearing, impaired ambulation, and wheelchair. No CV, , pulmonary, eye, ENT system symptoms on review. Reliability poor. MENTAL STATUS EXAM: Oriented to himself. Insight, judgment, recent and remote memory, attention, concentration, fund of knowledge poor, consistent with his diagnosis mentioned in my initial note. IMPRESSION: Major neurocognitive disorder, Alzheimer, vascular with depression, delusion, behavioral disturbance. Rest unchanged from initial note. PLAN: Increase Depakote Sprinkles from 125 mg 3 times a day to 250 mg twice a day, 125 mg once a day. Check CBC, CMP, valproic acid level in 3 days with aim to reach a therapeutic level. Continue rest of psychotropics unchanged. MAN Corey DEY MD DR: ABBY/brian JOB#: [id number] / [id number]
[2017-05-09 06:21] VITALS: BP 96/60
[2017-05-09] MEDS: DOCUSATE SODIUM 100 MG CAPSULE PO SCH ×2 (08:18→20:30)
[2017-05-09] MEDS: DONEPEZIL HCL 10 MG TABLET PO SCH (08:18)
[2017-05-09] MEDS: ASPIRIN 81 MG TAB.CHEW PO SCH (08:18)
[2017-05-09] MEDS: CYANOCOBALAMIN (VITAMIN B-12) 1,000 MCG TABLET. PO SCH (08:19)
[2017-05-09] MEDS: ASCORBIC ACID 500 MG TABLET PO SCH (08:19)
[2017-05-09] MEDS: CHOLECALCIFEROL (VITAMIN D3) 1,000 UNIT TABLET PO SCH (08:19)
[2017-05-09] MEDS: DIVALPROEX 125 MG CAP.SPRINK PO SCH ×3 (08:19→20:29)
[2017-05-09] MEDS: QUEtiapine 25 MG TABLET. PO SCH ×4 (08:19→17:40)
[2017-05-09] MEDS: FINASTERIDE 5 MG TABLET PO SCH (08:19)
[2017-05-09] MEDS: FOLIC ACID 1 MG TABLET PO SCH (08:19)
[2017-05-09] MEDS: THIAMINE 100 MG TABLET. PO SCH (08:19)
[2017-05-09] MEDS: FERROUS SULFATE 325 MG TABLET. PO SCH ×2 (08:19→20:29)
[2017-05-09] MEDS: POLYETHYLENE GLYCOL 3350 17 GM PACKET. PO SCH (08:19)
[2017-05-09] MEDS: BRIMONIDINE 0.2% OPHTH SOLUTION 5ML BOTTLE. OU SCH ×2 (09:00→21:00)
[2017-05-09] MEDS: TIMOLOL 0.5% OPHTH SOLUTION 5ML BOTTLE. OU SCH ×2 (09:00→21:00)
[2017-05-09] MEDS: ACETAMINOPHEN 500 MG TABLET PO PRN (12:44)
[2017-05-09] MEDS: PRENATAL MULTIVITAMIN TABLET. PO SCH (12:44)
[2017-05-09 15:53] VITALS: BP 98/62
--- NOTE | 2017-05-09 20:17 | PDOC ---
Exam Note: [place] Note: Please also refer to the separate dictated note~for this date of service dictated separately.~Patient seen individually. Discussed the patient with Nursing staff reviewed the chart.~Reviewed interim history and current functioning. Reviewed vital signs,~Labs/ Radiology~and current medications noted below. Continue current treatment with the changes noted in the dictated addendum note Assessment: Vital Signs: Vital Signs Date Time Temp Pulse Resp B/P (MAP) Pulse Ox O2 Delivery O2 Flow Rate FiO2 05/09/17 15:53 98.1 76 16 98/62 (74) 100 05/06/17 16:00 Room Air I&O Intake and Output 05/09/17 07:00 Intake Total 1560 ml Balance 1560 ml Intake Oral 1560 ml Current Medications: Meds: Current Medications Diphenhydramine HCl (Benadryl) 50 mg 1X ONCE IM Last administered on 18:00; Start 04/19/17 at 18:00; Stop 04/19/17 at 18:01; Status DC Lorazepam (Ativan) 2 mg 1X ONCE IM Last administered on 04/19/17 18:00; Start 04/19/17 at 18:00; Stop 04/19/17 at 18:01; Status DC Olanzapine (ZyPREXA IM) 10 mg 1X ONCE IM Last administered on 04/19/17 18:30 ; Start 04/19/17 at 18:30; Stop 04/19/17 at 18:31; Status DC Lactated Ringer's 1,000 ml @ 1,000 mls/hr Q1H IV ; Start 04/19/17 at 18:15; Stop 04/22/17 at 00:43; Status DC Multivitamins/ Minerals 10 ml/ Folic Acid 1 mg/ Thiamine HCl 100 mg/Sodium Chloride 1,011.1 ml @ 1,000 mls/ hr 1X ONCE IV Last administered on 19:30; Start 04/19/17 at 19:30; Stop 04/19/17 at 20:30; Status DC Phytonadione (Vitamin K) 10 mg STK-MED ONCE .ROUTE ; Start 04/19/17 at 20:55; Stop 04/19/17 at 20:56; Status DC Thiamine HCl 200 mg STK-MED ONCE IV ; Start 04/19/17 at 20:55; Stop 04/19/17 at 20:56; Status DC Folic Acid 5 mg STK-MED ONCE IV ; Start 04/19/17 at 20:56; Stop 04/19/17 at 20 :57; Status DC Donepezil HCl (Aricept) 10 mg DAILY PO Last administered on 05/09/17 08:18; Start 04/20/17 at 09:00 Hydroxyzine Pamoate (Vistaril) 25 mg PRN Q2HR PRN PO AGITAT Last administered on 05/07/17 21:13; Start 04/19/17 at 23:30 Medroxyprogesterone Acetate (Provera) 2.5 mg DAILY PO Last administered on 08:19; Start 04/20/17 at 09:00 Mirtazapine (Remeron) 15 mg QHS PO Last administered on 05/08/17 19:30; Start 04/20/17 at 21:00 Olanzapine (ZyPREXA ZYDIS) 2.5 mg PRN Q2HR PRN PO ANXIETY / AGITATION Last administered on 05/07/17 21:13; Start 04/19/17 at 23:30 Quetiapine Fumarate (SEROquel) 75 mg DAILY PO Last administered on 04/28/17 11:15; Start 04/20/17 at 09:00; Stop 04/28/17 at 18:50; Status DC Quetiapine Fumarate (SEROquel) 100 mg QHS PO Last administered on 05/08/17 19 :30; Start 04/20/17 at 21:00 Trazodone HCl (Desyrel) 75 mg QHS PO Last administered on 05/08/17 19:30; Start 04/20/17 at 21:00 Acetaminophen (Tylenol) 1,000 mg PRN Q8HRS PRN PO PAIN Last administered on 12:44; Start 04/20/17 at 07:45 Aspirin (Children'S Aspirin) 81 mg DAILY PO Last administered on 05/09/17 08: 18; Start 04/20/17 at 09:00 Cyanocobalamin (Vitamin B-12) 1,000 mcg DAILY PO Last administered on 08:19; Start 04/20/17 at 09:00 Diclofenac Sodium (Voltaren) 4 amelia PRN Q6HRS PRN TP PAIN; Start 04/20/17 at 07 :45 Docusate Sodium (Colace) 200 mg BID PO Last administered on 05/09/17 08:18; Start 04/20/17 at 09:00 Ferrous Sulfate (Feosol) 325 mg BID PO Last administered on 05/09/17 08:19; Start 04/20/17 at 09:00 Finasteride (Proscar) 5 mg DAILY PO Last administered on 05/09/17 08:19; Start 04/20/17 at 09:00 Folic Acid (Folic Acid) 1 mg DAILY PO Last administered on 05/09/17 08:19; Start 04/20/17 at 09:00 Al Hydroxide/Mg Hydroxide (Mylanta Plus Xs) 15 ml PRN QHS PRN PO INDIGESTION; Start 04/20/17 at 07:45 Magnesium Hydroxide (Milk Of Magnesia) 800 mg PRN Q24HRS PRN PO CONSTIPATION Last administered on 04/26/17 03:09; Start 04/20/17 at 07:45 Multi-Ingredient Ointment (Analgesic [place]) 1 amelia PRN QID PRN TP muscle pain; Start 04/20/17 at 07:45 Polyethylene Glycol (miraLAX) 17 gm DAILY PO Last administered on 05/09/17 08 :19; Start 04/20/17 at 09:00 Simvastatin (Zocor) 20 mg HS PO Last administered on 05/08/17 19:30; Start 04/20/17 at 21:00 Tamsulosin HCl (Flomax) 0.4 mg QHS PO Last administered on 05/08/17 19:30; Start 04/20/17 at 21:00 Thiamine HCl (Vitamin B-1) 100 mg DAILY PO Last administered on 05/09/17 08: 19; Start 04/20/17 at 09:00 Tramadol HCl (Ultram) 50 mg PRN Q6HRS PRN PO PAIN; Start 04/20/17 at 07:45 Triamcinolone Acetonide (Kenalog) 15 amelia PRN BID PRN TP RASH; Start 04/20/17 at 07:45 Brimonidine Tartrate (Alphagan) 1 drop BID OU Last administered on 04/21/17 11:11; Start 04/20/17 at 09:00; Stop 04/21/17 at 14:37; Status DC Vitamin D (Vitamin D3) 2,000 unit DAILY PO Last administered on 05/09/17 08: 19; Start 04/20/17 at 09:00 Timolol Maleate (Timoptic 0.5% Ophth) 1 drop BID OU Last administered on 08:22; Start 04/20/17 at 09:00 Dextrose 1,000 ml @ 100 mls/hr Q10H IV Last administered on 04/20/17 18:06; Start 04/20/17 at 16:15; Stop 04/22/17 at 00:42; Status DC Prenat Multivit/ House Coordinator/Iron/Folic Ac (Multivitamin ) 1 tab DAILYBFRSUP PO Last administered on 05/09/17 12:44; Start 04/20/17 at 17:00 Brimonidine Tartrate (Alphagan) 1 drop BID OU Last administered on 05/03/17 08:23; Start 04/21/17 at 14:37 Sodium Chloride 1,000 ml @ 125 mls/hr Q8H IV Last administered on 04/21/17 16:08; Start 04/21/17 at 14:45; Stop 04/22/17 at 00:42; Status DC Sertraline HCl (Zoloft) 25 mg DAILY PO Last administered on 04/24/17 09:35; Start 04/22/17 at 09:00; Stop 04/24/17 at 09:01; Status DC Sertraline HCl (Zoloft) 50 mg DAILY PO Last administered on 04/26/17 10:06; Start 04/22/17 at 09:00; Stop 04/26/17 at 18:17; Status DC Sertraline HCl (Zoloft) 75 mg DAILY PO Last administered on 05/05/17 07:54; Start 04/27/17 at 09:00; Stop 05/05/17 at 18:30; Status DC Quetiapine Fumarate (SEROquel) 25 mg TID@0900,1300,1700 PO Last administered on 05/05/17 16:40; Start 04/29/17 at 09:00; Stop 05/05/17 at 18:30; Status DC Divalproex Sodium (Depakote Sprinkles) 125 mg BID@0900,1300 PO Last administered on 05/04/17 14:57; Start 04/29/17 at 09:00; Stop 05/04/17 at 16 :50; Status DC Ascorbic Acid (Vitamin C) 250 mg DAILY PO Last administered on 05/09/17 08:19 ; Start 04/30/17 at 09:00 Divalproex Sodium (Depakote Sprinkles) 125 mg [id number] PO Last administered on 15:20; Start 05/04/17 at 21:00; Stop 05/07/17 at 17:33; Status DC Quetiapine Fumarate (SEROquel) 25 mg 0900,1200,1500,1700 PO Last administered on 05/09/17 17:40; Start 05/06/17 at 09:00 Quetiapine Fumarate (SEROquel) 25 mg BID@1500,1700 PO ; Start 05/06/17 at 15:00 ; Status UNV Fluvoxamine Maleate (Luvox) 25 mg HS PO Last administered on 05/05/17 20:54; Start 05/05/17 at 21:00; Stop 05/05/17 at 21:31; Status DC Fluvoxamine Maleate (Luvox) 50 mg HS PO Last administered on 05/08/17 19:30; Start 05/06/17 at 21:00 Divalproex Sodium (Depakote Sprinkles) 125 mg DAILY@1400 PO Last administered on 05/09/17 12:44; Start 05/08/17 at 14:00 Divalproex Sodium (Depakote Sprinkles) 250 mg BID PO Last administered on 05/09 08:19; Start 05/07/17 at 21:00 Active Scripts Active Reported Mag-Al Plus Xs Suspension (Mag Hydrox/Al Hydrox/Simeth) 30 Ml Oral.susp 15 Ml PO PRN QHS PRN Triamcinolone Acetonide 15 Gm Cream..g. 15 Gm TP PRN BID PRN Voltaren (Diclofenac Sodium) 100 Gm Gel..gram. 4 Gm TP PRN Q6HRS Acetaminophen 500 Mg Tablet 1,000 Mg PO PRN Q8HRS PRN Seroquel (Quetiapine Fumarate) 100 Mg Tablet 100 Mg PO QHS Seroquel (Quetiapine Fumarate) 50 Mg Tablet 75 Mg PO DAILY Milk Of Magnesia (Magnesium Hydroxide) 400 Mg/5 Ml Oral.susp 800 Mg PO PRN Q24HRS PRN Flomax (Tamsulosin Hcl) 0.4 Mg Cap.er.24h 0.4 Mg PO QHS Ferrous Sulfate 325 Mg Tablet 325 Mg PO BID Provera (Medroxyprogesterone Acetate) 2.5 Mg Tablet 1 Tab PO DAILY Trazodone Hcl 50 Mg Tablet 75 Mg PO QHS Zyprexa Zydis (Olanzapine) 5 Mg Tab.rapdis 2.5 Mg PO PRN Q2HR PRN Analgesic [place] (Methyl Salicylate/Menthol) 29 Gm Oint...g. 1 Amelia TP PRN QID PRN Hydroxyzine Pamoate 25 Mg Capsule 25 Mg PO PRN Q2HR PRN Donepezil Hcl 10 Mg Tablet 10 Mg PO DAILY Vitamin B-12 (Cyanocobalamin (Vitamin B-12)) 1,000 Mcg Tablet 1,000 Mcg PO DAILY Vitamin D (Cholecalciferol (Vitamin D3)) 2,000 Unit Capsule 2,000 Unit PO DAILY Ultram (Tramadol HCl) 50 Mg Tablet 50 Mg PO PRN Q6HRS PRN Thiamine Hcl 100 Mg Tablet 100 Mg PO DAILY Simvastatin 10 Mg Tablet 20 Mg PO DAILY Mirtazapine 15 Mg Tablet 15 Mg PO QHS Proscar (Finasteride) 5 Mg Tablet 5 Mg PO DAILY Miralax (Polyethylene Glycol 3350) 17 Gm Powd.pack 17 Gm PO DAILY Folic Acid 1 Mg Tablet 1 Mg PO DAILY Combigan Eye Drops (Brimonidine Tartrate/Timolol) 5 Ml Drops 1 Drop OU BID Colace (Docusate Sodium) 100 Mg Capsule 200 Mg PO BID Aspirin 81 Mg Tab.chew 81 Mg PO DAILY I have reviewed the current psychotropics carefully including drug interactions. Risk benefit ratio favors no change other than as noted in my dictated progress note. Diagnosis: Problems: (1) Impulse control disorder (2) Dementia, vascular, with depression (3) Dementia, vascular, with delusions (4) Dementia in Alzheimer's disease with depression (5) Dementia in Alzheimer's disease with delusions (6) Anxiety disorder ELBA DEY MD May 09, 2017 20:17
[2017-05-09] MEDS: TAMSULOSIN 0.4 MG CAP.ER.24H. PO SCH (20:29)
[2017-05-09] MEDS: QUEtiapine 100 MG TABLET. PO SCH (20:29)
[2017-05-09] MEDS: SIMVASTATIN 20 MG TABLET PO SCH (20:29)
[2017-05-09] MEDS: traZODone 50 MG TABLET. PO SCH (20:30)
[2017-05-09] MEDS: MIRTAZAPINE 15 MG TABLET PO SCH (20:30)
[2017-05-10 06:03] VITALS: BP 94/65
--- NOTE | 2017-05-10 08:39 | PN ---
DATE: 05/08/2017 PSYCHIATRIC PROGRESS NOTE This is a late entry 05/08/2017, covers elements not covered in my initial note of 05/08/2017. SUBJECTIVE: I met with the patient the evening of 05/08/2017. Per nursing report, the patient remains withdrawn, repeatedly calling out "help me, help me." He is compliant with medications with Boost. I met with him in his room. He is covered himself in blankets, but did remove them to interact with me, hard of hearing. REVIEW OF SYSTEMS: Impaired ambulation. No CV, , pulmonary, eye system symptoms on review. Reliability poor. MENTAL STATUS EXAM: Oriented to himself. Insight, judgment, recent and remote memory, attention, concentration, fund of knowledge poor, consistent with his diagnoses mentioned in my initial note. IMPRESSION: Major neurocognitive disorder, Alzheimer, vascular with depression, delusion, behavioral disturbance. Rest unchanged. PLAN: Continue psychotropics mentioned in my initial note. Given his age, I do not want to increase anything further just yet, especially considering his overall medical condition. BUN 48, creatinine 2.1. MAN Corey DEY MD DR: ABBY/brian JOB#: [id number] / [id number]
[2017-05-10] MEDS: TIMOLOL 0.5% OPHTH SOLUTION 5ML BOTTLE. OU SCH ×2 (08:48→21:00)
[2017-05-10] MEDS: BRIMONIDINE 0.2% OPHTH SOLUTION 5ML BOTTLE. OU SCH ×2 (08:48→21:00)
[2017-05-10] MEDS: ASPIRIN 81 MG TAB.CHEW PO SCH (08:50)
[2017-05-10] MEDS: DONEPEZIL HCL 10 MG TABLET PO SCH (08:50)
[2017-05-10] MEDS: DOCUSATE SODIUM 100 MG CAPSULE PO SCH ×2 (08:52→20:17)
[2017-05-10] MEDS: FINASTERIDE 5 MG TABLET PO SCH (08:53)
[2017-05-10] MEDS: THIAMINE 100 MG TABLET. PO SCH (08:53)
[2017-05-10] MEDS: DIVALPROEX 125 MG CAP.SPRINK PO SCH ×3 (08:53→20:16)
[2017-05-10] MEDS: FERROUS SULFATE 325 MG TABLET. PO SCH ×2 (08:53→20:17)
[2017-05-10] MEDS: QUEtiapine 25 MG TABLET. PO SCH ×4 (08:53→16:33)
[2017-05-10] MEDS: FOLIC ACID 1 MG TABLET PO SCH (08:53)
[2017-05-10] MEDS: POLYETHYLENE GLYCOL 3350 17 GM PACKET. PO SCH (08:53)
[2017-05-10] MEDS: CYANOCOBALAMIN (VITAMIN B-12) 1,000 MCG TABLET. PO SCH (08:53)
[2017-05-10] MEDS: PRENATAL MULTIVITAMIN TABLET. PO SCH (08:54)
[2017-05-10] MEDS: ASCORBIC ACID 500 MG TABLET PO SCH (08:54)
[2017-05-10] MEDS: CHOLECALCIFEROL (VITAMIN D3) 1,000 UNIT TABLET PO SCH (08:55)
[2017-05-10 16:00] VITALS: BP 101/64
--- NOTE | 2017-05-10 19:56 | PDOC ---
Exam Note: Chase Note: Please also refer to the separate dictated note~for this date of service dictated separately.~Patient seen individually. Discussed the patient with Nursing staff reviewed the chart.~Reviewed interim history and current functioning. Reviewed vital signs,~Labs/ Radiology~and current medications noted below. Continue current treatment with the changes noted in the dictated addendum note Assessment: Vital Signs: Vital Signs Date Time Temp Pulse Resp B/P (MAP) Pulse Ox O2 Delivery O2 Flow Rate FiO2 05/10/17 16:00 98.0 109 19 101/64 (76) 96 05/10/17 06:03 Room Air I&O Intake and Output 05/10/17 07:00 Intake Total 1560 ml Balance 1560 ml Intake Oral 1560 ml # Voids 1 Current Medications: Meds: Current Medications Diphenhydramine HCl (Benadryl) 50 mg 1X ONCE IM Last administered on 18:00; Start 04/19/17 at 18:00; Stop 04/19/17 at 18:01; Status DC Lorazepam (Ativan) 2 mg 1X ONCE IM Last administered on 04/19/17 18:00; Start 04/19/17 at 18:00; Stop 04/19/17 at 18:01; Status DC Olanzapine (ZyPREXA IM) 10 mg 1X ONCE IM Last administered on 04/19/17 18:30 ; Start 04/19/17 at 18:30; Stop 04/19/17 at 18:31; Status DC Lactated Ringer's 1,000 ml @ 1,000 mls/hr Q1H IV ; Start 04/19/17 at 18:15; Stop 04/22/17 at 00:43; Status DC Multivitamins/ Minerals 10 ml/ Folic Acid 1 mg/ Thiamine HCl 100 mg/Sodium Chloride 1,011.1 ml @ 1,000 mls/ hr 1X ONCE IV Last administered on 19:30; Start 04/19/17 at 19:30; Stop 04/19/17 at 20:30; Status DC Phytonadione (Vitamin K) 10 mg STK-MED ONCE .ROUTE ; Start 04/19/17 at 20:55; Stop 04/19/17 at 20:56; Status DC Thiamine HCl 200 mg STK-MED ONCE IV ; Start 04/19/17 at 20:55; Stop 04/19/17 at 20:56; Status DC Folic Acid 5 mg STK-MED ONCE IV ; Start 04/19/17 at 20:56; Stop 04/19/17 at 20 :57; Status DC Donepezil HCl (Aricept) 10 mg DAILY PO Last administered on 05/10/17 08:50; Start 04/20/17 at 09:00 Hydroxyzine Pamoate (Vistaril) 25 mg PRN Q2HR PRN PO AGITAT Last administered on 05/07/17 21:13; Start 04/19/17 at 23:30 Medroxyprogesterone Acetate (Provera) 2.5 mg DAILY PO Last administered on 08:53; Start 04/20/17 at 09:00 Mirtazapine (Remeron) 15 mg QHS PO Last administered on 05/09/17 20:30; Start 04/20/17 at 21:00 Olanzapine (ZyPREXA ZYDIS) 2.5 mg PRN Q2HR PRN PO ANXIETY / AGITATION Last administered on 05/07/17 21:13; Start 04/19/17 at 23:30 Quetiapine Fumarate (SEROquel) 75 mg DAILY PO Last administered on 04/28/17 11:15; Start 04/20/17 at 09:00; Stop 04/28/17 at 18:50; Status DC Quetiapine Fumarate (SEROquel) 100 mg QHS PO Last administered on 05/09/17 20 :29; Start 04/20/17 at 21:00 Trazodone HCl (Desyrel) 75 mg QHS PO Last administered on 05/09/17 20:30; Start 04/20/17 at 21:00 Acetaminophen (Tylenol) 1,000 mg PRN Q8HRS PRN PO PAIN Last administered on 12:44; Start 04/20/17 at 07:45 Aspirin (Children'S Aspirin) 81 mg DAILY PO Last administered on 05/10/17 08:50 ; Start 04/20/17 at 09:00 Cyanocobalamin (Vitamin B-12) 1,000 mcg DAILY PO Last administered on 05/10/17 08:53; Start 04/20/17 at 09:00 Diclofenac Sodium (Voltaren) 4 amelia PRN Q6HRS PRN TP PAIN; Start 04/20/17 at 07 :45 Docusate Sodium (Colace) 200 mg BID PO Last administered on 05/10/17 08:52; Start 04/20/17 at 09:00 Ferrous Sulfate (Feosol) 325 mg BID PO Last administered on 05/10/17 08:53; Start 04/20/17 at 09:00 Finasteride (Proscar) 5 mg DAILY PO Last administered on 05/10/17 08:53; Start 04/20/17 at 09:00 Folic Acid (Folic Acid) 1 mg DAILY PO Last administered on 05/10/17 08:53; Start 04/20/17 at 09:00 Al Hydroxide/Mg Hydroxide (Mylanta Plus Xs) 15 ml PRN QHS PRN PO INDIGESTION; Start 04/20/17 at 07:45 Magnesium Hydroxide (Milk Of Magnesia) 800 mg PRN Q24HRS PRN PO CONSTIPATION Last administered on 04/26/17 03:09; Start 04/20/17 at 07:45 Multi-Ingredient Ointment (Analgesic Murtaugh) 1 amelia PRN QID PRN TP muscle pain; Start 04/20/17 at 07:45 Polyethylene Glycol (miraLAX) 17 gm DAILY PO Last administered on 05/10/17 08: 53; Start 04/20/17 at 09:00 Simvastatin (Zocor) 20 mg HS PO Last administered on 05/09/17 20:29; Start 04/20/17 at 21:00 Tamsulosin HCl (Flomax) 0.4 mg QHS PO Last administered on 05/09/17 20:29; Start 04/20/17 at 21:00 Thiamine HCl (Vitamin B-1) 100 mg DAILY PO Last administered on 05/10/17 08:53 ; Start 04/20/17 at 09:00 Tramadol HCl (Ultram) 50 mg PRN Q6HRS PRN PO PAIN; Start 04/20/17 at 07:45 Triamcinolone Acetonide (Kenalog) 15 amelia PRN BID PRN TP RASH; Start 04/20/17 at 07:45 Brimonidine Tartrate (Alphagan) 1 drop BID OU Last administered on 04/21/17 11:11; Start 04/20/17 at 09:00; Stop 04/21/17 at 14:37; Status DC Vitamin D (Vitamin D3) 2,000 unit DAILY PO Last administered on 05/10/17 08:55 ; Start 04/20/17 at 09:00 Timolol Maleate (Timoptic 0.5% Ophth) 1 drop BID OU Last administered on 08:22; Start 04/20/17 at 09:00 Dextrose 1,000 ml @ 100 mls/hr Q10H IV Last administered on 04/20/17 18:06; Start 04/20/17 at 16:15; Stop 04/22/17 at 00:42; Status DC Prenat Multivit/ [place]/Iron/Folic Ac (Multivitamin ) 1 tab DAILYBFRSUP PO Last administered on 05/10/17 08:54; Start 04/20/17 at 17:00 Brimonidine Tartrate (Alphagan) 1 drop BID OU Last administered on 05/03/17 08:23; Start 04/21/17 at 14:37 Sodium Chloride 1,000 ml @ 125 mls/hr Q8H IV Last administered on 04/21/17 16:08; Start 04/21/17 at 14:45; Stop 04/22/17 at 00:42; Status DC Sertraline HCl (Zoloft) 25 mg DAILY PO Last administered on 04/24/17 09:35; Start 04/22/17 at 09:00; Stop 04/24/17 at 09:01; Status DC Sertraline HCl (Zoloft) 50 mg DAILY PO Last administered on 04/26/17 10:06; Start 04/22/17 at 09:00; Stop 04/26/17 at 18:17; Status DC Sertraline HCl (Zoloft) 75 mg DAILY PO Last administered on 05/05/17 07:54; Start 04/27/17 at 09:00; Stop 05/05/17 at 18:30; Status DC Quetiapine Fumarate (SEROquel) 25 mg TID@0900,1300,1700 PO Last administered on 05/05/17 16:40; Start 04/29/17 at 09:00; Stop 05/05/17 at 18:30; Status DC Divalproex Sodium (Depakote Sprinkles) 125 mg BID@0900,1300 PO Last administered on 05/04/17 14:57; Start 04/29/17 at 09:00; Stop 05/04/17 at 16 :50; Status DC Ascorbic Acid (Vitamin C) 250 mg DAILY PO Last administered on 05/10/17 08:54; Start 04/30/17 at 09:00 Divalproex Sodium (Depakote Sprinkles) 125 mg [id number] PO Last administered on 15:20; Start 05/04/17 at 21:00; Stop 05/07/17 at 17:33; Status DC Quetiapine Fumarate (SEROquel) 25 mg 0900,1200,1500,1700 PO Last administered on 05/10/17 16:33; Start 05/06/17 at 09:00 Quetiapine Fumarate (SEROquel) 25 mg BID@1500,1700 PO ; Start 05/06/17 at 15:00 ; Status UNV Fluvoxamine Maleate (Luvox) 25 mg HS PO Last administered on 05/05/17 20:54; Start 05/05/17 at 21:00; Stop 05/05/17 at 21:31; Status DC Fluvoxamine Maleate (Luvox) 50 mg HS PO Last administered on 05/09/17 20:29; Start 05/06/17 at 21:00 Divalproex Sodium (Depakote Sprinkles) 125 mg DAILY@1400 PO Last administered on 05/10/17 12:21; Start 05/08/17 at 14:00 Divalproex Sodium (Depakote Sprinkles) 250 mg BID PO Last administered on 08:53; Start 05/07/17 at 21:00 Active Scripts Active Reported Mag-Al Plus Xs Suspension (Mag Hydrox/Al Hydrox/Simeth) 30 Ml Oral.susp 15 Ml PO PRN QHS PRN Triamcinolone Acetonide 15 Gm Cream..g. 15 Gm TP PRN BID PRN Voltaren (Diclofenac Sodium) 100 Gm Gel..gram. 4 Gm TP PRN Q6HRS Acetaminophen 500 Mg Tablet 1,000 Mg PO PRN Q8HRS PRN Seroquel (Quetiapine Fumarate) 100 Mg Tablet 100 Mg PO QHS Seroquel (Quetiapine Fumarate) 50 Mg Tablet 75 Mg PO DAILY Milk Of Magnesia (Magnesium Hydroxide) 400 Mg/5 Ml Oral.susp 800 Mg PO PRN Q24HRS PRN Flomax (Tamsulosin Hcl) 0.4 Mg Cap.er.24h 0.4 Mg PO QHS Ferrous Sulfate 325 Mg Tablet 325 Mg PO BID Provera (Medroxyprogesterone Acetate) 2.5 Mg Tablet 1 Tab PO DAILY Trazodone Hcl 50 Mg Tablet 75 Mg PO QHS Zyprexa Zydis (Olanzapine) 5 Mg Tab.rapdis 2.5 Mg PO PRN Q2HR PRN Analgesic [place] (Methyl Salicylate/Menthol) 29 Gm Oint...g. 1 Amelia TP PRN QID PRN Hydroxyzine Pamoate 25 Mg Capsule 25 Mg PO PRN Q2HR PRN Donepezil Hcl 10 Mg Tablet 10 Mg PO DAILY Vitamin B-12 (Cyanocobalamin (Vitamin B-12)) 1,000 Mcg Tablet 1,000 Mcg PO DAILY Vitamin D (Cholecalciferol (Vitamin D3)) 2,000 Unit Capsule 2,000 Unit PO DAILY Ultram (Tramadol HCl) 50 Mg Tablet 50 Mg PO PRN Q6HRS PRN Thiamine Hcl 100 Mg Tablet 100 Mg PO DAILY Simvastatin 10 Mg Tablet 20 Mg PO DAILY Mirtazapine 15 Mg Tablet 15 Mg PO QHS Proscar (Finasteride) 5 Mg Tablet 5 Mg PO DAILY Miralax (Polyethylene Glycol 3350) 17 Gm Powd.pack 17 Gm PO DAILY Folic Acid 1 Mg Tablet 1 Mg PO DAILY Combigan Eye Drops (Brimonidine Tartrate/Timolol) 5 Ml Drops 1 Drop OU BID Colace (Docusate Sodium) 100 Mg Capsule 200 Mg PO BID Aspirin 81 Mg Tab.chew 81 Mg PO DAILY I have reviewed the current psychotropics carefully including drug interactions. Risk benefit ratio favors no change other than as noted in my dictated progress note. 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
[2017-05-10] MEDS: TAMSULOSIN 0.4 MG CAP.ER.24H. PO SCH (20:16)
[2017-05-10] MEDS: QUEtiapine 100 MG TABLET. PO SCH (20:17)
[2017-05-10] MEDS: MIRTAZAPINE 15 MG TABLET PO SCH (20:17)
[2017-05-10] MEDS: SIMVASTATIN 20 MG TABLET PO SCH (20:18)
[2017-05-10] MEDS: traZODone 50 MG TABLET. PO SCH (20:19)
[2017-05-11 05:50] VITALS: BP 131/72
[2017-05-11 07:50] LABS: BASO # 0.1 x10^3/uL (0.0-0.2); BASO % 1 % (0-3); EOS # 0.3 x10^3/uL (0.0-0.7); EOS % 4 % (0-3); HEMATOCRIT 33.8 % (39.0-53.0); LYMPH # 1.3 x10^3/uL (1.0-4.8); LYMPH % 14 % (24-48); MEAN CORPUSCULAR HEMOGLOBIN 28 pg (25-35); MEAN CORPUSCULAR HGB CONC 33 g/dL (31-37); MEAN CORPUSCULAR VOLUME 87 fL (79-100); MONO # 0.8 x10^3/uL (0.0-1.1); MONO % 9 % (0-9); NEUT # 6.9 x10^3uL (1.8-7.7); NEUT % 73 % (31-73); PLATELET COUNT 223 x10^3/uL (140-400); RED BLOOD COUNT 3.89 x10^6/uL (4.30-5.70); RED CELL DISTRIBUTION WIDTH 16.5 % (11.5-14.5); WHITE BLOOD COUNT 9.5 x10^3/uL (4.0-11.0)
[2017-05-11] MEDS: PRENATAL MULTIVITAMIN TABLET. PO SCH (07:51)
[2017-05-11] MEDS: FOLIC ACID 1 MG TABLET PO SCH (07:51)
[2017-05-11] MEDS: DONEPEZIL HCL 10 MG TABLET PO SCH (07:51)
[2017-05-11] MEDS: FINASTERIDE 5 MG TABLET PO SCH (07:51)
[2017-05-11] MEDS: DOCUSATE SODIUM 100 MG CAPSULE PO SCH ×2 (07:52→19:21)
[2017-05-11] MEDS: THIAMINE 100 MG TABLET. PO SCH (07:52)
[2017-05-11] MEDS: ASCORBIC ACID 500 MG TABLET PO SCH (07:52)
[2017-05-11] MEDS: CHOLECALCIFEROL (VITAMIN D3) 1,000 UNIT TABLET PO SCH (07:53)
[2017-05-11] MEDS: DIVALPROEX 125 MG CAP.SPRINK PO SCH ×3 (07:53→19:21)
[2017-05-11] MEDS: ASPIRIN 81 MG TAB.CHEW PO SCH (07:53)
[2017-05-11] MEDS: CYANOCOBALAMIN (VITAMIN B-12) 1,000 MCG TABLET. PO SCH (07:53)
[2017-05-11] MEDS: BRIMONIDINE 0.2% OPHTH SOLUTION 5ML BOTTLE. OU SCH ×2 (07:53→21:00)
[2017-05-11] MEDS: POLYETHYLENE GLYCOL 3350 17 GM PACKET. PO SCH (07:53)
[2017-05-11] MEDS: QUEtiapine 25 MG TABLET. PO SCH ×4 (07:53→16:49)
[2017-05-11] MEDS: FERROUS SULFATE 325 MG TABLET. PO SCH ×2 (07:53→19:23)
[2017-05-11] MEDS: TIMOLOL 0.5% OPHTH SOLUTION 5ML BOTTLE. OU SCH ×2 (07:54→21:00)
[2017-05-11 08:16] LABS: ALBUMIN 3.3 g/dL (3.4-5.0); ALBUMIN/GLOBULIN RATIO 0.9 (1.0-1.7); ALK PHOS 140 U/L (46-116); ALT (SGPT) 34 U/L (16-63); ANION GAP 7 (6-14); AST (SGOT) 25 U/L (15-37); BLOOD UREA NITROGEN 51 mg/dL (8-26); BUN/CREATININE RATIO 28 (6-20); CALCIUM 9.2 mg/dL (8.5-10.1); CARBON DIOXIDE 30 mmol/L (21-32); CHLORIDE 105 mmol/L (98-107); CREATININE 1.8 mg/dL (0.7-1.3); GFR 35.7; GLUCOSE 94 mg/dL (70-99); POTASSIUM 4.8 mmol/L (3.5-5.1); SODIUM 142 mmol/L (136-145); TOTAL BILIRUBIN 0.4 mg/dL (0.2-1.0); TOTAL PROTEIN 6.9 g/dL (6.4-8.2)
[2017-05-11 08:19] LABS: VAL ACID 44 mcg/mL (50-100)
[2017-05-11 15:49] VITALS: BP 111/64
[2017-05-11] MEDS: SIMVASTATIN 20 MG TABLET PO SCH (19:21)
[2017-05-11] MEDS: traZODone 50 MG TABLET. PO SCH (19:22)
[2017-05-11] MEDS: QUEtiapine 100 MG TABLET. PO SCH (19:23)
[2017-05-11] MEDS: MIRTAZAPINE 15 MG TABLET PO SCH (19:23)
[2017-05-11] MEDS: TAMSULOSIN 0.4 MG CAP.ER.24H. PO SCH (19:23)
--- NOTE | 2017-05-11 20:07 | PDOC ---
Exam Note: [place] Note: Please also refer to the separate dictated note~for this date of service dictated separately.~Patient seen individually. Discussed the patient with Nursing staff reviewed the chart.~Reviewed interim history and current functioning. Reviewed vital signs,~Labs/ Radiology~and current medications noted below. Continue current treatment with the changes noted in the dictated addendum note Assessment: Vital Signs: Vital Signs Date Time Temp Pulse Resp B/P (MAP) Pulse Ox O2 Delivery O2 Flow Rate FiO2 05/11/17 15:49 99.3 20 111/64 (80) 05/11/17 05:50 84 100 05/10/17 06:03 Room Air I&O Intake and Output 05/11/17 07:00 Intake Total 1320 ml Balance 1320 ml Intake Oral 1320 ml # Voids 1 # Bowel Movements 1 Labs: Laboratory Tests Test 05/11/17 07:28 White Blood Count 9.5 x10^3/uL (4.0-11.0) # Red Blood Count 3.89 x10^6/uL (4.30-5.70) L Hemoglobin 11.0 g/dL (13.0-17.5) L Hematocrit 33.8 % (39.0-53.0) L Mean Corpuscular Volume 87 fL (79-100) Mean Corpuscular Hemoglobin 28 pg (25-35) Mean Corpuscular Hemoglobin Concent 33 g/dL (31-37) Red Cell Distribution Width 16.5 % (11.5-14.5) H Platelet Count 223 x10^3/uL (140-400) Neutrophils (%) (Auto) 73 % (31-73) Lymphocytes (%) (Auto) 14 % (24-48) L Monocytes (%) (Auto) 9 % (0-9) Eosinophils (%) (Auto) 4 % (0-3) H Basophils (%) (Auto) 1 % (0-3) Neutrophils # (Auto) 6.9 x10^3uL (1.8-7.7) Lymphocytes # (Auto) 1.3 x10^3/uL (1.0-4.8) Monocytes # (Auto) 0.8 x10^3/uL (0.0-1.1) Eosinophils # (Auto) 0.3 x10^3/uL (0.0-0.7) Basophils # (Auto) 0.1 x10^3/uL (0.0-0.2) Sodium Level 142 mmol/L (136-145) Potassium Level 4.8 mmol/L (3.5-5.1) Chloride Level 105 mmol/L (98-107) Carbon Dioxide Level 30 mmol/L (21-32) Anion Gap 7 (6-14) Blood Urea Nitrogen 51 mg/dL (8-26) H Creatinine 1.8 mg/dL (0.7-1.3) H Estimated GFR (Cockcroft-Gault) 35.7 BUN/Creatinine Ratio 28 (6-20) H Glucose Level 94 mg/dL (70-99) Calcium Level 9.2 mg/dL (8.5-10.1) Total Bilirubin 0.4 mg/dL (0.2-1.0) Aspartate Amino Transferase (AST) 25 U/L (15-37) Alanine Aminotransferase (ALT) 34 U/L (16-63) Alkaline Phosphatase 140 U/L (46-116) H Total Protein 6.9 g/dL (6.4-8.2) Albumin 3.3 g/dL (3.4-5.0) L Albumin/Globulin Ratio 0.9 (1.0-1.7) L Valproic Acid Level 44 mcg/mL (50-100) L Valproic Acid Last Dose Date 05/10/17 Valproic Acid Last Dose Time 2100 Current Medications: Meds: Current Medications Diphenhydramine HCl (Benadryl) 50 mg 1X ONCE IM Last administered on 18:00; Start 04/19/17 at 18:00; Stop 04/19/17 at 18:01; Status DC Lorazepam (Ativan) 2 mg 1X ONCE IM Last administered on 04/19/17 18:00; Start 04/19/17 at 18:00; Stop 04/19/17 at 18:01; Status DC Olanzapine (ZyPREXA IM) 10 mg 1X ONCE IM Last administered on 04/19/17 18:30 ; Start 04/19/17 at 18:30; Stop 04/19/17 at 18:31; Status DC Lactated Ringer's 1,000 ml @ 1,000 mls/hr Q1H IV ; Start 04/19/17 at 18:15; Stop 04/22/17 at 00:43; Status DC Multivitamins/ Minerals 10 ml/ Folic Acid 1 mg/ Thiamine HCl 100 mg/Sodium Chloride 1,011.1 ml @ 1,000 mls/ hr 1X ONCE IV Last administered on 19:30; Start 04/19/17 at 19:30; Stop 04/19/17 at 20:30; Status DC Phytonadione (Vitamin K) 10 mg STK-MED ONCE .ROUTE ; Start 04/19/17 at 20:55; Stop 04/19/17 at 20:56; Status DC Thiamine HCl 200 mg STK-MED ONCE IV ; Start 04/19/17 at 20:55; Stop 04/19/17 at 20:56; Status DC Folic Acid 5 mg STK-MED ONCE IV ; Start 04/19/17 at 20:56; Stop 04/19/17 at 20 :57; Status DC Donepezil HCl (Aricept) 10 mg DAILY PO Last administered on 05/11/17 07:51; Start 04/20/17 at 09:00 Hydroxyzine Pamoate (Vistaril) 25 mg PRN Q2HR PRN PO AGITAT Last administered on 05/07/17 21:13; Start 04/19/17 at 23:30 Medroxyprogesterone Acetate (Provera) 2.5 mg DAILY PO Last administered on 07:51; Start 04/20/17 at 09:00 Mirtazapine (Remeron) 15 mg QHS PO Last administered on 05/11/17 19:23; Start 04/20/17 at 21:00 Olanzapine (ZyPREXA ZYDIS) 2.5 mg PRN Q2HR PRN PO ANXIETY / AGITATION Last administered on 05/07/17 21:13; Start 04/19/17 at 23:30 Quetiapine Fumarate (SEROquel) 75 mg DAILY PO Last administered on 04/28/17 11:15; Start 04/20/17 at 09:00; Stop 04/28/17 at 18:50; Status DC Quetiapine Fumarate (SEROquel) 100 mg QHS PO Last administered on 05/11/17 19: 23; Start 04/20/17 at 21:00 Trazodone HCl (Desyrel) 75 mg QHS PO Last administered on 05/11/17 19:22; Start 04/20/17 at 21:00 Acetaminophen (Tylenol) 1,000 mg PRN Q8HRS PRN PO PAIN Last administered on 12:44; Start 04/20/17 at 07:45 Aspirin (Children'S Aspirin) 81 mg DAILY PO Last administered on 05/11/17 07:53 ; Start 04/20/17 at 09:00 Cyanocobalamin (Vitamin B-12) 1,000 mcg DAILY PO Last administered on 05/11/17 07:53; Start 04/20/17 at 09:00 Diclofenac Sodium (Voltaren) 4 amelia PRN Q6HRS PRN TP PAIN; Start 04/20/17 at 07 :45 Docusate Sodium (Colace) 200 mg BID PO Last administered on 05/11/17 19:21; Start 04/20/17 at 09:00 Ferrous Sulfate (Feosol) 325 mg BID PO Last administered on 05/11/17 19:23; Start 04/20/17 at 09:00 Finasteride (Proscar) 5 mg DAILY PO Last administered on 05/11/17 07:51; Start 04/20/17 at 09:00 Folic Acid (Folic Acid) 1 mg DAILY PO Last administered on 05/11/17 07:51; Start 04/20/17 at 09:00 Al Hydroxide/Mg Hydroxide (Mylanta Plus Xs) 15 ml PRN QHS PRN PO INDIGESTION; Start 04/20/17 at 07:45 Magnesium Hydroxide (Milk Of Magnesia) 800 mg PRN Q24HRS PRN PO CONSTIPATION Last administered on 04/26/17 03:09; Start 04/20/17 at 07:45 Multi-Ingredient Ointment (Analgesic Grant) 1 amelia PRN QID PRN TP muscle pain; Start 04/20/17 at 07:45 Polyethylene Glycol (miraLAX) 17 gm DAILY PO Last administered on 05/11/17 07: 53; Start 04/20/17 at 09:00 Simvastatin (Zocor) 20 mg HS PO Last administered on 05/11/17 19:21; Start 04/25 at 21:00 Tamsulosin HCl (Flomax) 0.4 mg QHS PO Last administered on 05/11/17 19:23; Start 04/20/17 at 21:00 Thiamine HCl (Vitamin B-1) 100 mg DAILY PO Last administered on 05/11/17 07:52 ; Start 04/20/17 at 09:00 Tramadol HCl (Ultram) 50 mg PRN Q6HRS PRN PO PAIN; Start 04/20/17 at 07:45 Triamcinolone Acetonide (Kenalog) 15 amelia PRN BID PRN TP RASH; Start 04/20/17 at 07:45 Brimonidine Tartrate (Alphagan) 1 drop BID OU Last administered on 04/21/17 11:11; Start 04/20/17 at 09:00; Stop 04/21/17 at 14:37; Status DC Vitamin D (Vitamin D3) 2,000 unit DAILY PO Last administered on 05/11/17 07:53 ; Start 04/20/17 at 09:00 Timolol Maleate (Timoptic 0.5% Oph) 1 drop BID OU Last administered on 08:22; Start 04/20/17 at 09:00 Dextrose 1,000 ml @ 100 mls/hr Q10H IV Last administered on 04/20/17 18:06; Start 04/20/17 at 16:15; Stop 04/22/17 at 00:42; Status DC Prenat Multivit/ [place]/Iron/Folic Ac (Multivitamin ) 1 tab DAILYBFRSUP PO Last administered on 05/11/17 07:51; Start 04/20/17 at 17:00 Brimonidine Tartrate (Alphagan) 1 drop BID OU Last administered on 05/03/17 08:23; Start 04/21/17 at 14:37 Sodium Chloride 1,000 ml @ 125 mls/hr Q8H IV Last administered on 04/21/17 16:08; Start 04/21/17 at 14:45; Stop 04/22/17 at 00:42; Status DC Sertraline HCl (Zoloft) 25 mg DAILY PO Last administered on 04/24/17 09:35; Start 04/22/17 at 09:00; Stop 04/24/17 at 09:01; Status DC Sertraline HCl (Zoloft) 50 mg DAILY PO Last administered on 04/26/17 10:06; Start 04/22/17 at 09:00; Stop 04/26/17 at 18:17; Status DC Sertraline HCl (Zoloft) 75 mg DAILY PO Last administered on 05/05/17 07:54; Start 04/27/17 at 09:00; Stop 05/05/17 at 18:30; Status DC Quetiapine Fumarate (SEROquel) 25 mg TID@0900,1300,1700 PO Last administered on 05/05/17 16:40; Start 04/29/17 at 09:00; Stop 05/05/17 at 18:30; Status DC Divalproex Sodium (Depakote Sprinkles) 125 mg BID@0900,1300 PO Last administered on 05/04/17 14:57; Start 04/29/17 at 09:00; Stop 05/04/17 at 16 :50; Status DC Ascorbic Acid (Vitamin C) 250 mg DAILY PO Last administered on 05/11/17 07:52; Start 04/30/17 at 09:00 Divalproex Sodium (Depakote Sprinkles) 125 mg [id number] PO Last administered on 15:20; Start 05/04/17 at 21:00; Stop 05/07/17 at 17:33; Status DC Quetiapine Fumarate (SEROquel) 25 mg 0900,1200,1500,1700 PO Last administered on 05/11/17 16:49; Start 05/06/17 at 09:00 Quetiapine Fumarate (SEROquel) 25 mg BID@1500,1700 PO ; Start 05/06/17 at 15:00 ; Status UNV Fluvoxamine Maleate (Luvox) 25 mg HS PO Last administered on 05/05/17 20:54; Start 05/05/17 at 21:00; Stop 05/05/17 at 21:31; Status DC Fluvoxamine Maleate (Luvox) 50 mg HS PO Last administered on 05/11/17 19:22; Start 05/06/17 at 21:00 Divalproex Sodium (Depakote Sprinkles) 125 mg DAILY@1400 PO Last administered on 05/11/17 14:03; Start 05/08/17 at 14:00 Divalproex Sodium (Depakote Sprinkles) 250 mg BID PO Last administered on at 19:21; Start 05/07/17 at 21:00 Active Scripts Active Reported Mag-Al Plus Xs Suspension (Mag Hydrox/Al Hydrox/Simeth) 30 Ml Oral.susp 15 Ml PO PRN QHS PRN Triamcinolone Acetonide 15 Gm Cream..g. 15 Gm TP PRN BID PRN Voltaren (Diclofenac Sodium) 100 Gm Gel..gram. 4 Gm TP PRN Q6HRS Acetaminophen 500 Mg Tablet 1,000 Mg PO PRN Q8HRS PRN Seroquel (Quetiapine Fumarate) 100 Mg Tablet 100 Mg PO QHS Seroquel (Quetiapine Fumarate) 50 Mg Tablet 75 Mg PO DAILY Milk Of Magnesia (Magnesium Hydroxide) 400 Mg/5 Ml Oral.susp 800 Mg PO PRN Q24HRS PRN Flomax (Tamsulosin Hcl) 0.4 Mg Cap.er.24h 0.4 Mg PO QHS Ferrous Sulfate 325 Mg Tablet 325 Mg PO BID Provera (Medroxyprogesterone Acetate) 2.5 Mg Tablet 1 Tab PO DAILY Trazodone Hcl 50 Mg Tablet 75 Mg PO QHS Zyprexa Zydis (Olanzapine) 5 Mg Tab.rapdis 2.5 Mg PO PRN Q2HR PRN Analgesic [place] (Methyl Salicylate/Menthol) 29 Gm Oint...g. 1 Amelia TP PRN QID PRN Hydroxyzine Pamoate 25 Mg Capsule 25 Mg PO PRN Q2HR PRN Donepezil Hcl 10 Mg Tablet 10 Mg PO DAILY Vitamin B-12 (Cyanocobalamin (Vitamin B-12)) 1,000 Mcg Tablet 1,000 Mcg PO DAILY Vitamin D (Cholecalciferol (Vitamin D3)) 2,000 Unit Capsule 2,000 Unit PO DAILY Ultram (Tramadol HCl) 50 Mg Tablet 50 Mg PO PRN Q6HRS PRN Thiamine Hcl 100 Mg Tablet 100 Mg PO DAILY Simvastatin 10 Mg Tablet 20 Mg PO DAILY Mirtazapine 15 Mg Tablet 15 Mg PO QHS Proscar (Finasteride) 5 Mg Tablet 5 Mg PO DAILY Miralax (Polyethylene Glycol 3350) 17 Gm Powd.pack 17 Gm PO DAILY Folic Acid 1 Mg Tablet 1 Mg PO DAILY Combigan Eye Drops (Brimonidine Tartrate/Timolol) 5 Ml Drops 1 Drop OU BID Colace (Docusate Sodium) 100 Mg Capsule 200 Mg PO BID Aspirin 81 Mg Tab.chew 81 Mg PO DAILY I have reviewed the current psychotropics carefully including drug interactions. Risk benefit ratio favors no change other than as noted in my dictated progress note. 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
[2017-05-12 05:36] VITALS: BP_SYST 110; BP_SYST 131; BP_DIAS 66; BP_DIAS 79
--- NOTE | 2017-05-12 08:05 | PN ---
DATE: 05/09/2017 This is a late entry for 05/09/2017 and covers elements not covered in my initial note of 05/09/2017. I met with the patient the evening of 05/09/2016. The patient continues to call out "help me, help me" and when questioned, he has nothing specific needs help with. REVIEW OF SYSTEMS: Ambulation impaired, in wheelchair. No CV, , pulmonary, eye, ENT system symptoms on review. Reliability poor. MENTAL STATUS EXAM: Oriented to himself. Insight, judgment, recent and remote memory, attention, concentration, fund of knowledge poor, consistent with his diagnosis mentioned as in my initial note. IMPRESSION: Major neurocognitive disorder, Alzheimer, vascular with depression, delusion, behavioral disturbance. PLAN: Valproic acid level is 30. Continue current psychotropics. Adjust further as clinically indicated. MAN Corey DEY MD DR: ABBY/brian JOB#: [id number] / [id number]
[2017-05-12] MEDS: THIAMINE 100 MG TABLET. PO SCH (08:14)
[2017-05-12] MEDS: POLYETHYLENE GLYCOL 3350 17 GM PACKET. PO SCH (08:14)
[2017-05-12] MEDS: FINASTERIDE 5 MG TABLET PO SCH (08:14)
[2017-05-12] MEDS: FOLIC ACID 1 MG TABLET PO SCH (08:15)
[2017-05-12] MEDS: CHOLECALCIFEROL (VITAMIN D3) 1,000 UNIT TABLET PO SCH (08:15)
[2017-05-12] MEDS: ASCORBIC ACID 500 MG TABLET PO SCH (08:15)
[2017-05-12] MEDS: FERROUS SULFATE 325 MG TABLET. PO SCH ×2 (08:15→19:32)
[2017-05-12] MEDS: CYANOCOBALAMIN (VITAMIN B-12) 1,000 MCG TABLET. PO SCH (08:16)
[2017-05-12] MEDS: DOCUSATE SODIUM 100 MG CAPSULE PO SCH ×2 (08:16→19:31)
[2017-05-12] MEDS: QUEtiapine 25 MG TABLET. PO SCH ×4 (08:16→16:59)
[2017-05-12] MEDS: ASPIRIN 81 MG TAB.CHEW PO SCH (08:16)
[2017-05-12] MEDS: DONEPEZIL HCL 10 MG TABLET PO SCH (08:16)
[2017-05-12] MEDS: DIVALPROEX 125 MG CAP.SPRINK PO SCH ×3 (08:16→19:32)
--- NOTE | 2017-05-12 08:16 | PN ---
DATE: 05/10/2017 This is a late entry 05/10/2017 covers elements not covered in my initial note of 05/10/2017. I met with the patient in the evening of 05/10/2017. The patient remains confused, did well the previous evening, yells at times. REVIEW OF SYSTEMS: Hard of hearing, impaired ambulation, on wheelchair. No CV, , pulmonary, eye, ENT system symptoms on review. Reliability poor. I had to talk in to his left ear as he hears better in the left ear. MENTAL STATUS EXAM: Oriented to himself. Insight, judgment, recent and remote memory, attention, concentration, fund of knowledge poor, consistent with his diagnosis mentioned in my initial note. IMPRESSION: Major neurocognitive disorder, Alzheimer, vascular with depression, delusion, behavioral disturbance. PLAN: Continue current psychotropics mentioned in my initial note. MAN Corey DEY MD DR: ABBY/brian JOB#: [id number] / [id number]
[2017-05-12] MEDS: TIMOLOL 0.5% OPHTH SOLUTION 5ML BOTTLE. OU SCH ×2 (08:17→19:35)
[2017-05-12] MEDS: BRIMONIDINE 0.2% OPHTH SOLUTION 5ML BOTTLE. OU SCH ×2 (08:17→19:36)
[2017-05-12 16:17] VITALS: BP 93/59
[2017-05-12] MEDS: PRENATAL MULTIVITAMIN TABLET. PO SCH (16:59)
[2017-05-12] MEDS ORDERED: ASCO500C9 PO (17:37)
[2017-05-12] MEDS ORDERED: DIVA125C PO ×2 (17:40→17:41)
[2017-05-12] MEDS ORDERED: PNV1TABL78 PO (17:46)
[2017-05-12] MEDS ORDERED: TIMO10DR5 EACHEYE (17:54)
[2017-05-12] MEDS ORDERED: FLUV50TA2 PO (17:56)
[2017-05-12] MEDS: TAMSULOSIN 0.4 MG CAP.ER.24H. PO SCH (19:31)
[2017-05-12] MEDS: QUEtiapine 100 MG TABLET. PO SCH (19:32)
[2017-05-12] MEDS: traZODone 50 MG TABLET. PO SCH (19:32)
[2017-05-12] MEDS: SIMVASTATIN 20 MG TABLET PO SCH (19:32)
[2017-05-12] MEDS: MIRTAZAPINE 15 MG TABLET PO SCH (19:32)
[2017-05-12] MEDS: ACETAMINOPHEN 500 MG TABLET PO PRN (19:37)
--- NOTE | 2017-05-12 20:02 | PDOC ---
Exam Note: Chase Note: Please also refer to the separate dictated note~for this date of service dictated separately.~Patient seen individually. Discussed the patient with Nursing staff reviewed the chart.~Reviewed interim history and current functioning. Reviewed vital signs,~Labs/ Radiology~and current medications noted below. Continue current treatment with the changes noted in the dictated addendum note Assessment: Vital Signs: Vital Signs Date Time Temp Pulse Resp B/P (MAP) Pulse Ox O2 Delivery O2 Flow Rate FiO2 05/12/17 16:17 98.2 90 18 93/59 (70) 94 05/10/17 06:03 Room Air I&O Intake and Output 05/12/17 07:00 Intake Total 2280 ml Balance 2280 ml Intake Oral 2280 ml # Bowel Movements 1 Current Medications: Meds: Current Medications Diphenhydramine HCl (Benadryl) 50 mg 1X ONCE IM Last administered on 18:00; Start 04/19/17 at 18:00; Stop 04/19/17 at 18:01; Status DC Lorazepam (Ativan) 2 mg 1X ONCE IM Last administered on 04/19/17 18:00; Start 04/19/17 at 18:00; Stop 04/19/17 at 18:01; Status DC Olanzapine (ZyPREXA IM) 10 mg 1X ONCE IM Last administered on 04/19/17 18:30 ; Start 04/19/17 at 18:30; Stop 04/19/17 at 18:31; Status DC Lactated Ringer's 1,000 ml @ 1,000 mls/hr Q1H IV ; Start 04/19/17 at 18:15; Stop 04/22/17 at 00:43; Status DC Multivitamins/ Minerals 10 ml/ Folic Acid 1 mg/ Thiamine HCl 100 mg/Sodium Chloride 1,011.1 ml @ 1,000 mls/ hr 1X ONCE IV Last administered on 19:30; Start 04/19/17 at 19:30; Stop 04/19/17 at 20:30; Status DC Phytonadione (Vitamin K) 10 mg STK-MED ONCE .ROUTE ; Start 04/19/17 at 20:55; Stop 04/19/17 at 20:56; Status DC Thiamine HCl 200 mg STK-MED ONCE IV ; Start 04/19/17 at 20:55; Stop 04/19/17 at 20:56; Status DC Folic Acid 5 mg STK-MED ONCE IV ; Start 04/19/17 at 20:56; Stop 04/19/17 at 20 :57; Status DC Donepezil HCl (Aricept) 10 mg DAILY PO Last administered on 05/12/17 08:16; Start 04/20/17 at 09:00 Hydroxyzine Pamoate (Vistaril) 25 mg PRN Q2HR PRN PO AGITAT Last administered on 05/07/17 21:13; Start 04/19/17 at 23:30 Medroxyprogesterone Acetate (Provera) 2.5 mg DAILY PO Last administered on 08:14; Start 04/20/17 at 09:00 Mirtazapine (Remeron) 15 mg QHS PO Last administered on 05/12/17 19:32; Start 04/20/17 at 21:00 Olanzapine (ZyPREXA ZYDIS) 2.5 mg PRN Q2HR PRN PO ANXIETY / AGITATION Last administered on 05/07/17 21:13; Start 04/19/17 at 23:30 Quetiapine Fumarate (SEROquel) 75 mg DAILY PO Last administered on 04/28/17 11:15; Start 04/20/17 at 09:00; Stop 04/28/17 at 18:50; Status DC Quetiapine Fumarate (SEROquel) 100 mg QHS PO Last administered on 05/12/17 19: 32; Start 04/20/17 at 21:00 Trazodone HCl (Desyrel) 75 mg QHS PO Last administered on 05/12/17 19:32; Start 04/20/17 at 21:00 Acetaminophen (Tylenol) 1,000 mg PRN Q8HRS PRN PO PAIN Last administered on 05/12 19:37; Start 04/20/17 at 07:45 Aspirin (Children'S Aspirin) 81 mg DAILY PO Last administered on 05/12/17 08:16 ; Start 04/20/17 at 09:00 Cyanocobalamin (Vitamin B-12) 1,000 mcg DAILY PO Last administered on 05/12/17 08:16; Start 04/20/17 at 09:00 Diclofenac Sodium (Voltaren) 4 amelia PRN Q6HRS PRN TP PAIN; Start 04/20/17 at 07 :45 Docusate Sodium (Colace) 200 mg BID PO Last administered on 05/12/17 19:31; Start 04/20/17 at 09:00 Ferrous Sulfate (Feosol) 325 mg BID PO Last administered on 05/12/17 19:32; Start 04/20/17 at 09:00 Finasteride (Proscar) 5 mg DAILY PO Last administered on 05/12/17 08:14; Start 04/20/17 at 09:00 Folic Acid (Folic Acid) 1 mg DAILY PO Last administered on 05/12/17 08:15; Start 04/20/17 at 09:00 Al Hydroxide/Mg Hydroxide (Mylanta Plus Xs) 15 ml PRN QHS PRN PO INDIGESTION; Start 04/20/17 at 07:45 Magnesium Hydroxide (Milk Of Magnesia) 800 mg PRN Q24HRS PRN PO CONSTIPATION Last administered on 04/26/17 03:09; Start 04/20/17 at 07:45 Multi-Ingredient Ointment (Analgesic [place]) 1 amelia PRN QID PRN TP muscle pain; Start 04/20/17 at 07:45 Polyethylene Glycol (miraLAX) 17 gm DAILY PO Last administered on 05/12/17 08: 14; Start 04/20/17 at 09:00 Simvastatin (Zocor) 20 mg HS PO Last administered on 05/12/17 19:32; Start 04/25 at 21:00 Tamsulosin HCl (Flomax) 0.4 mg QHS PO Last administered on 05/12/17 19:31; Start 04/20/17 at 21:00 Thiamine HCl (Vitamin B-1) 100 mg DAILY PO Last administered on 05/12/17 08:14 ; Start 04/20/17 at 09:00 Tramadol HCl (Ultram) 50 mg PRN Q6HRS PRN PO PAIN; Start 04/20/17 at 07:45 Triamcinolone Acetonide (Kenalog) 15 amelia PRN BID PRN TP RASH; Start 04/20/17 at 07:45 Brimonidine Tartrate (Alphagan) 1 drop BID OU Last administered on 04/21/17t 11:11; Start 04/20/17 at 09:00; Stop 04/21/17 at 14:37; Status DC Vitamin D (Vitamin D3) 2,000 unit DAILY PO Last administered on 05/12/17 08:15 ; Start 04/20/17 at 09:00 Timolol Maleate (Timoptic 0.5% Ophth) 1 drop BID OU Last administered on 19:35; Start 04/20/17 at 09:00 Dextrose 1,000 ml @ 100 mls/hr Q10H IV Last administered on 04/20/17 18:06; Start 04/20/17 at 16:15; Stop 04/22/17 at 00:42; Status DC Prenat Multivit/ [place]/Iron/Folic Ac (Multivitamin ) 1 tab DAILYBFRSUP PO Last administered on 05/12/17 16:59; Start 04/20/17 at 17:00 Brimonidine Tartrate (Alphagan) 1 drop BID OU Last administered on 05/12/17 19: 36; Start 04/21/17 at 14:37 Sodium Chloride 1,000 ml @ 125 mls/hr Q8H IV Last administered on 04/21/17 16:08; Start 04/21/17 at 14:45; Stop 04/22/17 at 00:42; Status DC Sertraline HCl (Zoloft) 25 mg DAILY PO Last administered on 04/24/17 09:35; Start 04/22/17 at 09:00; Stop 04/24/17 at 09:01; Status DC Sertraline HCl (Zoloft) 50 mg DAILY PO Last administered on 04/26/17 10:06; Start 04/22/17 at 09:00; Stop 04/26/17 at 18:17; Status DC Sertraline HCl (Zoloft) 75 mg DAILY PO Last administered on 05/05/17 07:54; Start 04/27/17 at 09:00; Stop 05/05/17 at 18:30; Status DC Quetiapine Fumarate (SEROquel) 25 mg TID@0900,1300,1700 PO Last administered on 05/05/17 16:40; Start 04/29/17 at 09:00; Stop 05/05/17 at 18:30; Status DC Divalproex Sodium (Depakote Sprinkles) 125 mg BID@0900,1300 PO Last administered on 05/04/17 14:57; Start 04/29/17 at 09:00; Stop 05/04/17 at 16 :50; Status DC Ascorbic Acid (Vitamin C) 250 mg DAILY PO Last administered on 05/12/17 08:15; Start 04/30/17 at 09:00 Divalproex Sodium (Depakote Sprinkles) 125 mg [id number] PO Last administered on 15:20; Start 05/04/17 at 21:00; Stop 05/07/17 at 17:33; Status DC Quetiapine Fumarate (SEROquel) 25 mg 0900,1200,1500,1700 PO Last administered on 05/12/17 16:59; Start 05/06/17 at 09:00 Quetiapine Fumarate (SEROquel) 25 mg BID@1500,1700 PO ; Start 05/06/17 at 15:00 ; Status UNV Fluvoxamine Maleate (Luvox) 25 mg HS PO Last administered on 05/05/17 20:54; Start 05/05/17 at 21:00; Stop 05/05/17 at 21:31; Status DC Fluvoxamine Maleate (Luvox) 50 mg HS PO Last administered on 05/12/17 19:31; Start 05/06/17 at 21:00 Divalproex Sodium (Depakote Sprinkles) 125 mg DAILY@1400 PO Last administered on 05/12/17 14:01; Start 05/08/17 at 14:00 Divalproex Sodium (Depakote Sprinkles) 250 mg BID PO Last administered on 19:32; Start 05/07/17 at 21:00 Active Scripts Active Reported Fluvoxamine Maleate 50 Mg Tablet 50 Mg PO QHS PRN Timoptic (Timolol Maleate) 10 Ml Drops 1 Drop EACHEYE BID Multi Tablet (Pnv No.122/Iron/Folic Acid) 1 Each Tablet 1 Each PO DAILYBFRSUP Depakote Sprinkle (Divalproex Sodium) 125 Mg Cap.sprink 250 Mg PO BID Depakote Sprinkle (Divalproex Sodium) 125 Mg Cap.sprink 125 Mg PO DAILY@1400 Vitamin C (Ascorbic Acid) 500 Mg Capsule 250 Mg PO DAILY Mag-Al Plus Xs Suspension (Mag Hydrox/Al Hydrox/Simeth) 30 Ml Oral.susp 15 Ml PO PRN QHS PRN Triamcinolone Acetonide 15 Gm Cream..g. 15 Gm TP PRN BID PRN Voltaren (Diclofenac Sodium) 100 Gm Gel..gram. 4 Gm TP PRN Q6HRS Acetaminophen 500 Mg Tablet 1,000 Mg PO PRN Q8HRS PRN Seroquel (Quetiapine Fumarate) 100 Mg Tablet 100 Mg PO QHS Seroquel (Quetiapine Fumarate) 50 Mg Tablet 75 Mg PO DAILY Milk Of Magnesia (Magnesium Hydroxide) 400 Mg/5 Ml Oral.susp 800 Mg PO PRN Q24HRS PRN Flomax (Tamsulosin Hcl) 0.4 Mg Cap.er.24h 0.4 Mg PO QHS Ferrous Sulfate 325 Mg Tablet 325 Mg PO BID Provera (Medroxyprogesterone Acetate) 2.5 Mg Tablet 1 Tab PO DAILY Trazodone Hcl 50 Mg Tablet 75 Mg PO QHS Zyprexa Zydis (Olanzapine) 5 Mg Tab.rapdis 2.5 Mg PO PRN Q2HR PRN Analgesic [place] (Methyl Salicylate/Menthol) 29 Gm Oint...g. 1 Amelia TP PRN QID PRN Hydroxyzine Pamoate 25 Mg Capsule 25 Mg PO PRN Q2HR PRN Donepezil Hcl 10 Mg Tablet 10 Mg PO DAILY Vitamin B-12 (Cyanocobalamin (Vitamin B-12)) 1,000 Mcg Tablet 1,000 Mcg PO DAILY Vitamin D (Cholecalciferol (Vitamin D3)) 2,000 Unit Capsule 2,000 Unit PO DAILY Ultram (Tramadol HCl) 50 Mg Tablet 50 Mg PO PRN Q6HRS PRN Thiamine Hcl 100 Mg Tablet 100 Mg PO DAILY Simvastatin 10 Mg Tablet 20 Mg PO DAILY Mirtazapine 15 Mg Tablet 15 Mg PO QHS Proscar (Finasteride) 5 Mg Tablet 5 Mg PO DAILY Miralax (Polyethylene Glycol 3350) 17 Gm Powd.pack 17 Gm PO DAILY Folic Acid 1 Mg Tablet 1 Mg PO DAILY Combigan Eye Drops (Brimonidine Tartrate/Timolol) 5 Ml Drops 1 Drop OU BID Colace (Docusate Sodium) 100 Mg Capsule 200 Mg PO BID Aspirin 81 Mg Tab.chew 81 Mg PO DAILY I have reviewed the current psychotropics carefully including drug interactions. Risk benefit ratio favors no change other than as noted in my dictated progress note. 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
--- NOTE | 2017-05-13 04:29 | PN ---
DATE: 05/11/2017 PSYCHIATRIC PROGRESS NOTE This late entry 05/11/2017 covers elements not covered in my initial note 05/11/2017. SUBJECTIVE: I met with the patient in the evening of 05/11/2017. The patient slept 4-1/2 hours previous evening. Valproic acid level is 44. The patient continues to yell out "help me, help me," but redirects. Appetite is poor. REVIEW OF SYSTEMS: Ambulation impaired, in a wheelchair, hard of hearing. No CV, , pulmonary, eye system symptoms on review. Reliability poor. MENTAL STATUS EXAM: Oriented to himself. Insight, judgment, recent and remote memory, attention, concentration, fund of knowledge poor, consistent with his diagnosis mentioned in my initial note. IMPRESSION: Major neurocognitive disorder, Alzheimer, vascular with depression, delusion, behavioral disturbance. Rest unchanged from before. PLAN: Continue current psychotropics. Adjust further as clinically indicated, but for now he is doing better enough, even though some of the mood lability and the repetitive "help me, help me" continues. MAN Corey DEY MD DR: ABBY/brian JOB#: [id number] / [id number]
[2017-05-13 06:01] VITALS: BP 113/77
[2017-05-13] MEDS: CHOLECALCIFEROL (VITAMIN D3) 1,000 UNIT TABLET PO SCH (07:58)
[2017-05-13] MEDS: FINASTERIDE 5 MG TABLET PO SCH (07:59)
[2017-05-13] MEDS: ASCORBIC ACID 500 MG TABLET PO SCH (07:59)
[2017-05-13] MEDS: QUEtiapine 25 MG TABLET. PO SCH ×2 (07:59→11:18)
[2017-05-13] MEDS: FOLIC ACID 1 MG TABLET PO SCH (07:59)
[2017-05-13] MEDS: CYANOCOBALAMIN (VITAMIN B-12) 1,000 MCG TABLET. PO SCH (07:59)
[2017-05-13] MEDS: DIVALPROEX 125 MG CAP.SPRINK PO SCH (07:59)
[2017-05-13] MEDS: FERROUS SULFATE 325 MG TABLET. PO SCH (07:59)
[2017-05-13] MEDS: ASPIRIN 81 MG TAB.CHEW PO SCH (07:59)
[2017-05-13] MEDS: THIAMINE 100 MG TABLET. PO SCH (07:59)
[2017-05-13] MEDS: DOCUSATE SODIUM 100 MG CAPSULE PO SCH (07:59)
[2017-05-13] MEDS: POLYETHYLENE GLYCOL 3350 17 GM PACKET. PO SCH (08:00)
[2017-05-13] MEDS: DONEPEZIL HCL 10 MG TABLET PO SCH (08:00)
[2017-05-13] MEDS: BRIMONIDINE 0.2% OPHTH SOLUTION 5ML BOTTLE. OU SCH (08:02)
[2017-05-13] MEDS: TIMOLOL 0.5% OPHTH SOLUTION 5ML BOTTLE. OU SCH (08:02)
--- NOTE | 2017-05-13 18:48 | PDOC ---
Exam Note: Chase Note: Please also refer to the separate dictated note~for this date of service dictated separately.~Patient seen individually. Discussed the patient with Nursing staff reviewed the chart.~Reviewed interim history and current functioning. Reviewed vital signs,~Labs/ Radiology~and current medications noted below. Continue current treatment with the changes noted in the dictated addendum note Assessment: Vital Signs: Vital Signs Date Time Temp Pulse Resp B/P (MAP) Pulse Ox O2 Delivery O2 Flow Rate FiO2 05/13/17 06:01 100.0 101 20 113/77 (89) Room Air 05/12/17 16:17 94 I&O Intake and Output 05/13/17 06:59 Intake Total 840 ml Balance 840 ml Intake Oral 840 ml Current Medications: Meds: Current Medications Diphenhydramine HCl (Benadryl) 50 mg 1X ONCE IM Last administered on 18:00; Start 04/19/17 at 18:00; Stop 04/19/17 at 18:01; Status DC Lorazepam (Ativan) 2 mg 1X ONCE IM Last administered on 04/19/17 18:00; Start 04/19/17 at 18:00; Stop 04/19/17 at 18:01; Status DC Olanzapine (ZyPREXA IM) 10 mg 1X ONCE IM Last administered on 04/19/17 18:30 ; Start 04/19/17 at 18:30; Stop 04/19/17 at 18:31; Status DC Lactated Ringer's 1,000 ml @ 1,000 mls/hr Q1H IV ; Start 04/19/17 at 18:15; Stop 04/22/17 at 00:43; Status DC Multivitamins/ Minerals 10 ml/ Folic Acid 1 mg/ Thiamine HCl 100 mg/Sodium Chloride 1,011.1 ml @ 1,000 mls/ hr 1X ONCE IV Last administered on 19:30; Start 04/19/17 at 19:30; Stop 04/19/17 at 20:30; Status DC Phytonadione (Vitamin K) 10 mg STK-MED ONCE .ROUTE ; Start 04/19/17 at 20:55; Stop 04/19/17 at 20:56; Status DC Thiamine HCl 200 mg STK-MED ONCE IV ; Start 04/19/17 at 20:55; Stop 04/19/17 at 20:56; Status DC Folic Acid 5 mg STK-MED ONCE IV ; Start 04/19/17 at 20:56; Stop 04/19/17 at 20 :57; Status DC Donepezil HCl (Aricept) 10 mg DAILY PO Last administered on 05/13/17 08:00; Start 04/20/17 at 09:00; Stop 05/13/17 at 12:03; Status DC Hydroxyzine Pamoate (Vistaril) 25 mg PRN Q2HR PRN PO AGITAT Last administered on 05/07/17 21:13; Start 04/19/17 at 23:30; Stop 05/13/17 at 12:03; Status DC Medroxyprogesterone Acetate (Provera) 2.5 mg DAILY PO Last administered on 07:59; Start 04/20/17 at 09:00; Stop 05/13/17 at 12:03; Status DC Mirtazapine (Remeron) 15 mg QHS PO Last administered on 05/12/17 19:32; Start 04/20/17 at 21:00; Stop 05/13/17 at 12:03; Status DC Olanzapine (ZyPREXA ZYDIS) 2.5 mg PRN Q2HR PRN PO ANXIETY / AGITATION Last administered on 05/07/17 21:13; Start 04/19/17 at 23:30; Stop 05/13/17 at 12: 03; Status DC Quetiapine Fumarate (SEROquel) 75 mg DAILY PO Last administered on 04/28/17 11:15; Start 04/20/17 at 09:00; Stop 04/28/17 at 18:50; Status DC Quetiapine Fumarate (SEROquel) 100 mg QHS PO Last administered on 05/12/17 19: 32; Start 04/20/17 at 21:00; Stop 05/13/17 at 12:03; Status DC Trazodone HCl (Desyrel) 75 mg QHS PO Last administered on 05/12/17 19:32; Start 04/20/17 at 21:00; Stop 05/13/17 at 12:03; Status DC Acetaminophen (Tylenol) 1,000 mg PRN Q8HRS PRN PO PAIN Last administered on 05/12 19:37; Start 04/20/17 at 07:45; Stop 05/13/17 at 12:03; Status DC Aspirin (Children'S Aspirin) 81 mg DAILY PO Last administered on 05/13/17 07:59 ; Start 04/20/17 at 09:00; Stop 05/13/17 at 12:03; Status DC Cyanocobalamin (Vitamin B-12) 1,000 mcg DAILY PO Last administered on 05/13/17 07:59; Start 04/20/17 at 09:00; Stop 05/13/17 at 12:03; Status DC Diclofenac Sodium (Voltaren) 4 amelia PRN Q6HRS PRN TP PAIN; Start 04/20/17 at 07 :45; Stop 05/13/17 at 12:03; Status DC Docusate Sodium (Colace) 200 mg BID PO Last administered on 05/13/17 07:59; Start 04/20/17 at 09:00; Stop 05/13/17 at 12:03; Status DC Ferrous Sulfate (Feosol) 325 mg BID PO Last administered on 05/13/17 07:59; Start 04/20/17 at 09:00; Stop 05/13/17 at 12:03; Status DC Finasteride (Proscar) 5 mg DAILY PO Last administered on 05/13/17 07:59; Start 04/20/17 at 09:00; Stop 05/13/17 at 12:03; Status DC Folic Acid (Folic Acid) 1 mg DAILY PO Last administered on 05/13/17 07:59; Start 04/20/17 at 09:00; Stop 05/13/17 at 12:03; Status DC Al Hydroxide/Mg Hydroxide (Mylanta Plus Xs) 15 ml PRN QHS PRN PO INDIGESTION; Start 04/20/17 at 07:45; Stop 05/13/17 at 12:03; Status DC Magnesium Hydroxide (Milk Of Magnesia) 800 mg PRN Q24HRS PRN PO CONSTIPATION Last administered on 04/26/17t 03:09; Start 04/20/17 at 07:45; Stop 05/13/17 at 12:03; Status DC Multi-Ingredient Ointment (Analgesic [place]) 1 amelia PRN QID PRN TP muscle pain; Start 04/20/17 at 07:45; Stop 05/13/17 at 12:03; Status DC Polyethylene Glycol (miraLAX) 17 gm DAILY PO Last administered on 05/13/17 08: 00; Start 04/20/17 at 09:00; Stop 05/13/17 at 12:03; Status DC Simvastatin (Zocor) 20 mg HS PO Last administered on 05/12/17 19:32; Start 04/25 at 21:00; Stop 05/13/17 at 12:03; Status DC Tamsulosin HCl (Flomax) 0.4 mg QHS PO Last administered on 05/12/17 19:31; Start 04/20/17 at 21:00; Stop 05/13/17 at 12:03; Status DC Thiamine HCl (Vitamin B-1) 100 mg DAILY PO Last administered on 05/13/17 07:59 ; Start 04/20/17 at 09:00; Stop 05/13/17 at 12:03; Status DC Tramadol HCl (Ultram) 50 mg PRN Q6HRS PRN PO PAIN; Start 04/20/17 at 07:45; Stop 05/13/17 at 12:03; Status DC Triamcinolone Acetonide (Kenalog) 15 amelia PRN BID PRN TP RASH; Start 04/20/17 at 07:45; Stop 05/13/17 at 12:03; Status DC Brimonidine Tartrate (Alphagan) 1 drop BID OU Last administered on 04/21/17 11:11; Start 04/20/17 at 09:00; Stop 04/21/17 at 14:37; Status DC Vitamin D (Vitamin D3) 2,000 unit DAILY PO Last administered on 05/13/17 07:58 ; Start 04/20/17 at 09:00; Stop 05/13/17 at 12:03; Status DC Timolol Maleate (Timoptic 0.5% [facility]) 1 drop BID OU Last administered on 08:02; Start 04/20/17 at 09:00; Stop 05/13/17 at 12:03; Status DC Dextrose 1,000 ml @ 100 mls/hr Q10H IV Last administered on 04/20/17 18:06; Start 04/20/17 at 16:15; Stop 04/22/17 at 00:42; Status DC Prenat Multivit/ [place]/Iron/Folic Ac (Multivitamin ) 1 tab DAILYBFRSUP PO Last administered on 05/12/17 16:59; Start 04/20/17 at 17:00; Stop 05/13/17 at 12:03; Status DC Brimonidine Tartrate (Alphagan) 1 drop BID OU Last administered on 05/13/17 08: 02; Start 04/21/17 at 14:37; Stop 05/13/17 at 12:03; Status DC Sodium Chloride 1,000 ml @ 125 mls/hr Q8H IV Last administered on 04/21/17 16:08; Start 04/21/17 at 14:45; Stop 04/22/17 at 00:42; Status DC Sertraline HCl (Zoloft) 25 mg DAILY PO Last administered on 04/24/17 09:35; Start 04/22/17 at 09:00; Stop 04/24/17 at 09:01; Status DC Sertraline HCl (Zoloft) 50 mg DAILY PO Last administered on 04/26/17 10:06; Start 04/22/17 at 09:00; Stop 04/26/17 at 18:17; Status DC Sertraline HCl (Zoloft) 75 mg DAILY PO Last administered on 05/05/17 07:54; Start 04/27/17 at 09:00; Stop 05/05/17 at 18:30; Status DC Quetiapine Fumarate (SEROquel) 25 mg TID@0900,1300,1700 PO Last administered on 05/05/17 16:40; Start 04/29/17 at 09:00; Stop 05/05/17 at 18:30; Status DC Divalproex Sodium (Depakote Sprinkles) 125 mg BID@0900,1300 PO Last administered on 05/04/17 14:57; Start 04/29/17 at 09:00; Stop 05/04/17 at 16 :50; Status DC Ascorbic Acid (Vitamin C) 250 mg DAILY PO Last administered on 05/13/17 07:59; Start 04/30/17 at 09:00; Stop 05/13/17 at 12:03; Status DC Divalproex Sodium (Depakote Sprinkles) 125 mg [id number] PO Last administered on 15:20; Start 05/04/17 at 21:00; Stop 05/07/17 at 17:33; Status DC Quetiapine Fumarate (SEROquel) 25 mg 0900,1200,1500,1700 PO Last administered on 05/13/17at 11:18; Start 05/06/17 at 09:00; Stop 05/13/17 at 12:03; Status DC Quetiapine Fumarate (SEROquel) 25 mg BID@1500,1700 PO ; Start 05/06/17 at 15:00 ; Status UNV Fluvoxamine Maleate (Luvox) 25 mg HS PO Last administered on 05/05/17t 20:54; Start 05/05/17 at 21:00; Stop 05/05/17 at 21:31; Status DC Fluvoxamine Maleate (Luvox) 50 mg HS PO Last administered on 05/12/17at 19:31; Start 05/06/17 at 21:00; Stop 05/13/17 at 12:03; Status DC Divalproex Sodium (Depakote Sprinkles) 125 mg DAILY@1400 PO Last administered on 05/12/17at 14:01; Start 05/08/17 at 14:00; Stop 05/13/17 at 12:03; Status DC Divalproex Sodium (Depakote Sprinkles) 250 mg BID PO Last administered on at 07:59; Start 05/07/17 at 21:00; Stop 05/13/17 at 12:03; Status DC Active Scripts Active Reported Fluvoxamine Maleate 50 Mg Tablet 50 Mg PO QHS Timoptic (Timolol Maleate) 10 Ml Drops 1 Drop EACHEYE BID Multi Tablet (Pnv No.122/Iron/Folic Acid) 1 Each Tablet 1 Each PO DAILYBFRSUP Depakote Sprinkle (Divalproex Sodium) 125 Mg Cap.sprink 250 Mg PO BID Depakote Sprinkle (Divalproex Sodium) 125 Mg Cap.sprink 125 Mg PO DAILY@1400 Vitamin C (Ascorbic Acid) 500 Mg Capsule 250 Mg PO DAILY Mag-Al Plus Xs Suspension (Mag Hydrox/Al Hydrox/Simeth) 30 Ml Oral.susp 15 Ml PO PRN QHS PRN Triamcinolone Acetonide 15 Gm Cream..g. 15 Gm TP PRN BID PRN Voltaren (Diclofenac Sodium) 100 Gm Gel..gram. 4 Gm TP PRN Q6HRS Acetaminophen 500 Mg Tablet 1,000 Mg PO PRN Q8HRS PRN MDD 4000mg Seroquel (Quetiapine Fumarate) 100 Mg Tablet 100 Mg PO QHS Seroquel (Quetiapine Fumarate) 50 Mg Tablet 25 Mg PO 0900,1200,1500,1700 Milk Of Magnesia (Magnesium Hydroxide) 400 Mg/5 Ml Oral.susp 800 Mg PO PRN Q24HRS PRN Flomax (Tamsulosin Hcl) 0.4 Mg Cap.er.24h 0.4 Mg PO QHS Ferrous Sulfate 325 Mg Tablet 325 Mg PO BID Provera (Medroxyprogesterone Acetate) 2.5 Mg Tablet 1 Tab PO DAILY Trazodone Hcl 50 Mg Tablet 75 Mg PO QHS Zyprexa Zydis (Olanzapine) 5 Mg Tab.rapdis 2.5 Mg PO PRN Q2HR PRN Analgesic [place] (Methyl Salicylate/Menthol) 29 Gm Oint...g. 1 Amelia TP PRN QID PRN Hydroxyzine Pamoate 25 Mg Capsule 25 Mg PO PRN Q2HR PRN Donepezil Hcl 10 Mg Tablet 10 Mg PO DAILY Vitamin B-12 (Cyanocobalamin (Vitamin B-12)) 1,000 Mcg Tablet 1,000 Mcg PO DAILY Vitamin D (Cholecalciferol (Vitamin D3)) 2,000 Unit Capsule 2,000 Unit PO DAILY Ultram (Tramadol HCl) 50 Mg Tablet 50 Mg PO PRN Q6HRS PRN Thiamine Hcl 100 Mg Tablet 100 Mg PO DAILY Simvastatin 10 Mg Tablet 20 Mg PO QHS Mirtazapine 15 Mg Tablet 15 Mg PO QHS Proscar (Finasteride) 5 Mg Tablet 5 Mg PO DAILY Miralax (Polyethylene Glycol 3350) 17 Gm Powd.pack 17 Gm PO DAILY Folic Acid 1 Mg Tablet 1 Mg PO DAILY Combigan Eye Drops (Brimonidine Tartrate/Timolol) 5 Ml Drops 1 Drop OU BID Colace (Docusate Sodium) 100 Mg Capsule 200 Mg PO BID Aspirin 81 Mg Tab.chew 81 Mg PO DAILY I have reviewed the current psychotropics carefully including drug interactions. Risk benefit ratio favors no change other than as noted in my dictated progress note. 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
--- NOTE | 2017-05-14 10:45 | DS ---
DATE OF DISCHARGE: 05/13/2017 DISCHARGE SUMMARY/PSYCHIATRIC PROGRESS NOTE This late entry date of service 05/13/2017 covers elements, not covered in my initial note of 05/13/2017. REASON FOR ADMISSION: Please refer to the admission history for details. HISTORY OF PRESENT ILLNESS: Briefly, the patient is an 87-year-old male referred to us from [facility] by his primary care physician on account of worsening confusion, disrobing, hitting, kicking staff, noncompliant with cares. Repeatedly, yelling out "help me, help me." He had failed outpatient psychiatric interventions. Behaviors were disruptive at the facility, unmanageable, referred for inpatient psychiatric stabilization. SIGNIFICANT FINDINGS AND CLINICAL COURSE: Following admission, the patient was seen daily individually from a psychiatric standpoint by myself, followed medically per Dr. Holguin/Dr. Saeed. He is extremely hard of hearing with impaired ambulation, in wheelchair, constantly complaining of feeling cold, covering himself in blankets with his head covered. Repeatedly, yelling out "help me, help me." Adjustments were made in his psychotropics. He seemed to respond to a combination of Aricept 10 mg a day, hydroxyzine p.r.n. He is sexually inappropriate and was on progesterone 2.5 mg daily. Seroquel was 100 mg at bedtime, 25 mg 4 times a day, Luvox 50 mg at bedtime, trazodone 75 mg at bedtime, Remeron 15 mg at bedtime, Zyprexa p.r.n., Depakote Sprinkles 125 mg at 1400, 250 mg b.i.d. at 1900, 2100 with a level of 44. Despite level being slightly subtherapeutic, it was clinically adequate. Prior to discharge on 05/13/2017, ambulation impaired, in wheelchair, poor vision, poor hearing. REVIEW OF SYSTEMS: No CV, , GI, or pulmonary system symptoms on review. Reliability poor. MENTAL STATUS EXAM: Oriented to himself. Insight, judgment, recent and remote memory, attention, concentration, fund of knowledge poor, consistent with his diagnosis. CONDITION AT DISCHARGE: Improved. FINAL DIAGNOSES: Major neurocognitive disorder, Alzheimer, vascular with depression, delusion, behavioral disturbance; anxiety disorder, unspecified; impulse control disorder, unspecified. PLAN: Continue current psychotropics mentioned in my MRAD. Outpatient psychiatric medical followup at the halfway. Time for discharge day management greater than 30 minutes. ELBA DEY MD DR: ABBY/brian JOB#: [id number] / [id number]
--- NOTE | 2017-05-15 03:01 | PN ---
DATE: 05/12/2017 This is a late entry 05/12/2017 covers elements not covered in my initial note of 05/12/2017. I met with the patient in the evening of 05/12/2017 and he was staffed at a treatment team meeting with the entire team morning of 05/12/2017. The patient remains withdrawn, covers himself with blankets in his wheelchair. Hearing is impaired. REVIEW OF SYSTEMS: No CV, , pulmonary, eye system symptoms on review, though vision is poor. Reliability poor. MENTAL STATUS EXAM: Oriented to himself. Insight, judgment, recent and remote memory, attention, concentration, fund of knowledge poor, consistent with his diagnosis mentioned in my initial note. IMPRESSION: Major neurocognitive disorder, Alzheimer, vascular with depression, delusion, behavioral disturbance. Rest unchanged. PLAN: Continue psychotropics mentioned in my initial note. Adjust as clinically indicated. MAN Corey DEY MD DR: ABBY/brian JOB#: [id number] / [id number]
== END 2017-05-13 12:02 | disposition home or self-care (01) | DRG 884 ==
LOC: ER 17:05 → GEROPSY 22:22
PROVIDERS: ADMIT Psychiatry & Neurology Psychiatry; ATTEND Psychiatry & Neurology Psychiatry
DX: F01.51 Vascular dementia, unspecified severity, with behavioral disturbance (principal); N17.9 Acute kidney failure, unspecified; E87.0 Hyperosmolality and hypernatremia; G30.9 Alzheimer's disease, unspecified; F02.81 Dementia in other diseases classified elsewhere, unspecified severity, with behavioral disturbance; W05.0XXA Fall from non-moving wheelchair, initial encounter; F22 Delusional disorders; E78.5 Hyperlipidemia, unspecified; E86.0 Dehydration; F32.9 Major depressive disorder, single episode, unspecified; F41.9 Anxiety disorder, unspecified; F63.9 Impulse disorder, unspecified; G40.909 Epilepsy, unspecified, not intractable, without status epilepticus; H40.9 Unspecified glaucoma; H54.7 Unspecified visual loss; I10 Essential (primary) hypertension; E00.9 Congenital iodine-deficiency syndrome, unspecified; G47.00 Insomnia, unspecified; G89.29 Other chronic pain; H26.9 Unspecified cataract; K59.09 Other constipation; M19.90 Unspecified osteoarthritis, unspecified site; F17.210 Nicotine dependence, cigarettes, uncomplicated; N40.0 Benign prostatic hyperplasia without lower urinary tract symptoms; J44.9 Chronic obstructive pulmonary disease, unspecified; Z66 Do not resuscitate; Z79.899 Other long term (current) drug therapy; Z86.718 Personal history of other venous thrombosis and embolism; Y99.8 Other external cause status; Z86.73 Personal history of transient ischemic attack (TIA), and cerebral infarction without residual deficits; Z91.19 Patient's noncompliance with other medical treatment and regimen; Y93.89 Activity, other specified; Z87.440 Personal history of urinary (tract) infections; Z91.83 Wandering in diseases classified elsewhere; Y92.89 Other specified places as the place of occurrence of the external cause
CPT/HCPCS: 36415; 70450; 71010; 80048; 80053; 80061; 80164; 80307; 81001; 82306; 82607; 83036; 83540; 83550; 83735; 84436; 84443; 84480; 84484; 85025; 85610; 85651; 85730; 86593; 87086; 93005; 96365; 96366; 96372; J1200; J2060; J3490; Q0177; 99285-25; G0479; J7030